=== PATIENT | male | born 1945 | race Caucasian/White ===

== ENCOUNTER 2018-07-12 13:14 | Inpatient (IN) | payer MEDICARE ==
[2018-07-12 13:41] LABS: Glucose,Whole Blood 147 mg/dL (75-99)
--- NOTE | 2018-07-12 13:53 | ED ---
General Adult HPI - General Chief complaint: Weakness Stated complaint: Poss stroke Time Seen by Provider: 07/12/18 13:28 Source: patient, family, RN notes reviewed Mode of arrival: ambulatory Limitations: no limitations - History of Present Illness Initial comments: Patient is a pleasant 73-year-old male presenting to the emergency Department with complaints of speech problems and left arm weakness. Last known well was midnight or 1 AM. Patient awoke around 10 AM this morning with symptoms. Symptoms have slightly improved since that time. Patient has paresthesias of his left hand and left wrist. Patient states it is somewhat difficult to control his left arm. Patient states he was told he sounds like he is slurring and his speech is somewhat delayed. Family is present and confirms this. Patient does have history of similar symptoms approximately one year ago associated with TIA. No leg weakness or paresthesia. - Related Data Home Medications Medication Instructions Recorded Confirmed Aspirin [[place] Aspirin EC] 81 mg PO DAILY 07/12/18 07/12/18 Atorvastatin [Lipitor] 20 mg PO DAILY 07/12/18 07/12/18 Clopidogrel [Plavix] 75 mg PO DAILY 07/12/18 07/12/18 Lisinopril [Zestril] 10 mg PO DAILY 07/12/18 07/12/18 Metoprolol Tartrate [Lopressor] 25 mg PO BID 07/12/18 07/12/18 PARoxetine [Paxil] 20 mg PO BID 07/12/18 07/12/18 Ranitidine HCl [Zantac] 150 mg PO HS 07/12/18 07/12/18 glipiZIDE [Glucotrol] 10 mg PO BID 07/12/18 07/12/18 metFORMIN HCL [Glucophage] 1,000 mg PO BID 07/12/18 07/12/18 Allergies Allergy/AdvReac Type Severity Reaction Status Date / Time No Known Allergies Allergy Verified 07/12/18 14:12 Review of Systems ROS Statement: Those systems with pertinent positive or pertinent negative responses have been documented in the HPI. ROS Other: All systems not noted in ROS Statement are negative. Constitutional: Denies: fever Eyes: Denies: eye pain ENT: Denies: ear pain Respiratory: Denies: cough Cardiovascular: Denies: chest pain Endocrine: Denies: fatigue Gastrointestinal: Denies: abdominal pain Genitourinary: Denies: dysuria Musculoskeletal: Denies: back pain Skin: Denies: rash Neurological: Reports: weakness, paresthesias. Denies: headache, confusion Past Medical History Past Medical History: Chest Pain / Angina, CVA/TIA, Diabetes Mellitus History of Any Multi-Drug Resistant Organisms: None Reported Past Surgical History: Cardiac Valve Replacement Past Psychological History: Bipolar Smoking Status: Current every day smoker Past Alcohol Use History: None Reported Past Drug Use History: None Reported General Exam Limitations: no limitations General appearance: alert, in no apparent distress Head exam: Present: atraumatic Eye exam: Present: normal appearance, PERRL ENT exam: Present: normal oropharynx Neck exam: Present: normal inspection Respiratory exam: Present: normal lung sounds bilaterally Cardiovascular Exam: Present: regular rate, normal rhythm GI/Abdominal exam: Present: soft. Absent: tenderness Extremities exam: Present: normal inspection. Absent: pedal edema, calf tenderness Neurological exam: Present: alert, CN II-XII intact (Except for left facial droop) Expanded Neurological exam: Present: protecting the airway, other (Minimal slurred speech is apparent) Patient oriented to: Present: person, place, time Cranial nerves: Facial Sensation: Normal Cerebellar function: Finger to Nose: Normal Sensory exam: Upper Extremity Light Touch: Normal, Lower Extremity Light Touch: Normal Motor strength exam: RUE: 5, LUE: 4, RLE: 5, LLE: 5 Eye Response: (4) open spontaneously Motor Response: (6) obeys commands Verbal Response: (5) oriented Psychiatric exam: Present: normal affect, normal mood Skin exam: Present: normal color Course Vital Signs 07/12/18 07/12/18 07/12/18 13:17 13:30 13:45 Temperature 97.5 F L Pulse Rate 57 L 53 L 59 L Respiratory 18 18 18 Rate Blood Pressure 160/83 100/71 100/71 O2 Sat by Pulse 98 97 96 Oximetry 07/12/18 07/12/18 14:00 14:15 Temperature Pulse Rate 54 L 56 L Respiratory 18 12 Rate Blood Pressure 100/71 124/59 O2 Sat by Pulse 96 96 Oximetry - Reevaluation(s) Reevaluation #1: 07/12/18 14:10 There is some question as onset of possibly 10 AM. Patient is now 4 hours and 10 minutes passed this questionable time. Patient does have a history of both diabetes and previous stroke and does not meet criteria for extension past 3 hours based on hospital protocol. In addition CT has just been done and would be difficult to have radiologist report done as well as TPA provided in less than 20 minutes. 07/12/18 14:14 Patient and both confirm that symptoms were present when he awoke this morning at 10:00. EKG Findings - EKG Comments: EKG Findings:: Sinus bradycardia 56. RI 146. QRS 94. QT 420. QTc 413. Normal axis. Inferior Q waves. No acute ST change. Medical Decision Making - Medical Decision Making Patient reevaluated and unchanged. Patient and family updated on results and plan. Case was discussed in detail with Dr. Gage, who will admit for hospital call. - Lab Data Result diagrams: 07/12/18 13:44 07/12/18 13:44 Lab Results 07/12/18 07/12/18 07/12/18 Range/Units 13:39 13:44 13:44 WBC 8.5 (3.8-10.6) k/uL RBC 4.58 (4.30-5.90) m/uL Hgb 13.6 (13.0-17.5) gm/dL Hct 40.5 (39.0-53.0) % MCV 88.4 (80.0-100.0) fL MCH 29.7 (25.0-35.0) pg MCHC 33.6 (31.0-37.0) g/dL RDW 14.0 (11.5-15.5) % Plt Count 230 (150-450) k/uL Neutrophils % 71 % Lymphocytes % 21 % Monocytes % 4 % Eosinophils % 3 % Basophils % 1 % Neutrophils # 6.1 (1.3-7.7) k/uL Lymphocytes # 1.8 (1.0-4.8) k/uL Monocytes # 0.3 (0-1.0) k/uL Eosinophils # 0.2 (0-0.7) k/uL Basophils # 0.1 (0-0.2) k/uL PT (9.0-12.0) sec INR (<1.2) APTT (22.0-30.0) sec Sodium (137-145) mmol/L Potassium (3.5-5.1) mmol/L Chloride (98-107) mmol/L Carbon Dioxide (22-30) mmol/L Anion Gap mmol/L BUN (9-20) mg/dL Creatinine (0.66-1.25) mg/dL Est GFR (CKD-EPI)AfAm (>60 ml/min/1.73 sqM) Est GFR (CKD-EPI)NonAf (>60 ml/min/1.73 sqM) Glucose (74-99) mg/dL POC Glucose (mg/dL) 147 H (75-99) mg/dL POC Glu Mri Manager ID Woody Mcconnell Calcium (8.4-10.2) mg/dL Total Bilirubin (0.2-1.3) mg/dL AST (17-59) U/L ALT (21-72) U/L Alkaline Phosphatase (38-126) U/L Total Creatine Kinase 42 L (55-170) U/L CK-MB (CK-2) 0.6 (0.0-2.4) ng/mL CK-MB (CK-2) Rel Index 1.4 Troponin I <0.012 (0.000-0.034) ng/mL Total Protein (6.3-8.2) g/dL Albumin (3.5-5.0) g/dL 07/12/18 07/12/18 Range/Units 13:44 13:44 WBC (3.8-10.6) k/uL RBC (4.30-5.90) m/uL Hgb (13.0-17.5) gm/dL Hct (39.0-53.0) % MCV (80.0-100.0) fL MCH (25.0-35.0) pg MCHC (31.0-37.0) g/dL RDW (11.5-15.5) % Plt Count (150-450) k/uL Neutrophils % % Lymphocytes % % Monocytes % % Eosinophils % % Basophils % % Neutrophils # (1.3-7.7) k/uL Lymphocytes # (1.0-4.8) k/uL Monocytes # (0-1.0) k/uL Eosinophils # (0-0.7) k/uL Basophils # (0-0.2) k/uL PT 10.1 (9.0-12.0) sec INR 0.9 (<1.2) APTT 23.4 (22.0-30.0) sec Sodium 139 (137-145) mmol/L Potassium 4.6 (3.5-5.1) mmol/L Chloride 110 H (98-107) mmol/L Carbon Dioxide 22 (22-30) mmol/L Anion Gap 7 mmol/L BUN 18 (9-20) mg/dL Creatinine 1.06 (0.66-1.25) mg/dL Est GFR (CKD-EPI)AfAm 82 (>60 ml/min/1.73 sqM) Est GFR (CKD-EPI)NonAf 71 (>60 ml/min/1.73 sqM) Glucose 158 H (74-99) mg/dL POC Glucose (mg/dL) (75-99) mg/dL POC Glu Mri Manager ID Calcium 9.1 (8.4-10.2) mg/dL Total Bilirubin 0.5 (0.2-1.3) mg/dL AST 14 L (17-59) U/L ALT 19 L (21-72) U/L Alkaline Phosphatase 93 (38-126) U/L Total Creatine Kinase (55-170) U/L CK-MB (CK-2) (0.0-2.4) ng/mL CK-MB (CK-2) Rel Index Troponin I (0.000-0.034) ng/mL Total Protein 6.5 (6.3-8.2) g/dL Albumin 3.7 (3.5-5.0) g/dL - Radiology Data Radiology results: report reviewed (Computed tomography scan of the brain shows probable cyst. Area of cortical hypodensity suggesting chronic encephalomalacia. Acute to subacute ischemia consider less likely. This is the right frontal lobe.) Disposition Clinical Impression: CVA (cerebral vascular accident) Disposition: ADMITTED IP TO THIS HOSP Is patient prescribed a controlled substance at d/c from ED?: No Referrals: Nonstaff,Physician [Primary Care Provider] - 1-2 days Decision Time: 14:45
[2018-07-12 14:02] LABS: Basophils # (A) 0.1 k/uL (0-0.2); Basophils % (A) 1 %; Eosinophils # (A) 0.2 k/uL (0-0.7); Eosinophils % (A) 3 %; HCT 40.5 % (39.0-53.0); HGB 13.6 gm/dL (13.0-17.5); Lymphocytes # (A) 1.8 k/uL (1.0-4.8); Lymphocytes % (A) 21 %; MCH 29.7 pg (25.0-35.0); MCHC 33.6 g/dL (31.0-37.0); MCV 88.4 fL (80.0-100.0); Mean Platelet Volume 6.8; Monocytes # (A) 0.3 k/uL (0-1.0); Monocytes % (A) 4 %; Neutrophils # (A) 6.1 k/uL (1.3-7.7); Neutrophils % (A) 71 %; Platelet Count 230 k/uL (150-450); RBC 4.58 m/uL (4.30-5.90); WBC 8.5 k/uL (3.8-10.6)
[2018-07-12 14:10] LABS: INR 0.9 (<1.2); Partial Thromboplastin Time 23.4 sec (22.0-30.0); Prothrombin Time 10.1 sec (9.0-12.0)
[2018-07-12 14:11] LABS: Albumin 3.7 g/dL (3.5-5.0); Calcium 9.1 mg/dL (8.4-10.2); Potassium 4.6 mmol/L (3.5-5.1); Total Bilirubin 0.5 mg/dL (0.2-1.3); Total Protein 6.5 g/dL (6.3-8.2)
[2018-07-12 14:20] LABS: Creatine Kinase 42 U/L (55-170)
[2018-07-12 14:33] LABS: Creatine Kinase MB 0.6 ng/mL (0.0-2.4); Troponin I <0.012 ng/mL (0.000-0.034)
--- NOTE | 2018-07-12 14:33 | CT ---
EXAMINATION TYPE: CT brain wo con DATE OF EXAM: 07/12/2018 COMPARISON: None HISTORY: 73-year-old male neurologic deficits, Left side weakness and slurred speech. TECHNIQUE: Examination was done in axial plane without intravenous contrast. Coronal and sagittal r econstructions performed. CT DLP: 1080 mGycm Automated exposure control for dose reduction was used. FINDINGS: There is no evidence of acute intracranial hemorrhage, acute ischemic changes, mass, mass-effect, or extra-axial fluid collection. There is no effacement of cerebral sulci or basal subarachnoid cister ns. There is no hydrocephalus. There is no midline shift. Martinez-white matter distinction is preserv ed. Moderate atherosclerotic calcifications within the carotid siphons. Benign basal ganglionic calcifica tions. Tiny rounded density at the foramen magnum measuring 4 mm, refer to sagittal image 26 and axia l image 27. There is no hydrocephalus. Cortical hypodensity lateral right frontal lobe that has simil ar density as compared to CSF suggesting encephalomalacia related to prior infarct, refer to axial im ages 36 through 29. Otherwise, no loss of martinez-white matter differentiation otherwise seen. Mild gene ralized supratentorial volume loss. Mastoid air cells are pneumatized. Scattered mild mucosal thickening ethmoid air cells. IMPRESSION: 1. Cortical hypodensity lateral right frontal lobe shows similar attenuation as CSF suggesting chroni c encephalomalacia relating to a prior cortical stroke. More acute to subacute ischemia here is consi dered less likely given the density. No acute intracranial abnormality seen. If concern for subtle ac [place] ischemia, follow-up MRI. 2. 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 There is no hydrocephalus. If MRI not performed now, consider six-month follow-up MRI to reassess.
--- NOTE | 2018-07-12 14:44 | P.HPIM ---
History of Present Illness 73-year-old male came to emergency department with compensative from a speech problem and left arm weakness which started today morning and he felt like his left wrist is completely asleep. Patient's speech is still abnormal but bit better. Denied any fever chills headache nausea vomiting patient Continues to smoke and is a diabetic does have high cholesterol which is under control as per the patient denied any previous history of TIA he did tell me that he had coronary artery disease as well. Distributed the CAT scan of the head which is showing possibility of chronic to subacute right frontal ischemic area. His symptomatology can be explained from these findings on the CAT scan because of which I believe patient may have an acute stroke history of CD5 findings of subacute to chronic ischemic changes on the CAT scan. I'll obtain a MRI of brain. Statin dose will be increased to 40 patient is already on Plavix and aspirin at home which will be continued. Speech therapy occupational therapy physical therapy will evaluate the patient along with neurology. The angios the head and neck was done the results is still pending. ER physician will discuss with the neurointensive rest on telemetry medicine monitor to make sure patient will not need TPA at this time. Review of Systems REVIEW OF SYSTEMS: CONSTITUTIONAL: No fever, no malaise, no fatigue. HEENT: No recent visual problems or hearing problems. Denied any sore throat. CARDIOVASCULAR: No chest pain, orthopnea, PND, no palpitations, no syncope. PULMONARY: No shortness of breath, no cough, no hemoptysis. GASTROINTESTINAL: No diarrhea, no nausea, no vomiting, no abdominal pain. NEUROLOGICAL: Patient was having mild headache HEMATOLOGICAL: Denies any bleeding or petechiae. GENITOURINARY: Denies any burning micturition, frequency, or urgency. MUSCULOSKELETAL/RHEUMATOLOGICAL: Denies any joint pain, swelling, or any muscle pain. ENDOCRINE: Denies any polyuria or polydipsia. The rest of the 14-point review of systems is negative. Past Medical History Past Medical History: Chest Pain / Angina, CVA/TIA, Diabetes Mellitus History of Any Multi-Drug Resistant Organisms: None Reported Past Surgical History: Cardiac Valve Replacement Past Psychological History: Bipolar Smoking Status: Current every day smoker Past Alcohol Use History: None Reported Past Drug Use History: None Reported Medications and Allergies Home Medications Medication Instructions Recorded Confirmed Type Aspirin [[place] Aspirin EC] 81 mg PO DAILY 07/12/18 07/12/18 History Atorvastatin [Lipitor] 20 mg PO DAILY 07/12/18 07/12/18 History Clopidogrel [Plavix] 75 mg PO DAILY 07/12/18 07/12/18 History Lisinopril [Zestril] 10 mg PO DAILY 07/12/18 07/12/18 History Metoprolol Tartrate [Lopressor] 25 mg PO BID 07/12/18 07/12/18 History PARoxetine [Paxil] 20 mg PO BID 07/12/18 07/12/18 History Ranitidine HCl [Zantac] 150 mg PO HS 07/12/18 07/12/18 History glipiZIDE [Glucotrol] 10 mg PO BID 07/12/18 07/12/18 History metFORMIN HCL [Glucophage] 1,000 mg PO BID 07/12/18 07/12/18 History Allergies Allergy/AdvReac Type Severity Reaction Status Date / Time No Known Allergies Allergy Verified 07/12/18 14:12 Physical Exam Vitals: Vital Signs Temp Pulse Resp BP Pulse Ox 07/12/18 14:15 56 L 12 124/59 96 07/12/18 14:00 54 L 18 100/71 96 07/12/18 13:45 59 L 18 100/71 96 07/12/18 13:30 53 L 18 100/71 97 07/12/18 13:17 97.5 F L 57 L 18 160/83 98 Intake and Output 07/11/18 07/12/18 07/12/18 22:59 06:59 14:59 Other: Weight 81.647 kg PHYSICAL EXAMINATION: GENERAL: The patient is alert and oriented x3, not in any acute distress. Well developed, well nourished. HEENT: Pupils are round and equally reacting to light. EOMI. No scleral icterus. No conjunctival pallor. Normocephalic, atraumatic. No pharyngeal erythema. No thyromegaly. CARDIOVASCULAR: S1 and S2 present. No murmurs, rubs, or gallops. PULMONARY: Chest is clear to auscultation, no wheezing or crackles. ABDOMEN: Soft, nontender, nondistended, normoactive bowel sounds. No palpable organomegaly. MUSCULOSKELETAL: No joint swelling or deformity. EXTREMITIES: No cyanosis, clubbing, or pedal edema. NEUROLOGICAL: She does have significant weakness in the left arm and has strength of 4+/5 by strength and 5/5 strength in the left leg. Patient does have facial droop towards the right side along with some speech abnormality SKIN: No rashes. Results CBC & Chem 7: 07/12/18 13:44 07/12/18 13:44 Labs: Abnormal Lab Results - Last 24 Hours (Table) 07/12/18 07/12/18 07/12/18 Range/Units 13:39 13:44 13:44 Chloride 110 H (98-107) mmol/L Glucose 158 H (74-99) mg/dL POC Glucose (mg/dL) 147 H (75-99) mg/dL AST 14 L (17-59) U/L ALT 19 L (21-72) U/L Total Creatine Kinase 42 L (55-170) U/L Assessment and Plan Plan: -Possible stroke involving the right frontoparietal cortex in the right middle cerebral artery territory involving the motor cortex that his Broca's area. Although patient is a right-handed male. Patient will be continued on antiplatelet therapy statin neurology consultation obtain an MRA of the pain he rates CT angios results and will make sure patient not a candidate for TPA. Counseling regarding nicotine cessation was provided occupational therapy physical therapy and speech therapy will evaluate the patient. Echocardiogram will be obtained a little will be obtained for tomorrow morning -Type 2 diabetes mellitus: Metformin will be held patient will be on sliding scale insulin along with glipizide patient will be started on diet once he passes a bedside swallow. -Hyperlipidemia -Coronary artery disease continue with beta alyson and urine antiplatelet therapy.
[2018-07-12] MEDS ORDERED: ASPIRIN 325 MG TAB PO STA (14:45)
--- NOTE | 2018-07-12 14:53 | CT ---
EXAMINATION TYPE: CT angio head neck DATE OF EXAM: 07/12/2018 COMPARISON: None HISTORY: 73-year-old male left-sided weakness and slurred speech TECHNIQUE: Contiguous axial scanning of the head and neck performed with IV Contrast, patient injecte d with 65 mL of Isovue 370. Coronal/sagittal MIP reconstructions performed. 3-D reconstructions gener ated on a dedicated independent workstation. CT DLP: 403.9 Automated exposure control for dose reduction was used. FINDINGS: Neck: Mild emphysematous change in the visualized upper lungs. Some prominent mediastinal lymph nodes, part ially visualized left paratracheal measuring up to 1.1 cm. There is very direct takeoff of the left vertebral artery directly from the aortic arch. Moderate atherosclerotic narrowing at the origin of the right vertebral artery and mild at the origin of the left vertebral artery. The right vertebral artery is dominant and both vessels are patent thr oughout the course. Mild atherosclerotic plaque at the origin of the right brachiocephalic artery. The right common carot id artery is patent. Circumferential atherosclerotic plaque in the right carotid bulb causing mild, just under 50% stenosi s. However, just above, in the proximal right ICA, there is a second irregular narrowing secondary to atherosclerotic plaque located approximately 1.5 cm above the bifurcation with a moderate, just unde r 70% stenosis. Distal cervical right ICA is tortuous. Left common carotid artery is patent. Moderate atherosclerotic change at the left bifurcation with mi ld, just under 50% narrowing of the proximal left internal carotid artery. Additional atherosclerotic calcification is present along the upper left ICA without significant narrowing. Head: Right vertebral artery is dominant. There is moderate focal narrowing at the proximal V4 segment left vertebral artery. The basilar artery is relatively small in caliber. Prominent bilateral posterior c ommunicating arteries. Moderate atherosclerotic calcification and narrowing throughout the carotid siphons without large ves saul intracranial occlusion. There is a focal severe stenosis involving the M2 segment inferior division right MCA only apparent o n the 3-D reconstructions. No aneurysmal change seen. IMPRESSION: HEAD: 1. DOMINANT RIGHT VERTEBRAL ARTERY WITH A MODERATE FOCAL NARROWING AT THE PROXIMAL V4 SEGMENT LEFT VE RTEBRAL ARTERY. THE BASILAR ARTERY IS RELATIVELY SMALL IN CALIBER. CORRELATE FOR ANY CHRONIC SYMPTOMS OF VERTEBROBASILAR INSUFFICIENCY. 2. FOCAL SEVERE STENOSIS INVOLVING THE M2 SEGMENT INFERIOR DIVISION RIGHT MCA ONLY APPARENT ON THE 3- D RECONSTRUCTIONS. 3. OTHERWISE, NO LARGE VESSEL INTRACRANIAL OCCLUSION. NECK: 1. ON THE RIGHT, THERE IS CIRCUMFERENTIAL ATHEROSCLEROTIC PLAQUE AT THE RIGHT CAROTID BULB CAUSING MN LD, JUST UNDER 50% STENOSIS. HOWEVER, JUST ABOVE, LOCATED 1.5 CM ABOVE THE BIFURCATION, THERE IS MODE RATE, JUST UNDER 70% STENOSIS IN THE PROXIMAL RIGHT ICA. 2. ON THE LEFT, THERE IS MODERATE ATHEROSCLEROTIC CHANGE CAUSING MILD, JUST UNDER 50% PROXIMAL LEFT I CA STENOSIS.
--- NOTE | 2018-07-12 15:28 | XR ---
EXAMINATION TYPE: XR chest 2V DATE OF EXAM: 07/12/2018 COMPARISON: None HISTORY: 73-year-old male confusion, altered mental status TECHNIQUE: AP and lateral views FINDINGS: Heart normal size. Aorta within normal limits. Mild interstitial prominence. Median sternotomy wires are present. No consolidation or pleural effusion. IMPRESSION: Interstitial prominence. Possible bronchitis or asthma. No focal infiltrate.
[2018-07-12] MEDS: HEPARIN SODIUM,PORCINE 5,000 UNIT/ML 1 ML VIAL SQ SCH ×2 (16:12→23:49)
--- NOTE | 2018-07-12 17:17 | P.CNNES ---
History of Present Illness Consult date: 07/12/18 History of Present Illness: The patient is a 73-year-old man who states he woke up around 10 AM and noticed his left hand was weak and numb. He also noticed some slurred speech. He states the weakness has improved slightly but he still feels slight numbness around the left wrist. His states his speech has improved some but there is still a slight slur. Patient gives a history of stroke one year ago where he when he was hospitalized at [facility] with slurred speech. The patient states he has been taking his Plavix and aspirin. His stroke risk factors includes heart disease and diabetes and smoking. Next In the emergency room the patient was found not to be a candidate for TPA. His EKG showed showed sinus bradycardia at 56. His CAT scan of the brain showed hypodensity in the right frontal lobe suggesting prior infarct. So present was a small colloid cyst. Patient had a CTA angiogram of the head and neck in the emergency room. This showed just under 50% stenosis of the right carotid bulb and a second irregular narrowing secondary to plaque approximately moderate degree just under 70% stenosis at the bifurcation. Review of Systems Constitutional: Denies chills, Denies fever Eyes: denies blurred vision, denies pain Ears, nose, mouth and throat: Denies headache, Denies sore throat Cardiovascular: Denies chest pain, Denies shortness of breath Respiratory: Denies cough Gastrointestinal: Denies abdominal pain, Denies diarrhea, Denies nausea, Denies vomiting Musculoskeletal: Denies myalgias Neurological: Denies numbness, Denies weakness Psychiatric: Denies anxiety, Denies depression Past Medical History Past Medical History: Chest Pain / Angina, CVA/TIA, Diabetes Mellitus History of Any Multi-Drug Resistant Organisms: None Reported Past Surgical History: Cardiac Valve Replacement Past Psychological History: Bipolar Smoking Status: Current every day smoker Past Alcohol Use History: None Reported Past Drug Use History: None Reported Medications and Allergies Home Medications Medication Instructions Recorded Confirmed Type Aspirin [[place] Aspirin EC] 81 mg PO DAILY 07/12/18 07/12/18 History Atorvastatin [Lipitor] 20 mg PO DAILY 07/12/18 07/12/18 History Clopidogrel [Plavix] 75 mg PO DAILY 07/12/18 07/12/18 History Lisinopril [Zestril] 10 mg PO DAILY 07/12/18 07/12/18 History Metoprolol Tartrate [Lopressor] 25 mg PO BID 07/12/18 07/12/18 History PARoxetine [Paxil] 20 mg PO BID 07/12/18 07/12/18 History Ranitidine HCl [Zantac] 150 mg PO HS 07/12/18 07/12/18 History glipiZIDE [Glucotrol] 10 mg PO BID 07/12/18 07/12/18 History metFORMIN HCL [Glucophage] 1,000 mg PO BID 07/12/18 07/12/18 History Allergies Allergy/AdvReac Type Severity Reaction Status Date / Time No Known Allergies Allergy Verified 07/12/18 14:12 Physical Examination - Vital Signs Vital Signs: Vital Signs Temp Pulse Resp BP Pulse Ox 07/12/18 16:08 50 L 18 139/81 98 07/12/18 14:15 56 L 12 124/59 96 07/12/18 14:00 54 L 18 100/71 96 07/12/18 13:45 59 L 18 100/71 96 07/12/18 13:30 53 L 18 100/71 97 07/12/18 13:17 97.5 F L 57 L 18 160/83 98 Intake and Output 07/12/18 07/12/18 07/12/18 06:59 14:59 22:59 Other: Weight 81.647 kg - Constitutional General appearance: cooperative - EENT EENT: PERRL - Respiratory Respiratory: lungs clear - Cardiovascular Cardiovascular: regular rate, normal S1, normal S2 - Integumentary Integumentary: normal - Neurologic Neurologic examination: Mental status: He was awake alert and oriented 3. He had minimal slurred speech. There was no aphasia or dysarthria. Cranial nerve examination: Cranial nerves II through XII grossly intact except for mild left facial droop Motor examination: There was a left arm drift and minimal weakness in the left hand Sensory examination: Intact Deep tendon reflexes: Intact Gait: Not tested Cranial nerve examination: PERRL, EOMI Results - Laboratory Findings CBC and BMP: 07/12/18 13:44 07/12/18 13:44 Abnormal Lab Findings: Abnormal Labs 07/12/18 07/12/18 07/12/18 13:39 13:44 13:44 Chloride 110 H Glucose 158 H POC Glucose (mg/dL) 147 H AST 14 L ALT 19 L Total Creatine Kinase 42 L Assessment and Plan (1) CVA (cerebral vascular accident) Current Visit: Yes Status: Acute SNOMED Code(s): 253563356 Plan: The patient is a 73-year-old man admitted to the hospital with left hand weakness and numbness. On neurologic examination the patient has slurred speech and left hand weakness and facial droop. The patient has likely had a right subcortical infarct. The patient is currently on Plavix and aspirin. We will consider increasing aspirin dose to 325 mg. The patient was found not to be a TPA candidate in the emergency room. Recommend further evaluation with MRI and MRA of the brain. Recommend echocardiogram and cardiology evaluation. The patient was strongly advised to stop smoking. His risk factors for stroke include, prior stroke, heart disease diabetes and smoking
[2018-07-12] MEDS: glipiZIDE 10 MG TAB PO SCH (17:20)
[2018-07-12] MEDS: INSULIN ASPART 100 UNIT/ML 1 ML 10 ML VIAL SQ SCH ×2 (17:20→21:04)
[2018-07-12 17:26] LABS: Glucose,Whole Blood 118 mg/dL (75-99)
[2018-07-12 20:32] LABS: Glucose,Whole Blood 199 mg/dL (75-99)
[2018-07-12] MEDS: PARoxetine 20 MG TAB PO SCH (21:04)
[2018-07-12] MEDS: METOPROLOL TARTRATE 25 MG TAB PO SCH (21:04)
[2018-07-12] MEDS: FAMOTIDINE 20 MG TAB PO SCH (21:04)
[2018-07-12] MEDS: SODIUM CHLORIDE 0.9% 1,000 ML IV SCH ×2 (21:12→23:51)
[2018-07-13 06:01] LABS: Glucose,Whole Blood 128 mg/dL (75-99)
[2018-07-13] MEDS: INSULIN ASPART 100 UNIT/ML 1 ML 10 ML VIAL SQ SCH ×4 (06:22→21:40)
[2018-07-13] MEDS: glipiZIDE 10 MG TAB PO SCH ×2 (07:07→17:14)
[2018-07-13 07:34] LABS: Cholesterol 143 mg/dL (<200); HDL Cholesterol 32 mg/dL (40-60); LDL Cholesterol,Calculated 83 mg/dL (0-99); Triglycerides 142 mg/dL (<150)
[2018-07-13] MEDS: PARoxetine 20 MG TAB PO SCH ×2 (09:36→21:40)
[2018-07-13] MEDS: CLOPIDOGREL 75 MG TAB PO SCH (09:36)
[2018-07-13] MEDS: ASPIRIN 325 MG TAB PO SCH (09:36)
[2018-07-13] MEDS: HEPARIN SODIUM,PORCINE 5,000 UNIT/ML 1 ML VIAL SQ SCH ×3 (09:36→23:10)
[2018-07-13] MEDS: METOPROLOL TARTRATE 25 MG TAB PO SCH (09:36)
[2018-07-13] MEDS: ATORVASTATIN 40 MG TAB PO SCH (09:36)
--- NOTE | 2018-07-13 11:04 | P.PN ---
Subjective Patient is admitted with symptoms of slurred speech and left hand and face weakness. Patient's weakness did improve a little bit compared to yesterday. Echocardiac time is still pending MRA is pending at this time neurology evaluated the patient patient is on dual antiplatelet therapy along with a statin continues to smoke smoking cessation counseling was provided. Patient had CT angios the head and neck which did show some stenosis the right middle cerebral artery territories and the there is around 70% stenosis in the right internal carotid and 50% on the left carotid. Constitutional: Denied any fatigue denied any fever. Cardio vascular: denied any chest pain, palpitations Gastrointestinal denied any nausea vomiting Pulmonary: Denied any shortness of breath cough Neurologic denied any new focal deficits All inpatient medications were reviewed and appropriate changes in these medications as dictated in the interval history and assessment and plan. Objective - Vital Signs Vital signs: Vital Signs Temp 98.2 F 07/13/18 08:00 Pulse 52 L 07/13/18 08:00 Resp 18 07/13/18 08:00 BP 127/59 07/13/18 08:00 Pulse Ox 97 07/13/18 08:00 Intake & Output 07/12/18 07/13/18 07/13/18 18:59 06:59 18:59 Intake Total 1900 240 Balance 1900 240 Weight 81.647 kg 80.3 kg Intake: Intake, IV Titration 1000 Amount Sodium Chloride 0.9% 1, 1000 000 ml @ 100 mls/hr IV . Q10H [facility] Rx#:[id number] Oral 900 240 Other: Voiding Method Toilet Toilet Toilet # Voids 2 - Exam PHYSICAL EXAMINATION: GENERAL: The patient is alert and oriented x3, not in any acute distress. Well developed, well nourished. HEENT: Pupils are round and equally reacting to light. EOMI. No scleral icterus. No conjunctival pallor. Normocephalic, atraumatic. No pharyngeal erythema. No thyromegaly. CARDIOVASCULAR: S1 and S2 present. No murmurs, rubs, or gallops. PULMONARY: Chest is clear to auscultation, no wheezing or crackles. ABDOMEN: Soft, nontender, nondistended, normoactive bowel sounds. No palpable organomegaly. MUSCULOSKELETAL: No joint swelling or deformity. EXTREMITIES: No cyanosis, clubbing, or pedal edema. NEUROLOGICAL: She does have significant weakness in the left arm and has strength of 4+/5 by strength and 5/5 strength in the left leg. Patient does have facial droop towards the right side along with some speech abnormality patient's symptoms of for speech abnormality and the left, weakness may be a little bit better SKIN: No rashes. - Labs CBC & Chem 7: 07/12/18 13:44 07/12/18 13:44 Labs: Abnormal Lab Results - Last 24 Hours (Table) 07/12/18 07/12/18 07/12/18 Range/Units 13:39 13:44 13:44 Chloride 110 H (98-107) mmol/L Glucose 158 H (74-99) mg/dL POC Glucose (mg/dL) 147 H (75-99) mg/dL AST 14 L (17-59) U/L ALT 19 L (21-72) U/L Total Creatine Kinase 42 L (55-170) U/L HDL Cholesterol (40-60) mg/dL 07/12/18 07/12/18 07/13/18 Range/Units 17:17 20:29 05:59 Chloride (98-107) mmol/L Glucose (74-99) mg/dL POC Glucose (mg/dL) 118 H 199 H 128 H (75-99) mg/dL AST (17-59) U/L ALT (21-72) U/L Total Creatine Kinase (55-170) U/L HDL Cholesterol (40-60) mg/dL 07/13/18 Range/Units 06:53 Chloride (98-107) mmol/L Glucose (74-99) mg/dL POC Glucose (mg/dL) (75-99) mg/dL AST (17-59) U/L ALT (21-72) U/L Total Creatine Kinase (55-170) U/L HDL Cholesterol 32 L (40-60) mg/dL Assessment and Plan Plan: -Possible stroke involving the right frontoparietal cortex in the right middle cerebral artery territory involving the motor cortex that his Broca's area. Although patient is a right-handed male. Patient will be continued on antiplatelet therapy statin neurology consultation obtain an MRA of the pain he rates CT angios results and will make sure patient not a candidate for TPA. Counseling regarding nicotine cessation was provided occupational therapy physical therapy and speech therapy will evaluate the patient. Echocardiogram will be obtained a little will be obtained for tomorrow morning -Type 2 diabetes mellitus: Metformin will be held patient will be on sliding scale insulin along with glipizide patient will be started on diet once he passes a bedside swallow. -Hyperlipidemia -Coronary artery disease continue with beta alyson and urine antiplatelet therapy.
[2018-07-13] MEDS: SODIUM CHLORIDE 0.9% 1,000 ML IV SCH ×2 (11:44→17:15)
[2018-07-13 12:22] LABS: Glucose,Whole Blood 129 mg/dL (75-99)
[2018-07-13 16:57] LABS: Glucose,Whole Blood 121 mg/dL (75-99)
[2018-07-13 20:56] LABS: Glucose,Whole Blood 134 mg/dL (75-99)
--- NOTE | 2018-07-13 21:28 | P.PN ---
Subjective Progress Note Date: 07/13/18 The patient is a 73-year-old man who is mated to the hospital yesterday with left arm numbness and weakness and slurred speech. Today he is feeling much better. Today his speech is more fluent. He is also gained some function in his left hand. The patient denies any new symptoms. He is awaiting MRI and MRA of the brain. The patient is currently on Plavix and aspirin therapy. Objective - Vital Signs Vital signs: Vital Signs Temp 98.1 F 07/13/18 16:00 Pulse 45 L 07/13/18 16:00 Resp 18 07/13/18 16:00 BP 126/59 07/13/18 16:00 Pulse Ox 97 07/13/18 16:00 Intake & Output 07/13/18 07/13/18 07/14/18 06:59 18:59 06:59 Intake Total 1900 960 Balance 1900 960 Weight 80.3 kg Intake: Intake, IV Titration 1000 Amount Sodium Chloride 0.9% 1, 1000 000 ml @ 100 mls/hr IV . Q10H [facility] Rx#:[id number] Oral 900 960 Other: Voiding Method Toilet Toilet # Voids 2 2 - Constitutional General appearance: Present: average body habitus - EENT ENT: Present: hearing grossly normal - Respiratory Respiratory: bilateral: CTA - Cardiovascular Rhythm: regular - Neurologic Neurologic Comment(s): Neurologic examination: Mental status: He was awake alert and oriented 3. His speech was fluent. There was no a aphasia. Next Cranial nerve examination there was very minimal left facial droop Motor examination: Minimal left hand weakness Sensory examination: Intact Gait: Not tested - Labs CBC & Chem 7: 07/12/18 13:44 07/12/18 13:44 Labs: Abnormal Lab Results - Last 24 Hours (Table) 07/13/18 07/13/18 07/13/18 Range/Units 05:59 06:53 12:16 POC Glucose (mg/dL) 128 H 129 H (75-99) mg/dL HDL Cholesterol 32 L (40-60) mg/dL 07/13/18 07/13/18 Range/Units 16:55 20:54 POC Glucose (mg/dL) 121 H 134 H (75-99) mg/dL HDL Cholesterol (40-60) mg/dL Assessment and Plan (1) CVA (cerebral vascular accident) Current Visit: Yes Status: Acute SNOMED Code(s): 647461387 Plan: The patient is a 73-year-old man admitted to the hospital with left hand weakness and numbness. The patient symptoms of weakness and slurred speech of improved today. His risk factors for stroke include, prior stroke, heart disease diabetes and smoking we await MRI and MRA of the brain. Continue Plavix and aspirin.
[2018-07-13] MEDS: FAMOTIDINE 20 MG TAB PO SCH (21:40)
[2018-07-13] MEDS: METOPROLOL TARTRATE 12.5 MG TAB PO SCH (22:47)
[2018-07-14] MEDS: SODIUM CHLORIDE 0.9% 1,000 ML IV SCH (05:00)
[2018-07-14 06:00] LABS: Glucose,Whole Blood 134 mg/dL (75-99)
[2018-07-14] MEDS: INSULIN ASPART 100 UNIT/ML 1 ML 10 ML VIAL SQ SCH ×2 (08:28→12:25)
[2018-07-14] MEDS: ASPIRIN 325 MG TAB PO SCH (08:39)
[2018-07-14] MEDS: HEPARIN SODIUM,PORCINE 5,000 UNIT/ML 1 ML VIAL SQ SCH (08:39)
[2018-07-14] MEDS: CLOPIDOGREL 75 MG TAB PO SCH (08:40)
[2018-07-14] MEDS: PARoxetine 20 MG TAB PO SCH (08:40)
[2018-07-14] MEDS: glipiZIDE 10 MG TAB PO SCH (08:40)
[2018-07-14] MEDS: METOPROLOL TARTRATE 12.5 MG TAB PO SCH (08:40)
[2018-07-14] MEDS: ATORVASTATIN 40 MG TAB PO SCH (08:40)
[2018-07-14 09:56] LABS: Hemoglobin A1C 9.1 % (4.0-6.0)
--- NOTE | 2018-07-14 10:29 | ECHOF ---
Referral Reason:Thrombus MEASUREMENTS -------- HEIGHT: 180.3 cm WEIGHT: 78.9 kg BP: IVSd: 0.9 cm (0.6 - 1.1) LVIDd: 4.3 cm (3.9 - 5.3) LVPWd: 0.9 cm (0.6 - 1.1) IVSs: 1.5 cm LVIDs: 2.5 cm LVPWs: 1.7 cm Ao Diam: 3.0 cm (2.0 - 3.7) AV Cusp: 1.4 cm (1.5 - 2.6) LA Diam: 2.6 cm (2.7 - 3.8) MV EXCURSION: 22.213 mm (> 18.000) MV EF SLOPE: 156 mm/s (70 - 150) EPSS: 0.5 cm MV E Kiko: 1.28 m/s MV DecT: 194 ms MV A Kiko: 0.60 m/s MV E/A Ratio: 2.13 RAP: 5.00 mmHg RVSP: 9.64 mmHg FINDINGS -------- Sinus rhythm. This was a technically difficult study with suboptimal views. The left ventricular size is normal. Left ventricular wall thickness is normal. Overall left vent ricular systolic function is normal with, an EF between 55 - 60 %. The right ventricle is normal in size and function. The left atrium is normal in size. The right atrium is normal in size. xx ml of Lumason was utilized for enhancement of images. The aortic valve was not well visualized. The mitral valve leaflets are mildly thickened. There is trace mitral regurgitation. No regurgitation noted The right ventricular systolic pressure, as measured by Doppler, is 9.64mmHg . Pulmonic valve appears structurally normal. The aortic root size is normal. IVC Not well visulized. The pericardium is normal. CONCLUSIONS -------- 1. Sinus rhythm. 2. This was a technically difficult study with suboptimal views. 3. The left ventricular size is normal. 4. Left ventricular wall thickness is normal. 5. Overall left ventricular systolic function is normal with, an EF between 55 - 60 %. 6. The right ventricle is normal in size and function. 7. The left atrium is normal in size. 8. The right atrium is normal in size. 9. xx ml of Lumason was utilized for enhancement of images. 10. The aortic valve was not well visualized. 11. The mitral valve leaflets are mildly thickened. 12. There is trace mitral regurgitation. 13. No regurgitation noted 14. The right ventricular systolic pressure, as measured by Doppler, is 9.64mmHg. 15. Pulmonic valve appears structurally normal. 16. The aortic root size is normal. 17. IVC Not well visulized. 18. The pericardium is normal. CAPTAIN'S ASSISTANT: Natacha Martínez RDCS
[2018-07-14 10:54] VITALS: RESP 16; TEMP 96.9
--- NOTE | 2018-07-14 11:13 | MR ---
EXAMINATION TYPE: MR angio head wo con DATE OF EXAM: 07/14/2018 COMPARISON: CT angiogram 07/12/2018 HISTORY: stroke TECHNIQUE: Time of flight images focusing on the [place] of Sin were performed without contrast. FINDINGS: Left vertebral artery is diminutive and shows poor signal at the V4 portion, possible steno sis of the right vertebral artery as noted on prior exam at the level of the distal V3, proximal V4 j unction. Anterior circulation is patent, atheromatous changes are present prior to and at the level o f the siphons bilaterally, small focal outpouching in the siphon on the left medial aspect of the int ernal carotid arteries thought to be due to atheromatous change as is a small outpouching laterally. There is no evident dissection or embolus. No evident aneurysm formation. Persistent origin of posterior cerebral artery on the right. IMPRESSION: No evident aneurysm. There are cerebral vascular atheromatous changes as described.
--- NOTE | 2018-07-14 11:20 | MR ---
EXAMINATION TYPE: MR brain wo con DATE OF EXAM: 07/14/2018 COMPARISON: CT brain from 2 days ago. HISTORY: stroke, admitted for left-sided weakness and slurred speech 2 days earlier. TECHNIQUE: Multiplanar, multisequence imaging of the brain and brainstem is performed without IV cont rast. FINDINGS: Diffusion weighted images demonstrate subcortical areas of increased signal on diffusion weighted [place] ges with diminished signal on ABC mapping involving the inferior posterior aspect right frontal lobe seen best near axial image 17 with additional smaller areas of involvement extending superiorly up st ill axial image 25, some involvement of the external capsule is noted. There is additional subcentime ter focus right parietal occipital region axial image 16 noted. No left-sided restricted diffusion is seen. There is no worrisome extra-axial fluid collection. There is ventricular and sulcal prominence consis tent with diffuse cerebral atrophy. There are few scattered small foci T2 hyperintensity throughout t he white matter. Midline structures demonstrate normal morphology. The craniocervical junction appears within normal limits. Normal vascular flow voids are present. The visualized sinuses are clear and the globes are i ntact. IMPRESSION: 1. Multifocal areas of acute infarct in the right brain most prominent involving the right frontal lo be including area suspicious under admission CT 2 days earlier. 2. There is background mild to moderate diffuse cerebral atrophy and mild chronic small vessel ischem ic change.
[2018-07-14 12:01] LABS: Glucose,Whole Blood 160 mg/dL (75-99)
[2018-07-14 12:05] VITALS: BP 156/70; PULSE 48
--- NOTE | 2018-07-14 13:08 | P.DS ---
Providers Date of admission: 07/12/18 14:31 Attending physician: Milagros Gage Consults: 07/12/18 14:34 Consult Physician Routine Consulting Provider: Moe Hoffman Consult Reason/Comments: stroke Do you want consulting provider notified?: Yes Primary care physician: Physician Nonstaff Hospital Course: Patient is admitted with symptoms of slurred speech and left hand and face weakness. Patient's weakness did improve a little bit compared to yesterday. Echocardiac time is still pending MRA is pending at this time neurology evaluated the patient patient is on dual antiplatelet therapy along with a statin continues to smoke smoking cessation counseling was provided. Patient had CT angios the head and neck which did show some stenosis the right middle cerebral artery territories and the there is around 70% stenosis in the right internal carotid and 50% on the left carotid. 07/14/2018 Patient had a brain MRI which did show multiple areas of acute infarct in the right brain prominent in the right frontal lobe which explains his symptoms. Patient weakness did improve almost close to his baseline with 5/5 strength in the left upper limb. If cleared by neurology patient will be discharged today. And is already in aspirin and Plavix will increase the dose of statin patient will was counseled again regarding importance of nicotine cessation. PHYSICAL EXAMINATION: GENERAL: The patient is alert and oriented x3, not in any acute distress. Well developed, well nourished. HEENT: Pupils are round and equally reacting to light. EOMI. No scleral icterus. No conjunctival pallor. Normocephalic, atraumatic. No pharyngeal erythema. No thyromegaly. CARDIOVASCULAR: S1 and S2 present. No murmurs, rubs, or gallops. PULMONARY: Chest is clear to auscultation, no wheezing or crackles. ABDOMEN: Soft, nontender, nondistended, normoactive bowel sounds. No palpable organomegaly. MUSCULOSKELETAL: No joint swelling or deformity. EXTREMITIES: No cyanosis, clubbing, or pedal edema. NEUROLOGICAL: Gross neurological examination did not reveal any focal deficits. SKIN: No rashes. Assessment and Plan Plan: -Possible stroke involving the right frontoparietal cortex in the right middle cerebral artery territory . Although patient is a right-handed male. Patient will be continued on antiplatelet therapy statin . Patient had an MRI and MRA MRA did show multiple areas of acute infarcts in the right frontal lobe which does explain symptoms -Type 2 diabetes mellitus: hemoglobin A1c is 9.70 appears to be noncompliant with this medications to patient blood sugars are well controlled just with the glimepiride here for -Hyperlipidemia -Coronary artery disease continue with beta alyson and urine antiplatelet therapy. Plan - Discharge Summary Discharge Rx Participant: No New Discharge Prescriptions: New Atorvastatin [Lipitor] 40 mg PO DAILY #30 tab Continue metFORMIN HCL [Glucophage] 1,000 mg PO BID glipiZIDE [Glucotrol] 10 mg PO BID Ranitidine HCl [Zantac] 150 mg PO HS PARoxetine [Paxil] 20 mg PO BID Lisinopril [Zestril] 10 mg PO DAILY Clopidogrel [Plavix] 75 mg PO DAILY Aspirin [[place] Aspirin EC] 81 mg PO DAILY Discontinued Metoprolol Tartrate [Lopressor] 25 mg PO BID Atorvastatin [Lipitor] 20 mg PO DAILY Discharge Medication List Aspirin [[place] Aspirin EC] 81 mg PO DAILY 07/12/18 [History] Clopidogrel [Plavix] 75 mg PO DAILY 07/12/18 [History] Lisinopril [Zestril] 10 mg PO DAILY 07/12/18 [History] PARoxetine [Paxil] 20 mg PO BID 07/12/18 [History] Ranitidine HCl [Zantac] 150 mg PO HS 07/12/18 [History] glipiZIDE [Glucotrol] 10 mg PO BID 07/12/18 [History] metFORMIN HCL [Glucophage] 1,000 mg PO BID 07/12/18 [History] Atorvastatin [Lipitor] 40 mg PO DAILY #30 tab 07/14/18 [Rx] Follow up Appointment(s)/Referral(s): Michaeltaff,Physician [Primary Care Provider] - 07/26/18 12:45 pm (Juan Rutledge MD [address] [place], [place] [phone] Please keep previous follow up appointment.) Liz Hoffman MD [STAFF PHYSICIAN] - 1 Week (Office will call back with follow up appointment.) Patient Instructions/Handouts: Heart Healthy Diet (DC), Ischemic Stroke (DC) Discharge Disposition: HOME SELF-CARE
== END 2018-07-14 13:38 | disposition home or self-care (01) | DRG 66 ==
LOC: EC 13:14 → 3SCARD 14:31
PROVIDERS: ADMIT Internal Medicine; ATTEND Internal Medicine
DX: I63.511 Cerebral infarction due to unspecified occlusion or stenosis of right middle cerebral artery (principal); R29.810 Facial weakness; R47.81 Slurred speech; G83.24 Monoplegia of upper limb affecting left nondominant side; R29.704 NIHSS score 4; E11.9 Type 2 diabetes mellitus without complications; E78.5 Hyperlipidemia, unspecified; F17.200 Nicotine dependence, unspecified, uncomplicated; I25.10 Atherosclerotic heart disease of native coronary artery without angina pectoris; I65.21 Occlusion and stenosis of right carotid artery; R00.1 Bradycardia, unspecified; Z95.2 Presence of prosthetic heart valve; Z79.02 Long term (current) use of antithrombotics/antiplatelets; Z79.82 Long term (current) use of aspirin; Z79.84 Long term (current) use of oral hypoglycemic drugs; Z79.899 Other long term (current) drug therapy; Z86.73 Personal history of transient ischemic attack (TIA), and cerebral infarction without residual deficits
CPT/HCPCS: 36415; 70450; 70496; 70498; 70544; 70551; 71046; 80053; 80061; 82550; 82553; 83036; 84484; 85025; 85610; 85730; 93005; 93306; 96372; 99285

== ENCOUNTER → 2019-05-16 | Outpatient (CLI) | payer MEDICARE ==
--- NOTE | 2019-05-18 09:15 | P.ARTDOP ---
Arterial Doppler LOWER EXTREMITY ARTERIAL DOPPLER: DATE OF SERVICE: 05/16/2019 Reason for study: Bilateral leg pain. Doppler waveforms: Multiphasic throughout on the left. Monophasic at right femoral and popliteal and inaudible below. Pulse volume recording: Digital waveforms near normal on the left and flat line on the right. Pressure gradients: None taken due to probable bypass graft on the left. Ankle-brachial indices: []. Toe pressures: [] on the right, [] on the left Impression: Suggests normal or near normal flow on the left. Severe right iliofemoral occlusive disease. Vascular surgical consult recommended..
== END | disposition home or self-care (01) ==
LOC: RADUSWWP 13:21
PROVIDERS: ATTEND Internal Medicine
DX: I73.9 Peripheral vascular disease, unspecified (principal); S76.312A Strain of muscle, fascia and tendon of the posterior muscle group at thigh level, left thigh, initial encounter
CPT/HCPCS: 93923

== ENCOUNTER 2019-06-14 06:09 | Emergency (ER) | payer MEDICARE ==
[2019-06-14] MEDS ORDERED: ONDANSETRON 4 MG/2 ML VIAL IVP STA (06:38)
[2019-06-14] MEDS ORDERED: MORPHINE SULFATE 4 MG/ML SYRINGE IVP STA (06:38)
--- NOTE | 2019-06-14 06:53 | ED ---
Extremity Problem HPI - General Chief complaint: Extremity Problem,Nontraumatic Stated complaint: Bilateral leg pain-diabetic Time Seen by Provider: 06/14/19 06:15 Source: patient, family, RN notes reviewed Mode of arrival: ambulatory Limitations: no limitations - History of Present Illness Initial comments: 74-year-old male presents emergency Department chief complaint of leg pain. Patient has had ongoing progressive leg pain. Patient has had a bypass on his left leg. Patient recently saw vascular surgeon at [facility] in which she had an arterial study. Patient states does not know the results of this. He states his pain does resolve if he stops walking states the pain resolves after about 10 minutes. Patient was given tramadol for his pain. Patient states he is a diabetic and has underlying neuropathy. Patient also states he is a daily smoker. Patient denies any leg swelling, discoloration. - Related Data Home Medications Medication Instructions Recorded Confirmed Aspirin [[place] Aspirin EC] 81 mg PO DAILY 07/12/18 06/14/19 Clopidogrel [Plavix] 75 mg PO DAILY 07/12/18 06/14/19 Lisinopril [Zestril] 10 mg PO DAILY 07/12/18 06/14/19 PARoxetine [Paxil] 20 mg PO BID 07/12/18 06/14/19 Ranitidine HCl [Zantac] 150 mg PO HS 07/12/18 06/14/19 metFORMIN HCL [Glucophage] 1,000 mg PO BID 07/12/18 06/14/19 Previous Rx's Medication Instructions Recorded Atorvastatin [Lipitor] 40 mg PO DAILY #30 tab 07/14/18 Allergies Allergy/AdvReac Type Severity Reaction Status Date / Time No Known Allergies Allergy Verified 06/14/19 06:22 Review of Systems ROS Statement: Those systems with pertinent positive or pertinent negative responses have been documented in the HPI. ROS Other: All systems not noted in ROS Statement are negative. Past Medical History Past Medical History: Chest Pain / Angina, CVA/TIA, Diabetes Mellitus Additional Past Medical History / Comment(s): tia 2017([place]), bipolar depression, diabetic neuropathy lt foot, osteoporosis Last Myocardial Infarction Date:: unk History of Any Multi-Drug Resistant Organisms: None Reported Past Surgical History: Cardiac Valve Replacement Additional Past Surgical History / Comment(s): quad bypass-2016, "sx lt leg- graft to retore criculation", colonoscopy/polypectomy Past Anesthesia/Blood Transfusion Reactions: No Reported Reaction Additional Past Anesthesia/Blood Transfusion Reaction / Comment(s): mild cluasterphobia (mri machines) Past Psychological History: Bipolar Smoking Status: Current every day smoker Past Alcohol Use History: None Reported Past Drug Use History: None Reported - Past Family History Mother Family Medical History: Cancer Father Family Medical History: Coronary Artery Disease (CAD), Myocardial Infarction ([place]) Additional Family Medical History / Comment(s): cabg Sister(s) Family Medical History: Coronary Artery Disease (CAD) Additional Family Medical History / Comment(s): cabg Brother(s) Family Medical History: Coronary Artery Disease (CAD) Additional Family Medical History / Comment(s): cabg General Exam Limitations: no limitations General appearance: alert, in no apparent distress Head exam: Present: atraumatic, normocephalic, normal inspection Eye exam: Present: normal appearance, PERRL, EOMI. Absent: scleral icterus, conjunctival injection, periorbital swelling Respiratory exam: Present: normal lung sounds bilaterally. Absent: respiratory distress, wheezes, rales, rhonchi, stridor Cardiovascular Exam: Present: regular rate, normal rhythm, normal heart sounds. Absent: systolic murmur, diastolic murmur, rubs, gallop, clicks Extremities exam: Present: other (Bilateral lower extremities equal color equal warmth pulse on the left this palpable, Doppler pulse was found on the right dorsal pedis and posterior tibialis faint) Neurological exam: Present: alert, oriented X3 Skin exam: Present: warm, dry, intact, normal color. Absent: rash Course Vital Signs 06/14/19 06/14/19 06:20 08:10 Temperature 97.9 F 97.6 F Pulse Rate 82 88 Respiratory 18 20 Rate Blood Pressure 154/79 181/84 O2 Sat by Pulse 97 96 Oximetry Medical Decision Making - Medical Decision Making 74-year-old male presented to for claudication type pain of his legs this has been ongoing for several weeks to months. I did review prior arterial Doppler study which shows iliofemoral stenosis in which he was supposed to follow-up with [place] surgeon and he has not. Patient does have pulses and equal color equal warmth to his lower extremities I did explain that he needs to stop smoking immediately, he needs to immediately follow up with his vascular surgeon to discuss surgery for a bypass and I did warn him of signs and symptoms of return and concern of possible complete occlusion of his right leg.I counseled the patient for smoking cessation for greater than 3 minutes - Lab Data Result diagrams: 06/14/19 07:01 06/14/19 07:01 Lab Results 06/14/19 06/14/19 06/14/19 Range/Units 07:01 07:01 07:01 WBC 7.6 (3.8-10.6) k/uL RBC 4.37 (4.30-5.90) m/uL Hgb 13.3 (13.0-17.5) gm/dL Hct 39.5 (39.0-53.0) % MCV 90.5 (80.0-100.0) fL MCH 30.4 (25.0-35.0) pg MCHC 33.6 (31.0-37.0) g/dL RDW 13.5 (11.5-15.5) % Plt Count 225 (150-450) k/uL Neutrophils % 62 % Lymphocytes % 24 % Monocytes % 5 % Eosinophils % 4 % Basophils % 3 % Neutrophils # 4.7 (1.3-7.7) k/uL Lymphocytes # 1.9 (1.0-4.8) k/uL Monocytes # 0.4 (0-1.0) k/uL Eosinophils # 0.3 (0-0.7) k/uL Basophils # 0.2 (0-0.2) k/uL PT 9.7 (9.0-12.0) sec INR 0.9 (<1.2) APTT 26.2 (22.0-30.0) sec Sodium 137 (137-145) mmol/L Potassium 4.0 (3.5-5.1) mmol/L Chloride 103 (98-107) mmol/L Carbon Dioxide 24 (22-30) mmol/L Anion Gap 10 mmol/L BUN 17 (9-20) mg/dL Creatinine 1.12 (0.66-1.25) mg/dL Est GFR (CKD-EPI)AfAm 76 (>60 ml/min/1.73 sqM) Est GFR (CKD-EPI)NonAf 66 (>60 ml/min/1.73 sqM) Glucose 135 H (74-99) mg/dL Plasma Lactic Acid Luis Miguel (0.7-2.0) mmol/L Calcium 9.5 (8.4-10.2) mg/dL 06/14/19 Range/Units 08:05 WBC (3.8-10.6) k/uL RBC (4.30-5.90) m/uL Hgb (13.0-17.5) gm/dL Hct (39.0-53.0) % MCV (80.0-100.0) fL MCH (25.0-35.0) pg MCHC (31.0-37.0) g/dL RDW (11.5-15.5) % Plt Count (150-450) k/uL Neutrophils % % Lymphocytes % % Monocytes % % Eosinophils % % Basophils % % Neutrophils # (1.3-7.7) k/uL Lymphocytes # (1.0-4.8) k/uL Monocytes # (0-1.0) k/uL Eosinophils # (0-0.7) k/uL Basophils # (0-0.2) k/uL PT (9.0-12.0) sec INR (<1.2) APTT (22.0-30.0) sec Sodium (137-145) mmol/L Potassium (3.5-5.1) mmol/L Chloride (98-107) mmol/L Carbon Dioxide (22-30) mmol/L Anion Gap mmol/L BUN (9-20) mg/dL Creatinine (0.66-1.25) mg/dL Est GFR (CKD-EPI)AfAm (>60 ml/min/1.73 sqM) Est GFR (CKD-EPI)NonAf (>60 ml/min/1.73 sqM) Glucose (74-99) mg/dL Plasma Lactic Acid Luis Miguel 1.4 (0.7-2.0) mmol/L Calcium (8.4-10.2) mg/dL Disposition Clinical Impression: Peripheral vascular disease, Arterial stenosis, Claudication of both lower extremities Disposition: HOME SELF-CARE Condition: Stable Instructions (If sedation given, give patient instructions): Peripheral Vascular Disease (ED) Additional Instructions: Please return to the Emergency Department if symptoms worsen or any other concerns. Is patient prescribed a controlled substance at d/c from ED?: No Referrals: Juan Rutledge MD [Primary Care Provider] - 1-2 days Time of Disposition: 09:31
[2019-06-14 07:19] LABS: Basophils # (A) 0.2 k/uL (0-0.2); Basophils % (A) 3 %; Eosinophils # (A) 0.3 k/uL (0-0.7); Eosinophils % (A) 4 %; HCT 39.5 % (39.0-53.0); HGB 13.3 gm/dL (13.0-17.5); Lymphocytes # (A) 1.9 k/uL (1.0-4.8); Lymphocytes % (A) 24 %; MCH 30.4 pg (25.0-35.0); MCHC 33.6 g/dL (31.0-37.0); MCV 90.5 fL (80.0-100.0); Mean Platelet Volume 6.4; Monocytes # (A) 0.4 k/uL (0-1.0); Monocytes % (A) 5 %; Neutrophils # (A) 4.7 k/uL (1.3-7.7); Neutrophils % (A) 62 %; Platelet Count 225 k/uL (150-450); RBC 4.37 m/uL (4.30-5.90); RDW 13.5 % (11.5-15.5); WBC 7.6 k/uL (3.8-10.6)
[2019-06-14 07:46] LABS: INR 0.9 (<1.2); Partial Thromboplastin Time 26.2 sec (22.0-30.0); Prothrombin Time 9.7 sec (9.0-12.0)
[2019-06-14 07:48] LABS: Calcium 9.5 mg/dL (8.4-10.2)
[2019-06-14] MEDS ORDERED: DIAZEPAM 5 MG/ML 2 ML INJ IVP STA (07:55)
[2019-06-14 08:11] VITALS: RESP 20; TEMP 97.6
[2019-06-14] MEDS ORDERED: HYDROmorphone 1 MG/ML 1 ML SYRINGE IVP STA (09:02)
[2019-06-14] MEDS ORDERED: ACET/COD 300 MG/30 MG STARTER PACK 6 TAB BTL PO STA (09:32)
[2019-06-14 09:45] VITALS: BP 153/79; PULSE 87
== END 2019-06-14 10:01 | disposition home or self-care (01) ==
LOC: EC 06:09
DX: E11.51 Type 2 diabetes mellitus with diabetic peripheral angiopathy without gangrene (principal); I77.1 Stricture of artery; I73.9 Peripheral vascular disease, unspecified; E11.40 Type 2 diabetes mellitus with diabetic neuropathy, unspecified; F31.9 Bipolar disorder, unspecified; F17.200 Nicotine dependence, unspecified, uncomplicated; Z71.6 Tobacco abuse counseling; Z79.82 Long term (current) use of aspirin; Z79.02 Long term (current) use of antithrombotics/antiplatelets; Z79.84 Long term (current) use of oral hypoglycemic drugs; Z79.899 Other long term (current) drug therapy; Z95.2 Presence of prosthetic heart valve; Z86.73 Personal history of transient ischemic attack (TIA), and cerebral infarction without residual deficits
CPT/HCPCS: 36415; 80048; 83605; 85025; 85610; 85730; 99283; 96374; 96375 ×3; J2270; J3360; J2405; J1170

== ENCOUNTER 2019-06-15 12:28 | Emergency (ER) | payer MEDICARE ==
[2019-06-15] MEDS ORDERED: HYDROmorphone 1 MG/ML 1 ML SYRINGE IVP STA (12:54)
[2019-06-15] MEDS: KETOROLAC 30 MG/ML 1 ML VIAL IVP STA ×2 (13:16→14:56)
[2019-06-15] MEDS: ONDANSETRON 4 MG/2 ML VIAL IVP STA ×2 (13:16→14:56)
[2019-06-15 13:27] LABS: Basophils # (A) 0.1 k/uL (0-0.2); Basophils % (A) 2 %; Eosinophils # (A) 0.2 k/uL (0-0.7); Eosinophils % (A) 3 %; HCT 41.7 % (39.0-53.0); HGB 13.9 gm/dL (13.0-17.5); Lymphocytes # (A) 1.4 k/uL (1.0-4.8); Lymphocytes % (A) 21 %; MCH 30.5 pg (25.0-35.0); MCHC 33.4 g/dL (31.0-37.0); MCV 91.3 fL (80.0-100.0); Mean Platelet Volume 6.3; Monocytes # (A) 0.3 k/uL (0-1.0); Monocytes % (A) 5 %; Neutrophils # (A) 4.4 k/uL (1.3-7.7); Neutrophils % (A) 69 %; Platelet Count 236 k/uL (150-450); RBC 4.56 m/uL (4.30-5.90); RDW 13.7 % (11.5-15.5); WBC 6.5 k/uL (3.8-10.6)
[2019-06-15 13:37] LABS: Calcium 9.4 mg/dL (8.4-10.2); Potassium 4.2 mmol/L (3.5-5.1)
[2019-06-15 13:49] LABS: INR 0.9 (<1.2); Partial Thromboplastin Time 25.1 sec (22.0-30.0); Prothrombin Time 9.9 sec (9.0-12.0)
--- NOTE | 2019-06-15 13:57 | ED ---
Recheck HPI - General Chief Complaint: Recheck/Abnormal Lab/Rx Stated Complaint: problem with leg Time Seen by Provider: 06/15/19 12:52 Source: patient, RN notes reviewed Mode of arrival: wheelchair Limitations: no limitations - History of Present Illness Initial Comments: 74-year-old male presents emergency from for recheck of his right leg. Patient states she seen here yesterday for peripheral vascular disease pain. Patient states that he was told that he has an occlusion of his ilial from oral region. He states he was given pain medication which greatly helped his symptoms. He did contact his primary care physician and his vascular surgeon who are out of TOWN UNTIL NEXT WEEK. PATIENT WAS CONCERNED SO HE CAME BACK TO THE EMERGENCY DEPARTMENT TO BE REEVALUATED. - Related Data Home Medications Medication Instructions Recorded Confirmed Aspirin [[place] Aspirin EC] 81 mg PO DAILY 07/12/18 06/14/19 Clopidogrel [Plavix] 75 mg PO DAILY 07/12/18 06/14/19 Lisinopril [Zestril] 10 mg PO DAILY 07/12/18 06/14/19 PARoxetine [Paxil] 20 mg PO BID 07/12/18 06/14/19 Ranitidine HCl [Zantac] 150 mg PO HS 07/12/18 06/14/19 metFORMIN HCL [Glucophage] 1,000 mg PO BID 07/12/18 06/14/19 Previous Rx's Medication Instructions Recorded Atorvastatin [Lipitor] 40 mg PO DAILY #30 tab 07/14/18 Allergies Allergy/AdvReac Type Severity Reaction Status Date / Time No Known Allergies Allergy Verified 06/14/19 06:22 Review of Systems ROS Statement: Those systems with pertinent positive or pertinent negative responses have been documented in the HPI. ROS Other: All systems not noted in ROS Statement are negative. Past Medical History Past Medical History: Chest Pain / Angina, CVA/TIA, Diabetes Mellitus Additional Past Medical History / Comment(s): tia 2017([place]), bipolar depression, diabetic neuropathy lt foot, osteoporosis Last Myocardial Infarction Date:: unk History of Any Multi-Drug Resistant Organisms: None Reported Past Surgical History: Cardiac Valve Replacement Additional Past Surgical History / Comment(s): quad bypass-2016, "sx lt leg- graft to retore criculation", colonoscopy/polypectomy Past Anesthesia/Blood Transfusion Reactions: No Reported Reaction Additional Past Anesthesia/Blood Transfusion Reaction / Comment(s): mild clu asterphobia (mri machines) Past Psychological History: Bipolar Smoking Status: Current every day smoker Past Alcohol Use History: None Reported Past Drug Use History: None Reported - Past Family History Mother Family Medical History: Cancer Father Family Medical History: Coronary Artery Disease (CAD), Myocardial Infarction ([place]) Additional Family Medical History / Comment(s): cabg Sister(s) Family Medical History: Coronary Artery Disease (CAD) Additional Family Medical History / Comment(s): cabg Brother(s) Family Medical History: Coronary Artery Disease (CAD) Additional Family Medical History / Comment(s): cabg General Exam Limitations: no limitations General appearance: alert, in no apparent distress Head exam: Present: atraumatic, normocephalic, normal inspection Neck exam: Present: normal inspection, full ROM. Absent: tenderness, meningismus, lymphadenopathy Respiratory exam: Present: normal lung sounds bilaterally. Absent: respiratory distress, wheezes, rales, rhonchi, stridor Cardiovascular Exam: Present: regular rate, normal rhythm, normal heart sounds. Absent: systolic murmur, diastolic murmur, rubs, gallop, clicks Extremities exam: Present: other (2+ pulses on the left, pulses found with Doppler, equal color equal warmth the lower extremities. Patient has full range of motion) Neurological exam: Present: alert, oriented X3 Skin exam: Present: warm, dry, intact, normal color. Absent: rash Course Vital Signs 06/15/19 06/15/19 12:46 14:51 Temperature 97.8 F Pulse Rate 92 70 Respiratory 18 16 Rate Blood Pressure 126/72 136/61 O2 Sat by Pulse 97 98 Oximetry Medical Decision Making - Medical Decision Making Patient's CT shows occlusion of iliac to femoral region though he has collateral flow any does have pulses of his lower extremity. I did explain that this is probably more chronic though he does need to follow-up with vascular he states he has a vascular surgeon who also he provided Dr. Eduardo on-call vascular surgeon. Again he has counseled in detail greater than 3 minutes to stop smoking. Patient will return for any change in symptoms. - Lab Data Result diagrams: 06/15/19 13:10 06/15/19 13:10 Lab Results 06/15/19 06/15/19 06/15/19 Range/Units 13:10 13:10 13:10 WBC 6.5 (3.8-10.6) k/uL RBC 4.56 (4.30-5.90) m/uL Hgb 13.9 (13.0-17.5) gm/dL Hct 41.7 (39.0-53.0) % MCV 91.3 (80.0-100.0) fL MCH 30.5 (25.0-35.0) pg MCHC 33.4 (31.0-37.0) g/dL RDW 13.7 (11.5-15.5) % Plt Count 236 (150-450) k/uL Neutrophils % 69 % Lymphocytes % 21 % Monocytes % 5 % Eosinophils % 3 % Basophils % 2 % Neutrophils # 4.4 (1.3-7.7) k/uL Lymphocytes # 1.4 (1.0-4.8) k/uL Monocytes # 0.3 (0-1.0) k/uL Eosinophils # 0.2 (0-0.7) k/uL Basophils # 0.1 (0-0.2) k/uL PT (9.0-12.0) sec INR (<1.2) APTT (22.0-30.0) sec Sodium 139 (137-145) mmol/L Potassium 4.2 (3.5-5.1) mmol/L Chloride 104 (98-107) mmol/L Carbon Dioxide 26 (22-30) mmol/L Anion Gap 9 mmol/L BUN 18 (9-20) mg/dL Creatinine 1.14 (0.66-1.25) mg/dL Est GFR (CKD-EPI)AfAm 74 (>60 ml/min/1.73 sqM) Est GFR (CKD-EPI)NonAf 64 (>60 ml/min/1.73 sqM) Glucose 198 H (74-99) mg/dL Plasma Lactic Acid Luis Miguel 1.2 (0.7-2.0) mmol/L Calcium 9.4 (8.4-10.2) mg/dL 06/15/19 Range/Units 13:10 WBC (3.8-10.6) k/uL RBC (4.30-5.90) m/uL Hgb (13.0-17.5) gm/dL Hct (39.0-53.0) % MCV (80.0-100.0) fL MCH (25.0-35.0) pg MCHC (31.0-37.0) g/dL RDW (11.5-15.5) % Plt Count (150-450) k/uL Neutrophils % % Lymphocytes % % Monocytes % % Eosinophils % % Basophils % % Neutrophils # (1.3-7.7) k/uL Lymphocytes # (1.0-4.8) k/uL Monocytes # (0-1.0) k/uL Eosinophils # (0-0.7) k/uL Basophils # (0-0.2) k/uL PT 9.9 (9.0-12.0) sec INR 0.9 (<1.2) APTT 25.1 (22.0-30.0) sec Sodium (137-145) mmol/L Potassium (3.5-5.1) mmol/L Chloride (98-107) mmol/L Carbon Dioxide (22-30) mmol/L Anion Gap mmol/L BUN (9-20) mg/dL Creatinine (0.66-1.25) mg/dL Est GFR (CKD-EPI)AfAm (>60 ml/min/1.73 sqM) Est GFR (CKD-EPI)NonAf (>60 ml/min/1.73 sqM) Glucose (74-99) mg/dL Plasma Lactic Acid Luis Miguel (0.7-2.0) mmol/L Calcium (8.4-10.2) mg/dL Disposition Clinical Impression: Claudication of both lower extremities, Peripheral vascular disease, Arterial occlusion Disposition: HOME SELF-CARE Condition: Stable Instructions (If sedation given, give patient instructions): Peripheral Artery Disease (ED) Additional Instructions: Please return to the Emergency Department if symptoms worsen or any other concerns. Is patient prescribed a controlled substance at d/c from ED?: No Referrals: Juan Rutledge MD [Primary Care Provider] - 1-2 days Lucille Eduardo DO [STAFF PHYSICIAN] - 1-2 days Time of Disposition: 15:32
--- NOTE | 2019-06-15 15:19 | CT ---
EXAMINATION TYPE: CT angio abd aorta w/Runoff DATE OF EXAM: 06/15/2019 2:45 PM COMPARISON: None HISTORY: Right leg pain, burning in calves, iliofemoral stenosis CT DLP: 2429.7 mGycm Automated exposure control for dose reduction was used. TECHNIQUE: Performed without and with IV Contrast, patient injected with 100 mL of Isovue 370. . FINDINGS: Limited CT sections are obtained the lung bases which appear to have some mild compressive atelectasi s within the right lung base. Lung bases are otherwise clear. CT ABDOMEN: Liver and spleen at this phase of contrast appear unremarkable. The pancreas is normal. G allbladder is unremarkable. Adrenal glands are normal. Kidneys are normal without masses cysts or hyd ronephrosis. Vascular calcification is noted within the aorta. Inferior vena cava is flattened which can be related to the patient's volume status. Loops of bowel within the abdomen and pelvis are unremarkable. The appendix is air-filled and unremar kable. CT PELVIS: Some fecal debris is at the level of the rectum. Urinary bladder is unremarkable. Prostate is slightly prominent. Some diverticular change may be within the sigmoid colon. AORTIC RUNOFF: Vascular calcification is within the aorta. Contrast extends through the aorta to the aortic bifurcation. The proximal right common iliac artery is obstructed. Internal and external iliac vessels on the righ t do not have contrast. Reconstitution from collateral flow of the right common femoral artery eviden t. The left common iliac, internal and external iliac, and common femoral arteries on the left are paten t. Profunda femoris and superficial femoral arteries are patent bilaterally. The caliber of the super ficial femoral artery on the right is smaller than on the left. 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 Superficial femoral arteries are patent to the level of the obtu rator canal. There are focal areas of stenosis of the proximal popliteal artery on the right. There may be an aneu rysm of the left popliteal artery without contrast measuring up to 1.2 cm. Additional 1.4 cm aneurysm of the left popliteal artery may be present. Contrast passes from the superficial femoral arteries t o the trifurcation vessel region on the left. Trifurcation vessels are identified. The anterior tibial arteries are patent proximally but appear to terminate within the upper calf region. There appears to be collateral vessels from the peroneal art chandler. Peroneal artery on the right appears to be patent to the level of the ankle. The peroneal artery on the left appears patent to the level of the ankle. Posterior tibial arteries are poorly visualize d beyond the proximal portion. There may be reconstitution of the anterior tibial artery below the le dacia of the ankle on the right. IMPRESSION: OBSTRUCTION OF THE RIGHT COMMON ILIAC ARTERY WITH OUT CONTRAST EXTENDING TO THE RIGHT COMMON FEMORAL ARTERY. THE RIGHT COMMON FEMORAL ARTERY IS RECONSTITUTED FROM COLLATERAL FLOW. 2. FOCAL STENOSIS WITHIN THE RIGHT POPLITEAL ARTERY. 3. SUSPECTED ANEURYSMS WITHIN THE PATENT POPLITEAL ARTERY ON THE LEFT. 4. POOR VISUALIZATION OF THE TRIFURCATION VESSELS BEYOND THE PROXIMAL CALF REGION. PERONEAL ARTERIES APPEAR TO REACH THE LEVEL OF THE ANKLES BILATERALLY
[2019-06-15 15:48] VITALS: BP 149/99; PULSE 73; RESP 20; TEMP 97.7
== END 2019-06-15 15:47 | disposition home or self-care (01) ==
LOC: EC 12:28
DX: I73.9 Peripheral vascular disease, unspecified (principal); I77.1 Stricture of artery; M81.0 Age-related osteoporosis without current pathological fracture; I25.2 Old myocardial infarction; E11.40 Type 2 diabetes mellitus with diabetic neuropathy, unspecified; F31.9 Bipolar disorder, unspecified; F17.200 Nicotine dependence, unspecified, uncomplicated; Z71.6 Tobacco abuse counseling; Z79.84 Long term (current) use of oral hypoglycemic drugs; Z79.02 Long term (current) use of antithrombotics/antiplatelets; Z79.82 Long term (current) use of aspirin; Z86.73 Personal history of transient ischemic attack (TIA), and cerebral infarction without residual deficits; Z79.899 Other long term (current) drug therapy; Z95.4 Presence of other heart-valve replacement
CPT/HCPCS: 36415; 80048; 83605; 85025; 85610; 85730; 75635; 99284; 96374; 96375 ×2; J2405; J1885; J1170; Q9967

== ENCOUNTER → 2019-07-05 | Outpatient (CLI) | payer MEDICARE ==
[2019-07-05 11:43] LABS: Basophils # (A) 0.1 k/uL (0-0.2); Basophils % (A) 1 %; Eosinophils # (A) 0.2 k/uL (0-0.7); Eosinophils % (A) 2 %; HCT 43.5 % (39.0-53.0); HGB 14.5 gm/dL (13.0-17.5); Lymphocytes # (A) 1.9 k/uL (1.0-4.8); Lymphocytes % (A) 22 %; MCHC 33.3 g/dL (31.0-37.0); MCV 92.9 fL (80.0-100.0); Mean Platelet Volume 7.1; Monocytes # (A) 0.3 k/uL (0-1.0); Monocytes % (A) 4 %; Neutrophils # (A) 6.1 k/uL (1.3-7.7); Neutrophils % (A) 70 %; Platelet Count 249 k/uL (150-450); RBC 4.69 m/uL (4.30-5.90); RDW 13.9 % (11.5-15.5); WBC 8.7 k/uL (3.8-10.6)
[2019-07-05 12:03] LABS: Potassium 4.5 mmol/L (3.5-5.1)
== END | disposition home or self-care (01) ==
LOC: LABPAT 10:32
PROVIDERS: ATTEND Surgery
DX: Z01.812 Encounter for preprocedural laboratory examination (principal); I74.5 Embolism and thrombosis of iliac artery
CPT/HCPCS: 36415; 80051; 82565; 84520; 85025

== ENCOUNTER 2019-07-06 15:55 | Inpatient (IN) | payer MEDICARE ==
[2019-07-05 11:25] VITALS: BMI 22.4
[2019-07-07] MEDS ORDERED: SODIUM CHLORIDE 0.9% 1,000 ML in EMPTY BAG 1 BAG IV ONE (07:34)
[2019-07-07] MEDS ORDERED: ALPRAZolam 0.25 MG TAB PO PRN (07:34)
[2019-07-07] MEDS ORDERED: ASPIRIN 325 MG TAB PO STA (07:34)
[2019-07-07 09:59] LABS: Glucose,Whole Blood 129 mg/dL (75-99)
[2019-07-07] MEDS ORDERED: SODIUM CHLORIDE 0.9% 1,000 ML IV ONE (10:19)
[2019-07-07] MEDS ORDERED: MIDAZOLAM 2 MG/2 ML VIAL IV ONE (10:50)
[2019-07-07] MEDS: fentaNYL (PF) 50 MCG/ML 2 ML AMP IV ONE ×2 (10:51→11:21)
[2019-07-07] MEDS ORDERED: LIDOCAINE 1% INJ 10MG/ML (20 ML MDV) SQ ONE (10:52)
[2019-07-07] MEDS: HEPARIN SODIUM 1,000 UN/ML (10ML VL) IV ONE ×2 (11:28→12:11)
[2019-07-07] MEDS ORDERED: ALTEPLASE 2 MG VIAL (CATHFLO) IV STA (12:32)
[2019-07-07] MEDS ORDERED: fentaNYL (PF) 50 MCG/ML 2 ML AMP IV ONE (12:41)
[2019-07-07] MEDS ORDERED: HEPARIN SOD,PORK IN 0.45% NACL 25,000 UNIT in 0.45% NACL 1 250ML.BAG IV ONE (13:09)
[2019-07-07] MEDS: SODIUM CHLORIDE 0.9% 100 ML with ALTEPLASE 10 MG IA ONE ×4 (13:09→23:11)
[2019-07-07] MEDS ORDERED: HYDROmorphone 1 MG/ML 1 ML SYRINGE IVP ONE (13:10)
[2019-07-07] MEDS ORDERED: IOPAMIDOL-250 100ML BTL IV ONE ×2 (13:12)
--- NOTE | 2019-07-07 13:44 | IR ---
Fluoroscopy HISTORY: Pain in right leg 49.8 minutes fluoroscopy time supplied to the referring clinician. 239 intraoperative C-arm images d ocument the procedure. See dictated report from vascular surgery.
[2019-07-07] MEDS ORDERED: MORPHINE SULFATE 2 MG/ML SYRINGE IVP PRN (13:56)
[2019-07-07] MEDS ORDERED: MORPHINE SULFATE 4 MG/ML SYRINGE IVP PRN (13:56)
--- NOTE | 2019-07-07 14:18 | P.OP ---
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 ultrasound-guided left common femoral artery access 2. left iliofemoral angiogram 3. Ultrasound guided left brachial artery access 4. placement of catheter in the aorta, Aortogram 5. Selective right lower extremity angiogram, second-order 6. initiation of TPA thrombolysis 7. 125 minutes moderate conscious sedation with fentanyl and Versed Surgeon: Lucille Eduardo D.O. Anesthesia: Conscious sedation with Versed and fentanyl, local EBL: [10 mL] IV fluids: [see records] Urine output: [not measured] Drains: [none] Complications: [none immediately apparent] Condition: [stable to ICU] Operative indication and findings: [the patient is a 74-year-old male who recently and abruptly had new onset of right lower extremity neuropathy and pain approximately 1 month ago. He presented to the ER at that time and on CT scan was found to have an occluded right common iliac artery with reconstitution of hisdistal external iliac artery. He was ultimately seen in my office and after reviewing imaging and his clinical picture was decided this was somewhat more acute therefore he was scheduled for a procedure today with an aortogram as well as likely thrombolysis. the plan on follow-up would be to place a stent over the area of the ulcerative aorta as well as his iliac areas Risks and benefits of going forward with this plan were discussed the patient and his . They seemingly understand and are willing to proceed. the aorta was nonuniform with areas of ulceration and thrombus. There was abrupt occlusion of the right iliac artery shortly after takeoff. Distal reconstitution at the external iliac artery was visualized after significant timeframe. The left common iliac artery is patent without evidence of disease. The left internal iliac artery is diminutive with high-grade stenosis at its takeoff. The left external iliac artery is patent without evidence of si gnificant disease. The right superficial femoral artery is patent without evidence of significant disease at the proximal portion. ] Procedure in detail: [the patient was taken to the special suite and placed in supine position. The bilateral groins are prepped and draped in usual sterile fashion. A preprocedure timeout was performed, all parties are in agreement. The patient was initiated on moderate conscious sedation as above. The left common femoral artery was identified. The skin overlying was anesthetized with 1% lidocaine plain. A micropuncture needle was utilized and the artery was accessed. Seldinger technique was used and a 6-[place]izen [place] sheath was placed. a iliofemoral angiogram was performed with visualization of the occluded segment.Utilizing catheters and wires multiple attempts were madeTo cross the right iliac lesion yet were unsuccessful. At that point the left arm was prepped and draped in sterile fashion. A ultrasound was utilized and a micropuncture needle to access the brachial artery. Seldinger technique was performed and a 5-[place]izen [place] sheath was placed an aortogram was performed and the findings as above. Multiple catheters and wires were used to attempt crossing the iliac lesion finally utilizing a glide advantage wire and a quick cross, the lesion was crossed. Positioning in the intraluminal femoral artery was confirmed with an angiogram. At that point the glide advantage wire was left in place, the sheath was exchanged for a 5-Citizen [place] long. A 20 cm infusion catheter was placed found be assessed artery final position. The inner corewire was placedwithout issue. the sheaths at both sites were sutured in place with 2-0 silk. Dressings were placed at all sites. The TPA infusion catheter was initiated. The patient was sent to ICU in stable condition having tolerated the procedure well. We'll plan for rechecked tomorrow with hospital stent placement]
[2019-07-07] MEDS ORDERED: SODIUM CHLORIDE 0.9% 1,000 ML IV SCH ×2 (14:30)
[2019-07-07] MEDS: HEPARIN SOD,PORK IN 0.45% NACL 25,000 UNIT in 0.45% NACL 1 250ML.BAG IV SCH (15:40)
[2019-07-07 15:54] LABS: Basophils # (A) 0.1 k/uL (0-0.2); Basophils % (A) 1 %; Eosinophils # (A) 0.2 k/uL (0-0.7); Eosinophils % (A) 3 %; HCT 39.7 % (39.0-53.0); HGB 12.8 gm/dL (13.0-17.5); Lymphocytes % (A) 30 %; MCH 30.2 pg (25.0-35.0); MCHC 32.3 g/dL (31.0-37.0); MCV 93.3 fL (80.0-100.0); Mean Platelet Volume 6.9; Monocytes # (A) 0.3 k/uL (0-1.0); Monocytes % (A) 4 %; Neutrophils # (A) 3.9 k/uL (1.3-7.7); Neutrophils % (A) 61 %; Platelet Count 160 k/uL (150-450); RBC 4.26 m/uL (4.30-5.90); RDW 13.9 % (11.5-15.5); WBC 6.5 k/uL (3.8-10.6)
[2019-07-07 16:05] LABS: African American GFR (CKD) >90 (>60 ml/min/1.73 sqM); Blood Urea Nitrogen 16 mg/dL (9-20); Non-African American GFR(CKD) 83 (>60 ml/min/1.73 sqM)
[2019-07-07 16:43] LABS: INR 0.9 (<1.2); Partial Thromboplastin Time 30.3 sec (22.0-30.0); Prothrombin Time 10.2 sec (9.0-12.0)
[2019-07-07 17:10] LABS: Glucose,Whole Blood 87 mg/dL (75-99)
[2019-07-07] MEDS ORDERED: NALOXONE 0.4 MG/ML 1 ML VIAL IV PRN (17:30)
--- NOTE | 2019-07-07 18:21 | P.CONS ---
History of Present Illness - Reason for Consult Consult date: 07/07/19 diabetic management Requesting physician: Lucille Eduardo - Chief Complaint right leg claudication - History of Present Illness patient is a 74-year-old male past medical history of diabetes mellitus type 2, cerebrovascular accident, coronary artery disease status post 4 vessel bypass in 2010, COPD, and osteoporosis who presented for elective aortogram with treatment secondary to claudication. Patient seen and examined at bedside. He reports that he has been having significant claudication both at rest and worse with ambulation for the last several weeks. He presented to the ER several times and ultimately followed up with Dr. Eduardo. He denies any recent cough, cold, fever, flu, nausea, or vomiting. He reports that he takes to fpc at night and metformin twice daily. He states his blood sugars have been in the 80s to 90s at home and that he has been successfully using a low carb diet and losing weight. He recently moved to the floor here on area and plans on following up with Dr. Zafar but has not yet established a PCP. Review of Systems Pertinent positives and negatives as discussed in HPI, a complete review of systems was performed and all other systems are negative. Past Medical History Past Medical History: Coronary Artery Disease (CAD), Chest Pain / Angina, COPD, CVA/TIA, Diabetes Mellitus, Hearing Disorder / Deafness, Myocardial Infarction ([place]), Syncope, Vascular Disorder Additional Past Medical History / Comment(s): CVA x2, last 2018, recovered. Diabetic neuropathy feet, osteoporosis. Blockage in Rt leg. States out of most of Rx for past month, due to income/costs. Last Myocardial Infarction Date:: 2006 History of Any Multi-Drug Resistant Organisms: None Reported Past Surgical History: Coronary Bypass/CABG, Heart Catheterization With Stent Additional Past Surgical History / Comment(s): Quad bypass-2010, "sx lt leg- graft to retore criculation", colonoscopy/polypectomy Past Anesthesia/Blood Transfusion Reactions: No Reported Reaction Additional Past Anesthesia/Blood Transfusion Reaction / Comm: mild claustrophobia (mri machines) Date of Last Stent Placement:: unknown Past Psychological History: Bipolar Smoking Status: Current every day smoker Past Alcohol Use History: None Reported Additional Past Alcohol Use History / Comment(s): started smoking at age 14, smokes 1 ppd Past Drug Use History: None Reported - Past Family History Mother Family Medical History: Cancer Father Family Medical History: Coronary Artery Disease (CAD), Myocardial Infarction ([place]) Additional Family Medical History / Comment(s): cabg Sister(s) Family Medical History: Coronary Artery Disease (CAD) Additional Family Medical History / Comment(s): cabg Brother(s) Family Medical History: Coronary Artery Disease (CAD) Additional Family Medical History / Comment(s): cabg Medications and Allergies Home Medications Medication Instructions Recorded Confirmed Type Aspirin [[place] Aspirin EC] 81 mg PO DAILY 07/12/18 07/07/19 History Clopidogrel [Plavix] 75 mg PO DAILY 07/12/18 07/07/19 History Lisinopril [Zestril] 10 mg PO DAILY 07/12/18 07/07/19 History PARoxetine [Paxil] 20 mg PO BID 07/12/18 07/07/19 History Ranitidine HCl [Zantac] 150 mg PO HS 07/12/18 07/07/19 History metFORMIN HCL [Glucophage] 1,000 mg PO BID 07/12/18 07/07/19 History Atorvastatin [Lipitor] 40 mg PO DAILY #30 tab 07/14/18 07/07/19 Rx Allergies Allergy/AdvReac Type Severity Reaction Status Date / Time No Known Allergies Allergy Verified 07/07/19 09:57 Physical Exam Osteopathic Statement: *. No significant issues noted on an osteopathic structural exam other than those noted in the History and Physical/Consult. Vitals: Vital Signs Temp Pulse Pulse Pulse Resp BP BP 07/07/19 17:00 59 L 14 145/66 07/07/19 16:30 60 12 146/69 07/07/19 16:00 97.6 F 49 L 65 14 144/68 07/07/19 15:30 53 L 12 146/75 07/07/19 15:10 57 L 13 146/75 07/07/19 15:00 52 L 10 L 151/63 07/07/19 14:50 61 10 L 07/07/19 14:35 65 16 158/72 07/07/19 13:52 12 07/07/19 09:59 97.6 F 63 16 193/81 BP Pulse Ox 07/07/19 17:00 96 07/07/19 16:30 94 L 07/07/19 16:00 97 07/07/19 15:30 97 07/07/19 15:10 96 07/07/19 15:00 96 07/07/19 14:50 07/07/19 14:35 07/07/19 13:52 146/75 07/07/19 09:59 168/77 96 Intake and Output 07/07/19 07/07/19 07/07/19 06:59 14:59 22:59 Intake Total 277 225 Output Total 400 575 Balance -123 -350 Intake: IV 277 225 Sodium Chloride 0.9% 1, 75 225 000 ml @ 75 mls/hr IV . [id number] [facility] Rx#: [id number] Output: Urine 400 575 Other: Voiding Method Urinal Weight 72.5 kg General: non toxic, no distress, appears younger than stated age, normal weight Derm: no unusual rashes/lesions no unusual ecchymoses, warm, dry Head: atraumatic, normocephalic, symmetric Eyes: EOMI, no lid lag, anicteric sclera, pupils equal round reactive to light ENT: Nose and ears atraumatic, no thrush, no pharyngeal erythema Neck: No thyromegaly, no cervical lymphadenopathy, trachea midline, supple Mouth: no lip lesion, mucus membranes moist Cardiovascular: S1S2 reg, no murmur, absent posterior tibial pulse bilateral, no edema, capillary refill less than 2 seconds Lungs: CTA bilateral, no rhonchi, no rales , no accessory muscle use Abdominal: soft, nontender to palpation, no guarding, no appreciable organomegaly, normal bowel sounds Ext: no gross muscle atrophy, muscle strength 5 out of 5 in right upper extremity extremities grossly, no contractures, Neuro: CN II-XI grossly intact, light touch intact all 4 extremities, finger to nose within normal limits, Psych: Alert, oriented, appropriate affect Results CBC & Chem 7: 07/07/19 15:39 07/07/19 15:39 Labs: Abnormal Lab Results - Last 24 Hours (Table) 07/07/19 07/07/19 07/07/19 Range/Units 09:54 15:39 15:39 RBC 4.26 L (4.30-5.90) m/uL Hgb 12.8 L (13.0-17.5) gm/dL APTT 30.3 H (22.0-30.0) sec POC Glucose (mg/dL) 129 H (75-99) mg/dL Assessment and Plan Assessment: Patient is a 74 yo CM s/p TPA thrombolysis to right common iliac artery. Management per vascular surgery. DM 2 - hold metformin - substitue toujeo with levemir - SSI - Follow BS - Check A1C HTN -lisinopril HLD - statin CAD - hold plavix and ASA while getting TPA, statin Thank you for allowing us to participate in the care of this pleasant patient. Do not hesitate to contact us with questions. Someone can be reached from the [facility] hospitalist group all hours of the day at [phone] or via [email or web address].
--- NOTE | 2019-07-07 18:55 | P.CNPUL ---
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 He presented emergency department and a CAT scan showed an occluded right common iliac artery with reconstruction of his distal external iliac artery. He was seen in the office and the patient was scheduled for this procedure stay. 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 He was brought into the intensive care unit for further monitoring. Known to have coronary artery disease and is undergone previous bypass surgery in 2010. He is known to have COPD diabetes mellitus and previous history of CVA along with peripheral vascular disease. He is doing well. He has no pulses in the right lower extremity but he has good collaterals and the e xtremities warm. Review of Systems Constitutional: Denies chills, Denies fever Eyes: denies as per HPI, denies blurred vision, denies bulging eye, denies decreased vision, denies diplopia, denies discharge, denies dry eye, denies irr itation, denies itching, denies pain, denies photophobia, denies loss of peripheral vision, denies loss of vision, denies tunnel vision/blind spots Ears: deny: decreased hearing, ear discharge, earache, tinnitus Ears, nose, mouth and throat: Reports as per HPI Breasts: absent: as per HPI, gynecomastia Cardiovascular: Reports claudication, Reports decreased exercise tolerance Respiratory: Reports as per HPI Gastrointestinal: Reports as per HPI Genitourinary: Reports as per HPI Musculoskeletal: Reports as per HPI Musculoskeletal: absent: ankle pain, ankle stiffness, ankle swelling Integumentary: Reports as per HPI Neurological: Reports as per HPI Psychiatric: Reports as per HPI Endocrine: Reports as per HPI Hematologic/Lymphatic: Reports as per HPI Allergic/Immunologic: Reports as per HPI Past Medical History Past Medical History: Coronary Artery Disease (CAD), Chest Pain / Angina, COPD, CVA/TIA, Diabetes Mellitus, Hearing Disorder / Deafness, Myocardial Infarction ([place]), Syncope, Vascular Disorder Additional Past Medical History / Comment(s): CVA x2, last 2018, recovered. Diabetic neuropathy feet, osteoporosis. Blockage in Rt leg. States out of most of Rx for past month, due to income/costs. Last Myocardial Infarction Date:: 2006 History of Any Multi-Drug Resistant Organisms: None Reported Past Surgical History: Coronary Bypass/CABG, Heart Catheterization With Stent Additional Past Surgical History / Comment(s): Quad bypass-2010, "sx lt leg- graft to retore criculation", colonoscopy/polypectomy Past Anesthesia/Blood Transfusion Reactions: No Reported Reaction Additional Past Anesthesia/Blood Transfusion Reaction / Comment(s): mild claustrophobia (mri machines) Date of Last Stent Placement:: unknown Past Psychological History: Bipolar Smoking Status: Current every day smoker Past Alcohol Use History: None Reported Additional Past Alcohol Use History / Comment(s): started smoking at age 14, smokes 1 ppd Past Drug Use History: None Reported - Past Family History Mother Family Medical History: Cancer Father Family Medical History: Coronary Artery Disease (CAD), Myocardial Infarction ([place]) Additional Family Medical History / Comment(s): cabg Sister(s) Family Medical History: Coronary Artery Disease (CAD) Additional Family Medical History / Comment(s): cabg Brother(s) Family Medical History: Coronary Artery Disease (CAD) Additional Family Medical History / Comment(s): cabg Medications and Allergies Home Medications Medication Instructions Recorded Confirmed Type Aspirin [[place] Aspirin EC] 81 mg PO DAILY 07/12/18 07/07/19 History Clopidogrel [Plavix] 75 mg PO DAILY 07/12/18 07/07/19 History Lisinopril [Zestril] 10 mg PO DAILY 07/12/18 07/07/19 History PARoxetine [Paxil] 20 mg PO BID 07/12/18 07/07/19 History Ranitidine HCl [Zantac] 150 mg PO HS 07/12/18 07/07/19 History metFORMIN HCL [Glucophage] 1,000 mg PO BID 07/12/18 07/07/19 History Atorvastatin [Lipitor] 40 mg PO DAILY #30 tab 07/14/18 07/07/19 Rx Allergies Allergy/AdvReac Type Severity Reaction Status Date / Time No Known Allergies Allergy Verified 07/07/19 09:57 Physical Exam Vitals: Vital Signs Temp Pulse Pulse Pulse Resp BP BP 07/07/19 17:00 59 L 14 145/66 12/19/19 16:30 60 12 146/69 07/07/19 16:00 97.6 F 49 L 65 14 144/68 07/07/19 15:30 53 L 12 146/75 07/07/19 15:10 57 L 13 146/75 07/07/19 15:00 52 L 10 L 151/63 07/07/19 14:50 61 10 L 07/07/19 14:35 65 16 158/72 07/07/19 13:52 12 07/07/19 09:59 97.6 F 63 16 193/81 BP Pulse Ox 07/07/19 17:00 96 07/07/19 16:30 94 L 07/07/19 16:00 97 07/07/19 15:30 97 07/07/19 15:10 96 07/07/19 15:00 96 07/07/19 14:50 07/07/19 14:35 07/07/19 13:52 146/75 07/07/19 09:59 168/77 96 Intake and Output 07/07/19 07/07/19 07/07/19 06:59 14:59 22:59 Intake Total 277 225 Output Total 400 575 Balance -123 -350 Intake: IV 277 225 Sodium Chloride 0.9% 1, 75 225 000 ml @ 75 mls/hr IV . [id number] [facility] Rx#: [id number] Output: Urine 400 575 Other: Voiding Method Urinal Weight 72.5 kg General: non toxic, no distress, appears younger than stated age, normal weight Derm: no unusual rashes/lesions no unusual ecchymoses, warm, dry Head:Head exam was generally normal. There was no scleral icterus or corneal arcus. Mucous membranes were moist. Eyes: EOMI, no lid lag, anicteric sclera, pupils equal round reactive to light ENT: Nose and ears atraumatic, no thrush, no pharyngeal erythema Neck: Neck was supple and without jugular venous distension, thyromegaly, or carotid bruits. Carotids were easily palpable bilaterally. There was no adenopathy. Mouth: no lip lesion, mucus membranes moist Cardiovascular: S1S2 reg, no murmur, absent posterior tibial pulse bilateral, no edema, capillary refill less than 2 seconds Lungs: CTA bilateral, no rhonchi, no rales , no accessory muscle use Abdominal: soft, nontender to palpation, no guarding, no appreciable organomegaly, normal bowel sounds Ext: no gross muscle atrophy, muscle strength 5 out of 5 in right upper extremity extremities grossly, no contractures, there are absent pulses in the right lower extremity. Extremities of his 1. 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 Monitor hemoglobin. Watch for any signs of bleeding or hematoma formation. The patient is on alteplase infusion for rate of 10 mL an hour. IV heparin.. Morphine for pain control. Levemir insulin for blood sugar control. Sliding scale insulin coverage. Continue Lipitor. Resume Paxil. Keep the Plavix on hold for now. We'll continue to follow.
[2019-07-07] MEDS: LACTATED RINGERS 1,000 ML IV SCH (19:00)
[2019-07-07] MEDS: HYDROmorphone 1 MG/ML 1 ML SYRINGE IVP PRN (20:02)
[2019-07-07] MEDS: PARoxetine 20 MG TAB PO SCH (20:06)
[2019-07-07] MEDS: FAMOTIDINE 20 MG TAB PO SCH (20:06)
[2019-07-07 20:15] LABS: Basophils % (A) 1 %; Eosinophils # (A) 0.2 k/uL (0-0.7); Eosinophils % (A) 2 %; HCT 41.3 % (39.0-53.0); HGB 13.6 gm/dL (13.0-17.5); Lymphocytes # (A) 1.9 k/uL (1.0-4.8); Lymphocytes % (A) 25 %; MCH 30.7 pg (25.0-35.0); MCHC 32.9 g/dL (31.0-37.0); MCV 93.4 fL (80.0-100.0); Mean Platelet Volume 7.1; Monocytes # (A) 0.3 k/uL (0-1.0); Monocytes % (A) 4 %; Neutrophils % (A) 67 %; Platelet Count 170 k/uL (150-450); RBC 4.42 m/uL (4.30-5.90); RDW 13.8 % (11.5-15.5); WBC 7.5 k/uL (3.8-10.6)
[2019-07-07] MEDS: INSULIN ASPART (NovoLOG) 100 UNIT/ML VIAL SQ SCH (20:27)
[2019-07-07 20:37] LABS: Glucose,Whole Blood 112 mg/dL (75-99)
[2019-07-07] MEDS ORDERED: INSULIN DETEMIR (LEVEMIR) 100 UNIT/ML SYR SQ SCH (21:00)
[2019-07-07 23:23] LABS: Basophils % (A) 0 %; Eosinophils # (A) 0.2 k/uL (0-0.7); Eosinophils % (A) 2 %; HCT 39.4 % (39.0-53.0); HGB 12.8 gm/dL (13.0-17.5); Lymphocytes # (A) 1.9 k/uL (1.0-4.8); Lymphocytes % (A) 22 %; MCH 30.5 pg (25.0-35.0); MCHC 32.5 g/dL (31.0-37.0); MCV 93.8 fL (80.0-100.0); Mean Platelet Volume 7.1; Monocytes # (A) 0.4 k/uL (0-1.0); Monocytes % (A) 4 %; Neutrophils # (A) 6.1 k/uL (1.3-7.7); Neutrophils % (A) 70 %; Platelet Count 168 k/uL (150-450); RDW 13.8 % (11.5-15.5); WBC 8.6 k/uL (3.8-10.6)
[2019-07-08] MEDS: HYDROmorphone 1 MG/ML 1 ML SYRINGE IVP PRN ×3 (01:21→09:09)
[2019-07-08 01:54] LABS: Basophils % (A) 1 %; Eosinophils # (A) 0.2 k/uL (0-0.7); Eosinophils % (A) 2 %; HCT 38.8 % (39.0-53.0); HGB 12.9 gm/dL (13.0-17.5); Lymphocytes # (A) 1.7 k/uL (1.0-4.8); Lymphocytes % (A) 20 %; MCH 30.8 pg (25.0-35.0); MCHC 33.2 g/dL (31.0-37.0); MCV 92.8 fL (80.0-100.0); Mean Platelet Volume 7.3; Monocytes # (A) 0.3 k/uL (0-1.0); Monocytes % (A) 4 %; Neutrophils # (A) 6.1 k/uL (1.3-7.7); Neutrophils % (A) 73 %; Platelet Count 172 k/uL (150-450); RBC 4.19 m/uL (4.30-5.90); RDW 13.8 % (11.5-15.5); WBC 8.4 k/uL (3.8-10.6)
[2019-07-08 05:18] LABS: Partial Thromboplastin Time 28.4 sec (22.0-30.0); Prothrombin Time 10.4 sec (9.0-12.0)
[2019-07-08 05:21] LABS: Basophils % (A) 0 %; Eosinophils # (A) 0.2 k/uL (0-0.7); Eosinophils % (A) 2 %; HCT 38.5 % (39.0-53.0); HGB 12.9 gm/dL (13.0-17.5); Lymphocytes # (A) 1.4 k/uL (1.0-4.8); Lymphocytes % (A) 18 %; MCH 30.7 pg (25.0-35.0); MCHC 33.5 g/dL (31.0-37.0); MCV 91.8 fL (80.0-100.0); Mean Platelet Volume 7.4; Monocytes # (A) 0.3 k/uL (0-1.0); Monocytes % (A) 4 %; Neutrophils % (A) 75 %; Platelet Count 167 k/uL (150-450); RDW 13.7 % (11.5-15.5); WBC 7.9 k/uL (3.8-10.6)
[2019-07-08 05:24] LABS: African American GFR (CKD) >90 (>60 ml/min/1.73 sqM); Anion Gap 5 mmol/L; Blood Urea Nitrogen 13 mg/dL (9-20); Calcium 8.8 mg/dL (8.4-10.2); Carbon Dioxide 25 mmol/L (22-30); Chloride 106 mmol/L (98-107); Glucose 101 mg/dL (74-99); Magnesium 1.5 mg/dL (1.6-2.3); Non-African American GFR(CKD) 87 (>60 ml/min/1.73 sqM); Potassium 4.1 mmol/L (3.5-5.1); Sodium 136 mmol/L (137-145)
[2019-07-08] MEDS ORDERED: Magnesium Replacement Protocol 1 EACH MISC MISCELLANE PRN (05:35)
[2019-07-08] MEDS: MAGNESIUM SULFATE-D5W PMX 1 GM in DEXTROSE/WATER 1 100ML.BAG IVPB SCH ×2 (05:52→06:57)
[2019-07-08] MEDS: INSULIN ASPART (NovoLOG) 100 UNIT/ML VIAL SQ SCH ×3 (06:55→19:48)
[2019-07-08 07:03] LABS: Glucose,Whole Blood 122 mg/dL (75-99)
[2019-07-08] MEDS: PARoxetine 20 MG TAB PO SCH (09:08)
[2019-07-08] MEDS: ATORVASTATIN 40 MG TAB PO SCH (09:08)
[2019-07-08] MEDS: LISINOPRIL 10 MG TAB PO SCH (09:08)
[2019-07-08] MEDS: LACTATED RINGERS 1,000 ML IV SCH (09:21)
[2019-07-08] MEDS ORDERED: SODIUM CHLORIDE 0.9% 100 ML with ALTEPLASE 10 MG IA ONE ×2 (09:45)
--- NOTE | 2019-07-08 09:52 | P.PN ---
Subjective Progress Note Date: 07/08/19 Patient seen and examined. Some complaint of back pain from laying flat all night, no issues otherwise. Occasional pains in his feet. Through the night and the nurses were able to now obtain pedal signals. No issues with laboratories. Hemoglobin is stable. 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 Uncertain if the ulcerative aorta was the initial issue a few weeks back with a more acute on chronic occlusion. We will treat as though it was the cause. Objective - Vital Signs Vital signs: Vital Signs Temp 97.8 F 07/08/19 08:00 Pulse 70 07/08/19 09:00 Resp 17 07/08/19 09:00 BP 128/63 07/08/19 09:00 Pulse Ox 97 07/08/19 09:00 Intake & Output 07/07/19 07/08/19 07/08/19 18:59 06:59 18:59 Intake Total 789 1515 500 Output Total 975 900 200 Balance -186 615 300 Weight 72.5 kg 75.8 kg Intake: IV 789 1275 400 Lactated Ringers 1,000 ml 1100 300 @ 100 mls/hr IV .Q10H [facility] Rx#:[id number] Magnesium Sulfate-D5w Pmx 100 100 1 gm In Dextrose/Water 1 100ml.bag @ 100 mls/hr IVPB Q1H [facility] Rx#: [id number] Sodium Chloride 0.9% 1, 375 75 000 ml @ 75 mls/hr IV . [id number] [facility] Rx#: [id number] Oral 240 100 Output: Urine 975 900 200 Other: Voiding Method Urinal Urinal Urinal # Voids 1 - Labs CBC & Chem 7: 07/08/19 04:47 07/08/19 04:47 Labs: Abnormal Lab Results - Last 24 Hours (Table) 07/07/19 07/07/19 07/07/19 Range/Units 09:54 15:39 15:39 RBC 4.26 L (4.30-5.90) m/uL Hgb 12.8 L (13.0-17.5) gm/dL Hct (39.0-53.0) % APTT 30.3 H (22.0-30.0) sec Sodium (137-145) mmol/L Glucose (74-99) mg/dL POC Glucose (mg/dL) 129 H (75-99) mg/dL Magnesium (1.6-2.3) mg/dL 07/07/19 07/07/19 07/08/19 Range/Units 20:26 22:51 01:42 RBC 4.20 L 4.19 L (4.30-5.90) m/uL Hgb 12.8 L 12.9 L (13.0-17.5) gm/dL Hct 38.8 L (39.0-53.0) % APTT (22.0-30.0) sec Sodium (137-145) mmol/L Glucose (74-99) mg/dL POC Glucose (mg/dL) 112 H (75-99) mg/dL Magnesium (1.6-2.3) mg/dL 07/08/19 07/08/19 07/08/19 Range/Units 04:47 04:47 06:51 RBC 4.20 L (4.30-5.90) m/uL Hgb 12.9 L (13.0-17.5) gm/dL Hct 38.5 L (39.0-53.0) % APTT (22.0-30.0) sec Sodium 136 L (137-145) mmol/L Glucose 101 H (74-99) mg/dL POC Glucose (mg/dL) 122 H (75-99) mg/dL Magnesium 1.5 L (1.6-2.3) mg/dL
--- NOTE | 2019-07-08 11:18 | P.PN ---
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 He presented emergency department and a CAT scan showed an occluded right common iliac artery with reconstruction of his distal external iliac artery. He was seen in the office and the patient was scheduled for this procedure stay. 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 He was brought into the intensive care unit for further monitoring. Known to have coronary artery disease and is undergone previous bypass surgery in 2010. He is known to have COPD diabetes mellitus and previous history of CVA along with peripheral vascular disease. He is doing well. He has no pulses in the right lower extremity but he has good collaterals and the extremities warm. On 07/08/2019 patient seen in follow-up in the intensive care unit, he is resting comfortably in bed, in reverse Trendelenburg position, TPA and heparin are still infusing. Doppler pulse in the right pedal pulse, palpable pulse in the left foot, his pain is relatively well controlled, vital signs are stable, denies any specific complaints, no shortness of breath or chest pain, he is on 2 L of oxygen with a pulse ox of 97%, no acute issues overnight. Labs have been reviewed, and all relatively unremarkable, hemoglobin is stable. Patient is scheduled for repeat imaging and possible stent graft placement over distal aorta and occluded iliac segments. Objective - Vital Signs Vital signs: Vital Signs Temp 97.8 F 07/08/19 08:00 Pulse 64 07/08/19 11:00 Resp 12 07/08/19 11:00 BP 125/60 07/08/19 11:00 Pulse Ox 95 07/08/19 11:00 Intake & Output 07/07/19 07/08/19 07/08/19 18:59 06:59 18:59 Intake Total 789 1515 600 Output Total 975 900 200 Balance -186 615 400 Weight 72.5 kg 75.8 kg Intake: IV 789 1275 500 Lactated Ringers 1,000 ml 1100 400 @ 100 mls/hr IV .Q10H [facility] Rx#:[id number] Magnesium Sulfate-D5w Pmx 100 100 1 gm In Dextrose/Water 1 100ml.bag @ 100 mls/hr IVPB Q1H [facility] Rx#: [id number] Sodium Chloride 0.9% 1, 375 75 000 ml @ 75 mls/hr IV . [id number] [facility] Rx#: [id number] Oral 240 100 Output: Urine 975 900 200 Other: Voiding Method Urinal Urinal Urinal # Voids 1 - Exam GENERAL EXAM: Alert, very pleasant, 74-year-old white male, on 2 L of oxygen with pulse ox 97% comfortable in no apparent distress. HEAD: Normocephalic/atraumatic. EYES: Normal reaction of pupils, equal size. Conjunctiva pink, sclera white. NOSE: Clear with pink turbinates. THROAT: No erythema or exudates. NECK: No masses, no JVD, no thyroid enlargement, no adenopathy. CHEST: No chest wall deformity. Symmetrical expansion. LUNGS: Equal air entry with no crackles, wheeze, rhonchi or dullness. CVS: Regular rate and rhythm, normal S1 and S2, no gallops, no murmurs, no rubs ABDOMEN: Soft, nontender. No hepatosplenomegaly, normal bowel sounds, no guarding or rigidity. EXTREMITIES: No clubbing, mild right foot edema, no cyanosis, Doppler pulse in the right pedal and right posterior tibial area, palpable +1+ in the left pedal area MUSCULOSKELETAL: Muscle strength and tone normal. Left brachial area catheter with TPA infusion, left femoral sheath. SPINE: No scoliosis or deformity SKIN: No rashes CENTRAL NERVOUS SYSTEM: Alert and oriented -3. No focal deficits, tone is n ormal in all 4 extremities. PSYCHIATRIC: Alert and oriented -3. Appropriate affect. Intact judgment and insight. - Labs CBC & Chem 7: 07/08/19 04:47 07/08/19 04:47 Labs: Abnormal Lab Results - Last 24 Hours (Table) 07/07/19 07/07/19 07/07/19 Range/Units 15:39 15:39 20:26 RBC 4.26 L (4.30-5.90) m/uL Hgb 12.8 L (13.0-17.5) gm/dL Hct (39.0-53.0) % APTT 30.3 H (22.0-30.0) sec Sodium (137-145) mmol/L Glucose (74-99) mg/dL POC Glucose (mg/dL) 112 H (75-99) mg/dL Magnesium (1.6-2.3) mg/dL 07/07/19 07/08/19 07/08/19 Range/Units 22:51 01:42 04:47 RBC 4.20 L 4.19 L 4.20 L (4.30-5.90) m/uL Hgb 12.8 L 12.9 L 12.9 L (13.0-17.5) gm/dL Hct 38.8 L 38.5 L (39.0-53.0) % APTT (22.0-30.0) sec Sodium (137-145) mmol/L Glucose (74-99) mg/dL POC Glucose (mg/dL) (75-99) mg/dL Magnesium (1.6-2.3) mg/dL 07/08/19 07/08/19 Range/Units 04:47 06:51 RBC (4.30-5.90) m/uL Hgb (13.0-17.5) gm/dL Hct (39.0-53.0) % APTT (22.0-30.0) sec Sodium 136 L (137-145) mmol/L Glucose 101 H (74-99) mg/dL POC Glucose (mg/dL) 122 H (75-99) mg/dL Magnesium 1.5 L (1.6-2.3) mg/dL Assessment and Plan Plan: Assessment: 1 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 No acute issues overnight, Doppler pulse in the right pedal area, hemodynamically stable, hemoglobin is stable. Patient is scheduled for repeat imaging today and possibility of stent grafting placement in the distal aorta and iliac segments. We'll continue to closely follow in the postoperative period. Maintain pain control, incentive spirometry. We'll follow I performed a history & physical examination of the patient and discussed their management with my nurse practitioner, Marilu Casiano. I reviewed the nurse practitioner's note and agree with the documented findings and plan of care. Lung sounds are positive for clear breath sounds. The findings and the impression was discussed with the patient. I attest to the documentation by the nurse practitioner. Time with Patient: Less than 30
[2019-07-08 11:42] LABS: Basophils % (A) 0 %; Eosinophils # (A) 0.1 k/uL (0-0.7); Eosinophils % (A) 1 %; HCT 40.1 % (39.0-53.0); HGB 13.5 gm/dL (13.0-17.5); Lymphocytes # (A) 1.1 k/uL (1.0-4.8); Lymphocytes % (A) 13 %; MCH 30.9 pg (25.0-35.0); MCHC 33.6 g/dL (31.0-37.0); Mean Platelet Volume 7.3; Monocytes # (A) 0.4 k/uL (0-1.0); Monocytes % (A) 4 %; Neutrophils # (A) 6.6 k/uL (1.3-7.7); Neutrophils % (A) 80 %; Platelet Count 161 k/uL (150-450); RBC 4.36 m/uL (4.30-5.90); RDW 13.7 % (11.5-15.5); WBC 8.3 k/uL (3.8-10.6)
[2019-07-08 11:49] LABS: Glucose,Whole Blood 128 mg/dL (75-99)
[2019-07-08] MEDS ORDERED: LABETALOL 5 MG/ML VIAL MDV ONE (12:40)
[2019-07-08] MEDS ORDERED: MIDAZOLAM 2 MG/2 ML VIAL ONE ×2 (12:40→19:05)
[2019-07-08] MEDS ORDERED: HEPARIN SODIUM,PORCINE 5,000 UNIT/ML 1 ML VIAL ONE (12:40)
[2019-07-08] MEDS ORDERED: PROPOFOL 10 MG/ML 20 ML VIAL IV ONE ×2 (12:40→19:05)
[2019-07-08] MEDS ORDERED: fentaNYL (PF) 50 MCG/ML 2 ML AMP ONE ×2 (12:40→19:05)
[2019-07-08] MEDS ORDERED: PHENYLEPHRINE-0.9% NACL SYG 1 MG/10 ML SYRINGE ONE ×2 (12:40→19:05)
[2019-07-08] MEDS ORDERED: IV FLUID CONTINUATION 1,000 ML IV ONE (12:50)
[2019-07-08] MEDS ORDERED: ceFAZolin 1,000 MG VIAL IV ONE (12:50)
[2019-07-08] MEDS ORDERED: LIDOCAINE 1% INJ 10MG/ML (20 ML MDV) SQ ONE (13:16)
[2019-07-08 14:57] LABS: Hemoglobin A1C 7.3 % (4.0-6.0)
--- NOTE | 2019-07-08 15:49 | P.PN ---
Subjective Progress Note Date: 07/08/19 Principal diagnosis: PVD Patient was complaining from back pain from laying flat all night, no issues otherwise. No cp or sob. Objective - Vital Signs Vital signs: Vital Signs Temp 97.7 F 07/08/19 12:00 Pulse 68 07/08/19 12:00 Resp 12 07/08/19 12:00 BP 132/67 07/08/19 12:00 Pulse Ox 96 07/08/19 12:00 Intake & Output 07/07/19 07/08/19 07/08/19 18:59 06:59 18:59 Intake Total 789 1515 800 Output Total 975 900 200 Balance -186 615 600 Weight 72.5 kg 75.8 kg Intake: IV 789 1275 700 Lactated Ringers 1,000 ml 1100 600 @ 100 mls/hr IV .Q10H [facility] Rx#:[id number] Magnesium Sulfate-D5w Pmx 100 100 1 gm In Dextrose/Water 1 100ml.bag @ 100 mls/hr IVPB Q1H [facility] Rx#: [id number] Sodium Chloride 0.9% 1, 375 75 000 ml @ 75 mls/hr IV . [id number] [facility] Rx#: [id number] Oral 240 100 Output: Urine 975 900 200 Other: Voiding Method Urinal Urinal Urinal # Voids 1 - Exam GENERAL EXAM: Alert, very pleasant, 74-year-old white male, on 2 L of oxygen with pulse ox 97% comfortable in no apparent distress. HEAD: Normocephalic/atraumatic. EYES: Normal reaction of pupils, equal size. Conjunctiva pink, sclera white. NOSE: Clear with pink turbinates. THROAT: No erythema or exudates. NECK: No masses, no JVD, no thyroid enlargement, no adenopathy. CHEST: No chest wall deformity. Symmetrical expansion. LUNGS: Equal air entry with no crackles, wheeze, rhonchi or dullness. CVS: Regular rate and rhythm, normal S1 and S2, no gallops, no murmurs, no rubs ABDOMEN: Soft, nontender. No hepatosplenomegaly, normal bowel sounds, no g uarding or rigidity. EXTREMITIES: No clubbing, mild right foot edema, no cyanosis, Doppler pulse in the right pedal and right posterior tibial area, palpable +1+ in the left pedal area MUSCULOSKELETAL: Muscle strength and tone normal. Left brachial area catheter with TPA infusion, left femoral sheath. SPINE: No scoliosis or deformity SKIN: No rashes CENTRAL NERVOUS SYSTEM: Alert and oriented -3. No focal deficits, tone is normal in all 4 extremities. PSYCHIATRIC: Alert and oriented -3. Appropriate affect. Intact judgment and insight. - Labs CBC & Chem 7: 07/08/19 11:07 07/08/19 04:47 Labs: Abnormal Lab Results - Last 24 Hours (Table) 07/07/19 07/07/19 07/07/19 Range/Units 15:39 15:39 20:26 RBC 4.26 L (4.30-5.90) m/uL Hgb 12.8 L (13.0-17.5) gm/dL Hct (39.0-53.0) % APTT 30.3 H (22.0-30.0) sec Sodium (137-145) mmol/L Glucose (74-99) mg/dL POC Glucose (mg/dL) 112 H (75-99) mg/dL Hemoglobin A1c (4.0-6.0) % Magnesium (1.6-2.3) mg/dL 07/07/19 07/08/19 07/08/19 Range/Units 22:51 01:42 04:47 RBC 4.20 L 4.19 L 4.20 L (4.30-5.90) m/uL Hgb 12.8 L 12.9 L 12.9 L (13.0-17.5) gm/dL Hct 38.8 L 38.5 L (39.0-53.0) % APTT (22.0-30.0) sec Sodium (137-145) mmol/L Glucose (74-99) mg/dL POC Glucose (mg/dL) (75-99) mg/dL Hemoglobin A1c (4.0-6.0) % Magnesium (1.6-2.3) mg/dL 07/08/19 07/08/19 07/08/19 Range/Units 04:47 04:47 06:51 RBC (4.30-5.90) m/uL Hgb (13.0-17.5) gm/dL Hct (39.0-53.0) % APTT (22.0-30.0) sec Sodium 136 L (137-145) mmol/L Glucose 101 H (74-99) mg/dL POC Glucose (mg/dL) 122 H (75-99) mg/dL Hemoglobin A1c 7.3 H (4.0-6.0) % Magnesium 1.5 L (1.6-2.3) mg/dL 07/08/19 Range/Units 11:38 RBC (4.30-5.90) m/uL Hgb (13.0-17.5) gm/dL Hct (39.0-53.0) % APTT (22.0-30.0) sec Sodium (137-145) mmol/L Glucose (74-99) mg/dL POC Glucose (mg/dL) 128 H (75-99) mg/dL Hemoglobin A1c (4.0-6.0) % Magnesium (1.6-2.3) mg/dL Assessment and Plan Plan: 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 Pain control per surgery. DM 2 - hold metformin - substitue toujeo with levemir - SSI - Follow BS - A1C 7.3 HTN -lisinopril HLD - statin CAD s/p CABG - hold plavix and ASA while getting TPA, statin Diabetic peripheral neuropathy COPD Stable
[2019-07-08] MEDS ORDERED: ALTEPLASE 2 MG VIAL (CATHFLO) IV STA (16:06)
[2019-07-08] MEDS ORDERED: IOPAMIDOL-250 100ML BTL INTRAARTER ONE (16:43)
[2019-07-08] MEDS: HEPARIN SOD,PORK IN 0.45% NACL 25,000 UNIT in 0.45% NACL 1 250ML.BAG IV SCH (16:57)
[2019-07-08] MEDS ORDERED: NITROGLYCERIN 1000MCG/10ML SYRINGE INTRAARTER ONE (17:00)
[2019-07-08] MEDS ORDERED: IOPAMIDOL-370 100ML BTL INJ ONE ×2 (17:42)
[2019-07-08 18:53] LABS: Basophils % (A) 0 %; Eosinophils # (A) 0.1 k/uL (0-0.7); Eosinophils % (A) 1 %; HCT 36.1 % (39.0-53.0); HGB 12.2 gm/dL (13.0-17.5); Lymphocytes # (A) 0.9 k/uL (1.0-4.8); Lymphocytes % (A) 9 %; MCH 31.1 pg (25.0-35.0); MCHC 33.7 g/dL (31.0-37.0); MCV 92.4 fL (80.0-100.0); Mean Platelet Volume 7.6; Monocytes # (A) 0.4 k/uL (0-1.0); Monocytes % (A) 4 %; Neutrophils % (A) 86 %; Platelet Count 155 k/uL (150-450); RBC 3.91 m/uL (4.30-5.90); RDW 13.7 % (11.5-15.5); WBC 10.5 k/uL (3.8-10.6)
[2019-07-08] MEDS ORDERED: SUCCINYLCHOLINE CHLORIDE VIAL 200 MG/10 ML VIAL IV ONE (19:05)
[2019-07-08] MEDS ORDERED: ROCURONIUM BROMIDE 10 MG/ML 10 ML VIAL IV ONE (19:05)
[2019-07-08] MEDS ORDERED: .MORPHINE SULFATE (INJ) 10 MG/ML SYRINGE ONE (19:05)
[2019-07-08] MEDS ORDERED: ePHEDrine SULFATE/0.9% NACL/PF 50 MG/5 ML SYRINGE IV ONE (19:05)
[2019-07-08] MEDS ORDERED: NEOSTIGMINE 1 MG/ML 10 ML VIAL ONE (19:05)
[2019-07-08] MEDS ORDERED: GLYCOPYRROLATE 0.2 MG/ML 2 ML VIAL ONE (19:05)
[2019-07-08] MEDS ORDERED: ceFAZolin 1,000 MG VIAL ONE (19:05)
[2019-07-08] MEDS ORDERED: LIDOCAINE 1% INJ 10MG/ML (20 ML MDV) ONE (19:05)
[2019-07-08] MEDS ORDERED: LACTATED RINGERS 1,000 ML IV ONE ×3 (19:13→21:37)
[2019-07-08] MEDS ORDERED: SODIUM CHLORIDE 0.9% 50 ML with ceFAZolin 2,000 MG IV ONE ×2 (19:27)
[2019-07-08] MEDS ORDERED: SODIUM CHLORIDE 0.9% 500 ML 500 ML with HEPARIN SODIUM,PORCINE 5,000 UNIT IV ONE ×4 (19:40→21:38)
[2019-07-08 21:29] LABS: Glucose,Whole Blood 185 mg/dL (75-99)
[2019-07-08] MEDS ORDERED: IOPAMIDOL-370 50ML BTL MISCELLANE ONE ×2 (23:08)
[2019-07-09] MEDS ORDERED: LACTATED RINGERS 1,000 ML IV ONE (00:05)
[2019-07-09] MEDS ORDERED: GELATIN SPONGE,ABSORB (SMALL) 1 EACH SPONGE TOPICAL ONE (00:24)
[2019-07-09] MEDS ORDERED: THROMBIN (BOVINE) 5,000 UNIT VIAL TOPICAL ONE (00:26)
[2019-07-09 00:39] LABS: Basophils % (A) 0 %; Eosinophils # (A) 0.2 k/uL (0-0.7); Eosinophils % (A) 1 %; HCT 31.1 % (39.0-53.0); HGB 10.2 gm/dL (13.0-17.5); Lymphocytes # (A) 1.2 k/uL (1.0-4.8); Lymphocytes % (A) 9 %; MCH 30.1 pg (25.0-35.0); MCHC 32.8 g/dL (31.0-37.0); MCV 91.6 fL (80.0-100.0); Mean Platelet Volume 7.3; Monocytes # (A) 0.7 k/uL (0-1.0); Monocytes % (A) 5 %; Neutrophils # (A) 11.4 k/uL (1.3-7.7); Neutrophils % (A) 84 %; Platelet Count 181 k/uL (150-450); RBC 3.39 m/uL (4.30-5.90); RDW 13.8 % (11.5-15.5); WBC 13.6 k/uL (3.8-10.6)
[2019-07-09 00:42] LABS: African American GFR (CKD) >90 (>60 ml/min/1.73 sqM); Anion Gap 4 mmol/L; Blood Urea Nitrogen 11 mg/dL (9-20); Carbon Dioxide 24 mmol/L (22-30); Chloride 104 mmol/L (98-107); Glucose 190 mg/dL (74-99); INR 1.1 (<1.2); Non-African American GFR(CKD) 87 (>60 ml/min/1.73 sqM); Potassium 4.2 mmol/L (3.5-5.1); Prothrombin Time 11.9 sec (9.0-12.0); Sodium 132 mmol/L (137-145)
[2019-07-09 01:28] LABS: Glucose,Whole Blood 177 mg/dL (75-99)
--- NOTE | 2019-07-09 01:29 | XR ---
EXAMINATION TYPE: XR chest 1V portable DATE OF EXAM: 07/09/2019 COMPARISON: 07/12/2018 HISTORY: Weakness TECHNIQUE: Single view FINDINGS: There is right jugular catheter with tip in the right atrium. There are sternal wires. Ther e are chest leads. Lungs are clear of consolidation. There is no heart failure. Heart size is normal. Thoracic aorta is atheromatous. IMPRESSION: No active cardiopulmonary disease. No change.
[2019-07-09] MEDS: LACTATED RINGERS 1,000 ML IV SCH ×4 (01:33→23:50)
[2019-07-09] MEDS: FAMOTIDINE 20 MG TAB PO SCH ×2 (01:34→21:07)
[2019-07-09] MEDS: INSULIN ASPART (NovoLOG) 100 UNIT/ML VIAL SQ SCH ×5 (01:34→21:46)
[2019-07-09] MEDS: PARoxetine 20 MG TAB PO SCH ×3 (01:35→21:07)
[2019-07-09] MEDS: HEPARIN SOD,PORK IN 0.45% NACL 25,000 UNIT in 0.45% NACL 1 250ML.BAG IV SCH ×2 (03:05→09:42)
[2019-07-09 04:48] LABS: Basophils % (A) 0 %; Eosinophils % (A) 0 %; HGB 9.9 gm/dL (13.0-17.5); Lymphocytes # (A) 0.8 k/uL (1.0-4.8); Lymphocytes % (A) 9 %; MCHC 34.2 g/dL (31.0-37.0); MCV 90.6 fL (80.0-100.0); Mean Platelet Volume 7.9; Monocytes # (A) 0.3 k/uL (0-1.0); Monocytes % (A) 4 %; Neutrophils # (A) 7.4 k/uL (1.3-7.7); Neutrophils % (A) 87 %; Platelet Count 139 k/uL (150-450); RDW 13.7 % (11.5-15.5); WBC 8.5 k/uL (3.8-10.6)
[2019-07-09 05:19] LABS: Partial Thromboplastin Time 34.9 sec (22.0-30.0); Prothrombin Time 10.8 sec (9.0-12.0)
[2019-07-09 05:26] LABS: African American GFR (CKD) >90 (>60 ml/min/1.73 sqM); Anion Gap 4 mmol/L; Blood Urea Nitrogen 12 mg/dL (9-20); Calcium 7.9 mg/dL (8.4-10.2); Carbon Dioxide 25 mmol/L (22-30); Chloride 104 mmol/L (98-107); Glucose 170 mg/dL (74-99); Magnesium 1.6 mg/dL (1.6-2.3); Non-African American GFR(CKD) >90 (>60 ml/min/1.73 sqM); Potassium 4.1 mmol/L (3.5-5.1); Sodium 133 mmol/L (137-145)
[2019-07-09] MEDS: MAGNESIUM SULFATE-D5W PMX 1 GM in DEXTROSE/WATER 1 100ML.BAG IVPB SCH ×2 (05:53→06:53)
[2019-07-09 07:08] LABS: Glucose,Whole Blood 180 mg/dL (75-99)
[2019-07-09] MEDS: LISINOPRIL 10 MG TAB PO SCH (08:40)
[2019-07-09] MEDS: ATORVASTATIN 40 MG TAB PO SCH (08:40)
[2019-07-09] MEDS ORDERED: HEPARIN SODIUM,PORCINE 5,000 UNIT/ML 1 ML VIAL IV ONE (08:57)
[2019-07-09] MEDS: ACETAMINOPHEN TAB 325 MG TAB PO PRN ×2 (09:06→14:41)
[2019-07-09] MEDS: KETOROLAC 30 MG/ML 1 ML VIAL IVP PRN ×2 (09:06→21:07)
[2019-07-09 09:25] LABS: Basophils % (A) 0 %; Eosinophils # (A) 0.1 k/uL (0-0.7); Eosinophils % (A) 1 %; HCT 26.7 % (39.0-53.0); HGB 9.3 gm/dL (13.0-17.5); Lymphocytes % (A) 12 %; MCH 31.5 pg (25.0-35.0); MCHC 34.7 g/dL (31.0-37.0); MCV 90.7 fL (80.0-100.0); Mean Platelet Volume 7.8; Monocytes # (A) 0.3 k/uL (0-1.0); Monocytes % (A) 4 %; Neutrophils # (A) 6.7 k/uL (1.3-7.7); Neutrophils % (A) 82 %; Platelet Count 140 k/uL (150-450); RBC 2.95 m/uL (4.30-5.90); RDW 13.8 % (11.5-15.5); WBC 8.2 k/uL (3.8-10.6)
[2019-07-09 09:37] LABS: Partial Thromboplastin Time 29.2 sec (22.0-30.0); Prothrombin Time 10.7 sec (9.0-12.0)
--- NOTE | 2019-07-09 09:37 | FL ---
EXAMINATION TYPE: FL fluoroscopy <1hr DATE OF EXAM: 07/09/2019 COMPARISON: NONE HISTORY: Peripheral vascular occlusive disease Fluoroscopy support supplied to the referring clinician. See dictated report from vascular surgery, 1 minute 19 seconds fluoroscopy time, 2 intraoperative images document the procedure
--- NOTE | 2019-07-09 10:07 | P.PN ---
Subjective Progress Note Date: 07/09/19 Principal diagnosis: PVD Patient is having a lot of back pain still. No shortness of breath, no chest pain, no fevers or chills. Objective - Vital Signs Vital signs: Vital Signs Temp 97.9 F 07/09/19 08:00 Pulse 73 07/09/19 09:00 Resp 20 07/09/19 09:00 BP 91/42 07/09/19 09:00 Pulse Ox 95 07/09/19 09:00 Intake & Output 07/08/19 07/09/19 07/09/19 18:59 06:59 18:59 Intake Total 800 3346.083 409 Output Total 200 465 445 Balance 600 2881.083 -36 Weight 74.6 kg Intake: IV 700 3169 409 Lactated Ringers 1,000 ml 600 600 300 @ 100 mls/hr IV .Q10H [facility] Rx#:[id number] Magnesium Sulfate-D5w Pmx 100 100 100 1 gm In Dextrose/Water 1 100ml.bag @ 100 mls/hr IVPB Q1H [facility] Rx#: [id number] Pressure bag 18 9 Intake, IV Titration 177.083 Amount Heparin Sod,Pork in 0.45% 177.083 NaCl 25,000 unit In 0.45 % NaCl 1 250ml.bag @ 5 mls/hr IV .Q24H [facility] Rx#: [id number] Oral 100 Output: Drainage 40 45 Left Calf 25 Left Upper Arm 40 20 Urine 200 425 400 Other: Voiding Method Urinal Indwelling Catheter Indwelling Catheter ABP, PAP, CO, CI - Last Documented Arterial Blood Pressure 114/44 - Exam GENERAL EXAM: Alert, very pleasant, 74-year-old white male, on 2 L of oxygen with pulse ox 97% comfortable in no apparent distress. HEAD: Normocephalic/atraumatic. EYES: Normal reaction of pupils, equal size. Conjunctiva pink, sclera white. NOSE: Clear with pink turbinates. THROAT: No erythema or exudates. NECK: No masses, no JVD, no thyroid enlargement, no adenopathy. CHEST: No chest wall deformity. Symmetrical expansion. LUNGS: Equal air entry with no crackles, wheeze, rhonchi or dullness. CVS: Regular rate and rhythm, normal S1 and S2, no gallops, no murmurs, no rubs ABDOMEN: Soft, nontender. No hepatosplenomegaly, normal bowel sounds, no guarding or rigidity. EXTREMITIES: No clubbing, mild right foot edema, no cyanosis, Doppler pulse in the right pedal and right posterior tibial area, palpable +1+ in the left pedal area MUSCULOSKELETAL: Muscle strength and tone normal. Left brachial area catheter with TPA infusion, left femoral sheath. SPINE: No scoliosis or deformity SKIN: No rashes CENTRAL NERVOUS SYSTEM: Alert and oriented -3. No focal deficits, tone is normal in all 4 extremities. PSYCHIATRIC: Alert and oriented -3. Appropriate affect. Intact judgment and insight. - Labs CBC & Chem 7: 07/09/19 09:20 07/09/19 04:40 Labs: Abnormal Lab Results - Last 24 Hours (Table) 07/08/19 07/08/19 07/08/19 Range/Units 04:47 11:38 18:30 WBC (3.8-10.6) k/uL RBC 3.91 L (4.30-5.90) m/uL Hgb 12.2 L (13.0-17.5) gm/dL Hct 36.1 L (39.0-53.0) % Plt Count (150-450) k/uL Neutrophils # 9.0 H (1.3-7.7) k/uL Lymphocytes # 0.9 L (1.0-4.8) k/uL APTT (22.0-30.0) sec Sodium (137-145) mmol/L Glucose (74-99) mg/dL POC Glucose (mg/dL) 128 H (75-99) mg/dL Hemoglobin A1c 7.3 H (4.0-6.0) % Calcium (8.4-10.2) mg/dL 07/08/19 07/09/19 07/09/19 Range/Units 21:27 00:18 00:18 WBC 13.6 H (3.8-10.6) k/uL RBC 3.39 L (4.30-5.90) m/uL Hgb 10.2 L (13.0-17.5) gm/dL Hct 31.1 L (39.0-53.0) % Plt Count (150-450) k/uL Neutrophils # 11.4 H (1.3-7.7) k/uL Lymphocytes # (1.0-4.8) k/uL APTT (22.0-30.0) sec Sodium 132 L (137-145) mmol/L Glucose 190 H (74-99) mg/dL POC Glucose (mg/dL) 185 H (75-99) mg/dL Hemoglobin A1c (4.0-6.0) % Calcium 8.0 L (8.4-10.2) mg/dL 07/09/19 07/09/19 07/09/19 Range/Units 01:17 04:40 04:40 WBC (3.8-10.6) k/uL RBC (4.30-5.90) m/uL Hgb (13.0-17.5) gm/dL Hct (39.0-53.0) % Plt Count (150-450) k/uL Neutrophils # (1.3-7.7) k/uL Lymphocytes # (1.0-4.8) k/uL APTT 34.9 H (22.0-30.0) sec Sodium 133 L (137-145) mmol/L Glucose 170 H (74-99) mg/dL POC Glucose (mg/dL) 177 H (75-99) mg/dL Hemoglobin A1c (4.0-6.0) % Calcium 7.9 L (8.4-10.2) mg/dL 07/09/19 07/09/19 07/09/19 Range/Units 04:40 06:56 09:20 WBC (3.8-10.6) k/uL RBC 3.20 L 2.95 L (4.30-5.90) m/uL Hgb 9.9 L 9.3 L (13.0-17.5) gm/dL Hct 29.0 L 26.7 L (39.0-53.0) % Plt Count 139 L 140 L (150-450) k/uL Neutrophils # (1.3-7.7) k/uL Lymphocytes # 0.8 L (1.0-4.8) k/uL APTT (22.0-30.0) sec Sodium (137-145) mmol/L Glucose (74-99) mg/dL POC Glucose (mg/dL) 180 H (75-99) mg/dL Hemoglobin A1c (4.0-6.0) % Calcium (8.4-10.2) mg/dL Assessment and Plan Plan: 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 Pain control per surgery. Back pain Add Toradol and Tylenol Continue morphine when necessary Acute on chronic anemia Continue to monitor hemoglobin DM 2 - hold metformin - substitue toujeo with levemir - SSI - Follow BS - A1C 7.3 HTN -lisinopril HLD - statin CAD s/p CABG - hold plavix and ASA while getting TPA, statin Diabetic peripheral neuropathy COPD Stable
--- NOTE | 2019-07-09 10:08 | P.PN ---
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 He presented emergency department and a CAT scan showed an occluded right common iliac artery with reconstruction of his distal external iliac artery. He was seen in the office and the patient was scheduled for this procedure stay. The patient underwent an aortogram and he was found to have subacute on chronic right iliac artery occlusion and he had a placement of a catheter and he was started on th rombolytic therapy. He was brought into the intensive care unit for further monitoring. Known to have coronary artery disease and is undergone previous bypass surgery in 2010. He is known to have COPD diabetes mellitus and previous history of CVA along with peripheral vascular disease. He is doing well. He has no pulses in the right lower extremity but he has good collaterals and the extremities warm. On 07/08/2019 patient seen in follow-up in the intensive care unit, he is resting comfortably in bed, in reverse Trendelenburg position, TPA and heparin are still infusing. Doppler pulse in the right pedal pulse, palpable pulse in the left foot, his pain is relatively well controlled, vital signs are stable, denies any specific complaints, no shortness of breath or chest pain, he is on 2 L of oxygen with a pulse ox of 97%, no acute issues overnight. Labs have been reviewed, and all relatively unremarkable, hemoglobin is stable. Patient is scheduled for repeat imaging and possible stent graft placement over distal aorta and occluded iliac segments. The patient is seen today 07/09/2019 in follow-up in the intensive care unit. he is currently awake and alert in no acute distress. He had subsequently undergonevascular evaluation in the cardiovascular lab yesterday. They disc overed that a thrombus from the right leg had traveled to the left leg and he was going for a thrombectomy and patch angioplastythis was through a left brachial site which started hemorrhaging and then he had undergone an exploratory control of hemorrhage of the left brachial artery.there is a ZOEY dr doan in place.there is also a ZOEY drain in place in the left calf area. Currently he has left radial pulses present and palpable. Bilateral popliteal, posttibial and pedal pulses are strong with Doppler. he is currently having some pain of revascularization. Some ingrowing and numbness of the lower extremities. Feeling warm and cold at times. No shortness of breath, cough or congestion. On room air. No chest pain or palpitations. He remains nothing by mouth at this point. Tolerating ice chips and medications. He remains on a heparin drip. TPA had been discontinued. No groin catheters remain in place. Objective - Vital Signs Vital signs: Vital Signs Temp 97.9 F 07/09/19 08:00 Pulse 73 07/09/19 09:00 Resp 20 07/09/19 09:00 BP 91/42 07/09/19 09:00 Pulse Ox 95 07/09/19 09:00 Intake & Output 07/08/19 07/09/19 07/09/19 18:59 06:59 18:59 Intake Total 800 3346.083 409 Output Total 200 465 445 Balance 600 2881.083 -36 Weight 74.6 kg Intake: IV 700 3169 409 Lactated Ringers 1,000 ml 600 600 300 @ 100 mls/hr IV .Q10H [facility] Rx#:[id number] Magnesium Sulfate-D5w Pmx 100 100 100 1 gm In Dextrose/Water 1 100ml.bag @ 100 mls/hr IVPB Q1H [facility] Rx#: [id number] Pressure bag 18 9 Intake, IV Titration 177.083 Amount Heparin Sod,Pork in 0.45% 177.083 NaCl 25,000 unit In 0.45 % NaCl 1 250ml.bag @ 5 mls/hr IV .Q24H [facility] Rx#: [id number] Oral 100 Output: Drainage 40 45 Left Calf 25 Left Upper Arm 40 20 Urine 200 425 400 Other: Voiding Method Urinal Indwelling Catheter Indwelling Catheter ABP, PAP, CO, CI - Last Documented Arterial Blood Pressure 114/44 - Exam GENERAL EXAM: Alert, pleasant 74-year-old gentleman on room air, active, comfortable in no apparent distress. HEAD: Normocephalic. EYES: Normal reaction of pupils, equal size. NOSE: Clear with pink turbinates. THROAT: No erythema or exudates. NECK: No masses, no JVD. CHEST: No chest wall deformity. LUNGS: Equal air entry with no crackles, wheeze, rhonchi or dullness. CVS: S1 and S2 normal with no audible murmur, regular rhythm. ABDOMEN: No hepatosplenomegaly, normal bowel sounds, no guarding or rigidity. SPINE: No scoliosis or deformity SKIN: Ecchymosis and edema of the left upper extremity. ZOEY drain in place. CENTRAL NERVOUS SYSTEM: No focal deficits, tone is normal in all 4 extremities. EXTREMITIES: Ecchymosis and edema of the left upper extremity. ZOEY drain in place. Bilateral groin catheters removed. Doppler pulses bilaterally to the lower extremities. - Labs CBC & Chem 7: 07/09/19 09:20 07/09/19 04:40 Labs: Abnormal Lab Results - Last 24 Hours (Table) 07/08/19 07/08/19 07/08/19 Range/Units 04:47 11:38 18:30 WBC (3.8-10.6) k/uL RBC 3.91 L (4.30-5.90) m/uL Hgb 12.2 L (13.0-17.5) gm/dL Hct 36.1 L (39.0-53.0) % Plt Count (150-450) k/uL Neutrophils # 9.0 H (1.3-7.7) k/uL Lymphocytes # 0.9 L (1.0-4.8) k/uL APTT (22.0-30.0) sec Sodium (137-145) mmol/L Glucose (74-99) mg/dL POC Glucose (mg/dL) 128 H (75-99) mg/dL Hemoglobin A1c 7.3 H (4.0-6.0) % Calcium (8.4-10.2) mg/dL 07/08/19 07/09/19 07/09/19 Range/Units 21:27 00:18 00:18 WBC 13.6 H (3.8-10.6) k/uL RBC 3.39 L (4.30-5.90) m/uL Hgb 10.2 L (13.0-17.5) gm/dL Hct 31.1 L (39.0-53.0) % Plt Count (150-450) k/uL Neutrophils # 11.4 H (1.3-7.7) k/uL Lymphocytes # (1.0-4.8) k/uL APTT (22.0-30.0) sec Sodium 132 L (137-145) mmol/L Glucose 190 H (74-99) mg/dL POC Glucose (mg/dL) 185 H (75-99) mg/dL Hemoglobin A1c (4.0-6.0) % Calcium 8.0 L (8.4-10.2) mg/dL 07/09/19 07/09/19 07/09/19 Range/Units 01:17 04:40 04:40 WBC (3.8-10.6) k/uL RBC (4.30-5.90) m/uL Hgb (13.0-17.5) gm/dL Hct (39.0-53.0) % Plt Count (150-450) k/uL Neutrophils # (1.3-7.7) k/uL Lymphocytes # (1.0-4.8) k/uL APTT 34.9 H (22.0-30.0) sec Sodium 133 L (137-145) mmol/L Glucose 170 H (74-99) mg/dL POC Glucose (mg/dL) 177 H (75-99) mg/dL Hemoglobin A1c (4.0-6.0) % Calcium 7.9 L (8.4-10.2) mg/dL 07/09/19 07/09/19 07/09/19 Range/Units 04:40 06:56 09:20 WBC (3.8-10.6) k/uL RBC 3.20 L 2.95 L (4.30-5.90) m/uL Hgb 9.9 L 9.3 L (13.0-17.5) gm/dL Hct 29.0 L 26.7 L (39.0-53.0) % Plt Count 139 L 140 L (150-450) k/uL Neutrophils # (1.3-7.7) k/uL Lymphocytes # 0.8 L (1.0-4.8) k/uL APTT (22.0-30.0) sec Sodium (137-145) mmol/L Glucose (74-99) mg/dL POC Glucose (mg/dL) 180 H (75-99) mg/dL Hemoglobin A1c (4.0-6.0) % Calcium (8.4-10.2) mg/dL Assessment and Plan Assessment: 1 subacute on chronic closure of the right iliac artery, post angiogram, post intra-arterial thrombotic therapy. Yesterday the patient had been taken back to the [facility] and was found to have thrombus in the left lower extremity as well. Left brachial artery was utilized and developed hemorrhage. TPA was discontinued. He did not require any packed red blood cells. Received 3 L of fluid resuscitation. Currently hemodynamically stable. Doppler pulses at the bilateral lower extremities intact. Left radial and brachial pulses palpable. ZOEY drain in place to the left brachial and left calf. 2 claudication/right lower extremity pain secondary to severe peripheral vascular disease 3 coronary artery disease with previous bypass surgery 4 diabetes mellitus 5 CVA 2 6 diabetic peripheral neuropathy 7 COPD plan Plan: The patient was seen and evaluated by Dr. Santillan. He remains on a heparin drip for now. Awaiting further evaluation by vascular surgery today. We'll continue to monitor him here in the intensive care unit. I, the cosigning physician, performed a history & physical examination of the patient. Lungs sounds are clear. Maintaining good O2 saturations in the 90s on room air. I discussed the assessment and plan of care with my nurse practitioner, Adriana Alegre. I attest to the above note as dictated by her.
[2019-07-09 12:04] LABS: Glucose,Whole Blood 167 mg/dL (75-99)
--- NOTE | 2019-07-09 12:06 | P.PN ---
Subjective Progress Note Date: 07/09/19 Patient seen and examined. No acute issues overnight. Tolerating a heparin drip. With some back pain otherwise okay. Objective - Vital Signs Vital signs: Vital Signs Temp 97.9 F 07/09/19 08:00 Pulse 82 07/09/19 11:00 Resp 12 07/09/19 11:00 BP 95/50 07/09/19 11:00 Pulse Ox 92 L 07/09/19 11:00 Intake & Output 07/08/19 07/09/19 07/09/19 18:59 06:59 18:59 Intake Total 800 3346.083 615 Output Total 200 465 580 Balance 600 2881.083 35 Weight 74.6 kg Intake: IV 700 3169 615 Lactated Ringers 1,000 ml 600 600 500 @ 100 mls/hr IV .Q10H [facility] Rx#:[id number] Magnesium Sulfate-D5w Pmx 100 100 100 1 gm In Dextrose/Water 1 100ml.bag @ 100 mls/hr IVPB Q1H [facility] Rx#: [id number] Pressure bag 18 15 Intake, IV Titration 177.083 Amount Heparin Sod,Pork in 0.45% 177.083 NaCl 25,000 unit In 0.45 % NaCl 1 250ml.bag @ 5 mls/hr IV .Q24H [facility] Rx#: [id number] Oral 100 Output: Drainage 40 45 Left Calf 25 Left Upper Arm 40 20 Urine 200 425 535 Other: Voiding Method Urinal Indwelling Catheter Indwelling Catheter ABP, PAP, CO, CI - Last Documented Arterial Blood Pressure 93/41 - Exam Sleepy, no acute distress. Normocephalic, atraumatic. Extremities warm and dry. Palpable radial pulses bilaterally. Left arm incision with some oozing at the dressing. ZOEY in place with serosanguineous drainage. Abdomen soft, nontender nondistended. Palpable femoral pulses bilaterally. On the right he has biphasic DP signal, adequate capillary refill. On the left he has palpable dorsalis pedis, multiphasic posterior tibial. Incision is clean and dry. ZOEY in place of serosanguineous drainage. Motor sensory intact - Labs CBC & Chem 7: 07/09/19 09:20 07/09/19 04:40 Labs: Abnormal Lab Results - Last 24 Hours (Table) 07/08/19 07/08/1919 Range/Units 04:47 18:30 21:27 WBC (3.8-10.6) k/uL RBC 3.91 L (4.30-5.90) m/uL Hgb 12.2 L (13.0-17.5) gm/dL Hct 36.1 L (39.0-53.0) % Plt Count (150-450) k/uL Neutrophils # 9.0 H (1.3-7.7) k/uL Lymphocytes # 0.9 L (1.0-4.8) k/uL APTT (22.0-30.0) sec Sodium (137-145) mmol/L Glucose (74-99) mg/dL POC Glucose (mg/dL) 185 H (75-99) mg/dL Hemoglobin A1c 7.3 H (4.0-6.0) % Calcium (8.4-10.2) mg/dL 07/09/19 07/09/19 07/09/19 Range/Units 00:18 00:18 01:17 WBC 13.6 H (3.8-10.6) k/uL RBC 3.39 L (4.30-5.90) m/uL Hgb 10.2 L (13.0-17.5) gm/dL Hct 31.1 L (39.0-53.0) % Plt Count (150-450) k/uL Neutrophils # 11.4 H (1.3-7.7) k/uL Lymphocytes # (1.0-4.8) k/uL APTT (22.0-30.0) sec Sodium 132 L (137-145) mmol/L Glucose 190 H (74-99) mg/dL POC Glucose (mg/dL) 177 H (75-99) mg/dL Hemoglobin A1c (4.0-6.0) % Calcium 8.0 L (8.4-10.2) mg/dL 07/09/19 07/09/19 07/09/19 Range/Units 04:40 04:40 04:40 WBC (3.8-10.6) k/uL RBC 3.20 L (4.30-5.90) m/uL Hgb 9.9 L (13.0-17.5) gm/dL Hct 29.0 L (39.0-53.0) % Plt Count 139 L (150-450) k/uL Neutrophils # (1.3-7.7) k/uL Lymphocytes # 0.8 L (1.0-4.8) k/uL APTT 34.9 H (22.0-30.0) sec Sodium 133 L (137-145) mmol/L Glucose 170 H (74-99) mg/dL POC Glucose (mg/dL) (75-99) mg/dL Hemoglobin A1c (4.0-6.0) % Calcium 7.9 L (8.4-10.2) mg/dL 07/09/19 07/09/19 Range/Units 06:56 09:20 WBC (3.8-10.6) k/uL RBC 2.95 L (4.30-5.90) m/uL Hgb 9.3 L (13.0-17.5) gm/dL Hct 26.7 L (39.0-53.0) % Plt Count 140 L (150-450) k/uL Neutrophils # (1.3-7.7) k/uL Lymphocytes # (1.0-4.8) k/uL APTT (22.0-30.0) sec Sodium (137-145) mmol/L Glucose (74-99) mg/dL POC Glucose (mg/dL) 180 H (75-99) mg/dL Hemoglobin A1c (4.0-6.0) % Calcium (8.4-10.2) mg/dL Assessment and Plan Assessment: #1 right iliac occlusive disease #2 type 2 diabetes #3 hypertension #4 hyperlipidemia #5 tobacco abuse #6 COPD #7 left femoral-popliteal bypass occlusion, status post open thrombectomy and patch angioplasty #8 left brachial artery bleed status post exploration and control of hemorrhage Plan: At this time the patient appears to be doing well. Would continue to monitor him in the ICU. Continue heparin drip. He is to increase his activity as he tolerates. He may have a regular diet. We'll maintain ZOEY drains at this time.
[2019-07-09 15:30] LABS: HCT 25.5 % (39.0-53.0); HGB 8.8 gm/dL (13.0-17.5); MCH 31.3 pg (25.0-35.0); MCHC 34.5 g/dL (31.0-37.0); MCV 90.9 fL (80.0-100.0); Mean Platelet Volume 7.8; Platelet Count 122 k/uL (150-450); RBC 2.81 m/uL (4.30-5.90); RDW 13.9 % (11.5-15.5); WBC 8.5 k/uL (3.8-10.6)
--- NOTE | 2019-07-09 15:48 | P.OP ---
Date of Procedure: 07/08/19 Description of Procedure: Preoperative diagnosis: [right iliac occlusive disease] Postoperative diagnosis: Same, acute left lower extremity thromboembolism, bleeding left brachial access site Procedure: [1. Ultrasound-guided right common femoral artery access #2 placement of Perclose pre-closure device #3 aortogram #4 placement of aortoiliac stent graft, AFX2 #5 selective left lower extremity angiogram, third order #6pharmacal mechanical thromboembolectomy withpenumbra CAT 6 #7 percutaneous transluminal balloon angioplasty of tibial peroneal trunk] Surgeon: Lucille Eduardo D.O. EBL: [50 mL] IV fluids: [C operative note] Urine output: [see records] Drains: [none] Complications: [acute left lower extremity thrombo-embolism, bleeding left brachial access site] Condition: [stable but critical, transferred to OR for operative intervention] Operative indication and findings: [the patient is a 74-year-old male who previously presented with right iliac artery occlusion, a subacute on chronic issuewithout any evidence of a femoral pulse or any pulses through his leg on the right. He was initially brought to the special suite and initiation of thrombolytics was performed today he came back for a repeat intervention and evaluation with aortoiliac stent graft. At the conclusion of the procedure,he had palpable femoral pulses bilaterally. He had improved flow to his right foot, but his previously palpable left dorsalispedis pulse was absent. A left lower extremity angiogram revealed thrombus proximally and distally in his femoral popliteal bypass graft. There was reconstitution of his below-knee vessels but again clinically did not have a palpable pulse as he had previously. After interventions were performed this was unable to be obtained. At that point she some wires were removed and when pressure was held on the brachial site there was hematoma formation. After inability to improve the hematoma, along with this new embolic issue of his left leg, he was taken to the operative suite. ] Procedure in detail: [the patient was taken to the special suite and placed in supine position. The bilateral groins and left upper extremity and previously placed catheters were prepped and draped in usual sterile fashion. A preprocedure timeout was performed, all parties are in agreement. initially the left common femoral artery sheath was aspirin flushed a angiogram was performed revealing patent channel of flow through the right iliac artery. That point an ultrasound was utilized and the right common femoral artery was accessed with standard technique. Perclose pre-closure devices were placed. Catheters and wires were utilized to ensure luminal access into the aorta. That point a stiff wire was placed. the patient was heparinized and ACT is were followedA 17- Macedonian sheath was inserted to the right femoral artery annie 7-Macedonian sheath was placed into the contralateral side on the left. He catheter from the brachial site was replaced with a wire and left in place across the right common iliac artery. An angiogram was performed to measure links and caregivers anatomy was topography the ipsilateral common iliac was predilated using a 6 x 100 balloon. Over the Lunderquist wire a 20-80 AFX2 bifurcated device was advanced. A contralateral wire snared and pulled out the contralateral side. The device was transferred into the introducer sheath and advanced under fluoroscopic guidance until the distal limbs were above the aortic bifurcation releasing the limbs of the graft. The graft was then pulled down into place at the aortic bifurcation. Deployment of the main body was performed by pulling up on the control handle. The contralateral limb was then deployed. The pigtail catheter was advanced over A Wire and the Wire Lock Was Released. The Inflow Limb Was Deployed by Pinning the Inner Corner Tracking the Introducer Sheath. A 10 x 1 20 Iliac Extension Was Placed on the Right Side. The Extension Delivery Device Was Removed from the Introducer Sheath. A Cute 50 Balloon Was Used To the Proximal End of the Endograft Main Body a 9 x 4 Balloon Was Used To Angioplasty the Contralateral Iliac Limb of the Bifurcated Device. A Final Angiogram Was Performed Revealing Good Flow through the Graft Itself and into the Femoral Vessels. At That Point Pulses Were Checked Distally and There Was No Left Pedal Pulse As There Had Been Previously. 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 An Up & Over Wire Was Placed by a 6-Macedonian Sheath. Attempts Were Made to Pass an 8-Macedonian Sheath Which Were Unsuccessful. Using a Guidewire and Trailblazer Catheter the Bypass Was Accessed Initially the Proximal Area of Thrombus Was Suction Thrombectomy Excessively. Distally at the Bypass Anastomosis There Was Complete Occlusion with Reconstitution of the Below-Knee Vessels at the Level of the Anastomosis of the Bypass. Multiple Attempts Were Made to Attempt Suction Thrombectomy As Well As Transluminal Balloon Angioplasty to Open the Channel This Was All Unsuccessful. At That Point Catheters and Wires Were All Removed. The Right Femoral Sheath Was Removed and the Perclose Sutures Were Tightened down and Hemostasis Was Adequate. The Femoral Sheath on the Right and the Brachial Sheath Were Removed and Manual Pressure Was Held. On the Left Femoral Site There Was No Evidence of Hematoma or Bleeding. On the Right As the Patient Was Waking up There Was Significant Appearance of Increasing Hematoma without Any Active Bleeding through the Site. Pressure Was Attempted to Be Held for Longer but It Did Appear That the Hematoma Was Expanding. The Patient Maintained a Palpable Radial Pulse throughout This.given his change in distal vascular exam as well as the bleeding arm it was decided the patient needed to go to the operating room for further intervention.
--- NOTE | 2019-07-09 16:01 | P.OP ---
Date of Procedure: 07/08/19 Description of Procedure: Preoperative diagnosis: [right iliac artery occlusion, status post thrombolysis, left brachial artery active bleeding, left lower extremity acute ischemia] Postoperative diagnosis: Same Procedure: [#1 open expiration of the left brachial artery with control of hemorrhage #2 open thrombectomy of the left popliteal artery #3 endarterectomy of left tibial peroneal trunk with patch angioplasty #4 left lower extremity angiogram] Surgeon: Lucille Eduardo D.O. EBL: [100 mL] IV fluids: [see records] Urine output: [see records] Drains: [10-Romanian left brachial ZOEY, 15-Frenchleft popliteal ZOEY] Complications: [none immediately apparent] Condition: [extubated in the OR and transferred to ICU] Operative indication and findings: [at the time of the operative procedure the left brachial artery was still bleeding and hemostasis was controlled with a 6-0 Prolene. The hematoma was evacuated. At the portion of the left lower extremity exploration, there was dense fibrous tissue from previous incision and from previous bypass. There was an area of stenosis and atherosclerotic dise ase at the level of the anastomosis as well as new annie chronic appearing thrombus. At the resolution of the procedure the patient had adequate flow through his bypass graft with multiphasic signals distally] Procedure in detail: [the patient was taken to the operative suite after previous endovascular interventions as dictated elsewhere. He was intubated. A preprocedure timeout was performed, all parties are in agreement. Left upper extremity was prepped and draped in usual sterile fashion. The area of the previous puncture site was opened longitudinally and carried down to the level of the brachial artery there was significant hematoma formation and intramuscular edema. The brachial artery was identified and encircled proximally. The level of the puncture site was identified at this point there was minimal oozing yet still active bleeding from the brachial artery. 6-0 Prolene sutures were placed and hemostasis was achieved. The area was then irrigated with hydrogen peroxide as well as antibiotic saline solution. Hemostasis was adequate. The 10-Romanian ZOEY was placed. The brachial sheath was reapproximated with 2-0 Vicryl. The deep dermal tissues were reapproximated wit h 3-0 Vicryl and the skin was reprepped with running 4-0 Monocryl. Dressing was placed. The patient a palpable radial pulse with multiphasic radial, ulnar and palmar arch signals. At that point attention was turned to the leg it was prepped and draped in usual sterile fashion. At the previous level of the popliteal incision, repeat incision was made and carried down through the significant scar tissue down to the level of the popliteal artery. The popliteal vein was encountered first followed by the graft which was behind the popliteal vein and the graft was a PTFE graft that had previously been placed at outside hospital there was still a pulse in this graft was retrograde filling the distal popliteal artery. Anastomosis was just proximal to the take of the anterior tibial and down into the TP trunk. All 3 vessels were dissected circumferentially and a vessel loop was placed. The patient was heparinized and ACT is were followed. After appropriate anticoagulation flow was occluded through the graft and distal vessels. 8 graftotomy was performed at the fu in a longitudinal fashion and carried down distally through the anastomosis and onto the TP trunk. There was significant thrombus that was flushed out proximally, this was new. There was also significant old appearing thrombus which was firm with a wider From the area of the anastomosis. That point a 3 and a 2 Roland catheter was attempted to pass down both the anterior tibial and the tibial peroneal trunk. This did not seem to track very far. Dilators were placed and there was return of blood flow from both vessels. Multiple attempts were made to obtain an angiogram all of which were unsuccessful at feeling any visualized distal arteries. Again there was adequate appearing backbleeding from both of these sites at that point a patch angioplasty was performed and sutured in place with 7-0 Prolene. Prior to completion of the anastomosis the vessels were backbled and the graft was bled forward to flush. A Doppler was used and there is multiphasic signal distal to the patch angioplasty as well as at the level of the ankle. The areas and copiously irrigated with antibiotic solution. Hemostasis was achieved with thrombin and Gelfoam as well as interrupted sutures of 7-0 Prolene. Once hemostasis was adequate attention was turned towards closure. A 15-Romanian ZOEY drain was placed. The fascia was rreapproximated with 2-0 Vicryl in interrupted fashion. The deep dermal tissues were reapproximated with interrupted 3-0 Vicryl and the skin was reprepped and with 4-0 Monocryl. Steri-Strips were placed. A dressing was placed. Patient was allowed awaken from anesthesia and extubated. He is transferred ICU in stable but critical condition.
[2019-07-09 18:45] LABS: Glucose,Whole Blood 142 mg/dL (75-99)
[2019-07-09 20:51] LABS: Glucose,Whole Blood 121 mg/dL (75-99)
[2019-07-09] MEDS: HYDROmorphone 1 MG/ML 1 ML SYRINGE IVP PRN (22:34)
[2019-07-10] MEDS: HYDROmorphone 1 MG/ML 1 ML SYRINGE IVP PRN (05:22)
[2019-07-10 06:18] LABS: Basophils % (A) 0 %; Eosinophils # (A) 0.2 k/uL (0-0.7); Eosinophils % (A) 3 %; HCT 23.4 % (39.0-53.0); HGB 8.1 gm/dL (13.0-17.5); Lymphocytes # (A) 1.2 k/uL (1.0-4.8); Lymphocytes % (A) 20 %; MCH 31.5 pg (25.0-35.0); MCHC 34.7 g/dL (31.0-37.0); Mean Platelet Volume 8.3; Monocytes # (A) 0.3 k/uL (0-1.0); Monocytes % (A) 5 %; Neutrophils # (A) 4.4 k/uL (1.3-7.7); Neutrophils % (A) 71 %; Platelet Count 120 k/uL (150-450); RBC 2.57 m/uL (4.30-5.90); RDW 13.9 % (11.5-15.5); WBC 6.2 k/uL (3.8-10.6)
[2019-07-10 06:26] LABS: Prothrombin Time 10.5 sec (9.0-12.0)
[2019-07-10] MEDS: INSULIN ASPART (NovoLOG) 100 UNIT/ML VIAL SQ SCH ×4 (07:02→21:08)
[2019-07-10 07:09] LABS: Glucose,Whole Blood 121 mg/dL (75-99)
[2019-07-10 07:22] LABS: African American GFR (CKD) >90 (>60 ml/min/1.73 sqM); Anion Gap 3 mmol/L; Blood Urea Nitrogen 13 mg/dL (9-20); Calcium 7.8 mg/dL (8.4-10.2); Carbon Dioxide 27 mmol/L (22-30); Chloride 108 mmol/L (98-107); Glucose 116 mg/dL (74-99); Magnesium 1.9 mg/dL (1.6-2.3); Non-African American GFR(CKD) 85 (>60 ml/min/1.73 sqM); Phosphorus 2.5 mg/dL (2.5-4.5); Potassium 3.5 mmol/L (3.5-5.1); Sodium 138 mmol/L (137-145)
--- NOTE | 2019-07-10 09:45 | P.PN ---
Subjective Progress Note Date: 07/10/19 74-year-old male patient with known history of peripheral vascular disease who underwent recent abrupt a new onset right lower extremity pain. He presented emergency department and a CAT scan showed an occluded right common iliac artery with reconstruction of his distal external iliac artery. He was seen in the office and the patient was scheduled for this procedure stay. 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 He was brought into the intensive care unit for further monitoring. Known to have coronary artery disease and is undergone previous byp ass surgery in 2010. He is known to have COPD diabetes mellitus and previous history of CVA along with peripheral vascular disease. He is doing well. He has no pulses in the right lower extremity but he has good collaterals and the extremities warm. On 07/08/2019 patient seen in follow-up in the intensive care unit, he is resting comfortably in bed, in reverse Trendelenburg position, TPA and heparin are still infusing. Doppler pulse in the right pedal pulse, palpable pulse in the left foot, his pain is relatively well controlled, vital signs are stable, denies any specific complaints, no shortness of breath or chest pain, he is on 2 L of oxygen with a pulse ox of 97%, no acute issues overnight. Labs have been reviewed, and all relatively unremarkable, hemoglobin is stable. Patient is scheduled for repeat imaging and possible stent graft placement over distal aorta and occluded iliac segments. The patient is seen today 07/09/2019 in follow-up in the intensive care unit. he is currently awake and alert in no acute distress. He had subsequently undergonevascular evaluation in the cardiovascular lab yesterday. They discovered that a thrombus from the right leg had traveled to the left leg and he was going for a thrombectomy and patch angioplastythis was through a left brachial site which started hemorrhaging and then he had undergone an exploratory control of hemorrhage of the left brachial artery.there is a ZOEY drain in place.there is also a ZOEY drain in place in the left calf area. Currently he has left radial pulses present and palpable. Bilateral popliteal, posttibial and pedal pulses are strong with Doppler. he is currently having some pain of revascularization. Some ingrowing and numbness of the lower extremities. Feeling warm and cold at times. No shortness of breath, cough or congestion. On room air. No chest pain or palpitations. He remains nothing by mouth at this point. Tolerating ice chips and medications. He remains on a heparin drip. TPA had been discontinued. No groin catheters remain in place. On 07/10/2019 I'm seeing the patient for a follow-up. The patient is post left fem-pop bypass occlusion status post open thrombectomy and patch angioplasty and the patient also required a left brachial artery exploration and control of hem orrhage. This morning he is doing well. His hemoglobin is stable. He has palpable pulses in lower extremities bilaterally which are also warm. He is a bit lethargic this morning. He is arousable and follows commands and answering questions appropriately. His hemoglobin is stable and 8.1 and slightly lower compared to yesterday. Otherwise no other significant events overnight. Her IV fluids at 100 mL an hour. He is also on IV heparin drip. Objective - Vital Signs Vital signs: Vital Signs Temp 99.1 F 07/10/19 04:00 Pulse 87 07/10/19 07:00 Resp 9 L 07/10/19 07:00 BP 79/43 07/09/19 20:00 Pulse Ox 92 L 07/10/19 07:00 Intake & Output 07/09/19 07/10/19 07/10/19 18:59 06:59 18:59 Intake Total 1636 1476 103 Output Total 1320 1225 30 Balance 316 251 73 Weight 78.1 kg Intake: IV 1636 1236 103 Lactated Ringers 1,000 ml 1500 1200 100 @ 100 mls/hr IV .Q10H EVELIO Rx#:[id number] Magnesium Sulfate-D5w Pmx 100 1 gm In Dextrose/Water 1 100ml.bag @ 100 mls/hr IVPB Q1H EVELIO Rx#: [id number] Pressure bag 36 36 3 Oral 240 Output: Drainage 105 Left Calf 55 Left Upper Arm 50 Urine 1215 1225 30 Other: Voiding Method Indwelling Catheter Indwelling Catheter ABP, PAP, CO, CI - Last Documented Arterial Blood Pressure 130/49 - Exam GENERAL EXAM: Alert, pleasant 74-year-old gentleman on room air, active, comfortable in no apparent distress. HEAD: Normocephalic. EYES: Normal reaction of pupils, equal size. NOSE: Clear with pink turbinates. THROAT: No erythema or exudates. NECK: No masses, no JVD. CHEST: No chest wall deformity. LUNGS: Equal air entry with no crackles, wheeze, rhonchi or dullness. CVS: S1 and S2 normal with no audible murmur, regular rhythm. ABDOMEN: No hepatosplenomegaly, normal bowel sounds, no guarding or rigidity. SPINE: No scoliosis or deformity SKIN: Ecchymosis and edema of the left upper extremity. ZOEY drain in place. CENTRAL NERVOUS SYSTEM: No focal deficits, tone is normal in all 4 extremities. EXTREMITIES: Ecchymosis and edema of the left upper extremity. ZOEY drain in place. Bilateral groin catheters removed. Doppler pulses bilaterally to the lower extremities. - Labs CBC & Chem 7: 07/10/19 06:05 07/10/19 06:05 Labs: Abnormal Lab Results - Last 24 Hours (Table) 07/09/19 07/09/19 07/09/19 Range/Units 11:53 15:06 15:06 RBC 2.81 L (4.30-5.90) m/uL Hgb 8.8 L (13.0-17.5) gm/dL Hct 25.5 L (39.0-53.0) % Plt Count 122 L (150-450) k/uL APTT 71.8 H (22.0-30.0) sec Chloride (98-107) mmol/L Glucose (74-99) mg/dL POC Glucose (mg/dL) 167 H (75-99) mg/dL Calcium (8.4-10.2) mg/dL 07/09/19 07/09/19 07/10/19 Range/Units 18:33 20:40 06:05 RBC (4.30-5.90) m/uL Hgb (13.0-17.5) gm/dL Hct (39.0-53.0) % Plt Count (150-450) k/uL APTT 45.0 H (22.0-30.0) sec Chloride (98-107) mmol/L Glucose (74-99) mg/dL POC Glucose (mg/dL) 142 H 121 H (75-99) mg/dL Calcium (8.4-10.2) mg/dL 07/10/19 07/10/19 07/10/19 Range/Units 06:05 06:05 06:58 RBC 2.57 L (4.30-5.90) m/uL Hgb 8.1 L (13.0-17.5) gm/dL Hct 23.4 L (39.0-53.0) % Plt Count 120 L (150-450) k/uL APTT (22.0-30.0) sec Chloride 108 H (98-107) mmol/L Glucose 116 H (74-99) mg/dL POC Glucose (mg/dL) 121 H (75-99) mg/dL Calcium 7.8 L (8.4-10.2) mg/dL Assessment and Plan Plan: 1 subacute on chronic closure of the right iliac artery, post angiogram, post intra-arterial thrombotic therapy. subsequently, the patient had been taken back to the [facility] and was found to have thrombus in the left lower extremity as well. The patient is post left fe moral-popliteal bypass occlusion and post open thrombectomy and patch angioplasty and the patient underwent a left brachial artery bleeding control with an open approach. ZOEY drain is in place. Pulses in lower extremities are palpable on today's evaluation. He is hemodynamically stable. 2 claudication/right lower extremity pain secondary to severe peripheral vascular disease 3 coronary artery disease with previous bypass surgery 4 diabetes mellitus 5 CVA 2 6 diabetic peripheral neuropathy 7 COPD plan 8 blood loss anemia hemoglobin is at 8.1 Plan Continue IV fluids. Continue IV heparin. Monitor pulses. Monitor hemoglobin. May transfer to a medical floor once cleared by vascular surgery.
[2019-07-10] MEDS: LISINOPRIL 10 MG TAB PO SCH (10:01)
[2019-07-10] MEDS: ATORVASTATIN 40 MG TAB PO SCH (10:01)
[2019-07-10] MEDS: ACETAMINOPHEN TAB 325 MG TAB PO PRN (10:01)
[2019-07-10] MEDS: PARoxetine 20 MG TAB PO SCH ×2 (10:02→21:09)
--- NOTE | 2019-07-10 11:30 | P.PN ---
Subjective Progress Note Date: 07/10/19 Patient seen and examined. No acute issues overnight. nursing reports patient pulled out central venous catheter last night. Arterial line not functioning well. Patient without any complaints specifically. Objective - Vital Signs Vital signs: Vital Signs Temp 98.0 F 07/10/19 08:00 Pulse 111 H 07/10/19 08:00 Resp 14 07/10/19 08:00 BP 192/71 07/10/19 08:00 Pulse Ox 95 07/10/19 08:00 Intake & Output 07/09/19 07/10/19 07/10/19 18:59 06:59 18:59 Intake Total 1636 1476 515 Output Total 1320 1225 180 Balance 316 251 335 Weight 78.1 kg Intake: IV 1636 1236 515 Lactated Ringers 1,000 ml 1500 1200 500 @ 100 mls/hr IV .Q10H EVELIO Rx#:[id number] Magnesium Sulfate-D5w Pmx 100 1 gm In Dextrose/Water 1 100ml.bag @ 100 mls/hr IVPB Q1H EVELIO Rx#: [id number] Pressure bag 36 36 15 Oral 240 Output: Drainage 105 Left Calf 55 Left Upper Arm 50 Urine 1215 1225 180 Other: Voiding Method Indwelling Catheter Indwelling Catheter Indwelling Catheter ABP, PAP, CO, CI - Last Documented Arterial Blood Pressure 130/49 - Exam Sleepy, no acute distress.appearing better than yesterday Normocephalic, atraumatic. heart is regular. No respiratory distress. Extremities warm and dry. Palpable radial pulses bilaterally. Left arm incision with some oozing at the dressing. ZOEY in place with serosanguineous drainage.there is moderate amount of ecchymosis, all is soft. Abdomen soft, nontender nondistended. Palpable femoral pulses bilaterally. On the right he has biphasic DP signal,, monophasic PT signal adequate capillary refill. On the left he has palpable dorsalis pedis, multiphasic posterior tibial. Incision is clean and dry.he has some ecchymosis at the left groin. ZOEY in placeat the left popliteal site with serosanguineous drainage. Motor sensory intact - Labs CBC & Chem 7: 07/10/19 06:05 07/10/19 06:05 Labs: Abnormal Lab Results - Last 24 Hours (Table) 07/09/19 07/09/19 07/09/19 Range/Units 11:53 15:06 15:06 RBC 2.81 L (4.30-5.90) m/uL Hgb 8.8 L (13.0-17.5) gm/dL Hct 25.5 L (39.0-53.0) % Plt Count 122 L (150-450) k/uL APTT 71.8 H (22.0-30.0) sec Chloride (98-107) mmol/L Glucose (74-99) mg/dL POC Glucose (mg/dL) 167 H (75-99) mg/dL Calcium (8.4-10.2) mg/dL 07/09/19 07/09/19 07/10/19 Range/Units 18:33 20:40 06:05 RBC (4.30-5.90) m/uL Hgb (13.0-17.5) gm/dL Hct (39.0-53.0) % Plt Count (150-450) k/uL APTT 45.0 H (22.0-30.0) sec Chloride (98-107) mmol/L Glucose (74-99) mg/dL POC Glucose (mg/dL) 142 H 121 H (75-99) mg/dL Calcium (8.4-10.2) mg/dL 07/10/19 07/10/19 07/10/19 Range/Units 06:05 06:05 06:58 RBC 2.57 L (4.30-5.90) m/uL Hgb 8.1 L (13.0-17.5) gm/dL Hct 23.4 L (39.0-53.0) % Plt Count 120 L (150-450) k/uL APTT (22.0-30.0) sec Chloride 108 H (98-107) mmol/L Glucose 116 H (74-99) mg/dL POC Glucose (mg/dL) 121 H (75-99) mg/dL Calcium 7.8 L (8.4-10.2) mg/dL Assessment and Plan Assessment: #1 right iliac occlusive disease #2 type 2 diabetes #3 hypertension #4 hyperlipidemia #5 tobacco abuse #6 COPD #7 left femoral-popliteal bypass occlusion, status post open thrombectomy and patch angioplasty #8 left brachial artery bleed status post exploration and control of hemorrhage #9 acute on chronic blood loss anemia, no current evidence of active bleeding. Plan: At this time the patient appears to be doing well. regular diet, activity as tolerated, up to chair today. Continue heparin drip at this time. He may become stepdown/selective. Maintain JPs at this time. If he starts to show more issues with hypotension versus decreasing labs would recommend transfusion of PRBC. Again no evidence of active bleeding at this time, likely all from surgical intervention time as well as dilutional.
[2019-07-10] MEDS: HEPARIN SOD,PORK IN 0.45% NACL 25,000 UNIT in 0.45% NACL 1 250ML.BAG IV SCH (11:35)
[2019-07-10] MEDS: HEPARIN SODIUM,PORCINE 5,000 UNIT/ML 1 ML VIAL IV PRN ×2 (11:55→19:38)
[2019-07-10] MEDS: KETOROLAC 30 MG/ML 1 ML VIAL IVP PRN ×2 (11:56→22:04)
[2019-07-10] MEDS: LACTATED RINGERS 1,000 ML IV SCH ×2 (12:00→18:49)
[2019-07-10 12:11] LABS: Glucose,Whole Blood 146 mg/dL (75-99)
--- NOTE | 2019-07-10 12:51 | P.PN ---
Subjective Progress Note Date: 07/10/19 Principal diagnosis: PVD Patient has no complaints currently. No back pain. No shortness of breath, no chest pain, no fevers or chills. Patient had an episode of violent confusion this morning, he ripped off his IV, Eduardo catheter and ZOEY drain. Objective - Vital Signs Vital signs: Vital Signs Temp 98.0 F 07/10/19 08:00 Pulse 111 H 07/10/19 08:00 Resp 14 07/10/19 08:00 BP 192/71 07/10/19 08:00 Pulse Ox 95 07/10/19 08:00 Intake & Output 07/09/19 07/10/19 07/10/19 18:59 06:59 18:59 Intake Total 1636 1476 746.708 Output Total 1320 1225 180 Balance 316 251 566.708 Weight 78.1 kg Intake: IV 1636 1236 515 Lactated Ringers 1,000 ml 1500 1200 500 @ 100 mls/hr IV .Q10H [facility] Rx#:[id number] Magnesium Sulfate-D5w Pmx 100 1 gm In Dextrose/Water 1 100ml.bag @ 100 mls/hr IVPB Q1H [facility] Rx#: [id number] Pressure bag 36 36 15 Intake, IV Titration 231.708 Amount Heparin Sod,Pork in 0.45% 231.708 NaCl 25,000 unit In 0.45 % NaCl 1 250ml.bag @ 12 UNITS/KG/HR 8.952 mls/hr IV .Q24H [facility] Rx#: [id number] Oral 240 Output: Drainage 105 Left Calf 55 Left Upper Arm 50 Urine 1215 1225 180 Other: Voiding Method Indwelling Catheter Indwelling Catheter Indwelling Catheter ABP, PAP, CO, CI - Last Documented Arterial Blood Pressure 130/49 - Exam GENERAL EXAM: Alert, very pleasant, 74-year-old white male, on 2 L of oxygen with pulse ox 97% comfortable in no apparent distress. HEAD: Normocephalic/atraumatic. EYES: Normal reaction of pupils, equal size. Conjunctiva pink, sclera white. NOSE: Clear with pink turbinates. THROAT: No erythema or exudates. NECK: No masses, no JVD, no thyroid enlargement, no adenopathy. CHEST: No chest wall deformity. Symmetrical expansion. LUNGS: Equal air entry with no crackles, wheeze, rhonchi or dullness. CVS: Regular rate and rhythm, normal S1 and S2, no gallops, no murmurs, no rubs ABDOMEN: Soft, nontender. No hepatosplenomegaly, normal bowel sounds, no guarding or rigidity. EXTREMITIES: No clubbing, mild right foot edema, no cyanosis, Doppler pulse in the right pedal and right posterior tibial area, palpable +1+ in the left pedal area MUSCULOSKELETAL: Muscle strength and tone normal. Left brachial area catheter with TPA infusion, left femoral sheath. SPINE: No scoliosis or deformity SKIN: No rashes CENTRAL NERVOUS SYSTEM: Alert and oriented -3. No focal deficits, tone is normal in all 4 extremities. PSYCHIATRIC: Alert and oriented -3. Appropriate affect. Intact judgment and insight. - Labs CBC & Chem 7: 07/10/19 06:05 07/10/19 06:05 Labs: Abnormal Lab Results - Last 24 Hours (Table) 07/09/19 07/09/19 07/09/19 Range/Units 15:06 15:06 18:33 RBC 2.81 L (4.30-5.90) m/uL Hgb 8.8 L (13.0-17.5) gm/dL Hct 25.5 L (39.0-53.0) % Plt Count 122 L (150-450) k/uL APTT 71.8 H (22.0-30.0) sec Chloride (98-107) mmol/L Glucose (74-99) mg/dL POC Glucose (mg/dL) 142 H (75-99) mg/dL Calcium (8.4-10.2) mg/dL 07/09/19 07/10/19 07/10/19 Range/Units 20:40 06:05 06:05 RBC (4.30-5.90) m/uL Hgb (13.0-17.5) gm/dL Hct (39.0-53.0) % Plt Count (150-450) k/uL APTT 45.0 H (22.0-30.0) sec Chloride 108 H (98-107) mmol/L Glucose 116 H (74-99) mg/dL POC Glucose (mg/dL) 121 H (75-99) mg/dL Calcium 7.8 L (8.4-10.2) mg/dL 07/10/19 07/10/19 07/10/19 Range/Units 06:05 06:58 11:59 RBC 2.57 L (4.30-5.90) m/uL Hgb 8.1 L (13.0-17.5) gm/dL Hct 23.4 L (39.0-53.0) % Plt Count 120 L (150-450) k/uL APTT (22.0-30.0) sec Chloride (98-107) mmol/L Glucose (74-99) mg/dL POC Glucose (mg/dL) 121 H 146 H (75-99) mg/dL Calcium (8.4-10.2) mg/dL Assessment and Plan Plan: 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 Pain control was started on Tylenol, discontinue opiates as patient had an episode of violent confusion this morning Back pain Continue Toradol and Tylenol No opiates as he became confused Acute on chronic blood loss anemia Continue to monitor hemoglobin Will transfuse if hypotension or further dropping in hemoglobin DM 2 - hold metformin - substitue toujeo with levemir - SSI - Follow BS - A1C 7.3 HTN -lisinopril HLD - statin CAD s/p CABG - Continue plavix and ASA if ok with vascular, statin Diabetic peripheral neuropathy COPD Stable
[2019-07-10 18:15] LABS: Glucose,Whole Blood 145 mg/dL (75-99)
[2019-07-10] MEDS: FAMOTIDINE 20 MG TAB PO SCH (21:09)
[2019-07-10 21:15] LABS: Glucose,Whole Blood 143 mg/dL (75-99)
[2019-07-11 04:25] LABS: Basophils % (A) 1 %; Eosinophils # (A) 0.2 k/uL (0-0.7); Eosinophils % (A) 4 %; HCT 25.2 % (39.0-53.0); HGB 8.7 gm/dL (13.0-17.5); Lymphocytes # (A) 1.8 k/uL (1.0-4.8); Lymphocytes % (A) 28 %; MCH 31.9 pg (25.0-35.0); MCHC 34.5 g/dL (31.0-37.0); MCV 92.5 fL (80.0-100.0); Mean Platelet Volume 7.4; Monocytes # (A) 0.3 k/uL (0-1.0); Monocytes % (A) 5 %; Neutrophils # (A) 3.8 k/uL (1.3-7.7); Neutrophils % (A) 61 %; Platelet Count 152 k/uL (150-450); RBC 2.72 m/uL (4.30-5.90); RDW 13.9 % (11.5-15.5); WBC 6.2 k/uL (3.8-10.6)
[2019-07-11 04:58] LABS: African American GFR (CKD) >90 (>60 ml/min/1.73 sqM); Blood Urea Nitrogen 13 mg/dL (9-20); Calcium 8.3 mg/dL (8.4-10.2); Carbon Dioxide 25 mmol/L (22-30); Glucose 112 mg/dL (74-99); Non-African American GFR(CKD) 86 (>60 ml/min/1.73 sqM)
[2019-07-11 05:19] LABS: Anion Gap 3 mmol/L; Chloride 110 mmol/L (98-107); Potassium 3.8 mmol/L (3.5-5.1); Sodium 138 mmol/L (137-145)
[2019-07-11] MEDS: LACTATED RINGERS 1,000 ML IV SCH ×2 (05:22→17:56)
[2019-07-11] MEDS: INSULIN ASPART (NovoLOG) 100 UNIT/ML VIAL SQ SCH ×4 (06:32→22:05)
[2019-07-11 06:41] LABS: Glucose,Whole Blood 123 mg/dL (75-99)
[2019-07-11] MEDS: PARoxetine 20 MG TAB PO SCH ×2 (08:58→22:05)
[2019-07-11] MEDS: LISINOPRIL 10 MG TAB PO SCH (08:58)
[2019-07-11] MEDS: HEPARIN SOD,PORK IN 0.45% NACL 25,000 UNIT in 0.45% NACL 1 250ML.BAG IV SCH (08:58)
[2019-07-11] MEDS: ATORVASTATIN 40 MG TAB PO SCH (08:58)
[2019-07-11] MEDS ORDERED: LISINOPRIL 10 MG TAB PO STA (11:08)
[2019-07-11 12:22] LABS: Glucose,Whole Blood 122 mg/dL (75-99)
--- NOTE | 2019-07-11 12:42 | P.PN ---
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 He presented emergency department and a CAT scan showed an occluded right common iliac artery with reconstruction of his distal external iliac artery. He was seen in the office and the patient was scheduled for this procedure stay. 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 He was brought into the intensive care unit for further monitoring. Known to have coronary artery disease and is undergone previous bypass surgery in 2010. He is known to have COPD diabetes mellitus and previous history of CVA along with peripheral vascular disease. He is doing well. He has no pulses in the right lower extremity but he has good collaterals and the extremities warm. On 07/08/2019 patient seen in follow-up in the intensive care unit, he is resting comfortably in bed, in reverse Trendelenburg position, TPA and heparin are still infusing. Doppler pulse in the right pedal pulse, palpable pulse in the left foot, his pain is relatively well controlled, vital signs are stable, denies any specific complaints, no shortness of breath or chest pain, he is on 2 L of oxygen with a pulse ox of 97%, no acute issues overnight. Labs have been reviewed, and all relatively unremarkable, hemoglobin is stable. Patient is scheduled for repeat imaging and possible stent graft placement over distal aorta and occluded iliac segments. On 07/11/2019 patient seen in follow-up on selective care unit. patient was transferred out of the intensive care unit last night, no acute issues overnight, signs are stable, patient is status post left fem-pop bypass and status post open thrombectomy and patch angioplasty. his postoperative day 2. No acute issues overnight, patient has palpable right pedal pulse, and a strong left pedal pulse. Left leg ZOEY drain is in place, with scant amount of serosanguineous output, left brachial ZOEY drain is in place with scant amount of serosanguineous output, today's labs have been reviewed hemoglobin is 8.7, hemodynamically patient remains stable, no significant complaints overnight. Objective - Vital Signs Vital signs: Vital Signs Temp 97.0 F L 07/11/19 08:00 Pulse 88 07/11/19 08:00 Resp 18 07/11/19 06:27 BP 108/55 07/11/19 08:00 Pulse Ox 95 07/11/19 08:00 Intake & Output 07/10/19 07/11/19 07/11/19 18:59 06:59 18:59 Intake Total 1367.708 384.422 148.827 Output Total 1780 1170 50 Balance -412.292 -785.578 98.827 Weight 74.3 kg Intake: IV 1136 300 Lactated Ringers 1,000 ml 1100 300 @ 100 mls/hr IV .Q10H [facility] Rx#:[id number] Pressure bag 36 Intake, IV Titration 231.708 84.422 148.827 Amount Heparin Sod,Pork in 0.45% 231.708 84.422 148.827 NaCl 25,000 unit In 0.45 % NaCl 1 250ml.bag @ 12 UNITS/KG/HR 8.952 mls/hr IV .Q24H [facility] Rx#: [id number] Output: Drainage 70 Left Calf 40 Left Upper Arm 30 Urine 1780 1100 50 Other: Voiding Method Indwelling Catheter Indwelling Catheter # Voids 1 ABP, PAP, CO, CI - Last Documented Arterial Blood Pressure 130/49 - Exam GENERAL EXAM: Alert, very pleasant, 74-year-old white male, on room air, with a pulse ox of 95% comfortable in no apparent distress. HEAD: Normocephalic/atraumatic. EYES: Normal reaction of pupils, equal size. Conjunctiva pink, sclera white. NOSE: Clear with pink turbinates. THROAT: No erythema or exudates. NECK: No masses, no JVD, no thyroid enlargement, no adenopathy. CHEST: No chest wall deformity. Symmetrical expansion. LUNGS: Equal air entry with no crackles, wheeze, rhonchi or dullness. CVS: Regular rate and rhythm, normal S1 and S2, no gallops, no murmurs, no rubs ABDOMEN: Soft, nontender. No hepatosplenomegaly, normal bowel sounds, no guarding or rigidity. EXTREMITIES: No clubbing, mild right foot edema, no cyanosis, palpable 1+ pulse in the right pedal and 2+ left pedal pulse area MUSCULOSKELETAL: Muscle strength and tone normal. Left brachial area catheter with TPA infusion, left femoral sheath. SPINE: No scoliosis or deformity SKIN: No rashes. CENTRAL NERVOUS SYSTEM: Alert and oriented -3. No focal deficits, tone is normal in all 4 extremities. PSYCHIATRIC: Alert and oriented -3. Appropriate affect. Intact judgment and insight. - Labs CBC & Chem 7: 07/11/19 04:12 07/11/19 04:12 Labs: Abnormal Lab Results - Last 24 Hours (Table) 07/10/19 07/10/19 07/10/19 Range/Units 18:01 18:04 21:03 RBC (4.30-5.90) m/uL Hgb (13.0-17.5) gm/dL Hct (39.0-53.0) % APTT 39.0 H (22.0-30.0) sec Chloride (98-107) mmol/L Glucose (74-99) mg/dL POC Glucose (mg/dL) 145 H 143 H (75-99) mg/dL Calcium (8.4-10.2) mg/dL 07/11/19 07/11/19 07/11/19 Range/Units 04:12 04:12 04:12 RBC 2.72 L (4.30-5.90) m/uL Hgb 8.7 L (13.0-17.5) gm/dL Hct 25.2 L (39.0-53.0) % APTT 56.0 H (22.0-30.0) sec Chloride 110 H (98-107) mmol/L Glucose 112 H (74-99) mg/dL POC Glucose (mg/dL) (75-99) mg/dL Calcium 8.3 L (8.4-10.2) mg/dL 07/11/19 07/11/19 Range/Units 06:30 12:21 RBC (4.30-5.90) m/uL Hgb (13.0-17.5) gm/dL Hct (39.0-53.0) % APTT (22.0-30.0) sec Chloride (98-107) mmol/L Glucose (74-99) mg/dL POC Glucose (mg/dL) 123 H 122 H (75-99) mg/dL Calcium (8.4-10.2) mg/dL Assessment and Plan Plan: Assessment: 1 subacute on chronic closure of the right iliac artery, post angiogram, post intra-arterial thrombotic therapy, and status post left femoral/popliteal bypass occlusion and post open thrombectomy and patch angioplasty, postop day 2 Left brachial artery bleeding, status post exploration and control of hemorrhage, postop day 2 2 claudication/right lower extremity pain secondary to severe peripheral vascular disease 3 coronary artery disease with previous bypass surgery 4 diabetes mellitus 5 CVA 2 6 diabetic peripheral neuropathy 7 COPD plan 8 tobacco abuse Plan: no acute issues overnight, no specific complaints, no difficulty breathing, vital signs are stable, hemoglobin is stable. Encourage deep breathing and coughing, palpable right pedal pulse, no significant drainage out of the ZOEY drains. From pulmonary/critical care perspective patient is stable, we will sign off and follow on as-needed basis. I performed a history & physical examination of the patient and discussed their management with my nurse practitioner, Marilu Casiano. I reviewed the nurse practitioner's note and agree with the documented findings and plan of care. Lung sounds are positive for clear breath sounds. The findings and the impres rina was discussed with the patient. I attest to the documentation by the nurse practitioner. Time with Patient: Less than 30
[2019-07-11] MEDS: APIXABAN 5 MG TAB PO SCH ×2 (13:09→22:05)
[2019-07-11] MEDS: METOPROLOL TARTRATE 12.5 MG TAB PO SCH ×2 (13:09→22:05)
[2019-07-11] MEDS: ASPIRIN 81 MG PO SCH (13:09)
--- NOTE | 2019-07-11 14:01 | P.PN ---
Subjective Progress Note Date: 07/11/19 patient seen and examined at bedside sitting up, reports that he has not been up and ambulatory, no significant complaints reports his pain is well-controlled. POD #2 status post left fem-pop bypass and status post open thrombectomy and patch angioplasty. hemoglobin 8.7. Blood pressure systolically 144-164. no acute events overnight Objective - Vital Signs Vital signs: Vital Signs Temp 97.0 F L 07/11/19 08:00 Pulse 88 07/11/19 08:00 Resp 18 07/11/19 06:27 BP 108/55 07/11/19 08:00 Pulse Ox 95 07/11/19 08:00 Intake & Output 07/10/19 07/11/19 07/11/19 18:59 06:59 18:59 Intake Total 1367.708 384.422 148.827 Output Total 1780 1170 50 Balance -412.292 -785.578 98.827 Weight 74.3 kg Intake: IV 1136 300 Lactated Ringers 1,000 ml 1100 300 @ 100 mls/hr IV .Q10H [facility] Rx#:[id number] Pressure bag 36 Intake, IV Titration 231.708 84.422 148.827 Amount Heparin Sod,Pork in 0.45% 231.708 84.422 148.827 NaCl 25,000 unit In 0.45 % NaCl 1 250ml.bag @ 12 UNITS/KG/HR 8.952 mls/hr IV .Q24H [facility] Rx#: [id number] Output: Drainage 70 Left Calf 40 Left Upper Arm 30 Urine 1780 1100 50 Other: Voiding Method Indwelling Catheter Indwelling Catheter # Voids 1 ABP, PAP, CO, CI - Last Documented Arterial Blood Pressure 130/49 - Exam Constitutional: No acute distress, conversant, pleasant Eyes: Anicteric sclerae, moist conjunctiva, no lid-lag, PERRLA ENMT: NC/AT,Oropharynx clear, no erythema, exudates Neck:Supple, FROM, no masses, or JVD, No carotid bruits; No thyromegaly Lungs: Clear to auscultation, Clear to percussion, Normal respiratory effort, no accessory muscle use Cardiovascular: Heart regular in rate and rhythm, No murmurs, gallops, or rubs no peripheral edema Abdominal: Soft Nontender, nom distended, no guarding, no rebound or rigidity, Normoactive bowel sounds No hepatomegaly, No splenomegaly, No palpable mass No abdominal wall hernia noted Skin: Normal temperature, tone, texture, turgor, No induration No subcutaneous nodules, No rash, lesions, No ulcers Extremities:No digital cyanosis No clubbing, 2+ right pedal pulses 1+ right pedal pulse, left ZOEY drain with scant serosanguineous drainage Psychiatric: Alert and oriented to person, place and time, Appropriate affect Intact judgement Neuro: Muscles Strength 5/5 in all 4 extremities, Sensation to light touch grossly present throughout, Cranial nerves II-XII grossly intact. No focal sensory deficits - Labs CBC & Chem 7: 07/11/19 04:12 07/11/19 04:12 Labs: Abnormal Lab Results - Last 24 Hours (Table) 07/10/19 07/10/19 07/10/19 Range/Units 18:01 18:04 21:03 RBC (4.30-5.90) m/uL Hgb (13.0-17.5) gm/dL Hct (39.0-53.0) % APTT 39.0 H (22.0-30.0) sec Chloride (98-107) mmol/L Glucose (74-99) mg/dL POC Glucose (mg/dL) 145 H 143 H (75-99) mg/dL Calcium (8.4-10.2) mg/dL 07/11/19 07/11/19 07/11/19 Range/Units 04:12 04:12 04:12 RBC 2.72 L (4.30-5.90) m/uL Hgb 8.7 L (13.0-17.5) gm/dL Hct 25.2 L (39.0-53.0) % APTT 56.0 H (22.0-30.0) sec Chloride 110 H (98-107) mmol/L Glucose 112 H (74-99) mg/dL POC Glucose (mg/dL) (75-99) mg/dL Calcium 8.3 L (8.4-10.2) mg/dL 07/11/19 07/11/19 Range/Units 06:30 12:21 RBC (4.30-5.90) m/uL Hgb (13.0-17.5) gm/dL Hct (39.0-53.0) % APTT (22.0-30.0) sec Chloride (98-107) mmol/L Glucose (74-99) mg/dL POC Glucose (mg/dL) 123 H 122 H (75-99) mg/dL Calcium (8.4-10.2) mg/dL Assessment and Plan Assessment: Uncontrolled hypertension * blood pressure not at goal we'll increase lisinopril to 20 mg and start Lopressor 12.5 mg PO BID * Continue to monitor Type 2 diabetes with peripheral neuropathy * blood sugars stable continue correctional scale insulin coverage * We'll resume metformin on discharge * A1c 7.3 Hyperlipidemia * continue statin therapy acute blood loss anemia * secondary to left brachial artery bleed post-exploration * hemoglobin stable todayAt 8.7 coronary artery disease status post CABG * Resume Plavix and aspirin if okay with vascular team COPD * Stable without any acute exacerbation Right iliac occlusive disease POD #2 s/p left femoral-popliteal bypass occlusion, status post open thrombectomy and patch angioplasty
--- NOTE | 2019-07-11 15:38 | P.PN ---
Subjective Progress Note Date: 07/11/19 Patient seen and evaluated lying in bed. Patient is in no acute distress, and denies any changes through the night. Objective - Vital Signs Vital signs: Vital Signs Temp 98.0 F 07/11/19 06:27 Pulse 79 07/11/19 06:27 Resp 18 07/11/19 06:27 BP 168/72 07/11/19 06:27 Pulse Ox 98 07/11/19 06:27 Intake & Output 07/10/19 07/11/19 07/11/19 18:59 06:59 18:59 Intake Total 1367.708 384.422 148.827 Output Total 1780 1170 50 Balance -412.292 -785.578 98.827 Weight 74.3 kg Intake: IV 1136 300 Lactated Ringers 1,000 ml 1100 300 @ 100 mls/hr IV .Q10H [facility] Rx#:[id number] Pressure bag 36 Intake, IV Titration 231.708 84.422 148.827 Amount Heparin Sod,Pork in 0.45% 231.708 84.422 148.827 NaCl 25,000 unit In 0.45 % NaCl 1 250ml.bag @ 12 UNITS/KG/HR 8.952 mls/hr IV .Q24H [facility] Rx#: [id number] Output: Drainage 70 Left Calf 40 Left Upper Arm 30 Urine 1780 1100 50 Other: Voiding Method Indwelling Catheter Indwelling Catheter # Voids 1 ABP, PAP, CO, CI - Last Documented Arterial Blood Pressure 130/49 - Exam General appearance: The patient is alert, oriented, in no acute distress. HET: Head is normocephalic and atraumatic. Heart: S1 S2. Regular rate and rhythm. Lungs: No crackles or wheezes are heard. Abdomen: Soft, nontender, nondistended with bowel sounds. Extremities: Palpable bilateral radial pulses. Left upper extremity with dressing, ecchymosis, no evidence of hematoma. Left upper extremity ZOEY drain with minimal serosanguinous drainage. Bilateral groins with clean dry and intact dressing. Small amount of ecchymosis at left groin, no palpable hematoma bilaterally. Biphasic Doppler signal right dorsalis pedis, palpable left d orsalis pedis. ZOEY drain with serosanguineous drainage in place at the left popliteal site, dressing intact. Motor sensory intact bilaterally. Neurological: No focal deficits. Strength and sensation are grossly intact. - Labs CBC & Chem 7: 07/11/19 04:12 07/11/19 04:12 Labs: Abnormal Lab Results - Last 24 Hours (Table) 07/10/19 07/10/19 07/10/19 Range/Units 11:59 18:01 18:04 RBC (4.30-5.90) m/uL Hgb (13.0-17.5) gm/dL Hct (39.0-53.0) % APTT 39.0 H (22.0-30.0) sec Chloride (98-107) mmol/L Glucose (74-99) mg/dL POC Glucose (mg/dL) 146 H 145 H (75-99) mg/dL Calcium (8.4-10.2) mg/dL 07/10/19 07/11/19 07/11/19 Range/Units 21:03 04:12 04:12 RBC 2.72 L (4.30-5.90) m/uL Hgb 8.7 L (13.0-17.5) gm/dL Hct 25.2 L (39.0-53.0) % APTT 56.0 H (22.0-30.0) sec Chloride (98-107) mmol/L Glucose (74-99) mg/dL POC Glucose (mg/dL) 143 H (75-99) mg/dL Calcium (8.4-10.2) mg/dL 07/11/19 07/11/19 Range/Units 04:12 06:30 RBC (4.30-5.90) m/uL Hgb (13.0-17.5) gm/dL Hct (39.0-53.0) % APTT (22.0-30.0) sec Chloride 110 H (98-107) mmol/L Glucose 112 H (74-99) mg/dL POC Glucose (mg/dL) 123 H (75-99) mg/dL Calcium 8.3 L (8.4-10.2) mg/dL Assessment and Plan Assessment: Right iliac occlusive disease Type 2 diabetes Hypertension Hyperlipidemia Tobacco abuse COPD Left femoral-popliteal bypass occlusion, status post open thrombectomy and patch angioplasty Left brachial artery bleed status post exploration and control of hemorrhage acute on chronic blood loss anemia, no current evidence of active bleeding Plan: At this time we will discontinue the heparin drip and start the patient on Eliquis 5mg BID, 1 hour after heparin drip has been discontinued and low dose aspirin. Maintain ZOEY drains. There is no evidence of active bleeding continue to monitor labs. The above dictated assessment and findings were discussed with Dr. Eduardo. The impression and plan of care have been directed as dictated.
[2019-07-11 17:18] LABS: Glucose,Whole Blood 187 mg/dL (75-99)
[2019-07-11 21:05] LABS: Glucose,Whole Blood 171 mg/dL (75-99)
[2019-07-11] MEDS: FAMOTIDINE 20 MG TAB PO SCH (22:05)
[2019-07-12 06:06] LABS: Glucose,Whole Blood 157 mg/dL (75-99)
[2019-07-12] MEDS: INSULIN ASPART (NovoLOG) 100 UNIT/ML VIAL SQ SCH ×2 (06:12→11:50)
[2019-07-12 07:27] LABS: Basophils % (A) 0 %; Eosinophils # (A) 0.3 k/uL (0-0.7); Eosinophils % (A) 4 %; HCT 25.4 % (39.0-53.0); HGB 8.5 gm/dL (13.0-17.5); Lymphocytes # (A) 1.6 k/uL (1.0-4.8); Lymphocytes % (A) 21 %; MCH 30.2 pg (25.0-35.0); MCHC 33.6 g/dL (31.0-37.0); MCV 89.8 fL (80.0-100.0); Mean Platelet Volume 8.6; Monocytes # (A) 0.4 k/uL (0-1.0); Monocytes % (A) 5 %; Neutrophils # (A) 5.1 k/uL (1.3-7.7); Neutrophils % (A) 69 %; Platelet Count 174 k/uL (150-450); RBC 2.83 m/uL (4.30-5.90); RDW 13.9 % (11.5-15.5); WBC 7.4 k/uL (3.8-10.6)
--- NOTE | 2019-07-12 07:33 | IR ---
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 See dictated report from vascular surgery, 40.5 minutes fluoroscopy time, 1535 intraoperative images document the procedure
[2019-07-12 08:32] VITALS: RESP 18
[2019-07-12] MEDS: PARoxetine 20 MG TAB PO SCH (08:32)
[2019-07-12] MEDS: ASPIRIN 81 MG PO SCH (08:32)
[2019-07-12] MEDS: APIXABAN 5 MG TAB PO SCH (08:32)
[2019-07-12] MEDS: METOPROLOL TARTRATE 12.5 MG TAB PO SCH (08:32)
[2019-07-12] MEDS: ATORVASTATIN 40 MG TAB PO SCH (08:32)
--- NOTE | 2019-07-12 08:38 | P.PN ---
Subjective Progress Note Date: 07/12/19 Patient seen and evaluated lying in bed. Patient is in no acute distress, and denies any changes through the night. Pt has been up out of bed into chair. Objective - Vital Signs Vital signs: Vital Signs Temp 97.9 F 07/12/19 08:00 Pulse 70 07/12/19 08:00 Resp 18 07/12/19 08:00 BP 141/60 07/12/19 08:00 Pulse Ox 98 07/12/19 08:00 Intake & Output 07/11/19 07/12/19 07/12/19 18:59 06:59 18:59 Intake Total 388.827 480 Output Total 550 1255 Balance -161.173 -775 Weight 76 kg Intake: Intake, IV Titration 148.827 Amount Heparin Sod,Pork in 0.45% 148.827 NaCl 25,000 unit In 0.45 % NaCl 1 250ml.bag @ 12 UNITS/KG/HR 8.952 mls/hr IV .Q24H [facility] Rx#: [id number] Oral 240 480 Output: Drainage 30 Left Calf 20 Left Upper Arm 10 Urine 550 1225 Other: # Voids 2 1 ABP, PAP, CO, CI - Last Documented Arterial Blood Pressure 130/49 - Exam General appearance: The patient is alert, oriented, in no acute distress. HET: Head is normocephalic and atraumatic. Heart: S1 S2. Regular rate and rhythm. Lungs: No crackles or wheezes are heard. Abdomen: Soft, nontender, nondistended with bowel sounds. Extremities: Palpable bilateral radial pulses. Left upper extremity with rocky ssing, ecchymosis, no evidence of hematoma. Left upper extremity ZOEY drain with minimal serosanguinous drainage. Bilateral groins with clean dry and intact dressing. Small amount of ecchymosis at left groin, no palpable hematoma bilaterally. Palpable bilateral femoral, popliteal, and DP pulses. ZOEY drain with serosanguineous drainage in place at the left popliteal site, dressing intact. Motor sensory intact bilaterally. Neurological: No focal deficits. Strength and sensation are grossly intact. - Labs CBC & Chem 7: 07/12/19 06:37 07/11/19 04:12 Labs: Abnormal Lab Results - Last 24 Hours (Table) 12/23/19 12/23/19 12/23/19 Range/Units 12:21 17:16 21:02 RBC (4.30-5.90) m/uL Hgb (13.0-17.5) gm/dL Hct (39.0-53.0) % POC Glucose (mg/dL) 122 H 187 H 171 H (75-99) mg/dL 07/12/19 07/12/19 Range/Units 06:04 06:37 RBC 2.83 L (4.30-5.90) m/uL Hgb 8.5 L (13.0-17.5) gm/dL Hct 25.4 L (39.0-53.0) % POC Glucose (mg/dL) 157 H (75-99) mg/dL Assessment and Plan Assessment: Right iliac occlusive disease Type 2 diabetes Hypertension Hyperlipidemia Tobacco abuse COPD Left femoral-popliteal bypass occlusion, status post open thrombectomy and patch angioplasty Left brachial artery bleed status post exploration and control of hemorrhage acute on chronic blood loss anemia, no current evidence of active bleeding Plan: Patient's heparin discontinued yesterday, tolerating eliquis. Maintain ZOEY drains until further evaluation from Dr. Eduardo. There is no evidence of active bleeding continue to monitor labs. The above dictated assessment and findings were discussed with Dr. Eduardo. The impression and plan of care have been directed as dictated.
[2019-07-12] MEDS ORDERED: LISINOPRIL 20 MG TAB PO SCH (09:00)
[2019-07-12 11:51] LABS: Glucose,Whole Blood 129 mg/dL (75-99)
[2019-07-12 11:54] VITALS: BP 160/70; PULSE 65; TEMP 97.5
--- NOTE | 2019-07-12 12:28 | CDI ---
Documentation Clarification Form Date: 07/12/2019 11:11:56 AM From: Jennifer Parks RN, CCDS Admit Date: 07/07/2019 09:36:00 AM Patient Name: Ricky Louis Visit Number: [id number] Discharge Date: ATTENTION: The Clinical Documentation Specialists (CDI) and [facility] Coding Staff appreciate your assistance in clarifying documentation. Please respond to the clarification below the line at the bottom and electronically sign. The CDI & [facility] Coding staff will review the response and follow-up if needed. Please note: Queries are made part of the Legal Health Record. If you have any questions, please contact the author of this message via ITS. Dr. Lucille Eduardo Acute blood loss anemia secondary to left brachial artery bleed post- exploration is documented in the progress note and further clarification is needed. Patients Admitting Diagnosis: Right iliac artery occlusion, Post-Operative Diagnosis: Same Procedure performed: Open expiration of the left brachial artery with control of hemorrhage. Open thrombetomy of the left popliteal artery. Endartectomy of left tibial peroneal truck with patch angioplasty, left lower extremity angiogram History/Risk Factors: Right iliac artery occlusion, TPA infusion Clinical Indicators: 74-year-old male present related to right lower extremity neuropathy and pain found an occluded right common iliac artery. ON 07/07/19 he had an ultrasound-guided left common femoral artery access, left iliofemoral angiogram, Ultrasound guided left brachial artery access placement of catheter in the aorta. Initiation of TPA thrombolysis. 07/07/19 HGB 12.8, HCT 29.7 09/09/11 03:59 HGB 10.2, HCT 31.1, (07:59) HGB 9.9, HCT 29.0 (12:00) 8.8, 25.5 Treatment: placement of Perclose pre-closure device , aortogram, placement of aortoliac stent graft, AFX2, selective left lower extremity angiogram, third order, pharmacal mechanical thromboembolectomy Thrombolytic Therapy and heparin infusion (TPA dc) Monitor CBC 3/L IV fluids resuscitation Monitor pulses bilateral lower extremities, left radial and brachial pulses Consults: 07/11/19 Dr. Vasquez: Acute blood loss anemia secondary to left brachial artery bleed post-exploration. Hemoglobin stable today at 8.7. In order to accurately reflect this patients severity of illness, please clarify if the post-operative diagnosis acute blood loss anemia is: An expected post-procedural or post-surgical condition due to (please specify) -expected procedural blood loss from suction thrombectomy for embolism and left lower extremity An unexpected post-procedural or post-surgical condition, related to the patients underlying medical comorbidities (specify) -Significant peripheral arterial disease, left upper extremity hematoma Other, please specify Unable to determine (Last Revision: October 2018) MTDD
--- NOTE | 2019-07-12 13:21 | CDI ---
Documentation Clarification Form Date: 07/12/2019 12:32:13 PM From: Jennifer Parks RN, CCDS Admit Date: 07/07/2019 09:36:00 AM Patient Name: Ricky Louis Visit Number: [id number] Discharge Date: ATTENTION: The Clinical Documentation Specialists (CDI) and [facility] Coding Staff appreciate your assistance in clarifying documentation. Please respond to the clarification below the line at the bottom and electronically sign. The CDI & [facility] Coding staff will review the response and follow-up if needed. Please note: Queries are made part of the Legal Health Record. If you have any questions, please contact the author of this message via ITS. Dr. Lucille Eduardo Hemorrhage is documented in the progress note on 07/08/19 and subsequent documentation and further clarification is needed. 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 He was initially brought in for initiation of throbolytics and came back for a repeat intervention and evaluation with aortioliac stent graft. At the conclusion of the procedure, he had palpable femoral pulses bilaterally, but the left dorsalis pedis pulse was abscent. 07/08/19 OR procedure note: the left brachial artery was still bleeding and hemostasis was controlled with a 6-0 prolene. The hematoma was evacuated. Treatment: TPA, per orders (DC) Heparin IV protocol Monitor CBC, Monitor for sign/symptoms bleeding per protocol Neurovascular checks to upper and lower extremities bilateral In order to accurately reflect this patients severity of illness, please clarify if the post-operative diagnosis of hemorrhage in a patient on TPA throbolysis is; An expected post-procedural or post-surgical condition, specify An unexpected post-procedural or post-surgical condition related to surgical care (a complication of care) An unexpected post-procedural or post-surgical condition, related to the patients underlying medical comorbidities Other, please specify Unable to determine -Not inherent, but not unexpected, known risk of bleeding from sheath site with tpa thrombolysis, (Last Revision: October 2018) MTDD
--- NOTE | 2019-07-12 13:43 | P.PN ---
Subjective Progress Note Date: 07/12/19 patient examined at bedside doing well present, not having any significant bleeding from his ZOEY drains. Blood pressure appears to be much better controlled today. Otherwise no acute events overnight Objective - Vital Signs Vital signs: Vital Signs Temp 97.5 F L 07/12/19 11:52 Pulse 65 07/12/19 11:52 Resp 18 07/12/19 11:52 BP 160/70 07/12/19 11:52 Pulse Ox 98 07/12/19 11:52 Intake & Output 07/11/19 07/12/19 07/12/19 18:59 06:59 18:59 Intake Total 388.827 480 Output Total 550 1255 100 Balance -161.173 -775 -100 Weight 76 kg Intake: Intake, IV Titration 148.827 Amount Heparin Sod,Pork in 0.45% 148.827 NaCl 25,000 unit In 0.45 % NaCl 1 250ml.bag @ 12 UNITS/KG/HR 8.952 mls/hr IV .Q24H [facility] Rx#: [id number] Oral 240 480 Output: Drainage 30 Left Calf 20 Left Upper Arm 10 Urine 550 1225 100 Other: # Voids 2 1 ABP, PAP, CO, CI - Last Documented Arterial Blood Pressure 130/49 - Exam Constitutional: No acute distress, conversant, pleasant Eyes: Anicteric sclerae, moist conjunctiva, no lid-lag, PERRLA ENMT: NC/AT,Oropharynx clear, no erythema, exudates Neck:Supple, FROM, no masses, or JVD, No carotid bruits; No thyromegaly Lungs: Clear to auscultation, Clear to percussion, Normal respiratory effort, no accessory muscle use Cardiovascular: Heart regular in rate and rhythm, No murmurs, gallops, or rubs no peripheral edema Abdominal: Soft Nontender, nom distended, no guarding, no rebound or rigidity, Normoactive bowel sounds No hepatomegaly, No splenomegaly, No palpable mass No abdominal wall hernia noted Skin: Normal temperature, tone, texture, turgor, No induration No subcutaneous nodules, No rash, lesions, No ulcers Extremities:No digital cyanosis No clubbing, 2+ right pedal pulses 1+ right pedal pulse, left ZOEY drain with scant serosanguineous drainage Psychiatric: Alert and oriented to person, place and time, Appropriate affect Intact judgement Neuro: Muscles Strength 5/5 in all 4 extremities, Sensation to light touch karen ssly present throughout, Cranial nerves II-XII grossly intact. No focal sensory deficits - Labs CBC & Chem 7: 07/12/19 06:37 07/11/19 04:12 Labs: Abnormal Lab Results - Last 24 Hours (Table) 07/11/19 07/11/19 07/12/19 Range/Units 17:16 21:02 06:04 RBC (4.30-5.90) m/uL Hgb (13.0-17.5) gm/dL Hct (39.0-53.0) % POC Glucose (mg/dL) 187 H 171 H 157 H (75-99) mg/dL 07/12/19 07/12/19 Range/Units 06:37 11:50 RBC 2.83 L (4.30-5.90) m/uL Hgb 8.5 L (13.0-17.5) gm/dL Hct 25.4 L (39.0-53.0) % POC Glucose (mg/dL) 129 H (75-99) mg/dL Assessment and Plan Assessment: Uncontrolled hypertension * continue lisinopril to 20 mg and start Lopressor 12.5 mg PO BID * Continue to monitor Type 2 diabetes with peripheral neuropathy * blood sugars stable continue correctional scale insulin coverage * We'll resume metformin on discharge * A1c 7.3 Hyperlipidemia * continue statin therapy acute blood loss anemia * secondary to left brachial artery bleed post-exploration * hemoglobin stable todayAt 8.5 coronary artery disease status post CABG * Resume Plavix and aspirin if okay with vascular team COPD * Stable without any acute exacerbation Right iliac occlusive disease POD #3 s/p left femoral-popliteal bypass occlusion, status post open thrombectomy and patch angioplasty disposition * Patient medically stable at this time will plan to sign off
== END 2019-07-12 16:58 | DRG 269 ==
LOC: 2ORMAIN 07-07 09:36 → 2SICU 07-07 13:43 → 3SCARD 07-11 06:10
PROVIDERS: ADMIT Surgery; ATTEND Surgery
PROC: B41D1ZZ Fluoroscopy of Aorta and Bilateral Lower Extremity Arteries using Low Osmolar Contrast (ICD-10-PCS; 2019-07-07 10:30)
PROC: 3E05317 Introduction of Other Thrombolytic into Peripheral Artery, Percutaneous Approach (ICD-10-PCS; 2019-07-07 10:30)
PROC: 04HL33Z Insertion of Infusion Device into Left Femoral Artery, Percutaneous Approach (ICD-10-PCS; 2019-07-07 10:30)
PROC: 03Q80ZZ Repair Left Brachial Artery, Open Approach (ICD-10-PCS; principal; 2019-07-08 12:40)
PROC: 04CU0ZZ Extirpation of Matter from Left Peroneal Artery, Open Approach (ICD-10-PCS; principal; 2019-07-08 12:40)
PROC: 04CN0ZZ Extirpation of Matter from Left Popliteal Artery, Open Approach (ICD-10-PCS; principal; 2019-07-08 12:40)
PROC: 04U Lower Arteries, Supplement (ICD-10-PCS; principal; 2019-07-08 12:40)
PROC: 3E05317 Introduction of Other Thrombolytic into Peripheral Artery, Percutaneous Approach (ICD-10-PCS; principal; 2019-07-08 12:40)
PROC: 04V03DZ Restriction of Abdominal Aorta with Intraluminal Device, Percutaneous Approach (ICD-10-PCS; principal; 2019-07-08 12:40)
PROC: 04CQ0ZZ Extirpation of Matter from Left Anterior Tibial Artery, Open Approach (ICD-10-PCS; principal; 2019-07-08 12:40)
PROC: 047Q3ZZ Dilation of Left Anterior Tibial Artery, Percutaneous Approach (ICD-10-PCS; principal; 2019-07-08 12:40)
DX: E11.51 Type 2 diabetes mellitus with diabetic peripheral angiopathy without gangrene (principal); D62 Acute posthemorrhagic anemia; T82.898A Other specified complication of vascular prosthetic devices, implants and grafts, initial encounter; I70.211 Atherosclerosis of native arteries of extremities with intermittent claudication, right leg; E11.42 Type 2 diabetes mellitus with diabetic polyneuropathy; E78.5 Hyperlipidemia, unspecified; F17.200 Nicotine dependence, unspecified, uncomplicated; F40.240 Claustrophobia; H91.90 Unspecified hearing loss, unspecified ear; I10 Essential (primary) hypertension; I25.10 Atherosclerotic heart disease of native coronary artery without angina pectoris; I25.2 Old myocardial infarction; I74.5 Embolism and thrombosis of iliac artery; J44.9 Chronic obstructive pulmonary disease, unspecified; M81.0 Age-related osteoporosis without current pathological fracture; Z79.02 Long term (current) use of antithrombotics/antiplatelets; Z79.82 Long term (current) use of aspirin; Z79.84 Long term (current) use of oral hypoglycemic drugs; Z79.899 Other long term (current) drug therapy; Z82.49 Family history of ischemic heart disease and other diseases of the circulatory system; Z86.73 Personal history of transient ischemic attack (TIA), and cerebral infarction without residual deficits; Z95.1 Presence of aortocoronary bypass graft; Y83.2 Surgical operation with anastomosis, bypass or graft as the cause of abnormal reaction of the patient, or of later complication, without mention of misadventure at the time of the procedure
CPT/HCPCS: 34705; 36200; 37184; 37211; 37214; 37228; 71045; 75625; 76000; 76937; 80048; 82565; 83036; 83735; 84100; 84520; 85025; 85027; 85347; 85384; 85610; 85730; 86850; 86900; 86901

== ENCOUNTER 2019-07-26 17:40 | Emergency (ER) | payer MEDICARE ==
[2019-07-26 18:23] VITALS: BP 100/62; PULSE 95; RESP 18; TEMP 98.6
[2019-07-26] MEDS ORDERED: HYDROcodone/APAP 5-325MG 1 EACH TAB PO STA ×2 (19:18→19:49)
[2019-07-26] MEDS ORDERED: KETOROLAC 60 MG/2 ML VIAL IM STA (19:18)
--- NOTE | 2019-07-26 19:18 | ED ---
Back Pain HPI - General Chief Complaint: Back Pain/Injury Stated Complaint: hip pain Time Seen by Provider: 07/26/19 19:02 Source: patient, RN notes reviewed, old records reviewed Limitations: no limitations - History of Present Illness Initial Comments: This is a 74-year-old male here for evaluation patient with evaluation regarding pain and buttocks pain. Mostly muscle strain. Sitting up and appropriately having hip pain. No acute disease. Patient is a postop patient. No trauma noted. Patient stated been sleeping on his side left hip same at the turning secondary to recent surgery. Otherwise no complaints of chest pain or shortness of breath MD Complaint: back pain, other (Tox pain) -: days(s) Similar Symptoms Previously: No Place: home Radiation: none Severity: mild Quality: aching Consistency: constant Improves With: none Worsens With: movement Associated Symptoms: denies other symptoms - Related Data Home Medications Medication Instructions Recorded Confirmed Aspirin [[place] Aspirin EC] 81 mg PO DAILY 07/12/18 07/07/19 Clopidogrel [Plavix] 75 mg PO DAILY 07/12/18 07/07/19 PARoxetine [Paxil] 20 mg PO BID 07/12/18 07/07/19 Ranitidine HCl [Zantac] 150 mg PO HS 07/12/18 07/07/19 metFORMIN HCL [Glucophage] 1,000 mg PO BID 07/12/18 07/07/19 Linagliptin [Tradjenta] 20 mg PO HS 07/07/19 07/07/19 Previous Rx's Medication Instructions Recorded Atorvastatin [Lipitor] 40 mg PO DAILY #30 tab 07/14/18 Apixaban [Eliquis] 5 mg PO BID 30 Days #60 tab 07/11/19 Lisinopril [Zestril] 20 mg PO DAILY #30 tab 07/12/19 Metoprolol Tartrate [Lopressor] 12.5 mg PO BID #60 tab 07/12/19 Allergies Allergy/AdvReac Type Severity Reaction Status Date / Time No Known Allergies Allergy Verified 07/26/19 18:23 Review of Systems ROS Statement: Those systems with pertinent positive or pertinent negative responses have been documented in the HPI. ROS Other: All systems not noted in ROS Statement are negative. Past Medical History Past Medical History: Coronary Artery Disease (CAD), Chest Pain / Angina, COPD, CVA/TIA, Diabetes Mellitus, Deep Vein Thrombosis (DVT), Hearing Disorder / Deafness, Myocardial Infarction ([place]), Syncope, Vascular Disorder Additional Past Medical History / Comment(s): CVA x2, last 2018, recovered. Diabetic neuropathy feet, osteoporosis. Blockage in Rt leg. States out of most of Rx for past month, due to income/costs. Last Myocardial Infarction Date:: 2006 History of Any Multi-Drug Resistant Organisms: None Reported Past Surgical History: Coronary Bypass/CABG, Heart Catheterization With Stent Additional Past Surgical History / Comment(s): Quad bypass-2010, "sx lt leg- graft to retore criculation", colonoscopy/polypectomy Past Anesthesia/Blood Transfusion Reactions: No Reported Reaction Additional Past Anesthesia/Blood Transfusion Reaction / Comment(s): mild claustrophobia (mri machines) Date of Last Stent Placement:: unknown Past Psychological History: Bipolar Smoking Status: Current every day smoker Past Alcohol Use History: None Reported Past Drug Use History: None Reported - Past Family History Mother Family Medical History: Cancer Father Family Medical History: Coronary Artery Disease (CAD), Myocardial Infarction ([place]) Additional Family Medical History / Comment(s): cabg Sister(s) Family Medical History: Coronary Artery Disease (CAD) Additional Family Medical History / Comment(s): cabg Brother(s) Family Medical History: Coronary Artery Disease (CAD) Additional Family Medical History / Comment(s): cabg General Exam Limitations: no limitations General appearance: alert, in no apparent distress Head exam: Present: atraumatic, normocephalic, normal inspection Eye exam: Present: normal appearance, PERRL, EOMI. Absent: scleral icterus, conjunctival injection, periorbital swelling ENT exam: Present: normal exam, mucous membranes moist Neck exam: Present: normal inspection. Absent: tenderness, meningismus, lymphadenopathy Respiratory exam: Present: normal lung sounds bilaterally. Absent: respiratory distress, wheezes, rales, rhonchi, stridor Cardiovascular Exam: Present: regular rate, normal rhythm, normal heart sounds. Absent: systolic murmur, diastolic murmur, rubs, gallop, clicks GI/Abdominal exam: Present: soft, normal bowel sounds. Absent: distended, tenderness, guarding, rebound, rigid Extremities exam: Present: normal inspection, full ROM, normal capillary refill. Absent: tenderness, pedal edema, joint swelling, calf tenderness Back exam: Present: normal inspection Neurological exam: Present: alert, oriented X3, CN II-XII intact Psychiatric exam: Present: normal affect, normal mood Skin exam: Present: warm, dry, intact, normal color. Absent: rash Course Vital Signs 07/26/19 18:20 Temperature 98.6 F Pulse Rate 95 Respiratory 18 Rate Blood Pressure 100/62 O2 Sat by Pulse 98 Oximetry Medical Decision Making - Medical Decision Making 74 male with Bartok's tenderness. No imaging needed,did speak with the patient's vascular surgeon will follow-up patient the office Disposition Clinical Impression: Muscle strain, Right buttock pain Disposition: HOME SELF-CARE Condition: Good Instructions (If sedation given, give patient instructions): Acute Low Back Pain (ED) Is patient prescribed a controlled substance at d/c from ED?: No Referrals: Kane Pryor DO [Primary Care Provider] - 1-2 days
[2019-07-26] MEDS ORDERED: ACET/COD 300 MG/30 MG STARTER PACK 6 TAB BTL PO STA (21:05)
== END 2019-07-26 21:09 | disposition home or self-care (01) ==
LOC: EC 17:40
DX: S39.012A Strain of muscle, fascia and tendon of lower back, initial encounter (principal); S76.011A Strain of muscle, fascia and tendon of right hip, initial encounter; I25.119 Atherosclerotic heart disease of native coronary artery with unspecified angina pectoris; E11.42 Type 2 diabetes mellitus with diabetic polyneuropathy; H91.90 Unspecified hearing loss, unspecified ear; I25.2 Old myocardial infarction; F31.9 Bipolar disorder, unspecified; F17.200 Nicotine dependence, unspecified, uncomplicated; Z79.02 Long term (current) use of antithrombotics/antiplatelets; Z79.82 Long term (current) use of aspirin; Z79.84 Long term (current) use of oral hypoglycemic drugs; Z79.899 Other long term (current) drug therapy; Z86.73 Personal history of transient ischemic attack (TIA), and cerebral infarction without residual deficits; Z86.718 Personal history of other venous thrombosis and embolism; Z95.1 Presence of aortocoronary bypass graft; Z95.5 Presence of coronary angioplasty implant and graft; X50.9XXA Other and unspecified overexertion or strenuous movements or postures, initial encounter; Y93.89 Activity, other specified; Y92.009 Unspecified place in unspecified non-institutional (private) residence as the place of occurrence of the external cause
CPT/HCPCS: 99284; 96372; J1885

== ENCOUNTER 2019-08-20 18:07 | Emergency (ER) | payer MEDICARE ==
--- NOTE | 2019-08-20 18:18 | ED ---
Weakness HPI - General Stated complaint: Confusion Time Seen by Provider: 08/20/19 18:10 Source: RN notes reviewed, old records reviewed Limitations: no limitations - History of Present Illness Initial comments: This is a 9-year-old male here for evaluation patient is today for evaluation regarding weakness and feeling well dizziness. Patient is currently medical history with both underlying heart diseaseas well as his prior history of DVTs etc. Patient states he woke up feeling fine this morning was little dizzy will getting dinner tonight and has episode that he doesn't quite remember whether he fell he did not pass out or related pestos unsure on EMS arrival patient had low oxygen and was very weak very pale and breathing pretty hard. Patient states his dizziness is improved with oxygen here in the ER denying any complaints of pain no headache chest pain shortness breath or abdominal pain currently he does have a prior History of syncope unsure of cause MD Complaint: generalized weakness, lack of energy -: minutes(s) Location: generalized Severity: mild Severity scale (1-10): 3 Quality: numbness Consistency: constant Improves with: none Worsens with: none Context: recent illness, history of similar (Prior history of syncope) Associated Symptoms: confusion, loss of appetite, shortness of breath (Per EMS patient oxygen the 70s), syncope - Related Data Home Medications Medication Instructions Recorded Confirmed Aspirin [[place] Aspirin EC] 81 mg PO DAILY 07/12/18 07/07/19 Clopidogrel [Plavix] 75 mg PO DAILY 07/12/18 07/07/19 PARoxetine [Paxil] 20 mg PO BID 07/12/18 07/07/19 Ranitidine HCl [Zantac] 150 mg PO HS 07/12/18 07/07/19 metFORMIN HCL [Glucophage] 1,000 mg PO BID 07/12/18 07/07/19 Linagliptin [Tradjenta] 20 mg PO HS 07/07/19 07/07/19 Previous Rx's Medication Instructions Recorded Atorvastatin [Lipitor] 40 mg PO DAILY #30 tab 07/14/18 Apixaban [Eliquis] 5 mg PO BID 30 Days #60 tab 07/11/19 Lisinopril [Zestril] 20 mg PO DAILY #30 tab 07/12/19 Metoprolol Tartrate [Lopressor] 12.5 mg PO BID #60 tab 07/12/19 Allergies Allergy/AdvReac Type Severity Reaction Status Date / Time No Known Allergies Allergy Verified 07/26/19 18:23 Review of Systems ROS Statement: Those systems with pertinent positive or pertinent negative responses have been documented in the HPI. ROS Other: All systems not noted in ROS Statement are negative. Past Medical History Past Medical History: Coronary Artery Disease (CAD), Chest Pain / Angina, COPD, CVA/TIA, Diabetes Mellitus, Deep Vein Thrombosis (DVT), Hearing Disorder / Deafness, Myocardial Infarction ([place]), Syncope, Vascular Disorder Additional Past Medical History / Comment(s): CVA x2, last 2018, recovered. Diabetic neuropathy feet, osteoporosis. Blockage in Rt leg. States out of most of Rx for past month, due to income/costs. Last Myocardial Infarction Date:: 2006 History of Any Multi-Drug Resistant Organisms: None Reported Past Surgical History: Coronary Bypass/CABG, Heart Catheterization With Stent Additional Past Surgical History / Comment(s): Quad bypass-2010, "sx lt leg-cy t to retore criculation", colonoscopy/polypectomy Past Anesthesia/Blood Transfusion Reactions: No Reported Reaction Additional Past Anesthesia/Blood Transfusion Reaction / Comment(s): mild claustrophobia (mri machines) Date of Last Stent Placement:: unknown Past Psychological History: Bipolar Smoking Status: Current every day smoker Past Alcohol Use History: None Reported Past Drug Use History: None Reported - Past Family History Mother Family Medical History: Cancer Father Family Medical History: Coronary Artery Disease (CAD), Myocardial Infarction ([place]) Additional Family Medical History / Comment(s): cabg Sister(s) Family Medical History: Coronary Artery Disease (CAD) Additional Family Medical History / Comment(s): cabg Brother(s) Family Medical History: Coronary Artery Disease (CAD) Additional Family Medical History / Comment(s): cabg General Exam General appearance: alert, anxious, lethargic, cachectic Head exam: Present: atraumatic, normocephalic, normal inspection Eye exam: Present: normal appearance, PERRL, EOMI. Absent: scleral icterus, conjunctival injection, periorbital swelling ENT exam: Present: normal exam, mucous membranes dry Neck exam: Present: normal inspection. Absent: tenderness, meningismus, lymphadenopathy Respiratory exam: Present: normal lung sounds bilaterally. Absent: respiratory distress, wheezes, rales, rhonchi, stridor Cardiovascular Exam: Present: regular rate, normal rhythm, normal heart sounds. Absent: systolic murmur, diastolic murmur, rubs, gallop, clicks GI/Abdominal exam: Present: soft, normal bowel sounds. Absent: distended, tenderness, guarding, rebound, rigid Extremities exam: Present: normal inspection, full ROM, normal capillary refill. Absent: tenderness, pedal edema, joint swelling, calf tenderness Back exam: Present: normal inspection Neurological exam: Present: alert, oriented X3, CN II-XII intact Psychiatric exam: Present: normal affect, normal mood Skin exam: Present: warm, dry, intact, normal color. Absent: rash Course Vital Signs 08/20/19 08/20/19 08/20/19 18:07 19:15 19:26 Temperature 97.7 F Pulse Rate 71 73 77 Respiratory 18 Rate Blood Pressure 148/58 O2 Sat by Pulse 100 Oximetry 08/20/19 20:37 Temperature Pulse Rate 81 Respiratory 18 Rate Blood Pressure 112/74 O2 Sat by Pulse 97 Oximetry - Reevaluation(s) Reevaluation #1: 08/20/19 21:43 Medical records reviewed Reevaluation #2: 08/20/19 21:43 Patient is significantly improved especially with IV hydration Reevaluation #3: 08/20/19 21:43 Patient questions answered patient's able to ambulate without difficulty EKG Findings - EKG Comments: EKG Findings:: EKG shows sinus rhythm rate of 60, DE 144, QRS 94, QTC 425 Medical Decision Making - Medical Decision Making 74 male to the ER for evaluation, unsure cause a patient's lightheadedness and dizziness we'll patient feels well throughout ER stay labwork is normal. She feels normal currently denying any complaints continues to deny complaints no headache chest pain shortness of breath or abdominal pain and patient can be discharged home - Lab Data Result diagrams: 08/20/19 18:26 08/20/19 18:26 Lab Results 08/20/19 08/20/19 08/20/19 Range/Units 18:26 18:26 18:26 WBC 9.4 (3.8-10.6) k/uL RBC 3.90 L (4.30-5.90) m/uL Hgb 11.1 L (13.0-17.5) gm/dL Hct 35.9 L (39.0-53.0) % MCV 92.0 (80.0-100.0) fL MCH 28.3 (25.0-35.0) pg MCHC 30.8 L (31.0-37.0) g/dL RDW 14.2 (11.5-15.5) % Plt Count 293 (150-450) k/uL Neutrophils % 77 % Lymphocytes % 17 % Monocytes % 3 % Eosinophils % 2 % Basophils % 1 % Neutrophils # 7.3 (1.3-7.7) k/uL Lymphocytes # 1.6 (1.0-4.8) k/uL Monocytes # 0.3 (0-1.0) k/uL Eosinophils # 0.1 (0-0.7) k/uL Basophils # 0.1 (0-0.2) k/uL Hypochromasia Moderate Poikilocytosis Slight PT (9.0-12.0) sec INR (<1.2) APTT (22.0-30.0) sec Sodium 138 (137-145) mmol/L Potassium 4.4 (3.5-5.1) mmol/L Chloride 105 (98-107) mmol/L Carbon Dioxide 25 (22-30) mmol/L Anion Gap 8 mmol/L BUN 14 (9-20) mg/dL Creatinine 1.03 (0.66-1.25) mg/dL Est GFR (CKD-EPI)AfAm 84 (>60 ml/min/1.73 sqM) Est GFR (CKD-EPI)NonAf 73 (>60 ml/min/1.73 sqM) Glucose 209 H (74-99) mg/dL Plasma Lactic Acid Luis Miguel 2.9 H* (0.7-2.0) mmol/L Calcium 9.1 (8.4-10.2) mg/dL Phosphorus 3.5 (2.5-4.5) mg/dL Magnesium 1.6 (1.6-2.3) mg/dL Total Bilirubin 0.5 (0.2-1.3) mg/dL AST 18 (17-59) U/L ALT 11 (4-49) U/L Alkaline Phosphatase 115 (38-126) U/L Troponin I (0.000-0.034) ng/mL NT-Pro-B Natriuret Pep pg/mL Total Protein 6.7 (6.3-8.2) g/dL Albumin 3.9 (3.5-5.0) g/dL 08/20/19 08/20/19 08/20/19 Range/Units 18:26 18:26 18:26 WBC (3.8-10.6) k/uL RBC (4.30-5.90) m/uL Hgb (13.0-17.5) gm/dL Hct (39.0-53.0) % MCV (80.0-100.0) fL MCH (25.0-35.0) pg MCHC (31.0-37.0) g/dL RDW (11.5-15.5) % Plt Count (150-450) k/uL Neutrophils % % Lymphocytes % % Monocytes % % Eosinophils % % Basophils % % Neutrophils # (1.3-7.7) k/uL Lymphocytes # (1.0-4.8) k/uL Monocytes # (0-1.0) k/uL Eosinophils # (0-0.7) k/uL Basophils # (0-0.2) k/uL Hypochromasia Poikilocytosis PT 10.3 (9.0-12.0) sec INR 1.0 (<1.2) APTT 20.1 L (22.0-30.0) sec Sodium (137-145) mmol/L Potassium (3.5-5.1) mmol/L Chloride (98-107) mmol/L Carbon Dioxide (22-30) mmol/L Anion Gap mmol/L BUN (9-20) mg/dL Creatinine (0.66-1.25) mg/dL Est GFR (CKD-EPI)AfAm (>60 ml/min/1.73 sqM) Est GFR (CKD-EPI)NonAf (>60 ml/min/1.73 sqM) Glucose (74-99) mg/dL Plasma Lactic Acid Luis Miguel (0.7-2.0) mmol/L Calcium (8.4-10.2) mg/dL Phosphorus (2.5-4.5) mg/dL Magnesium (1.6-2.3) mg/dL Total Bilirubin (0.2-1.3) mg/dL AST (17-59) U/L ALT (4-49) U/L Alkaline Phosphatase (38-126) U/L Troponin I <0.012 (0.000-0.034) ng/mL NT-Pro-B Natriuret Pep 261 pg/mL Total Protein (6.3-8.2) g/dL Albumin (3.5-5.0) g/dL - Radiology Data Radiology results: report reviewed (Chest x-rays negative for acute disease), image reviewed Disposition Clinical Impression: Dehydration, Dizziness Disposition: HOME SELF-CARE Condition: Good Instructions (If sedation given, give patient instructions): Dizziness (ED) Is patient prescribed a controlled substance at d/c from ED?: No Referrals: Kane Pryor DO [Primary Care Provider] - 1-2 days
[2019-08-20] MEDS ORDERED: IPRATROPIUM-ALBUTEROL 3 ML NEB INHALATION STA (18:54)
[2019-08-20 19:14] LABS: Basophils # (A) 0.1 k/uL (0-0.2); Basophils % (A) 1 %; Eosinophils # (A) 0.1 k/uL (0-0.7); Eosinophils % (A) 2 %; HCT 35.9 % (39.0-53.0); HGB 11.1 gm/dL (13.0-17.5); Hypochromasia Moderate; Lymphocytes # (A) 1.6 k/uL (1.0-4.8); Lymphocytes % (A) 17 %; MCH 28.3 pg (25.0-35.0); MCHC 30.8 g/dL (31.0-37.0); Mean Platelet Volume 7.2; Monocytes # (A) 0.3 k/uL (0-1.0); Monocytes % (A) 3 %; Neutrophils # (A) 7.3 k/uL (1.3-7.7); Neutrophils % (A) 77 %; Platelet Count 293 k/uL (150-450); Poikilocytosis Slight; RDW 14.2 % (11.5-15.5); WBC 9.4 k/uL (3.8-10.6)
[2019-08-20 19:19] LABS: Albumin 3.9 g/dL (3.5-5.0); Calcium 9.1 mg/dL (8.4-10.2); Magnesium 1.6 mg/dL (1.6-2.3); Phosphorus 3.5 mg/dL (2.5-4.5); Potassium 4.4 mmol/L (3.5-5.1); Total Bilirubin 0.5 mg/dL (0.2-1.3); Total Protein 6.7 g/dL (6.3-8.2)
[2019-08-20 19:30] LABS: Prothrombin Time 10.3 sec (9.0-12.0)
--- NOTE | 2019-08-20 19:30 | XR ---
EXAMINATION TYPE: XR chest 2V DATE OF EXAM: 08/20/2019 COMPARISON: 07/09/2019 HISTORY: 74-year-old male with weakness and confusion TECHNIQUE: AP and lateral views FINDINGS: Heart normal size. Median sternotomy wires post-CABG clips in the mediastinum. Aorta and pulmonary va sculature within normal limits. No consolidation or pleural effusion. Anterior endplate spondylosis m idthoracic spine. IMPRESSION: Chronic changes without acute cardiopulmonary process.
[2019-08-20 20:03] LABS: Partial Thromboplastin Time 20.1 sec (22.0-30.0)
[2019-08-20 20:39] VITALS: PULSE 81
[2019-08-20] MEDS ORDERED: SODIUM CHLORIDE 0.9% 2,000 ML IV STA (20:49)
[2019-08-20] MEDS ORDERED: SODIUM CHLORIDE 0.9% 2,000 ML IV ONE (21:07)
[2019-08-20 22:31] VITALS: BP 111/60; RESP 19
[2019-08-20 22:34] VITALS: TEMP 98.7
[2019-08-20 22:45] LABS: Appearance,Urine Clear (Clear); Bilirubin,Urine Negative (Negative); Blood,Urine Negative (Negative); Color,Urine Yellow; Glucose,Urine (UA) 3+ (Negative); Ketones,Urine Negative (Negative); Leukocyte Esterase,Urine Small (Negative); Mucus,Urine Rare /hpf; Nitrite,Urine Negative (Negative); PH, Urine 5.5 (5.0-8.0); Protein,Urine Trace (Negative); RBC,Urine 1 /hpf (0-5); Specific Gravity,Urine 1.016 (1.001-1.035); Squamous Epithelial Cell,Urine 1 /hpf (0-4); Urobilinogen,Urine <2.0 mg/dL (<2.0); WBC,Urine 5 /hpf (0-5)
== END 2019-08-20 22:39 | disposition home or self-care (01) ==
LOC: EC 18:07
DX: E86.0 Dehydration (principal); R64 Cachexia; R63.0 Anorexia; R06.02 Shortness of breath; R55 Syncope and collapse; R20.0 Anesthesia of skin; I25.119 Atherosclerotic heart disease of native coronary artery with unspecified angina pectoris; E11.42 Type 2 diabetes mellitus with diabetic polyneuropathy; I25.2 Old myocardial infarction; F31.9 Bipolar disorder, unspecified; F17.200 Nicotine dependence, unspecified, uncomplicated; Z79.02 Long term (current) use of antithrombotics/antiplatelets; Z79.82 Long term (current) use of aspirin; Z79.84 Long term (current) use of oral hypoglycemic drugs; Z79.899 Other long term (current) drug therapy; Z86.73 Personal history of transient ischemic attack (TIA), and cerebral infarction without residual deficits; Z86.718 Personal history of other venous thrombosis and embolism; Z95.1 Presence of aortocoronary bypass graft; Z68.20 Body mass index [BMI] 20.0-20.9, adult; Z53.8 Procedure and treatment not carried out for other reasons
CPT/HCPCS: 36415; 71046; 80053; 81001; 83605; 83735; 83880; 84100; 84484; 85025; 85610; 85730; 93005; 94640; 96360; 99285

== ENCOUNTER 2020-03-21 15:18 | Inpatient (IN) | payer MEDICARE ==
[2020-03-21] MEDS ORDERED: SODIUM CHLORIDE 0.9% 1,000 ML IV STA (15:38)
[2020-03-21 15:49] LABS: Basophils # (A) 0.1 k/uL (0-0.2); Basophils % (A) 1 %; Eosinophils # (A) 0.2 k/uL (0-0.7); Eosinophils % (A) 2 %; HCT 42.6 % (39.0-53.0); HGB 13.8 gm/dL (13.0-17.5); Lymphocytes # (A) 1.6 k/uL (1.0-4.8); Lymphocytes % (A) 18 %; MCH 29.9 pg (25.0-35.0); MCHC 32.4 g/dL (31.0-37.0); Monocytes # (A) 0.3 k/uL (0-1.0); Monocytes % (A) 4 %; Neutrophils # (A) 6.6 k/uL (1.3-7.7); Neutrophils % (A) 74 %; Platelet Count 206 k/uL (150-450); RBC 4.63 m/uL (4.30-5.90); RDW 14.5 % (11.5-15.5); WBC 8.9 k/uL (3.8-10.6)
[2020-03-21 15:57] LABS: INR 0.9 (<1.2); Prothrombin Time 9.7 sec (9.0-12.0)
[2020-03-21 15:59] LABS: ALT 9 U/L (4-49); AST 17 U/L (17-59); African American GFR (CKD) >90 (>60 ml/min/1.73 sqM); Albumin 3.9 g/dL (3.5-5.0); Alkaline Phosphatase 84 U/L (38-126); Anion Gap 7 mmol/L; Blood Urea Nitrogen 20 mg/dL (9-20); Calcium 9.1 mg/dL (8.4-10.2); Carbon Dioxide 24 mmol/L (22-30); Chloride 105 mmol/L (98-107); Creatine Kinase 49 U/L (55-170); Glucose 254 mg/dL (74-99); Magnesium 1.8 mg/dL (1.6-2.3); Non-African American GFR(CKD) 80 (>60 ml/min/1.73 sqM); Phosphorus 3.5 mg/dL (2.5-4.5); Potassium 4.4 mmol/L (3.5-5.1); Sodium 136 mmol/L (137-145); Total Bilirubin 0.5 mg/dL (0.2-1.3); Total Protein 6.5 g/dL (6.3-8.2)
--- NOTE | 2020-03-21 16:05 | ED ---
Neuro HPI - General Chief Complaint: Neuro Symptoms/Deficit Stated Complaint: trouble speaking Time Seen by Provider: 03/21/20 15:25 Source: patient, family, RN notes reviewed, old records reviewed Mode of arrival: wheelchair Limitations: no limitations - History of Present Illness Is the patient presenting with stroke symptoms?: Yes -: hour(s) Initial Comments: This is a 74-year-old male DF for evaluation history of heart disease history of CVA no permanent deficits coming in with stroke changes earlier in the day, confusion and slurred speech although symptoms are now resolved denies chest pain or headaches no travel sick contacts patient does take a daily aspirin. No recent fevers cough congestion nausea vomiting diarrhea no HAs Location: speech History of same: Yes Place: home Severity: mild Improves With: time Worsens With: none On Anticoagulants: No Context: sudden onset Associated Symptoms: denies other symptoms Treatments Prior to Arrival: none - Related Data Home Medications: Home Medications Medication Instructions Recorded Confirmed Aspirin [Bell Aspirin EC] 81 mg PO DAILY 07/12/18 07/07/19 Clopidogrel [Plavix] 75 mg PO DAILY 07/12/18 07/07/19 PARoxetine [Paxil] 20 mg PO BID 07/12/18 07/07/19 Ranitidine HCl [Zantac] 150 mg PO HS 07/12/18 07/07/19 metFORMIN HCL [Glucophage] 1,000 mg PO BID 07/12/18 07/07/19 Linagliptin [Tradjenta] 20 mg PO HS 07/07/19 07/07/19 Previous Rx's Medication Instructions Recorded Atorvastatin [Lipitor] 40 mg PO DAILY #30 tab 07/14/18 Apixaban [Eliquis] 5 mg PO BID 30 Days #60 tab 07/11/19 Metoprolol Tartrate [Lopressor] 12.5 mg PO BID #60 tab 07/12/19 lisinopriL [Zestril] 20 mg PO DAILY #30 tab 07/12/19 Allergies/Adverse Reactions: Allergies Allergy/AdvReac Type Severity Reaction Status Date / Time No Known Allergies Allergy Verified 03/21/20 17:01 Review of Systems ROS Statement: Those systems with pertinent positive or pertinent negative responses have been documented in the HPI. ROS Other: All systems not noted in ROS Statement are negative. General Exam - General Exam Comments Initial Comments: NIH of 0, all neurological symptoms have resolved Limitations: no limitations General appearance: alert, in no apparent distress Head exam: Present: atraumatic, normocephalic, normal inspection Eye exam: Present: normal appearance, PERRL, EOMI. Absent: scleral icterus, conjunctival injection, periorbital swelling ENT exam: Present: normal exam, mucous membranes moist Neck exam: Present: normal inspection. Absent: tenderness, meningismus, lympha denopathy Respiratory exam: Present: normal lung sounds bilaterally. Absent: respiratory distress, wheezes, rales, rhonchi, stridor Cardiovascular Exam: Present: regular rate, normal rhythm, normal heart sounds. Absent: systolic murmur, diastolic murmur, rubs, gallop, clicks GI/Abdominal exam: Present: soft, normal bowel sounds. Absent: distended, tenderness, guarding, rebound, rigid Extremities exam: Present: normal inspection, full ROM, normal capillary refill. Absent: tenderness, pedal edema, joint swelling, calf tenderness Back exam: Present: normal inspection Neurological exam: Present: alert, oriented X3, CN II-XII intact Psychiatric exam: Present: normal affect, normal mood Skin exam: Present: warm, dry, intact, normal color. Absent: rash Stroke MDM - Lab Data Result diagrams: 03/21/20 15:41 03/21/20 15:45 Lab Results 03/21/20 03/21/20 03/21/20 Range/Units 15:41 15:41 15:41 WBC 8.9 (3.8-10.6) k/uL RBC 4.63 (4.30-5.90) m/uL Hgb 13.8 (13.0-17.5) gm/dL Hct 42.6 (39.0-53.0) % MCV 92.0 (80.0-100.0) fL MCH 29.9 (25.0-35.0) pg MCHC 32.4 (31.0-37.0) g/dL RDW 14.5 (11.5-15.5) % Plt Count 206 (150-450) k/uL Neutrophils % 74 % Lymphocytes % 18 % Monocytes % 4 % Eosinophils % 2 % Basophils % 1 % Neutrophils # 6.6 (1.3-7.7) k/uL Lymphocytes # 1.6 (1.0-4.8) k/uL Monocytes # 0.3 (0-1.0) k/uL Eosinophils # 0.2 (0-0.7) k/uL Basophils # 0.1 (0-0.2) k/uL PT 9.7 (9.0-12.0) sec INR 0.9 (<1.2) APTT 23.0 (22.0-30.0) sec Sodium (137-145) mmol/L Potassium (3.5-5.1) mmol/L Chloride (98-107) mmol/L Carbon Dioxide (22-30) mmol/L Anion Gap mmol/L BUN (9-20) mg/dL Creatinine (0.66-1.25) mg/dL Est GFR (CKD-EPI)AfAm (>60 ml/min/1.73 sqM) Est GFR (CKD-EPI)NonAf (>60 ml/min/1.73 sqM) Glucose (74-99) mg/dL Calcium (8.4-10.2) mg/dL Phosphorus (2.5-4.5) mg/dL Magnesium (1.6-2.3) mg/dL Total Bilirubin (0.2-1.3) mg/dL AST (17-59) U/L ALT (4-49) U/L Alkaline Phosphatase (38-126) U/L Creatine Kinase (55-170) U/L Troponin I <0.012 (0.000-0.034) ng/mL Total Protein (6.3-8.2) g/dL Albumin (3.5-5.0) g/dL Urine Color Urine Appearance (Clear) Urine pH (5.0-8.0) Ur Specific [place] (1.001-1.035) Urine Protein (Negative) Urine Glucose (UA) (Negative) Urine Ketones (Negative) Urine Blood (Negative) Urine Nitrite (Negative) Urine Bilirubin (Negative) Urine Urobilinogen (<2.0) mg/dL Ur Leukocyte Esterase (Negative) Urine RBC (0-5) /hpf Urine WBC (0-5) /hpf Ur Squamous Epith Cells (0-4) /hpf Urine Mucus (None) /hpf 03/21/20 03/21/20 Range/Units 15:45 16:41 WBC (3.8-10.6) k/uL RBC (4.30-5.90) m/uL Hgb (13.0-17.5) gm/dL Hct (39.0-53.0) % MCV (80.0-100.0) fL MCH (25.0-35.0) pg MCHC (31.0-37.0) g/dL RDW (11.5-15.5) % Plt Count (150-450) k/uL Neutrophils % % Lymphocytes % % Monocytes % % Eosinophils % % Basophils % % Neutrophils # (1.3-7.7) k/uL Lymphocytes # (1.0-4.8) k/uL Monocytes # (0-1.0) k/uL Eosinophils # (0-0.7) k/uL Basophils # (0-0.2) k/uL PT (9.0-12.0) sec INR (<1.2) APTT (22.0-30.0) sec Sodium 136 L (137-145) mmol/L Potassium 4.4 (3.5-5.1) mmol/L Chloride 105 (98-107) mmol/L Carbon Dioxide 24 (22-30) mmol/L Anion Gap 7 mmol/L BUN 20 (9-20) mg/dL Creatinine 0.95 (0.66-1.25) mg/dL Est GFR (CKD-EPI)AfAm >90 (>60 ml/min/1.73 sqM) Est GFR (CKD-EPI)NonAf 80 (>60 ml/min/1.73 sqM) Glucose 254 H (74-99) mg/dL Calcium 9.1 (8.4-10.2) mg/dL Phosphorus 3.5 (2.5-4.5) mg/dL Magnesium 1.8 (1.6-2.3) mg/dL Total Bilirubin 0.5 (0.2-1.3) mg/dL AST 17 (17-59) U/L ALT 9 (4-49) U/L Alkaline Phosphatase 84 (38-126) U/L Creatine Kinase 49 L (55-170) U/L Troponin I (0.000-0.034) ng/mL Total Protein 6.5 (6.3-8.2) g/dL Albumin 3.9 (3.5-5.0) g/dL Urine Color Yellow Urine Appearance Clear (Clear) Urine pH 5.5 (5.0-8.0) Ur Specific [place] 1.016 (1.001-1.035) Urine Protein Trace H (Negative) Urine Glucose (UA) 4+ H (Negative) Urine Ketones Negative (Negative) Urine Blood Negative (Negative) Urine Nitrite Positive (Negative) Urine Bilirubin Negative (Negative) Urine Urobilinogen <2.0 (<2.0) mg/dL Ur Leukocyte Esterase Negative (Negative) Urine RBC <1 (0-5) /hpf Urine WBC <1 (0-5) /hpf Ur Squamous Epith Cells <1 (0-4) /hpf Urine Mucus Rare H (None) /hpf - NIH Stroke Scale 1a. Level of Consciousness: (0) alert 1b. LOC Questions: (0) answers correctly 1c. LOC Commands: (0) performs tasks correctly 2. Best Gaze: (0) normal 3. Visual: (0) no visual loss 4. Facial Palsy: (0) normal symmetrical movement 5a. Motor Arm Left: (0) no drift 5b. Motor Arm Right: (0) no drift 6a. Motor Leg Left: (0) no drift 6b. Motor Leg Right: (0) no drift 7. Limb Ataxia: (0) absent 8. Sensory: (0) normal 9. Best Language: (0) no aphasia 10. Dysarthria: (0) normal 11. Extinction/Inattention: (0) no abnormality - Thrombolytic Inclusion/Exclusion Thrombolytic Exclusion Criteria: Onset of Symptoms Unknown - Radiology Data Radiology results: report reviewed (CT brain does show possible new stroke damage), image reviewed - EKG Data -: EKG Interpreted by Me (EKG sinus rhythm rate of 64 MI 148 QRS 96 QTc 433) Past Medical History Past Medical History: Coronary Artery Disease (CAD), Chest Pain / Angina, COPD, CVA/TIA, Diabetes Mellitus, Deep Vein Thrombosis (DVT), Hearing Disorder / Deafness, Myocardial Infarction ([place]), Syncope, Vascular Disorder Additional Past Medical History / Comment(s): CVA x2, last 2018, recovered. Diabetic neuropathy feet, osteoporosis. Blockage in Rt leg. States out of most of Rx for past month, due to income/costs. Last Myocardial Infarction Date:: 2006 History of Any Multi-Drug Resistant Organisms: None Reported Past Surgical History: Coronary Bypass/CABG, Heart Catheterization With Stent Additional Past Surgical History / Comment(s): Quad bypass-2010, "sx lt leg- graft to retore criculation", colonoscopy/polypectomy Past Anesthesia/Blood Transfusion Reactions: No Reported Reaction Additional Past Anesthesia/Blood Transfusion Reaction / Comment(s): mild claustrophobia (mri machines) Date of Last Stent Placement:: unknown Past Psychological History: Bipolar Past Alcohol Use History: None Reported Past Drug Use History: None Reported - Past Family History Mother Family Medical History: Cancer Father Family Medical History: Coronary Artery Disease (CAD), Myocardial Infarction ([place]) Additional Family Medical History / Comment(s): cabg Sister(s) Family Medical History: Coronary Artery Disease (CAD) Additional Family Medical History / Comment(s): cabg Brother(s) Family Medical History: Coronary Artery Disease (CAD) Additional Family Medical History / Comment(s): cabg Course Vital Signs 03/21/20 03/21/20 03/21/20 15:18 15:30 16:57 Temperature 98.0 F Pulse Rate 63 64 57 L Respiratory 18 16 16 Rate Blood Pressure 148/68 141/68 138/64 O2 Sat by Pulse 97 97 98 Oximetry - Reevaluation(s) Reevaluation #1: 03/21/20 17:03 Medical record is reviewed Reevaluation #2: 03/21/20 17:04 No recurrent symptoms here in the ER Reevaluation #3: 03/21/20 17:04 Patient and given results, discussed, questions answered - Consultations Consultation #1: Dr. Cisneros this patient for conscious spoke w Dr Gwyn amaro for admission Disposition Clinical Impression: CVA (cerebral vascular accident), Transient cerebral ischemia Disposition: ADMITTED IP TO THIS HOSP Condition: Fair Is patient prescribed a controlled substance at d/c from ED?: No Referrals: Kane Pryor DO [Primary Care Provider] - 1-2 days
--- NOTE | 2020-03-21 16:17 | XR ---
EXAMINATION TYPE: XR chest 2V DATE OF EXAM: 03/21/2020 CLINICAL HISTORY: Weakness TECHNIQUE: Frontal and lateral views of the chest are obtained. COMPARISON: 08/20/2019 chest radiograph FINDINGS: Sternotomy wires. The cardiomediastinal silhouette is within normal limits for size. Pulmo nary vasculature is normal. There is no focal air space opacity, pleural effusion, or pneumothorax se en. The osseous structures are intact. IMPRESSION: No acute cardiopulmonary process.
--- NOTE | 2020-03-21 16:37 | CT ---
EXAMINATION TYPE: CT brain wo con DATE OF EXAM: 03/21/2020 COMPARISON: Prior CT brain 07/12/2018 and MR brain 07/14/2018 HISTORY: Slurred speech and weakness. CT DLP: 1173.4 mGycm Automated exposure control for dose reduction was used. Helical acquisition obtained through the brai n FINDINGS: There is been interval development of low-attenuation along the posterior parietal lobe on the right, right frontal lobe which is increased in size as compared to prior exam, there is loss of lopez-white differentiation at these levels, encephalomalacia is present consistent with sequela of prior infarc t, there is associated ex vacuo phenomenon of the right lateral ventricle likely due to volume loss. No definite acute hemorrhage. Cerebral vascular calcifications are present. Calvarium is intact. Para nasal sinuses and mastoid air cells are within normal limits. IMPRESSION: PATIENT WITH KNOWN PREVIOUS CEREBROVASCULAR ACCIDENT, FINDINGS MAY REPRESENT SEQUELA OF PRIOR INFARCT S, MRI MAY BE OF BENEFIT TO ASSESS FOR SUBACUTE INFARCT INDICATED.
[2020-03-21 16:58] LABS: Appearance,Urine Clear (Clear); Bilirubin,Urine Negative (Negative); Blood,Urine Negative (Negative); Color,Urine Yellow; Glucose,Urine (UA) 4+ (Negative); Ketones,Urine Negative (Negative); Leukocyte Esterase,Urine Negative (Negative); Mucus,Urine Rare /hpf; Nitrite,Urine Positive (Negative); PH, Urine 5.5 (5.0-8.0); Protein,Urine Trace (Negative); RBC,Urine <1 /hpf (0-5); Specific Gravity,Urine 1.016 (1.001-1.035); Squamous Epithelial Cell,Urine <1 /hpf (0-4); Urobilinogen,Urine <2.0 mg/dL (<2.0); WBC,Urine <1 /hpf (0-5)
[2020-03-21] MEDS ORDERED: ASPIRIN 325 MG TAB PO STA (16:59)
[2020-03-21] MEDS: SODIUM CHLORIDE 0.9% 1,000 ML IV SCH ×2 (17:43→20:00)
[2020-03-21 18:43] LABS: Glucose,Whole Blood 122 mg/dL (75-99)
--- NOTE | 2020-03-21 18:47 | ED ---
Medical Decision Making - Medical Decision Making 74 male to the ER for evaluation currently aphasic with us today for aphasia code stroke paged just prior to patient being admitted for upstairs evaluation. Patient was being evaluated prior to upstairs admission for TIA and began to have significant expressive aphasia and altered mental status, NIH of 2 - Lab Data Result diagrams: 03/21/20 15:41 03/21/20 15:45 Lab Results 03/21/20 03/21/20 03/21/20 Range/Units 15:41 15:41 15:41 WBC 8.9 (3.8-10.6) k/uL RBC 4.63 (4.30-5.90) m/uL Hgb 13.8 (13.0-17.5) gm/dL Hct 42.6 (39.0-53.0) % MCV 92.0 (80.0-100.0) fL MCH 29.9 (25.0-35.0) pg MCHC 32.4 (31.0-37.0) g/dL RDW 14.5 (11.5-15.5) % Plt Count 206 (150-450) k/uL Neutrophils % 74 % Lymphocytes % 18 % Monocytes % 4 % Eosinophils % 2 % Basophils % 1 % Neutrophils # 6.6 (1.3-7.7) k/uL Lymphocytes # 1.6 (1.0-4.8) k/uL Monocytes # 0.3 (0-1.0) k/uL Eosinophils # 0.2 (0-0.7) k/uL Basophils # 0.1 (0-0.2) k/uL PT 9.7 (9.0-12.0) sec INR 0.9 (<1.2) APTT 23.0 (22.0-30.0) sec Sodium (137-145) mmol/L Potassium (3.5-5.1) mmol/L Chloride (98-107) mmol/L Carbon Dioxide (22-30) mmol/L Anion Gap mmol/L BUN (9-20) mg/dL Creatinine (0.66-1.25) mg/dL Est GFR (CKD-EPI)AfAm (>60 ml/min/1.73 sqM) Est GFR (CKD-EPI)NonAf (>60 ml/min/1.73 sqM) Glucose (74-99) mg/dL Calcium (8.4-10.2) mg/dL Phosphorus (2.5-4.5) mg/dL Magnesium (1.6-2.3) mg/dL Total Bilirubin (0.2-1.3) mg/dL AST (17-59) U/L ALT (4-49) U/L Alkaline Phosphatase (38-126) U/L Creatine Kinase (55-170) U/L Troponin I <0.012 (0.000-0.034) ng/mL Total Protein (6.3-8.2) g/dL Albumin (3.5-5.0) g/dL Urine Color Urine Appearance (Clear) Urine pH (5.0-8.0) Ur Specific [place] (1.001-1.035) Urine Protein (Negative) Urine Glucose (UA) (Negative) Urine Ketones (Negative) Urine Blood (Negative) Urine Nitrite (Negative) Urine Bilirubin (Negative) Urine Urobilinogen (<2.0) mg/dL Ur Leukocyte Esterase (Negative) Urine RBC (0-5) /hpf Urine WBC (0-5) /hpf Ur Squamous Epith Cells (0-4) /hpf Urine Mucus (None) /hpf 03/21/20 03/21/20 Range/Units 15:45 16:41 WBC (3.8-10.6) k/uL RBC (4.30-5.90) m/uL Hgb (13.0-17.5) gm/dL Hct (39.0-53.0) % MCV (80.0-100.0) fL MCH (25.0-35.0) pg MCHC (31.0-37.0) g/dL RDW (11.5-15.5) % Plt Count (150-450) k/uL Neutrophils % % Lymphocytes % % Monocytes % % Eosinophils % % Basophils % % Neutrophils # (1.3-7.7) k/uL Lymphocytes # (1.0-4.8) k/uL Monocytes # (0-1.0) k/uL Eosinophils # (0-0.7) k/uL Basophils # (0-0.2) k/uL PT (9.0-12.0) sec INR (<1.2) APTT (22.0-30.0) sec Sodium 136 L (137-145) mmol/L Potassium 4.4 (3.5-5.1) mmol/L Chloride 105 (98-107) mmol/L Carbon Dioxide 24 (22-30) mmol/L Anion Gap 7 mmol/L BUN 20 (9-20) mg/dL Creatinine 0.95 (0.66-1.25) mg/dL Est GFR (CKD-EPI)AfAm >90 (>60 ml/min/1.73 sqM) Est GFR (CKD-EPI)NonAf 80 (>60 ml/min/1.73 sqM) Glucose 254 H (74-99) mg/dL Calcium 9.1 (8.4-10.2) mg/dL Phosphorus 3.5 (2.5-4.5) mg/dL Magnesium 1.8 (1.6-2.3) mg/dL Total Bilirubin 0.5 (0.2-1.3) mg/dL AST 17 (17-59) U/L ALT 9 (4-49) U/L Alkaline Phosphatase 84 (38-126) U/L Creatine Kinase 49 L (55-170) U/L Troponin I (0.000-0.034) ng/mL Total Protein 6.5 (6.3-8.2) g/dL Albumin 3.9 (3.5-5.0) g/dL Urine Color Yellow Urine Appearance Clear (Clear) Urine pH 5.5 (5.0-8.0) Ur Specific [place] 1.016 (1.001-1.035) Urine Protein Trace H (Negative) Urine Glucose (UA) 4+ H (Negative) Urine Ketones Negative (Negative) Urine Blood Negative (Negative) Urine Nitrite Positive (Negative) Urine Bilirubin Negative (Negative) Urine Urobilinogen <2.0 (<2.0) mg/dL Ur Leukocyte Esterase Negative (Negative) Urine RBC <1 (0-5) /hpf Urine WBC <1 (0-5) /hpf Ur Squamous Epith Cells <1 (0-4) /hpf Urine Mucus Rare H (None) /hpf - Radiology Data Radiology results: report reviewed (CT brain repeat and CT had neck does show significant carotid artery disease), image reviewed Critical Care Time Critical Care Time: Yes Total Critical Care Time: 31 Disposition Clinical Impression: CVA (cerebral vascular accident), Transient cerebral ischemia Disposition: ADMITTED IP TO THIS [facility] Condition: Stable
[2020-03-21] MEDS ORDERED: SODIUM CHLORIDE 0.9% 1,000 ML IV ONE (18:59)
[2020-03-21] MEDS ORDERED: TICAGRELOR 90 MG TAB PO STA (19:03)
--- NOTE | 2020-03-21 19:05 | CT ---
EXAMINATION TYPE: CT brain wo con DATE OF EXAM: 03/21/2020 COMPARISON: Today HISTORY: cva CT DLP: 1127.6 mGycm Automated exposure control for dose reduction was used. There is cerebral cortical atrophy. There is no mass effect nor midline shift. There is no sign of in tracranial hemorrhage. There is a large patchy area of hypodensity involving the right posterior fron radha lobe consistent with an old infarct. There is also hypodensity in the right medial parietal lobe consistent with old infarct. There is some enlargement of the right lateral ventricle. The calvarium is intact. IMPRESSION: Old right parietal and right frontal cortical infarcts. No acute intracranial abnormality. No change compared to exam earlier today.
--- NOTE | 2020-03-21 19:28 | CT ---
EXAMINATION TYPE: CT angio head neck DATE OF EXAM: 03/21/2020 COMPARISON: 07/12/2018 HISTORY: cva CT DLP: 421.1 mGycm Automated exposure control for dose reduction was used. CONTRAST: Performed with IV Contrast, patient injected with 65cc mL of Isovue 370. There are 3-D post processed images. FINDINGS: There is normal branching pattern of the great vessels on the aortic arch. Left vertebral artery has origin on the aortic arch. There is arterial flow in both subclavian arteries. There is arterial flow in the common internal and external carotid arteries bilaterally. There is significant plaque format ion and approximate 85% stenosis of the proximal left internal carotid artery. There is plaque format ion and approximate 50% stenosis proximal right internal carotid artery. There is arterial flow in felix th vertebral arteries. There is normal opacification of the vertebrobasilar artery system. There is normal contrast opacification of the venous sinuses. There is arterial flow in the anterior middle and posterior cerebral arteries. There is no mass effec t. I see no evidence of intracranial arterial stenosis. There is no sign of intracranial aneurysm or neovascularity. IMPRESSION: There is approximate 85% stenosis at the origin left internal carotid artery and 50% stenosis origin right internal carotid artery. No significant intracranial angiographic abnormality. There is progres rina of stenosis in the left internal carotid artery compared to old exam.
[2020-03-21] MEDS ORDERED: MAGNESIUM HYDROXIDE 2,400 MG/10 ML CUP PO PRN (21:03)
[2020-03-21] MEDS ORDERED: NALOXONE 0.4 MG/ML 1 ML VIAL IV PRN (21:03)
[2020-03-21] MEDS ORDERED: MELATONIN 3 MG TABLET PO PRN (21:03)
[2020-03-21] MEDS ORDERED: ONDANSETRON 4 MG/2 ML VIAL IVP PRN (21:03)
[2020-03-21] MEDS ORDERED: CALCIUM CARBONATE 500 MG CHEWABLE PO PRN (21:03)
[2020-03-21] MEDS ORDERED: MAG HYDROX/AL HYDROX/SIMETH 30 ML CUP PO PRN (21:03)
[2020-03-21] MEDS ORDERED: NA PHOS,M-B/NA PHOS,DI-BA 133 ML ENEMA RECTAL PRN (21:03)
[2020-03-21] MEDS ORDERED: ALPRAZolam 0.25 MG TAB PO PRN (21:03)
[2020-03-21] MEDS ORDERED: ACETAMINOPHEN TAB 325 MG TAB PO PRN (21:03)
[2020-03-21] MEDS ORDERED: LACTULOSE 20 GM/30 ML CUP PO PRN (21:03)
--- NOTE | 2020-03-21 21:07 | P.HPIM ---
History of Present Illness H&P Date: 03/21/20 Chief Complaint: Difficulty speaking History of presenting complaint: This is a pleasant 74-year-old patient of Dr. Pryor. Chronic stable medical conditions include diabetes, coronary artery disease with bypass, COPD, peripheral artery disease, hard of hearing, diabetic peripheral neuropathy and bipolar disorder. On 1:00 today patient noticed that he having trouble spe aking. Decided to come to the ER. Patient's symptoms resolved. Denied any change in vision headache or focal weakness. No change in swallowing. Subsequently again patient had a change in his speech and a code stroke was called. Repeat computed tomography scan of the brain again was negative. Patient's speech is systems significantly improved. But not back to baseline. Review of systems: GEN.: None EYES: None HEENT: None NECK: None RESPIRATORY: None CARDIOVASCULAR: None GASTROINTESTINAL: None GENITOURINARY: None MUSCULOSKELETAL: None LYMPHATICS: None HEMATOLOGICAL: None PSYCHIATRY: None NEUROLOGICAL: As above Past medical history to include: Coronary artery disease with bypass and stent the former being in 2010, COPD, IVs, DVT, hard of hearing, 2 strokes in 2018 recovered, diabetic peripheral neuropathy, blockage in the right leg in 2017, bipolar disorder Social history: Smoking a pack a day for close to 60 years. . 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 Physical examination: VITAL SIGNS: 98, 64, 16, 140/68, 97% room air GENERAL: [BMI 21.5, sitting up in the bed awake. EYES: Pupils equal. Conjunctiva normal. HEENT: External appearance of nose and ears normal, oral cavity grossly normal. NECK: JVD not raised; masses not palpable. HEART: First and second heart sounds are normal; no edema. LUNGS:[ Respiratory rate normal; slightly decreased breath sounds. ABDOMEN: Soft, nontender, liver spleen not palpable, no masses palpable. PSYCH: Alert and oriented x3; mood and affect normal. NEUROLOGICAL: Cranial nerves grossly intact; no facial asymmetry, power and sensation grossly intact, speech is a slightly slurred. LYMPHATICS: No lymph nodes palpable in the axilla and neck INVESTIGATIONS, reviewed in the clinical context: White count 8.9 hemoglobin 13.8 platelets 206 potassium 4.4 creatinine 0.95 Troponin I 2 negative EKG tracing personally reviewed by me-no sinus rhythm, Q waves in inferior leads Chest x-ray film personally reviewed by me-lung chavarria clear Computed tomography scan of the [id number]-[id number]-sbphcinoi up and of low attenuation along the posterior parietal lobe on the right, right frontal lobe which is increased in size compared to the prior exam loss of lopez white differentiation. Some encephalomalacia initial computed tomography scan. Repeat computed tomography scan of the brain-unchanged CT angiogram head and neck-85% stenosis origin of the left internal carotid artery and 50% stenosis origin right internal carotid artery. Assessment: -This is a patient's had 2 episodes of speech getting affected, with near resolution of the same though not back to the baseline. Patient will have a MRI.-Significant right internal carotid stenosis 85% which will need intervention. -Coronary artery Jose history is stent and bypass -COPD in a current smoker -Diabetes mellitus type 2 -Peripheral arterial disease with prior intervention of the right leg -Diabetic peripheral neuropathy Plan: Neuro checks and place. Patient is on aspirin per Elizabeth. Lipitor. Home medications resumed. Neurology consulted. Consult vascular surgery. Lovenox for DVT prophylaxis. Care was discussed with the patient, questions answered. MRIs being ordered Past Medical History Past Medical History: Coronary Artery Disease (CAD), Chest Pain / Angina, COPD, CVA/TIA, Diabetes Mellitus, Deep Vein Thrombosis (DVT), Hearing Disorder / Deafness, Myocardial Infarction ([place]), Syncope, Vascular Disorder Additional Past Medical History / Comment(s): CVA x2, last 2018, recovered. Diabetic neuropathy feet, osteoporosis. Blockage in Rt leg. Last Myocardial Infarction Date:: 2006 History of Any Multi-Drug Resistant Organisms: None Reported Past Surgical History: Coronary Bypass/CABG, Heart Catheterization With Stent Additional Past Surgical History / Comment(s): Quad bypass-2010, "sx lt leg- graft to retore criculation", colonoscopy/polypectomy Past Anesthesia/Blood Transfusion Reactions: No Reported Reaction Additional Past Anesthesia/Blood Transfusion Reaction / Comment(s): mild claustrophobia (mri machines) Date of Last Stent Placement:: unknown Past Psychological History: Bipolar Smoking Status: Current every day smoker Past Alcohol Use History: None Reported Additional Past Alcohol Use History / Comment(s): started smoking at age 14, smokes 1 ppd Past Drug Use History: None Reported - Past Family History Mother Family Medical History: Cancer Father Family Medical History: Coronary Artery Disease (CAD), Myocardial Infarction ([place]) Additional Family Medical History / Comment(s): cabg Sister(s) Family Medical History: Coronary Artery Disease (CAD) Additional Family Medical History / Comment(s): cabg Brother(s) Family Medical History: Coronary Artery Disease (CAD) Additional Family Medical History / Comment(s): cabg Medications and Allergies Home Medications Medication Instructions Recorded Confirmed Type Clopidogrel [Plavix] 75 mg PO DAILY 07/12/18 03/21/20 History PARoxetine [Paxil] 20 mg PO BID 07/12/18 03/21/20 History metFORMIN HCL [Glucophage] 1,000 mg PO AC-BID 07/12/18 03/21/20 History Aspirin EC [Ecotrin] 325 mg PO DAILY 03/21/20 03/21/20 History Allergies Allergy/AdvReac Type Severity Reaction Status Date / Time No Known Allergies Allergy Verified 03/21/20 17:01 Physical Exam Vitals: Vital Signs Temp Pulse Resp BP Pulse Ox 03/21/20 19:52 98.1 F 63 18 129/57 96 03/21/20 18:46 56 L 16 137/61 03/21/20 18:40 64 16 140/69 99 03/21/20 17:45 53 L 16 137/86 99 03/21/20 16:57 57 L 16 138/64 98 03/21/20 15:30 98.0 F 64 16 141/68 97 03/21/20 15:18 63 18 148/68 97 Intake and Output 03/21/20 03/21/20 03/21/20 06:59 14:59 22:59 Other: Weight 69.853 kg Results CBC & Chem 7: 03/21/20 15:41 03/21/20 15:45 Labs: Abnormal Lab Results - Last 24 Hours (Table) 03/21/20 03/21/20 03/21/20 Range/Units 15:45 16:41 18:42 Sodium 136 L (137-145) mmol/L Glucose 254 H (74-99) mg/dL POC Glucose (mg/dL) 122 H (75-99) mg/dL Creatine Kinase 49 L (55-170) U/L Urine Protein Trace H (Negative) Urine Glucose (UA) 4+ H (Negative) Urine Mucus Rare H (None) /hpf
[2020-03-21] MEDS: NICOTINE 21MG/24HR PATCH TRANSDERM SCH (22:47)
[2020-03-21] MEDS: PARoxetine 20 MG TAB PO SCH (22:48)
[2020-03-21] MEDS: ATORVASTATIN 80 MG TAB PO SCH (22:48)
[2020-03-22 05:23] LABS: Cholesterol 195 mg/dL (<200); HDL Cholesterol 45 mg/dL (40-60); LDL Cholesterol,Calculated 121 mg/dL (0-99); Triglycerides 144 mg/dL (<150)
[2020-03-22] MEDS: INSULIN ASPART (NovoLOG) 100 UNIT/ML VIAL SQ SCH ×4 (05:58→20:11)
[2020-03-22] MEDS: metFORMIN 500 MG TAB PO SCH ×2 (06:03→17:57)
[2020-03-22] MEDS: TICAGRELOR 90 MG TAB PO SCH ×2 (08:24→20:05)
[2020-03-22] MEDS: NICOTINE 21MG/24HR PATCH TRANSDERM SCH (08:24)
[2020-03-22] MEDS: PARoxetine 20 MG TAB PO SCH ×2 (08:24→20:05)
[2020-03-22] MEDS: ASPIRIN 81 MG PO SCH (08:24)
[2020-03-22] MEDS ORDERED: ASPIRIN 325 MG TAB PO SCH (09:00)
--- NOTE | 2020-03-22 09:33 | ECHOF ---
Referral Reason:Thrombus MEASUREMENTS -------- HEIGHT: 180.3 cm WEIGHT: 73.0 kg BP: 140/67 IVSd: 1.1 cm (0.6 - 1.1) LVIDd: 3.1 cm (3.9 - 5.3) LVPWd: 1.1 cm (0.6 - 1.1) IVSs: 1.5 cm LVIDs: 1.5 cm LVPWs: 1.6 cm LAESV Index (A-L): 14.46 ml/m MV EXCURSION: 11.453 mm (> 18.000) MV EF SLOPE: 53 mm/s (70 - 150) EPSS: 1.8 cm MV E Kiko: 1.06 m/s MV DecT: 209 ms MV A Kiko: 0.68 m/s MV E/A Ratio: 1.58 RAP: 5.00 mmHg RVSP: 6.85 mmHg FINDINGS -------- This was a technically adequate study. The left ventricular size is normal. Left ventricular wall thickness is normal. Overall left vent ricular systolic function is normal with, an EF between 55 - 60 %. The diastolic filling pattern is normal for the age of the patient 13.14. The right ventricle is normal in size. The left atrial size is normal. Normal LA size by volume 22+/-6 ml/m2. The right atrial size is normal. Interatrial and interventricular septum intact. The aortic valve was not well visualized. The mitral valve is normal. There is trace mitral regurgitation. Trace tricuspid regurgitation present. Right ventricular systolic pressure is normal at < 35 mmHg. The pulmonic valve was not well visualized. The aortic root size is normal. Normal inferior vena cava with normal inspiratory collapse consistent with estimated right atrial pre ssure of 5 mmHg. There is no pericardial effusion. CONCLUSIONS -------- 1. The left ventricular size is normal. 2. Left ventricular wall thickness is normal. 3. Overall left ventricular systolic function is normal with, an EF between 55 - 60 %. 4. The diastolic filling pattern is normal for the age of the patient 13.14 5. There is trace mitral regurgitation. 6. Trace tricuspid regurgitation present. 7. There is no pericardial effusion. NETWORK DIAGNOSTIC SUPPORT SPECIALIST: Natacha Martínez RDCS
--- NOTE | 2020-03-22 10:17 | P.CNNES ---
History of Present Illness Consult date: 03/22/20 Requesting physician: Gerardo King Reason for Consult: aphasia and slurring speech History of Present Illness: This is a 74-year-old right-handed gentleman with medical history of history of Stroke/TIA (about 10 years ago for slurring speech), diabetes (for 25-30 years), coronary artery disease status post bypass, peripheral artery disease of right lower extremity, hard of hearing, diabetic peripheral neuropathy, tobacco use that presented to the emergency department on 03/21/2020 for trouble speaking and slurred speech that he noticed at 1:00 PM in the afternoon. His symptoms resolved upon arriving to the hospital. The patient was about to be admitted for TIA. Then later in the ED the patient had the expressive aphasia and NIH 2. According to patient he didn't have any weakness any visual disturbance any numbness associate with this. No difficulty swallowing. Denies any fever and nausea vomiting chills. The patient's home medication is aspirin 325 daily Plavix 75 daily but is not on the Lipitor. He does smoke tobacco 1 pack a day for the last 50 years. Currently the patient states that his symptoms has resolved. She hasn't had any further episodes a of slurring his speech or diff iculty getting his words out. On presentation the patient's initial vitals: blood pressure of 148/68, heart rate of 63, rest. 18, temperature of 98.0 Fahrenheit, and oxygen saturation was 97 at room air. Patient had the an initial CT of the head which was reported as interval development of low attenuation along the posterior parietal lobe over the right, right frontal lobe which is increased in size compared to prior exam, there is loss of lopez-white differentiation at the level, encephalomalacia is present consistent with sequela of prior infarct, there is an associated ex-vacuo phenomenon over the right lateral ventricle likely due to volume loss. And a repeat CT of the head was done and it showed the old right parietal as well as frontal cortical infarct. And no acute intracranial hemorrhage or ischemia was noted. Personally reviewed that too CT of the head and I personally felt like that these were old and do not acute. CTA of the head and neck was done and the was revealed that the patient had 85 stenosis at the origin of the left internal carotid artery and 50% stenosis over the right internal carotid artery. No significant intercranial and angiographic abnormality. There is a progression of stenosis in the left internal carotid artery compared to the old exam (07/12/2018). As documented above the eye patient had NIH of a 2. And the patient did not get TPA but no documentation but I assume its that because of low NIH. EKG was performed and it was reported as normal sinus rhythm, ventricle rate of 64. Patient was given a Berlant 180 mg stat in the ED then was started on a Berlant 90 mg twice a day. Currently the patient is also is on aspirin 81 as well as hi gh dose Lipitor 80 mg. Of note the patient stated that about 10 years ago he had 2 episodes of slurring his speech as well as facial twisting in his own words the episode lasted 1-2 hours and he was told that he had a stroke at that time. Patient denies illicit drug use or all call use. Review of Systems Review of system: The 12 point system was reviewed and apparent positive and negative per HPI. Past Medical History Past Medical History: Coronary Artery Disease (CAD), Chest Pain / Angina, COPD, CVA/TIA, Diabetes Mellitus, Deep Vein Thrombosis (DVT), Hearing Disorder / Deafness, Myocardial Infarction ([place]), Syncope, Vascular Disorder Additional Past Medical History / Comment(s): CVA x2, last 2018, recovered. Diabetic neuropathy feet, osteoporosis. Blockage in Rt leg. Last Myocardial Infarction Date:: 2006 History of Any Multi-Drug Resistant Organisms: None Reported Past Surgical History: Coronary Bypass/CABG, Heart Catheterization With Stent Additional Past Surgical History / Comment(s): Quad bypass-2010, "sx lt leg- graft to retore criculation", colonoscopy/polypectomy Past Anesthesia/Blood Transfusion Reactions: No Reported Reaction Additional Past Anesthesia/Blood Transfusion Reaction / Comment(s): mild claust rophobia (mri machines) Date of Last Stent Placement:: unknown Past Psychological History: Bipolar Smoking Status: Current every day smoker Past Alcohol Use History: None Reported Additional Past Alcohol Use History / Comment(s): started smoking at age 14, smokes 1 ppd Past Drug Use History: None Reported - Past Family History Mother Family Medical History: Cancer Father Family Medical History: Coronary Artery Disease (CAD), Myocardial Infarction ([place]) Additional Family Medical History / Comment(s): cabg Sister(s) Family Medical History: Coronary Artery Disease (CAD) Additional Family Medical History / Comment(s): cabg Brother(s) Family Medical History: Coronary Artery Disease (CAD) Additional Family Medical History / Comment(s): cabg Medications and Allergies Home Medications Medication Instructions Recorded Confirmed Type Clopidogrel [Plavix] 75 mg PO DAILY 07/12/18 03/21/20 History PARoxetine [Paxil] 20 mg PO BID 07/12/18 03/21/20 History metFORMIN HCL [Glucophage] 1,000 mg PO AC-BID 07/12/18 03/21/20 History Aspirin EC [Ecotrin] 325 mg PO DAILY 03/21/20 03/21/20 History Allergies Allergy/AdvReac Type Severity Reaction Status Date / Time No Known Allergies Allergy Verified 03/21/20 17:01 Physical Examination - Vital Signs Vital Signs: Vital Signs Temp Pulse Pulse Resp BP BP Pulse Ox 03/22/20 03:00 98.6 F 58 L 18 140/67 96 03/21/20 21:00 64 18 03/21/20 19:52 98.1 F 63 18 129/57 96 03/21/20 18:46 56 L 16 137/61 03/21/20 18:40 64 16 140/69 99 03/21/20 17:48 98.7 F 64 18 127/70 96 03/21/20 17:45 53 L 16 137/86 99 03/21/20 16:57 57 L 16 138/64 98 03/21/20 15:30 98.0 F 64 16 141/68 97 03/21/20 15:18 63 18 148/68 97 Intake and Output 03/21/20 03/22/20 03/22/20 22:59 06:59 14:59 Intake Total 120 400 600 Balance 120 400 600 Intake: Intake, IV Titration 400 Amount Sodium Chloride 0.9% 1, 400 000 ml @ 100 mls/hr IV . Q10H [facility] Rx#:[id number] Oral 120 600 Other: # Voids 2 Weight 73.4 kg GENERAL: The patient is lying in bed and is not in acute distress. CHEST: The heart rate is regular rate rhythm. No murmurs to auscultation. No carotid bruit bilaterally. LUNG: Clear to auscultation bilaterally no wheezing noted throughout. Not labored breathing. ABDOMEN/GI: Bowel sounds present in all 4 quadrants. No tenderness to palpation throughout. NEUROLOGICAL: Higher mental function: The patient is awake, alert, oriented to self, place and time. Patient is following commands. No aphasia and no neglect. Cranial nerves: The pupils are round, equal and reactive to light and accommodation. Visual chavarria are full to confrontation throughout. Extraocular movement is intact no nystagmus is noted. Facial sensation is normal to touch throughout. The facial strength is normal throughout. Hearing is normal bi laterally to hand rub. Tongue is midline and moved [id number] without any difficulty. No dysarthria is noted. Shoulder shrug is normal bilaterally. Motor: The strength is 5 over 5 throughout. Normal tone and bulk. Cerebellum: Normal finger to nose heel to chin bilaterally. Sensation: Sensation is normal to touch throughout. Sensation was more sensative to touch on bilateral feet, from ankles down to tips of toes (chronic). Reflexes (right/left): 2+ throughout except at ankles 1+ bilaterally. Plantars are mute bilaterally. Currently NIH Stroke Scale: 0 Results Coagulation study: PT of 9.7, INR 0.9, PTT of 23.0. AST of 17, ALTs of 9. - Laboratory Findings CBC and BMP: 03/21/20 15:41 03/21/20 15:45 Abnormal Lab Findings: Abnormal Labs 03/21/20 03/21/20 03/21/20 15:45 15:45 16:41 Sodium 136 L Glucose 254 H POC Glucose (mg/dL) Creatine Kinase 49 L LDL Cholesterol, Calc 121 H Urine Protein Trace H Urine Glucose (UA) 4+ H Urine Mucus Rare H 03/21/20 18:42 Sodium Glucose POC Glucose (mg/dL) 122 H Creatine Kinase LDL Cholesterol, Calc Urine Protein Urine Glucose (UA) Urine Mucus Assessment and Plan Assessment: This is a 74-year-old gentleman with medical history of history of TIA/Stroke (10 years ago for slurring speech), diabetes, coronary artery disease status post bypass, peripheral artery disease of right lower extremity, diabetic per ipheral neuropathy, tobacco use that presented to the emergency department on 03/21/2020 for trouble speaking that the patient noticed at 1:00 PM in the afternoon. His symptoms has resolved upon arriving to the hospital and was about to be admitted to TIA. Then had another episode of slurring speech and unable to get his words out. His NIH 2. CT head showed old right parietal and frontal stroke. He was not on Statin at home. Currently his NIH is 0. 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 Brown Hernadez (vascular) was consulted for the symptomatic left ICA stenosis. CT of the head shows old right frontal as well as parietal ischemia. MR the brain is ordered by the primary team is pending Continue Birlinta 90 mg twice a day as well as the aspirin 81 mg and the high as dose intensity Lipitor 80 mg daily. Lipid panel: Triglyceride of 144, cholesterol 195, LDL 121 and HDL 45. Goal of LDL is less than 70 for stroke. Hemoglobin A1c and TSH: pending Pending 2Dechocardiogram Cardiac monitoring PT OT is on board. The patient was counseled on tobacco cessation. Regarding the management of urinary tract infection will defer the management to the primary team. Thank you for the consult. Jose Durán M.D. Neuro-hospitalist Time with Patient: Greater than 30
[2020-03-22 11:56] LABS: Glucose,Whole Blood 133 mg/dL (75-99)
[2020-03-22] MEDS: SODIUM CHLORIDE 0.9% 1,000 ML IV SCH (11:58)
--- NOTE | 2020-03-22 16:33 | P.PN ---
Progress Note - Text Progress Note Date: 03/22/20 Chief Complaint: Difficulty speaking History of presenting complaint: This is a pleasant 74-year-old patient of Dr. Pryor. Chronic stable medical conditions include diabetes, coronary artery disease with bypass, COPD, peripheral artery disease, hard of hearing, diabetic peripheral neuropathy and bipolar disorder. On 1:00 today patient noticed that he having trouble speaking. Decided to come to the ER. Patient's symptoms resolved. Denied any change in vision headache or focal weakness. No change in swallowing. Subsequently again patient had a change in his speech and a code stroke was called. Repeat computed tomography scan of the brain again was negative. Patient's speech is systems significantly improved. But not back to baseline. today-patient speech is back to normal. Patient's at the bedside. No further episodes. No new focal weakness. Pending MRI this afternoon. Seen by neurology. Review of systems: Was done for constitutional, cardiovascular, GI, pulmonary, neurology. relevant finding as above Active Medications Acetaminophen (Tylenol Tab) 650 mg PO Q6HR PRN PRN Reason: Mild Pain or Fever > 100.5 Al Hydroxide/Mg Hydroxide (Maalox) 15 ml PO Q6HR PRN PRN Reason: Indigestion Alprazolam (Xanax) 0.25 mg PO Q6HR PRN PRN Reason: Anxiety Aspirin (Aspirin) 81 mg PO DAILY [facility] Last Admin: 03/22/20 08:24 Dose: 81 mg Documented by: Atorvastatin Calcium (Lipitor) 80 mg PO HS [facility] Last Admin: 03/21/20 22:48 Dose: 80 mg Documented by: Calcium Carbonate/Glycine (Tums) 1,000 mg PO Q4HR PRN PRN Reason: Dyspepsia Sodium Chloride (Saline 0.9%) 1,000 mls @ 100 mls/hr IV .Q10H [facility] Last Admin: 03/22/20 11:58 Dose: 100 mls/hr Documented by: Insulin Aspart (Novolog) [address] [facility]; Protocol Last Admin: 03/22/20 11:58 Dose: Not Given Documented by: Lactulose (Cephulac) 20 gm PO DAILY PRN PRN Reason: Constipation Magnesium Hydroxide (Milk Of Magnesia) 2,400 mg PO DAILY PRN PRN Reason: Constipation Melatonin (Melatonin) 3 mg PO HS PRN PRN Reason: Insomnia Metformin HCl (Glucophage) 1,000 mg PO AC-BID [facility] Last Admin: 03/22/20 06:03 Dose: Not Given Documented by: Naloxone HCl (Narcan) 0.2 mg IV Q2M PRN PRN Reason: Opioid Reversal Nicotine (Habitrol 21mg/24hr Patch) 1 patch TRANSDERM DAILY [facility] Last Admin: 03/22/20 08:24 Dose: Not Given Documented by: Ondansetron HCl (Zofran) 4 mg IVP Q8HR PRN PRN Reason: Nausea And Vomiting Paroxetine HCl (Paxil) 20 mg PO BID [facility] Last Admin: 03/22/20 08:24 Dose: 20 mg Documented by: Sodium Biphosphate/Sodium Phosphate (Fleet Adult) 133 ml RECTAL ONCE PRN PRN Reason: Constipation Ticagrelor (Brilinta) 90 mg PO BID [facility] Last Admin: 03/22/20 08:24 Dose: 90 mg Documented by: Physical examination: VITAL SIGNS: 97.8, 58, 18, 118/57, 96% room air GENERAL: laying in bed, comfortable EYES: Pupils equal. Conjunctiva normal. HEENT: External appearance of nose and ears normal, oral cavity grossly normal. NECK: JVD not raised; masses not palpable. HEART: First and second heart sounds are normal; no edema. LUNGS:[ Respiratory rate normal; slightly decreased breath sounds. ABDOMEN: Soft, nontender, liver spleen not palpable, no masses palpable. PSYCH: Alert and oriented x3; mood and affect normal. NEUROLOGICAL: Cranial nerves grossly intact; no facial asymmetry, power and sensation grossly intact, speech -back to normal INVESTIGATIONS, reviewed in the clinical context: 2-D echocardiogram-EF 55-60%. No thrombus reported. Admission testing White count 8.9 hemoglobin 13.8 platelets 206 potassium 4.4 creatinine 0.95 Troponin I 2 negative EKG tracing personally reviewed by me-no sinus rhythm, Q waves in inferior leads Chest x-ray film personally reviewed by me-lung chavarria clear Computed tomography scan of the vgmki-rpjvb-kxwqaefwn up and of low attenuation along the posterior parietal lobe on the right, right frontal lobe which is increased in size compared to the prior exam loss of lopez white differentiation. Some encephalomalacia initial computed tomography scan. Repeat computed tomography scan of the brain-unchanged CT angiogram head and neck-85% stenosis origin of the left internal carotid artery and 50% stenosis origin right internal carotid artery. Assessment: -2 episodes of TIA affecting the speech now completely resolved. Pending MRI. -Coronary artery Jose history is stent and bypass -COPD in a current smoker -Diabetes mellitus type 2 -Peripheral arterial disease with prior intervention of the right leg -Diabetic peripheral neuropathy -85% stenosis of left internal Rody artery Plan: care was discussed with the patient and and Dr. Durán from neurology. Pending MRI this afternoon. Medications. Plan to continue.
--- NOTE | 2020-03-22 16:52 | MR ---
EXAMINATION TYPE: MR brain wo/w con DATE OF EXAM: 03/22/2020 COMPARISON: CT brain 2019 HISTORY: Recurrent Loss of speech, TIA CONTRAST: Performed utilizing 7 mL intravenous Gadavist gadolinium contrast. TECHNIQUE: Multiplanar, multiecho imaging on a 3.0 Jane magnet is performed through the brain. Stud y is performed within 24 hours of arrival to the hospital. The craniovertebral junction is normal. The pituitary is normal. Diffusion-weighted imaging is performed. Small amount of hyperintensity may be along the medial righ t parietal lobe above the lateral ventricle. Small amount cortical ischemia considered. Series 305 im age 176. There is mild increased signal within the brainstem which may be compatible some ischemic change. Per iventricular white matter hyperintensity is present compatible with microvascular ischemic change. Th ere is some increased signal along the cortex of the medial right parietal lobe with deep white matte r increased signal adjacent as well as deep white matter change in the right frontal parietal region. Findings are suspicious for ischemic change. Additional punctate deep white matter changes are in staton bcortical white matter and centrum semiovale on the left. No suspicious enhancement is evident. Ventricles and sulci are prominent for the patient age. Right lateral ventricle is more prominent lik luma related to ex vacuo effect from prior ischemic changes discussed above. IMPRESSIONS: 1. Hyperintensity on diffusion-weighted imaging within the cortex of the medial right parietal lobe s uspicious for acute ischemic change. 2. Prior infarcts in the right frontal parietal region as well as in the right occipital region and r ight medial parietal centrum semiovale. 3. Additional scattered punctate hyperintensities and periventricular white matter, compatible with c hronic white matter ischemic changes.
[2020-03-22 17:28] LABS: Glucose,Whole Blood 127 mg/dL (75-99)
[2020-03-22 18:48] LABS: Hemoglobin A1C 7.5 % (4.0-6.0)
[2020-03-22] MEDS: ATORVASTATIN 80 MG TAB PO SCH (20:05)
[2020-03-22 20:10] LABS: Glucose,Whole Blood 157 mg/dL (75-99)
[2020-03-23] MEDS: SODIUM CHLORIDE 0.9% 1,000 ML IV SCH ×2 (03:36→12:04)
[2020-03-23 06:29] LABS: Glucose,Whole Blood 157 mg/dL (75-99)
[2020-03-23] MEDS: INSULIN ASPART (NovoLOG) 100 UNIT/ML VIAL SQ SCH ×2 (06:35→12:04)
[2020-03-23] MEDS: metFORMIN 500 MG TAB PO SCH (06:37)
[2020-03-23 07:43] VITALS: BP 139/66; RESP 16; TEMP 98.1
[2020-03-23] MEDS: TICAGRELOR 90 MG TAB PO SCH (09:32)
[2020-03-23] MEDS: PARoxetine 20 MG TAB PO SCH (09:32)
[2020-03-23] MEDS: ASPIRIN 81 MG PO SCH (09:32)
[2020-03-23] MEDS: NICOTINE 21MG/24HR PATCH TRANSDERM SCH (09:32)
[2020-03-23 10:07] VITALS: PULSE 55
--- NOTE | 2020-03-23 10:13 | P.GSCN ---
History of Present Illness Consult date: 03/23/20 Reason for Consult: Symptomatic carotid stenosis (left). History of present illness: Patient is a 74-year-old male well-known to the vascular service with a long history of both the carotid and peripheral vascular disease. He presented with neurological deficit socially with a left internal carotid artery stenosis. He did undergo CT angiogram demonstrating approximate 75% left ICA stenosis. These films have been reviewed and the patient appears to be a good candidate for TCAR candidate. Currently the patient both on aspirin and statin therapy. My evaluation revealed no residual neurologic deficit. I discussed with the patient follow-up. He is asked follow-up with Dr. Eduardo on March 28 for tentative scheduling of carotid intervention. Patient voices complete understanding and indicates she will call the office for an appo intment. Past Medical History Past Medical History: Coronary Artery Disease (CAD), Chest Pain / Angina, COPD, CVA/TIA, Diabetes Mellitus, Deep Vein Thrombosis (DVT), Hearing Disorder / Deafness, Myocardial Infarction (RI), Syncope, Vascular Disorder Additional Past Medical History / Comment(s): CVA x2, last 2018, recovered. Diabetic neuropathy feet, osteoporosis. Blockage in Rt leg. Last Myocardial Infarction Date:: 2006 History of Any Multi-Drug Resistant Organisms: None Reported Past Surgical History: Coronary Bypass/CABG, Heart Catheterization With Stent Additional Past Surgical History / Comment(s): Quad bypass-2010, "sx lt leg- graft to retore criculation", colonoscopy/polypectomy Past Anesthesia/Blood Transfusion Reactions: No Reported Reaction Additional Past Anesthesia/Blood Transfusion Reaction / Comm: mild claustrophobia (mri machines) Date of Last Stent Placement:: unknown Past Psychological History: Bipolar Smoking Status: Current every day smoker Past Alcohol Use History: None Reported Additional Past Alcohol Use History / Comment(s): started smoking at age 14, smokes 1 ppd Past Drug Use History: None Reported - Past Family History Mother Family Medical History: Cancer Father Family Medical History: Coronary Artery Disease (CAD), Myocardial Infarction (RI) Additional Family Medical History / Comment(s): cabg Sister(s) Family Medical History: Coronary Artery Disease (CAD) Additional Family Medical History / Comment(s): cabg Brother(s) Family Medical History: Coronary Artery Disease (CAD) Additional Family Medical History / Comment(s): cabg Medications and Allergies Home Medications Medication Instructions Recorded Confirmed Type Clopidogrel [Plavix] 75 mg PO DAILY 07/12/18 03/21/20 History PARoxetine [Paxil] 20 mg PO BID 07/12/18 03/21/20 History metFORMIN HCL [Glucophage] 1,000 mg PO AC-BID 07/12/18 03/21/20 History Aspirin EC [Ecotrin] 325 mg PO DAILY 03/21/20 03/21/20 History Allergies Allergy/AdvReac Type Severity Reaction Status Date / Time No Known Allergies Allergy Verified 03/21/20 17:01 Surgical - Exam Osteopathic Statement: *. No significant issues noted on an osteopathic structural exam other than those noted in the History and Physical/Consult. Vital Signs Pulse Resp BP Pulse Ox 63 18 148/68 97 03/21/20 15:18 03/21/20 15:18 03/21/20 15:18 03/21/20 15:18 Results - Labs 03/21/20 15:41 03/21/20 15:45 Abnormal Lab Results - Last 24 Hours (Table) 03/21/20 03/22/20 03/22/20 Range/Units 15:45 11:54 17:16 POC Glucose (mg/dL) 133 H 127 H (75-99) mg/dL Hemoglobin A1c 7.5 H (4.0-6.0) % 03/22/20 03/23/20 Range/Units 20:09 06:27 POC Glucose (mg/dL) 157 H 157 H (75-99) mg/dL Hemoglobin A1c (4.0-6.0) % Microbiology - Last 24 Hours (Table) 03/21/20 19:38 Blood Culture - Preliminary Blood No Growth after 24 hours Diabetes panel 03/21/20 Range/Units 15:45 Hemoglobin A1c 7.5 H (4.0-6.0) % Thyroid panel 03/21/20 Range/Units 15:45 TSH 0.967 (0.465-4.680) mIU/L Pituitary panel 03/21/20 Range/Units 15:45 TSH 0.967 (0.465-4.680) mIU/L
[2020-03-23 11:38] LABS: Glucose,Whole Blood 118 mg/dL (75-99)
--- NOTE | 2020-03-23 22:49 | P.DS ---
Providers Date of admission: 03/21/20 19:18 Expected date of discharge: 03/23/20 Attending physician: Doc Pascal Consults: 03/21/20 17:02 Consult Physician Routine Consulting Provider: Jose Durán Consult Reason/Comments: tia Do you want consulting provider notified?: Yes 03/21/20 19:03 Consult Physician Routine Consulting Provider: Brown Byrd Consult Reason/Comments: carotid Do you want consulting provider notified?: Yes Primary care physician: [facility] Course: Chief Complaint: Difficulty speaking History of presenting complaint: This is a pleasant 74-year-old patient of Dr. Pryor. Chronic stable medical conditions include diabetes, coronary artery disease with bypass, COPD, peripheral artery disease, hard of hearing, diabetic peripheral neuropathy and bipolar disorder. On 1:00 today patient noticed that he having trouble speaking. Decided to come to the ER. Patient's symptoms resolved. Denied any change in vision headache or focal weakness. No change in swallowing. Subsequently again patient had a change in his speech and a code stroke was called. Repeat computed tomography scan of the brain again was negative. Patient's speech is systems significantly improved. But not back to baseline. today-speech has returned to baseline. MRI did show a stroke in the right parietal zone. Care was discussed with the patient. Discussed about less carotid surgery. Risk factor modification discussed. Discussed with Dr. Eduardo from vascular. She will schedule surgery. Discussed with Dr. Durán from neurology patient to go home on aspirin and Plavix. Medicines added for blood pressure. Discussion and discharge planning more than 35 minutes Consultation: Dr. Durán from neurology Dr. Eduardo from vascular Physical examination: VITAL SIGNS: 98.1, 52, 16, 139/66, 95% room air GENERAL: laying in bed, comfortable EYES: Pupils equal. Conjunctiva normal. HEENT: External appearance of nose and ears normal, oral cavity grossly normal. NECK: JVD not raised; masses not palpable. HEART: First and second heart sounds are normal; no edema. LUNGS:[ Respiratory rate normal; slightly decreased breath sounds. ABDOMEN: Soft, nontender, liver spleen not palpable, no masses palpable. PSYCH: Alert and oriented x3; mood and affect normal. NEUROLOGICAL: Cranial nerves grossly intact; no facial asymmetry, power and sensation grossly intact, speech -back to normal INVESTIGATIONS, reviewed in the clinical context: 2-D echocardiogram-EF 55-60%. No thrombus reported. Admission testing White count 8.9 hemoglobin 13.8 platelets 206 potassium 4.4 creatinine 0.95 Troponin I 2 negative EKG tracing personally reviewed by me-no sinus rhythm, Q waves in inferior leads Chest x-ray film personally reviewed by me-lung chavarria clear Computed tomography scan of the [id number] up and of low attenuation along the posterior parietal lobe on the right, right frontal lobe which is inc reased in size compared to the prior exam loss of lopez white differentiation. Some encephalomalacia initial computed tomography scan. Repeat computed tomography scan of the brain-unchanged CT angiogram head and neck-85% stenosis origin of the left internal carotid artery and 50% stenosis origin right internal carotid artery. MRI brain-80 of ischemia in the right parietal Assessment: - acute stroke in the right parietal area, ischemic affecting speech now completely resolved -Coronary artery Jose history is stent and bypass -Essential hypertension -COPD in a current smoker -Diabetes mellitus type 2 -Peripheral arterial disease with prior intervention of the right leg -Diabetic peripheral neuropathy -85% stenosis of left internal Rody artery -Chronic nicotine dependence patient cigarette smoker Disposition: Home Patient Condition at Discharge: Stable Plan - Discharge Summary Discharge Rx Participant: No New Discharge Prescriptions: New Aspirin 81 mg PO DAILY chew Nicotine 21Mg/24Hr Patch [Habitrol] 1 patch TRANSDERM DAILY #14 patch Atorvastatin [Lipitor] 80 mg PO HS #30 tab Continue metFORMIN HCL [Glucophage] 1,000 mg PO AC-BID PARoxetine [Paxil] 20 mg PO BID Clopidogrel [Plavix] 75 mg PO DAILY Discontinued Aspirin EC [Ecotrin] 325 mg PO DAILY Discharge Medication List Clopidogrel [Plavix] 75 mg PO DAILY 07/12/18 [History] PARoxetine [Paxil] 20 mg PO BID 07/12/18 [History] metFORMIN HCL [Glucophage] 1,000 mg PO AC-BID 07/12/18 [History] Aspirin 81 mg PO DAILY chew 03/23/20 [Rx] Atorvastatin [Lipitor] 80 mg PO HS #30 tab 03/23/20 [Rx] Nicotine 21Mg/24Hr Patch [Habitrol] 1 patch TRANSDERM DAILY #14 patch 03/23/20 [Rx] Follow up Appointment(s)/Referral(s): Kane Pryor DO [Primary Care Provider] - 03/27/20 1:40 pm Lucille Eduardo DO [STAFF PHYSICIAN] - 3 Days (please call office when open to make follow up appointment. phone #[phone], please make office aware physician wanted you seen on March 28. address [address] [place] [address].) Jose Crowe MD [STAFF PHYSICIAN] - 1 Week Patient Instructions/Handouts: Transient Ischemic Attack (DC) Discharge Disposition: HOME SELF-CARE
--- NOTE | 2020-03-27 01:33 | CDI ---
Documentation Clarification Form Date: 03/27/2020 From: Stephen Zamora Phone: If you have a question about this query, please contact Johanne Nolasco, Packing Room Inspector at [phone] between 8am and 5pm. Admit Date: 03/21/2020 Discharge Date: 03/23/2020 Patient Name: Ricky Louis Visit Number: [id number] ATTENTION: The Clinical Documentation Specialists (CDI) and [facility] Coding Staff appreciate your assistance in clarifying documentation. Please respond to the clarification below the line at the bottom and electronically sign. The CDI & [facility] Coding staff will review the response and follow-up if needed. Please note: Queries are made part of the Legal Health Record. If you have any questions, please contact the author of this message via ITS. Dear Doc Inman MD., Regarding the management of urinary tract infection will defer the management to the primary team. History/Risk Factors: CVA, CABG, PTCA Vital Signs: Temperature 98.0 F Pulse Rate 63 64 57 L Respiratory 18 16 16 Rate Blood Pressure 148/68 141/68 138/64 O2 Sat by Pulse 97 97 98 Oximetry WBC: 8.9 Treatment:Antibiotics Antibiotics: Rocephin, 03/22 Dr. Jose Durán Consult note mentioned as "Regarding the management of urinary tract infection will defer the management to the primary team". Given IV ceftriaxone(Rocephin) Per medications. Please document the condition that these clinical indicators signify, UTI Other, please specify Unable to determine NO UTI MTDD
== END 2020-03-23 12:21 | disposition home or self-care (01) | DRG 66 ==
LOC: EC 15:18 → 3NCARDOBS 17:00 → 3SCARD 18:45 → OBSVTOIN 19:18 → 3SCARD 19:38
PROVIDERS: ADMIT Hospitalist; ATTEND Hospitalist
DX: I63.9 Cerebral infarction, unspecified (principal); R29.700 NIHSS score 0; E11.51 Type 2 diabetes mellitus with diabetic peripheral angiopathy without gangrene; E11.42 Type 2 diabetes mellitus with diabetic polyneuropathy; I25.10 Atherosclerotic heart disease of native coronary artery without angina pectoris; I65.23 Occlusion and stenosis of bilateral carotid arteries; R47.01 Aphasia; R40.2363 Coma scale, best motor response, obeys commands, at hospital admission; R40.2143 Coma scale, eyes open, spontaneous, at hospital admission; R40.2253 Coma scale, best verbal response, oriented, at hospital admission; I11.9 Hypertensive heart disease without heart failure; F31.9 Bipolar disorder, unspecified; H91.90 Unspecified hearing loss, unspecified ear; J44.9 Chronic obstructive pulmonary disease, unspecified; F17.210 Nicotine dependence, cigarettes, uncomplicated; M81.0 Age-related osteoporosis without current pathological fracture; Z86.73 Personal history of transient ischemic attack (TIA), and cerebral infarction without residual deficits; Z79.84 Long term (current) use of oral hypoglycemic drugs; Z79.82 Long term (current) use of aspirin; Z79.02 Long term (current) use of antithrombotics/antiplatelets; Z79.01 Long term (current) use of anticoagulants; Z79.899 Other long term (current) drug therapy; I25.2 Old myocardial infarction; Z82.49 Family history of ischemic heart disease and other diseases of the circulatory system; Z80.9 Family history of malignant neoplasm, unspecified; Z95.1 Presence of aortocoronary bypass graft; Z98.890 Other specified postprocedural states; Z86.718 Personal history of other venous thrombosis and embolism
CPT/HCPCS: 36415; 70450; 70496; 70498; 70553; 71046; 80053; 80061; 81001; 82550; 83036; 83735; 84100; 84443; 84484; 85025; 85610; 85730; 87040; 93005; 93306; 96360; 99285

== ENCOUNTER 2020-03-26 19:27 | Inpatient (IN) | payer MEDICARE ==
[2020-03-26] MEDS ORDERED: Alteplase PER PHARMACY Stroke 1 EACH MISC MISCELLANE PRN (19:33)
[2020-03-26] MEDS ORDERED: ALTEPLASE BOLUS 7 MG in EMPTY SYRINGE 1 SYR IV STA (19:41)
[2020-03-26] MEDS ORDERED: ALTEPLASE 60 MG in EMPTY BAG 1 BAG IV STA (19:41)
--- NOTE | 2020-03-26 19:53 | CT ---
EXAMINATION TYPE: CT brain wo con DATE OF EXAM: 03/26/2020 COMPARISON: 03/21/2020 HISTORY: 74-year-old male acute neurologic deficit, stroke suspected, CVA. TECHNIQUE: Examination was done in axial plane without intravenous contrast. Coronal and sagittal r econstructions performed. CT DLP: 1174.6 mGycm Automated exposure control for dose reduction was used. FINDINGS: Redemonstrated lateral right frontal lobe encephalomalacia. Similar extension anterior right frontal cortex. Redemonstrated chronic encephalomalacia posterior right occipital parietal junction, superiorly. Cortical and subcortical hypodensity right paramedian frontoparietal junction seems to have progresse d some from 2019, axial image 47. Unchanged asymmetric dilatation of the right lateral ventricle secondary to volume loss in the right cerebral hemisphere. Benign basal ganglionic calcifications. No evidence for acute intracranial hemorrhage, mass, mass effect, midline shift, or extra-axial fluid collection. Mild mucosal thickening right ethmoid air cells. Mastoid air cells are pneumatized. IMPRESSION: 1. Redemonstrated areas of chronic encephalomalacia in the right cerebral hemisphere. 2. An area of cortical and subcortical hypodensity right paramedian frontoparietal junction shows candace e progressive decreasing density as compared to 03/21/2020 compatible with evolving infarct. 3. No acute intracranial abnormality seen.
[2020-03-26 19:59] LABS: Basophils # (A) 0.1 k/uL (0-0.2); Basophils % (A) 1 %; Eosinophils # (A) 0.2 k/uL (0-0.7); Eosinophils % (A) 2 %; HCT 40.2 % (39.0-53.0); HGB 13.2 gm/dL (13.0-17.5); Lymphocytes # (A) 2.5 k/uL (1.0-4.8); Lymphocytes % (A) 27 %; MCH 30.4 pg (25.0-35.0); MCHC 32.9 g/dL (31.0-37.0); MCV 92.5 fL (80.0-100.0); Mean Platelet Volume 6.9; Monocytes # (A) 0.4 k/uL (0-1.0); Monocytes % (A) 4 %; Neutrophils % (A) 65 %; Platelet Count 216 k/uL (150-450); RBC 4.34 m/uL (4.30-5.90); RDW 14.2 % (11.5-15.5); WBC 9.2 k/uL (3.8-10.6)
[2020-03-26 20:08] LABS: Albumin 3.5 g/dL (3.5-5.0); Calcium 8.7 mg/dL (8.4-10.2); Potassium 4.5 mmol/L (3.5-5.1); Total Bilirubin 0.6 mg/dL (0.2-1.3); Total Protein 5.8 g/dL (6.3-8.2)
--- NOTE | 2020-03-26 20:25 | CT ---
EXAMINATION TYPE: CT angio head neck DATE OF EXAM: 03/26/2020 COMPARISON: 03/21/2020 HISTORY: 74-year-old male acute neurologic deficit, stroke suspected, CVA TECHNIQUE: Contiguous axial scanning of the head and neck performed with IV Contrast, patient injecte d with 65cc mL of Isovue 370. Coronal/sagittal MIP reconstructions performed. 3-D reconstructions gen erated on a dedicated independent workstation. CT DLP: 374.5 mGycm Automated exposure control for dose reduction was used. FINDINGS: NECK: Variant direct takeoff of the left vertebral artery directly from the aortic arch. At least mild atherosclerotic narrowing at the origin of the right vertebral artery. Dominant right v ertebral artery. Vertebral arteries are otherwise patent throughout their course. Right common carotid artery is patent. Moderate atherosclerotic change at the right carotid bulb with severe, approximately 75% focal slitlike narrowing at the proximal right ICA, refer to axial image 4 1. The upper right ICA is tortuous but patent. The left common carotid arteries patent. Prominent prostatic change of the left carotid bulb with 85% focal stenosis. Additional mild atherosclerotic narrowing of the mid left ICA. These findings are relatively unchanged from 03/21/2020. HEAD: Hypoplastic V4 segment left vertebral artery. Otherwise, the vertebral and basilar arteries are paten t. Persistent origin right posterior cerebral artery with a hypoplastic P1 segment. Mild atherosclerotic narrowing throughout the cavernous and clinoid segments of the internal carotid arteries on both sides and more moderate focal stenoses of the supraglenoid segments. Remainder of the anterior circulation is patent. No aneurysmal change is seen. IMPRESSION: NECK: 1. SEVERE, 85% PROXIMAL LEFT ICA STENOSIS. 2. SEVERE, 75% FOCAL SLITLIKE STENOSIS PROXIMAL RIGHT ICA. 3. BOTH OF THESE ARE UNCHANGED FROM 03/21/2020. 4. DIRECT TAKEOFF OF THE LEFT VERTEBRAL ARTERY. DOMINANT RIGHT VERTEBRAL ARTERY WITH AT LEAST MILD AT HEROSCLEROTIC NARROWING AT ITS ORIGIN. HEAD: 5. No large vessel intracranial arterial occlusion. However, there are moderate atherosclerotic steno ses along the bilateral supraclinoid internal carotid arteries. Mild atherosclerotic narrowing throug hout the remainder of the carotid siphons. 6. 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
[2020-03-26 20:27] LABS: Prothrombin Time 10.3 sec (9.0-12.0)
[2020-03-26 20:30] LABS: Partial Thromboplastin Time 21.5 sec (22.0-30.0)
[2020-03-26] MEDS ORDERED: SODIUM CHLORIDE 0.9% 50 ML MINI-BAG IV ONE (20:33)
--- NOTE | 2020-03-26 20:42 | ED ---
Neuro HPI - General Chief Complaint: Neuro Symptoms/Deficit Stated Complaint: Neuro Deficits Time Seen by Provider: 03/26/20 19:27 Source: EMS Mode of arrival: EMS - History of Present Illness Is the patient presenting with stroke symptoms?: Yes Initial Comments: Patient is a 74-year-old male past medical history of COPD, CVA, diabetes presents emergency Department with acute strokelike symptoms. History is provided by the patient's and by EMS. He was recently hospitalized in the past week and was found to have an acute stroke with significant carotid disease. He was told to follow up with vascular surgery for possible intervention. The patient's return to his normal baseline during his hospitalization with no lasting deficits and was discharged home. Today he was driving with his when he said he didn't feel well. Patient then had complete expressive aphasia and drooping to the right side of his face. Symptom onset was at 5. He is taking aspirin and Plavix however is on no further blood thinners. Patient does not have any weakness in his upper or lower extremities. No recent blunt head trauma. Remainder of the HPI is limited as the patient is nonverbal - Related Data Home Medications: Home Medications Medication Instructions Recorded Confirmed Clopidogrel [Plavix] 75 mg PO DAILY 07/12/18 03/26/20 PARoxetine [Paxil] 20 mg PO BID 07/12/18 03/26/20 metFORMIN HCL [Glucophage] 1,000 mg PO AC-BID 07/12/18 03/26/20 Previous Rx's Medication Instructions Recorded Aspirin 81 mg PO DAILY chew 03/23/20 Atorvastatin [Lipitor] 80 mg PO HS #30 tab 03/23/20 Nicotine 21Mg/24Hr Patch [Habitrol] 1 patch TRANSDERM DAILY #14 patch 03/23/20 Allergies/Adverse Reactions: Allergies Allergy/AdvReac Type Severity Reaction Status Date / Time No Known Allergies Allergy Verified 03/26/20 21:59 Review of Systems ROS Statement: Those systems with pertinent positive or pertinent negative responses have been documented in the HPI. ROS Other: All systems not noted in ROS Statement are negative. General Exam Limitations: language barrier, physical limitation General appearance: alert, in no apparent distress Head exam: Present: atraumatic, normocephalic, other (right sided complete facial droop) Eye exam: Present: normal appearance, PERRL, EOMI. Absent: scleral icterus, conjunctival injection, periorbital swelling ENT exam: Present: mucous membranes moist, other (tongue deviation to the right) Neck exam: Present: normal inspection. Absent: tenderness, meningismus, lymphadenopathy Respiratory exam: Present: normal lung sounds bilaterally. Absent: respiratory distress, wheezes, rales, rhonchi, stridor Cardiovascular Exam: Present: regular rate, normal rhythm, normal heart sounds. Absent: systolic murmur, diastolic murmur, rubs, gallop, clicks GI/Abdominal exam: Present: soft, normal bowel sounds. Absent: distended, tenderness, guarding, rebound, rigid Extremities exam: Present: normal inspection, full ROM, normal capillary refill, other (5/5 muscle strength all 4 extremities). Absent: tenderness, pedal edema, joint swelling, calf tenderness Neurological exam: Present: alert, other (non-verbal) Psychiatric exam: Present: normal affect, normal mood Skin exam: Present: warm, dry, intact, normal color. Absent: rash Stroke MDM - Lab Data Result diagrams: 03/31/20 04:05 03/31/20 04:05 Lab Results 03/26/20 03/26/20 03/26/20 Range/Units 19:52 19:52 19:52 WBC 9.2 (3.8-10.6) k/uL RBC 4.34 (4.30-5.90) m/uL Hgb 13.2 (13.0-17.5) gm/dL Hct 40.2 (39.0-53.0) % MCV 92.5 (80.0-100.0) fL MCH 30.4 (25.0-35.0) pg MCHC 32.9 (31.0-37.0) g/dL RDW 14.2 (11.5-15.5) % Plt Count 216 (150-450) k/uL Neutrophils % 65 % Lymphocytes % 27 % Monocytes % 4 % Eosinophils % 2 % Basophils % 1 % Neutrophils # 6.0 (1.3-7.7) k/uL Lymphocytes # 2.5 (1.0-4.8) k/uL Monocytes # 0.4 (0-1.0) k/uL Eosinophils # 0.2 (0-0.7) k/uL Basophils # 0.1 (0-0.2) k/uL PT 10.3 (9.0-12.0) sec INR 1.0 (<1.2) APTT 21.5 L (22.0-30.0) sec Sodium 136 L (137-145) mmol/L Potassium 4.5 (3.5-5.1) mmol/L Chloride 102 (98-107) mmol/L Carbon Dioxide 22 (22-30) mmol/L Anion Gap 12 mmol/L BUN 25 H (9-20) mg/dL Creatinine 1.18 (0.66-1.25) mg/dL Est GFR (CKD-EPI)AfAm 71 (>60 ml/min/1.73 sqM) Est GFR (CKD-EPI)NonAf 61 (>60 ml/min/1.73 sqM) Glucose 190 H (74-99) mg/dL Calcium 8.7 (8.4-10.2) mg/dL Total Bilirubin 0.6 (0.2-1.3) mg/dL AST 19 (17-59) U/L ALT 11 (4-49) U/L Alkaline Phosphatase 72 (38-126) U/L Troponin I (0.000-0.034) ng/mL Total Protein 5.8 L (6.3-8.2) g/dL Albumin 3.5 (3.5-5.0) g/dL 03/26/20 Range/Units 19:52 WBC (3.8-10.6) k/uL RBC (4.30-5.90) m/uL Hgb (13.0-17.5) gm/dL Hct (39.0-53.0) % MCV (80.0-100.0) fL MCH (25.0-35.0) pg MCHC (31.0-37.0) g/dL RDW (11.5-15.5) % Plt Count (150-450) k/uL Neutrophils % % Lymphocytes % % Monocytes % % Eosinophils % % Basophils % % Neutrophils # (1.3-7.7) k/uL Lymphocytes # (1.0-4.8) k/uL Monocytes # (0-1.0) k/uL Eosinophils # (0-0.7) k/uL Basophils # (0-0.2) k/uL PT (9.0-12.0) sec INR (<1.2) APTT (22.0-30.0) sec Sodium (137-145) mmol/L Potassium (3.5-5.1) mmol/L Chloride (98-107) mmol/L Carbon Dioxide (22-30) mmol/L Anion Gap mmol/L BUN (9-20) mg/dL Creatinine (0.66-1.25) mg/dL Est GFR (CKD-EPI)AfAm (>60 ml/min/1.73 sqM) Est GFR (CKD-EPI)NonAf (>60 ml/min/1.73 sqM) Glucose (74-99) mg/dL Calcium (8.4-10.2) mg/dL Total Bilirubin (0.2-1.3) mg/dL AST (17-59) U/L ALT (4-49) U/L Alkaline Phosphatase (38-126) U/L Troponin I <0.012 (0.000-0.034) ng/mL Total Protein (6.3-8.2) g/dL Albumin (3.5-5.0) g/dL - Medical Decision Making Upon arrival the patient is promptly evaluated. NIH is 10. He is sent over immediately for a CT of his head as well as CT angiography of his head and neck. I discussed the case with Dr. hudson on multiple occasions. Dr. Hudson does evaluate the patient using the stroke robot. He is recommending tPA for which the patient does consent to knowing the side effects of bleeding and possible . TPA boluses given. I did discuss the case with marilia Benavidez from [facility], Dr. Durán from neurology. Patient will be sent to the ICU. He did have some improvement in his speech and facial droop. Patient was then transported to floor in stable condition 03/26/20 20:41 EKG demonstrates a normal sinus rhythm with a ventricular rate of 65. AL interval 162. QRS 98. QTC of 447. Q waves in leads 3 [address]VF with some ST depression in the inferior leads. Past Medical History Past Medical History: Coronary Artery Disease (CAD), Chest Pain / Angina, COPD, CVA/TIA, Diabetes Mellitus, Deep Vein Thrombosis (DVT), Hearing Disorder / Deafness, Myocardial Infarction ([place]), Syncope, Vascular Disorder Additional Past Medical History / Comment(s): CVA x2, last 2018, recovered. Diabetic neuropathy feet, osteoporosis. Blockage in Rt leg. Last Myocardial Infarction Date:: 2006 History of Any Multi-Drug Resistant Organisms: None Reported Past Surgical History: Coronary Bypass/CABG, Heart Catheterization With Stent Additional Past Surgical History / Comment(s): Quad bypass-2010, "sx lt leg- graft to retore criculation", colonoscopy/polypectomy Past Anesthesia/Blood Transfusion Reactions: No Reported Reaction Additional Past Anesthesia/Blood Transfusion Reaction / Comment(s): mild claustrophobia (mri machines) Date of Last Stent Placement:: unknown Past Psychological History: Bipolar Smoking Status: Current every day smoker Past Alcohol Use History: None Reported Past Drug Use History: None Reported - Past Family History Mother Family Medical History: Cancer Father Family Medical History: Coronary Artery Disease (CAD), Myocardial Infarction ([place]) Additional Family Medical History / Comment(s): cabg Sister(s) Family Medical History: Coronary Artery Disease (CAD) Additional Family Medical History / Comment(s): cabg Brother(s) Family Medical History: Coronary Artery Disease (CAD) Additional Family Medical History / Comment(s): cabg Course Vital Signs 03/26/20 03/26/20 03/26/20 19:27 19:28 19:43 Temperature 98 F 98 F Pulse Rate 69 69 66 Respiratory 18 18 18 Rate Blood Pressure 130/66 130/66 124/53 O2 Sat by Pulse 98 98 99 Oximetry 03/26/20 03/26/20 03/26/20 19:58 20:13 20:28 Temperature 98 F Pulse Rate 73 70 66 Respiratory 18 18 18 Rate Blood Pressure 143/45 125/81 125/81 O2 Sat by Pulse 99 99 98 Oximetry 03/26/20 03/26/20 03/26/20 20:43 20:58 21:13 Temperature Pulse Rate 66 64 67 Respiratory 18 18 18 Rate Blood Pressure 114/51 117/63 117/53 O2 Sat by Pulse 99 98 99 Oximetry 03/26/20 03/26/20 03/26/20 21:28 21:43 21:58 Temperature Pulse Rate 72 63 72 Respiratory 18 18 18 Rate Blood Pressure 109/66 128/62 116/60 O2 Sat by Pulse 99 98 98 Oximetry 03/26/20 03/26/20 22:13 22:15 Temperature 97.5 F L Pulse Rate 68 65 Respiratory 18 16 Rate Blood Pressure 119/46 119/46 O2 Sat by Pulse 98 98 Oximetry - Reevaluation(s) Reevaluation #1: Spoke with Dr. Hudson in regards to the patient's symptoms and the suspicion that the patient is a TPA candidate 03/26/20 19:41 Reevaluation #2: Spoke with Dr. Ramsey once again in regards to the patient's images. Would like to look at his recent MRI 03/26/202003 Reevaluation #3: I spoke with Dr. Ramsey who agrees that TPA should be given. He does, menstrual provide at this time to evaluate the patient 03/26/20 20:10 Reevaluation #4: Spoke with Dr. Birch who accepted the patient into the ICU 03/26/20 20:30 Reevaluation #5: 03/26/20 20:46 Dr. Durán has been paged Critical Care Time Critical Care Time: Yes Critical Care Time: 45 minutes due to multiple consultations with neurointensivist, administration of TPA, and further discussion of patients treatment with the admitting doctor, Dr. Durán from neurology and Dr. Pal from critical care. Disposition Clinical Impression: CVA (cerebral vascular accident) Disposition: ADMITTED IP TO THIS [facility] Condition: Serious Is patient prescribed a controlled substance at d/c from ED?: No Decision to Admit Reason: Admit from EC Decision Date: 03/26/20 Decision Time: 20:44
[2020-03-26] MEDS ORDERED: ATORVASTATIN 80 MG TAB PO STA (20:54)
--- NOTE | 2020-03-26 21:08 | XR ---
EXAMINATION TYPE: XR chest 1V portable DATE OF EXAM: 03/26/2020 Comparison: 03/21/2020 Clinical History: 74-year-old male confusion, altered mental status Findings: Median sternotomy wires are present. Heart normal size. Aorta and pulmonary vasculature within normal limits. Mild interstitial prominence as a chronic appearance. No consolidation or pleural effusion. Impression: Chronic changes without acute cardiopulmonary process.
[2020-03-26 22:25] LABS: Glucose,Whole Blood 231 mg/dL (75-99)
[2020-03-27 05:13] LABS: Basophils # (A) 0.1 k/uL (0-0.2); Basophils % (A) 1 %; Eosinophils # (A) 0.2 k/uL (0-0.7); Eosinophils % (A) 2 %; HCT 39.3 % (39.0-53.0); HGB 12.7 gm/dL (13.0-17.5); Lymphocytes # (A) 2.3 k/uL (1.0-4.8); Lymphocytes % (A) 23 %; MCH 29.8 pg (25.0-35.0); MCHC 32.2 g/dL (31.0-37.0); MCV 92.4 fL (80.0-100.0); Mean Platelet Volume 7.2; Monocytes # (A) 0.5 k/uL (0-1.0); Monocytes % (A) 5 %; Neutrophils # (A) 6.7 k/uL (1.3-7.7); Neutrophils % (A) 68 %; Platelet Count 200 k/uL (150-450); RBC 4.25 m/uL (4.30-5.90); RDW 14.2 % (11.5-15.5); WBC 9.9 k/uL (3.8-10.6)
[2020-03-27 05:30] LABS: Calcium 8.9 mg/dL (8.4-10.2); Potassium 4.2 mmol/L (3.5-5.1)
[2020-03-27 06:46] LABS: Glucose,Whole Blood 193 mg/dL (75-99)
[2020-03-27] MEDS: INSULIN ASPART (NovoLOG) 100 UNIT/ML VIAL SQ SCH ×4 (06:54→20:58)
--- NOTE | 2020-03-27 09:25 | P.CNNES ---
History of Present Illness Consult date: 03/27/20 Reason for Consult: stroke right facial droop, aphasia s/p tpa History of Present Illness: This is a 74-year-old right-handed gentleman with medical history of recent TIA (aphaisa and slurring his speech) on 03/21/20, as well as recent subacute right parietal ischemia, sympotomatic left ICA, strokes/TIA about 10 years ago for slurring the speech, diabetes (25-30 years), coronary artery disease status post CABG, peripheral artery disease of the right lower extremity, hard of hearing, diabetic peripheral neuropathy and tobacco use that presented to the emergency department on 03/26/2020 (19:27) for complete expressive aphasia, drooping of the right face. The onset of symptoms was at around 7:05pm on 03/26/2020. Patient stated that he was driving accompanied with his while in the car. Then he said that he was feeling kind of dizzy and then he noticed that that his speech was slurred, he was having a difficult time with the getting his words out. So he pulled over and felt like He was having generalized weakness. EMS was called and the patient was brought to the hospital. Patient denied of any visual disturbance, any diplopia. Denied any focal weakness. Any numbness tingling. Patient stated that he was compliant taking the aspirin as well as Plavix as well as Lipitor milligram. But he was continued to smoke 1 pack a day even after discharge from the previous hospital visit. Upon Presentation to hospital initial vitals were blood pressure of 130/66 with a heart rate of 69, respiratory of 18, temperature of 98.7 Fahrenheit oral, pulse ox of 98 at room air. Workup in the ED consisted of CT of the head: Which was reported as redemonstrated area of chronic encephalomalacia in the right cerebral hemisphere. An area of cortical and subcortical hypodensity in the right paramedian frontalparietal junction shows some progressive decreasing ad density as compared to 03/21/2020 compatible with evolving infarct. There is no acute intracranial abnormality. I personally did review the CT of the head and I did appreciate to encephalomalacia over the the right hemisphere mostly in the right frontal parietal area. I did appreciate the subacute stroke that was present on the MRI over the right parietal region. Otherwise the patient did not have any acute ischemia or hemorrhage that's noticeable on the CT of the head. CTA of the neck was reported as severe as 85 proximal left ICA stenosis. Severe 75% focal still like stenosis of proximal right ICA. Both of these are unchanged from 03/21/2020. Direct takeoff of the left vertebral artery. Dominant right vertebral artery with at least mild atherosclerotic narrowing at its origin. CTA of the head was reported as no large vessel intracranial arterial occlusion. However there are moderate atherosclerotic stenosis along the bilateral supraclinoid internal carotid arteries. Mild office carotid narrowing throughout the remainder of the carotid siphons. Hypoplastic V4 segment left vertebral artery and the persistent origin of right SENIOR STOCK PLAN ADMINISTRATOR a congenital variation. Patient had NIH was a 10. The stroke team was consulted and Dr. Hudson recommen ded to proceed with IV tpa. Then patient was was admitted to ICU. Upon seeing the patient today he feels like he is doing better compared to yesterday. He felt that his speech wasn't back to normal earlier in the morning but has been drastically improving. He feels it is back to normal currently. Of note I personally saw the patient on 03/22/2020 for her his presentation to the hospital on 03/21/2020 for having difficulty with speaking as well as slurred speech. Upon arrival to the hospital his presentation resolved. Then later in the ED the patient had expressive aphasia NIH of 2. Then again it resolved. The patient didn't have any weakness any visual disturbance any numbness any difficulty swallowing associated with this. So since the patient's episode resolved no TPA was given. A CTA was done at that time and it was reported as 85 stenosis over the left ICA and 50% over the right ICA. MRI of the brain was done on 03/22/2020 and was reported as hyperintensity on diffusion-weighted image within the cortex of the medial right parietal lobe suspicious for acute ischemia. As well as prior infarct in the right frontal parietal region as well as a right occipital region and and right median parietal centrum semiovale old valve. And additional scattered punctate hyperintensity M and periventricular white matter compatible with chronic white at ischemic changes. I personally reviewed the MRI of the brain and I did not feel like this was an acute over the right parietal, since I felt was seen on DWI ADC which was a shine-thru as well as seen on FLAIR. This was at least at subacute. I personally thought the patient's aphasia was a TIA and it was due to the symptomatic left ICA. He did have subacute new right parietal area that was not seen on prior images. Vascular team was involved (Dr. Hernadez) and its documented there for him to follow up with Dr. Eduardo on March 28 for tentative scheduling of carotid intervention. Lipid panel: Triglycerides 144, cholesterol 195, LDL 121 and HDL 45. 2-D echo was done and it was reported as left ventricle wall thickness is normal. Ejection fraction of 55-60%. TSH is 0.967 on last visit. Hemoglobin A1c is 7.5. Patient was discharged on aspirin 81, Plavix 75 and Lipitor 80mg. Review of Systems Review of system: The 12 point system was reviewed and apparent positive and negative per HPI. Past Medical History Past Medical History: Coronary Artery Disease (CAD), Chest Pain / Angina, COPD, CVA/TIA, Diabetes Mellitus, Deep Vein Thrombosis (DVT), Hearing Disorder / Deafness, Myocardial Infarction (MT), Syncope, Vascular Disorder Additional Past Medical History / Comment(s): CVA x2, last 2018, recovered. Diabetic neuropathy feet, osteoporosis. Blockage in Rt leg. Last Myocardial Infarction Date:: 2006 History of Any Multi-Drug Resistant Organisms: None Reported Past Surgical History: Coronary Bypass/CABG, Heart Catheterization With Stent Additional Past Surgical History / Comment(s): Quad bypass-2010, "sx lt leg- graft to retore criculation", colonoscopy/polypectomy Past Anesthesia/Blood Transfusion Reactions: No Reported Reaction Additional Past Anesthesia/Blood Transfusion Reaction / Comment(s): mild claustrophobia (mri machines) Date of Last Stent Placement:: unknown Past Psychological History: Bipolar Smoking Status: Current every day smoker Past Alcohol Use History: None Reported Past Drug Use History: None Reported - Past Family History Mother Family Medical History: Cancer Father Family Medical History: Coronary Artery Disease (CAD), Myocardial Infarction (MT) Additional Family Medical History / Comment(s): cabg Sister(s) Family Medical History: Coronary Artery Disease (CAD) Additional Family Medical History / Comment(s): cabg Brother(s) Family Medical History: Coronary Artery Disease (CAD) Additional Family Medical History / Comment(s): cabg Medications and Allergies Home Medications Medication Instructions Recorded Confirmed Type Clopidogrel [Plavix] 75 mg PO DAILY 07/12/18 03/26/20 History PARoxetine [Paxil] 20 mg PO BID 07/12/18 03/26/20 History metFORMIN HCL [Glucophage] 1,000 mg PO AC-BID 07/12/18 03/26/20 History Aspirin 81 mg PO DAILY chew 03/23/20 03/26/20 Rx Atorvastatin [Lipitor] 80 mg PO HS #30 tab 03/23/20 03/26/20 Rx Nicotine 21Mg/24Hr Patch [Habitrol] 1 patch TRANSDERM DAILY #14 patch 03/23/20 03/26/20 Rx Allergies Allergy/AdvReac Type Severity Reaction Status Date / Time No Known Allergies Allergy Verified 03/26/20 21:59 Physical Examination - Vital Signs Vital Signs: Vital Signs Temp Pulse Resp BP Pulse Ox 03/27/20 07:00 54 L 10 L 139/59 95 03/27/20 06:30 61 13 127/60 95 03/27/20 06:00 58 L 11 L 125/56 94 L 03/27/20 05:30 58 L 14 126/54 94 L 03/27/20 05:00 61 18 117/72 95 03/27/20 04:30 87 17 117/51 97 03/27/20 04:00 97.9 F 66 16 117/53 95 03/27/20 03:30 71 17 121/57 95 03/27/20 03:00 67 17 111/54 94 L 03/27/20 02:30 70 14 114/49 94 L 03/27/20 02:00 73 13 110/46 94 L 03/27/20 01:30 69 16 147/67 95 03/27/20 01:00 67 15 135/61 95 03/27/20 00:30 65 14 106/49 94 L 03/27/20 00:19 63 15 106/49 94 L 03/27/20 00:00 97.9 F 71 20 126/55 94 L 03/26/20 23:30 84 21 127/58 95 03/26/20 23:00 97.8 F 68 22 123/61 96 03/26/20 22:30 66 18 129/64 98 03/26/20 22:15 97.5 F L 65 16 119/46 98 03/26/20 22:13 68 18 119/46 98 03/26/20 21:58 72 18 116/60 98 03/26/20 21:43 63 18 128/62 98 03/26/20 21:28 72 18 109/66 99 03/26/20 21:13 67 18 117/53 99 03/26/20 20:58 64 18 117/63 98 03/26/20 20:43 66 18 114/51 99 03/26/20 20:28 66 18 125/81 98 03/26/20 20:13 70 18 125/81 99 03/26/20 19:58 98 F 73 18 143/45 99 03/26/20 19:43 66 18 124/53 99 03/26/20 19:28 98 F 69 18 130/66 98 03/26/20 19:27 98 F 69 18 130/66 98 Intake and Output 03/26/20 03/27/20 03/27/20 22:59 06:59 14:59 Intake Total 240 Output Total 750 0 Balance -510 0 Intake: Oral 240 Output: Urine 750 0 Other: Voiding Method Urinal Weight 73.936 kg 73 kg GENERAL: The patient is lying in bed and is not in acute distress. CHEST: The heart rate is regular rate rhythm. No murmurs to auscultation. No carotid bruit bilaterally. LUNG: Clear to auscultation bilaterally no wheezing noted throughout. Not labored breathing. ABDOMEN/GI: Bowel sounds present in all 4 quadrants. No tenderness to palpation throughout. NEUROLOGICAL: Higher mental function: The patient is awake, alert, oriented to self, place and time. Patient is following commands. Comprehension is intact, had a hard time repeating phrases completely initially on first two tries but third and fourth try without difficulity. No paraphrasic errors. No neglect. Cranial nerves: The pupils are round, equal and reactive to light and accommodation. Visual chavarria are full to confrontation throughout. Extraocular movement is intact no nystagmus is noted. Facial sensation is normal to touch throughout. The facial strength is normal throughout. Hearing is normal bilaterally to hand rub. Tongue is midline and moved [id number] without any difficulty. No dysarthria is noted. Shoulder shrug is normal bilaterally. Motor: The strength is 5 over 5 throughout. Normal tone and bulk. Cerebellum: Normal finger to nose heel to chin bilaterally. Sensation: Sensation is normal to touch throughout. Reflexes (right/left): 2+ throughout except ankles1+. Plantars are downgoing bilaterally. Current NIH Stroke Scale: 1 (aphasia). Results - Laboratory Findings CBC and BMP: 03/27/20 04:12 03/27/20 04:12 Abnormal Lab Findings: Abnormal Labs 03/26/20 03/26/20 03/26/20 19:52 19:52 22:22 RBC Hgb APTT 21.5 L Sodium 136 L BUN 25 H Glucose 190 H POC Glucose (mg/dL) 231 H Total Protein 5.8 L HDL Cholesterol 03/27/20 03/27/20 03/27/20 04:12 04:12 06:45 RBC 4.25 L Hgb 12.7 L APTT Sodium BUN 29 H Glucose 215 H POC Glucose (mg/dL) 193 H Total Protein HDL Cholesterol 36 L Assessment and Plan Assessment: Acute stroke status post TPA (expressive aphasia, right facial droop). Likely artery to artery emboli Symptomatic left ICA (85% stenosis) Symptomatic right ICA (75% stenosis) History of previous strokes involving mostly the right hemisphere frontal parietal as well as occipital Diabetic peripheral neuropathy Type 2 diabetes Hx of Coronary artery disease status post bypass Peripheral artery disease Tobacco use Plan: We'll get a repeat CT of the head later today (19:00) and if the patient does not have any bleed then start the patient on Berlant 90 mg 1 tablet twice a day, aspirin 81 mg and continue Lipitor 80 mg daily. The patient has failed aspirin and Plavix therefore the patient needs to be on Berlant and aspirin instead of aspirin and Plavix if there is no bleeding seen. We'll get a repeat MRI of the brain tomorrow. Dr. Eduardo from vascular team is consulted. I highly recommend the patient gets intervention for bilateral carotids as an inpatient. Cardiology is consulted. Recommend a transesophageal echocardiogram to make sure that there is a no emboli from cardiac origin. Recommend a Holter monitor or a loop recorder to make sure the patient doesn't have any A. fib. PT OT and DRINK WAITER are consulted Recent Lipid panel: Triglycerides 144, cholesterol 195, LDL 121 and HDL 45. 2-D echo was done and it was reported as left ventricle wall thickness is normal. Ejection fraction of 55-60%. TSH is 0.967 on last visit. Hemoglobin A1c is 7.5. Lipid profile, TSH or HbA1c does not need to be repeated. If the CT of the head that does not show any bleeding recommend starting him on subcutaneous heparin for DVT prophylaxis. Patient was counseled on tobacco use. The plan was discussed with the patient. That you for the consult. Jose Durán M.D. Neuro-hospitalist Time with Patient: Greater than 30
--- NOTE | 2020-03-27 12:12 | P.CNPUL ---
History of Present Illness Consult date: 03/27/20 Reason for consult: other Chief complaint: Right facial droop, aphasia History of present illness: 74-year-old white male patient with past medical history of COPD, diabetes mellitus, coronary artery disease status post bypass grafting, carotid artery stenosis, previous history of CVA, who was seen at the hospital in the past week for symptoms of aphasia and altered mental status, and a brain CT showed no acute intracranial abnormality, and showed old right parietal and right frontal cortical infarcts. Patient was diagnosed with TIA as his symptoms resolved prior to being admitted for evaluation. MRI of the brain did show a stroke in the right parietal zone. Echocardiogram showed EF of 55-60% and no thrombus reported. Patient was seen by vascular surgery during his hospitalization or 75% left ICA stenosis patient was found to be a good candidate for TCAR. Patient was supposed to follow-up with Dr. Eduardo on March 28 for tentative scheduling of carotid intervention. On 03/26/2020 patient came into the emergency department with acute right-sided facial droop and aphasia, this was witnessed by his when he was driving and 19 did not feel well. Patient did not have any weakness in his upper or lower extremities. He was on a combination of Plavix, aspirin, and Lipitor. Patient is an active smoker. Brain CT showed no evidence for acute intracranial hemorrhage, it did show an area of cortical and subcortical hypodensity in the right paramedian frontoparietal junction which shows some progressive decreasing density as compared to previous computed tomography scan on 03/21/2020 compatible with evolving infarct. Angiography CT of the brain showed 85% severe proximal left ICA stenosis, severe 75% focal slitlike stenosis in the proximal right ICA, no large vessel intracranial arterial occlusion, however there were moderate atherosclerotic stenosis along the bilateral supraclinoid internal carotid arteries. Patient received TPA per Dr. Ramsey, neuro lawn care technician. He was admitted to the intensive care unit following TPA infusion. Today he seen in the intensive care unit, right facial droop has resolved, patient is able to speak, although he feels that his speech was not back to normal earlier in the morning but has drastically improved. Patient is alert and oriented 3, he denies any difficulty breathing, he is on room air. Chest x-ray showed chronic changes without acute cardiopulmonary process. No IV fluids. He is in sinus mechanism with a rate of 59 BPM. Neurology is following. Review of Systems All systems: negative Constitutional: Denies chills, Denies fever Eyes: denies blurred vision, denies pain Ears, nose, mouth and throat: Denies headache, Denies sore throat Cardiovascular: Denies chest pain, Denies shortness of breath Respiratory: Denies cough Gastrointestinal: Denies abdominal pain, Denies diarrhea, Denies nausea, Denies vomiting Musculoskeletal: Denies myalgias Integumentary: Denies pruritus, Denies rash Neurological: Reports aphasia, Reports paralysis, Denies numbness, Denies weakness Psychiatric: Denies anxiety, Denies depression Endocrine: Denies fatigue, Denies weight change Past Medical History Past Medical History: Coronary Artery Disease (CAD), Chest Pain / Angina, COPD, CVA/TIA, Diabetes Mellitus, Deep Vein Thrombosis (DVT), Hearing Disorder / Deafness, Myocardial Infarction ([place]), Syncope, Vascular Disorder Additional Past Medical History / Comment(s): CVA x2, last 2018, recovered. Diabetic neuropathy feet, osteoporosis. Blockage in Rt leg. Last Myocardial Infarction Date:: 2006 History of Any Multi-Drug Resistant Organisms: None Reported Past Surgical History: Coronary Bypass/CABG, Heart Catheterization With Stent Additional Past Surgical History / Comment(s): Quad bypass-2010, "sx lt leg- graft to retore criculation", colonoscopy/polypectomy Past Anesthesia/Blood Transfusion Reactions: No Reported Reaction Additional Past Anesthesia/Blood Transfusion Reaction / Comment(s): mild c laustrophobia (mri machines) Date of Last Stent Placement:: unknown Past Psychological History: Bipolar Smoking Status: Current every day smoker Past Alcohol Use History: None Reported Past Drug Use History: None Reported - Past Family History Mother Family Medical History: Cancer Father Family Medical History: Coronary Artery Disease (CAD), Myocardial Infarction (PA) Additional Family Medical History / Comment(s): cabg Sister(s) Family Medical History: Coronary Artery Disease (CAD) Additional Family Medical History / Comment(s): cabg Brother(s) Family Medical History: Coronary Artery Disease (CAD) Additional Family Medical History / Comment(s): cabg Medications and Allergies Home Medications Medication Instructions Recorded Confirmed Type Clopidogrel [Plavix] 75 mg PO DAILY 07/12/18 03/26/20 History PARoxetine [Paxil] 20 mg PO BID 07/12/18 03/26/20 History metFORMIN HCL [Glucophage] 1,000 mg PO AC-BID 07/12/18 03/26/20 History Aspirin 81 mg PO DAILY chew 03/23/20 03/26/20 Rx Atorvastatin [Lipitor] 80 mg PO HS #30 tab 03/23/20 03/26/20 Rx Nicotine 21Mg/24Hr Patch [Habitrol] 1 patch TRANSDERM DAILY #14 patch 03/23/20 03/26/20 Rx Allergies Allergy/AdvReac Type Severity Reaction Status Date / Time No Known Allergies Allergy Verified 03/26/20 21:59 Physical Exam Vitals: Vital Signs Temp Pulse Resp BP Pulse Ox 03/27/20 10:00 65 15 114/50 95 03/27/20 09:00 59 L 12 108/51 95 03/27/20 08:14 97.6 F 03/27/20 08:00 97.6 F 57 L 15 121/62 95 03/27/20 07:00 54 L 10 L 139/59 95 03/27/20 06:30 61 13 127/60 95 03/27/20 06:00 58 L 11 L 125/56 94 L 03/27/20 05:30 58 L 14 126/54 94 L 03/27/20 05:00 61 18 117/72 95 03/27/20 04:30 87 17 117/51 97 03/27/20 04:00 97.9 F 66 16 117/53 95 03/27/20 03:30 71 17 121/57 95 03/27/20 03:00 67 17 111/54 94 L 03/27/20 02:30 70 14 114/49 94 L 03/27/20 02:00 73 13 110/46 94 L 03/27/20 01:30 69 16 147/67 95 03/27/20 01:00 67 15 135/61 95 03/27/20 00:30 65 14 106/49 94 L 03/27/20 00:19 63 15 106/49 94 L 03/27/20 00:00 97.9 F 71 20 126/55 94 L 03/26/20 23:30 84 21 127/58 95 03/26/20 23:00 97.8 F 68 22 123/61 96 03/26/20 22:30 66 18 129/64 98 03/26/20 22:15 97.5 F L 65 16 119/46 98 03/26/20 22:13 68 18 119/46 98 03/26/20 21:58 72 18 116/60 98 03/26/20 21:43 63 18 128/62 98 03/26/20 21:28 72 18 109/66 99 03/26/20 21:13 67 18 117/53 99 03/26/20 20:58 64 18 117/63 98 03/26/20 20:43 66 18 114/51 99 03/26/20 20:28 66 18 125/81 98 03/26/20 20:13 70 18 125/81 99 03/26/20 19:58 98 F 73 18 143/45 99 03/26/20 19:43 66 18 124/53 99 03/26/20 19:28 98 F 69 18 130/66 98 03/26/20 19:27 98 F 69 18 130/66 98 Intake and Output 03/26/20 03/27/20 03/27/20 22:59 06:59 14:59 Intake Total 240 400 Output Total 750 225 Balance -510 175 Intake: Oral 240 400 Output: Urine 750 225 Other: Voiding Method Urinal Urinal # Voids 0 Weight 73.936 kg 73 kg GENERAL EXAM: Alert, very pleasant, 74-year-old white male, on room air, with a pulse ox of 95% comfortable in no apparent distress. HEAD: Normocephalic/atraumatic. EYES: Normal reaction of pupils, equal size. Conjunctiva pink, sclera white. NOSE: Clear with pink turbinates. THROAT: No erythema or exudates. NECK: No masses, no JVD, no thyroid enlargement, no adenopathy. CHEST: No chest wall deformity. Symmetrical expansion. LUNGS: Equal air entry with no crackles, wheeze, rhonchi or dullness. CVS: Regular rate and rhythm, normal S1 and S2, no gallops, no murmurs, no rubs ABDOMEN: Soft, nontender. No hepatosplenomegaly, normal bowel sounds, no guarding or rigidity. EXTREMITIES: No clubbing, no edema, no cyanosis, 2+ pulses and upper and lower extremities. MUSCULOSKELETAL: Muscle strength and tone normal. SPINE: No scoliosis or deformity SKIN: No rashes CENTRAL NERVOUS SYSTEM: Alert and oriented -3. No focal deficits, tone is normal in all 4 extremities. PSYCHIATRIC: Alert and oriented -3. Appropriate affect. Intact judgment and insight. Results - Laboratory Findings CBC and BMP: 03/27/20 04:12 03/27/20 04:12 PT/INR, D-dimer PT 10.3 sec (9.0-12.0) 03/26/20 19:52 INR 1.0 (<1.2) 03/26/20 19:52 Abnormal lab findings: Abnormal Labs 03/26/20 03/26/20 03/26/20 19:52 19:52 22:22 RBC Hgb APTT 21.5 L Sodium 136 L BUN 25 H Glucose 190 H POC Glucose (mg/dL) 231 H Total Protein 5.8 L HDL Cholesterol 03/27/20 03/27/20 03/27/20 04:12 04:12 06:45 RBC 4.25 L Hgb 12.7 L APTT Sodium BUN 29 H Glucose 215 H POC Glucose (mg/dL) 193 H Total Protein HDL Cholesterol 36 L - Diagnostic Findings Chest x-ray: report reviewed, image reviewed Additional studies: CT of the brain, angiography CT of the brain, EKG Assessment and Plan Plan: Assessment: #1. Acute CVA, status post TPA administration for symptoms of expressive aphasia, and right facial droop, with acute onset #2. Carotid artery stenosis, with 85% stenosis of the left ICA, and 75% stenosis of the right ICA, was awaiting TCAR #3. Recent history of right parietal CVA on 03/21/2020 for which the patient was hospitalized and discharged home on 03/23/2020 #4. Diabetes mellitus type 2 with diabetic peripheral neuropathy #5. Coronary artery disease with previous history of bypass graft #6. Previous history of CVA #7. History of peripheral artery disease #8. Chronic and ongoing history of smoking Plan: Patient has been stable overnight, his symptoms of aphasia and right-sided facial droop have significantly improved, we'll continue to closely monitor the patient in the intensive care unit and will continue with advanced neuro assessment per protocol. We'll defer to neurology to restart his aspirin and Plavix and Lipitor. Recent echocardiogram and CT brain reviewed. Vascular consultation has been ordered and is pending at this time for possibility of carotid artery surgical intervention. Echocardiogram is pending, CAROLINE is pending. We'll continue to closely follow with neurology and the case. I performed a history & physical examination of the patient and discussed their management with my nurse practitioner, Marilu Casiano. I reviewed the nurse practitioner's note and agree with the documented findings and plan of care. Lung sounds are positive for clear breath sounds. The findings and the impression was discussed with the patient. I attest to the documentation by the nurse practitioner. Time with Patient: Greater than 30
[2020-03-27 12:24] LABS: Glucose,Whole Blood 181 mg/dL (75-99)
--- NOTE | 2020-03-27 13:57 | P.GSCN ---
History of Present Illness Consult date: 03/27/20 History of present illness: The patient is a 74-year-old male with diabetes, hypertension, coronary artery disease, peripheral arterial disease, diabetic peripheral neuropathy and continued tobacco abuse as well as a recent TIA and aphasia with slurring of speech last week who subsequently re-presented for similar findings, expressive aphasia and drooping of his right face. He began by feeling dizzy and generalized weakness. He was brought to the hospital. He denied any focal weakness or visual disturbances at that point. He states he has been taking his aspirin and Plavix and Lipitor as previously prescribed last admission. Initially from last admission the plan was to schedule surgical intervention in close follow-up. Evaluation of his CT angiogram was performed and he is a candidate for trans-carotid artery revascularization (TCAR). He has been on aspirin and Plavix up until yesterday when he was switched from Plavix to Brilenta. We will plan to accomplish this this admission Past Medical History Past Medical History: Coronary Artery Disease (CAD), Chest Pain / Angina, COPD, CVA/TIA, Diabetes Mellitus, Deep Vein Thrombosis (DVT), Hearing Disorder / Deafness, Myocardial Infarction ([place]), Syncope, Vascular Disorder Additional Past Medical History / Comment(s): CVA x2, last 2018, recovered. Diabetic neuropathy feet, osteoporosis. Blockage in Rt leg. Last Myocardial Infarction Date:: 2006 History of Any Multi-Drug Resistant Organisms: None Reported Past Surgical History: Coronary Bypass/CABG, Heart Catheterization With Stent Additional Past Surgical History / Comment(s): Quad bypass-2010, "sx lt leg- graft to retore criculation", colonoscopy/polypectomy Past Anesthesia/Blood Transfusion Reactions: No Reported Reaction Additional Past Anesthesia/Blood Transfusion Reaction / Comm: mild claustrophobia (mri machines) Date of Last Stent Placement:: unknown Past Psychological History: Bipolar Smoking Status: Current every day smoker Past Alcohol Use History: None Reported Past Drug Use History: None Reported - Past Family History Mother Family Medical History: Cancer Father Family Medical History: Coronary Artery Disease (CAD), Myocardial Infarction ([place]) Additional Family Medical History / Comment(s): cabg Sister(s) Family Medical History: Coronary Artery Disease (CAD) Additional Family Medical History / Comment(s): cabg Brother(s) Family Medical History: Coronary Artery Disease (CAD) Additional Family Medical History / Comment(s): cabg Medications and Allergies Home Medications Medication Instructions Recorded Confirmed Type Clopidogrel [Plavix] 75 mg PO DAILY 07/12/18 03/26/20 History PARoxetine [Paxil] 20 mg PO BID 07/12/18 03/26/20 History metFORMIN HCL [Glucophage] 1,000 mg PO AC-BID 07/12/18 03/26/20 History Aspirin 81 mg PO DAILY chew 03/23/20 03/26/20 Rx Atorvastatin [Lipitor] 80 mg PO HS #30 tab 03/23/20 03/26/20 Rx Nicotine 21Mg/24Hr Patch [Habitrol] 1 patch TRANSDERM DAILY #14 patch 03/23/20 03/26/20 Rx Allergies Allergy/AdvReac Type Severity Reaction Status Date / Time No Known Allergies Allergy Verified 03/26/20 21:59 Surgical - Exam Vital Signs Temp Pulse Resp BP Pulse Ox 98 F 69 18 130/66 98 03/26/20 19:27 03/26/20 19:27 03/26/20 19:27 03/26/20 19:27 03/26/20 19:27 Patient is a pleasant cooperative male in no acute distress. HEENT is normocephalic, atraumatic, extraocular motion intact. Bilateral significant carotid bruits Heart is regular in rate and rhythm at this time. Lungs are clear bilaterally. Abdomen is soft. Extremity show no clubbing, cyanosis or edema. He has palpable radial pulses bilaterally. He has palpable femoral pulses bilaterally. On the left he has a palpable dorsalis pedis pulse. On the right he has strong monophasic to biphasic DP and PT flow. Normal mood and affect. Cranial nerves II through XII grossly intact Results CT imaging is reviewed - Labs 03/27/20 04:12 03/27/20 04:12 Abnormal Lab Results - Last 24 Hours (Table) 03/26/20 03/26/20 03/26/20 Range/Units 19:52 19:52 22:22 RBC (4.30-5.90) m/uL Hgb (13.0-17.5) gm/dL APTT 21.5 L (22.0-30.0) sec Sodium 136 L (137-145) mmol/L BUN 25 H (9-20) mg/dL Glucose 190 H (74-99) mg/dL POC Glucose (mg/dL) 231 H (75-99) mg/dL Total Protein 5.8 L (6.3-8.2) g/dL HDL Cholesterol (40-60) mg/dL 03/27/20 03/27/20 03/27/20 Range/Units 04:12 04:12 06:45 RBC 4.25 L (4.30-5.90) m/uL Hgb 12.7 L (13.0-17.5) gm/dL APTT (22.0-30.0) sec Sodium (137-145) mmol/L BUN 29 H (9-20) mg/dL Glucose 215 H (74-99) mg/dL POC Glucose (mg/dL) 193 H (75-99) mg/dL Total Protein (6.3-8.2) g/dL HDL Cholesterol 36 L (40-60) mg/dL 03/27/20 Range/Units 12:22 RBC (4.30-5.90) m/uL Hgb (13.0-17.5) gm/dL APTT (22.0-30.0) sec Sodium (137-145) mmol/L BUN (9-20) mg/dL Glucose (74-99) mg/dL POC Glucose (mg/dL) 181 H (75-99) mg/dL Total Protein (6.3-8.2) g/dL HDL Cholesterol (40-60) mg/dL Diabetes panel 03/26/20 03/27/20 Range/Units 19:52 04:12 Sodium 136 L 138 (137-145) mmol/L Potassium 4.5 4.2 (3.5-5.1) mmol/L Chloride 102 105 (98-107) mmol/L Carbon Dioxide 22 26 (22-30) mmol/L BUN 25 H 29 H (9-20) mg/dL Creatinine 1.18 1.11 (0.66-1.25) mg/dL Glucose 190 H 215 H (74-99) mg/dL Calcium 8.7 8.9 (8.4-10.2) mg/dL AST 19 (17-59) U/L ALT 11 (4-49) U/L Alkaline Phosphatase 72 (38-126) U/L Total Protein 5.8 L (6.3-8.2) g/dL Albumin 3.5 (3.5-5.0) g/dL Triglycerides 115 (<150) mg/dL HDL Cholesterol 36 L (40-60) mg/dL Calcium panel 03/26/20 03/27/20 Range/Units 19:52 04:12 Calcium 8.7 8.9 (8.4-10.2) mg/dL Albumin 3.5 (3.5-5.0) g/dL Pituitary panel 03/26/20 03/27/20 Range/Units 19:52 04:12 Sodium 136 L 138 (137-145) mmol/L Potassium 4.5 4.2 (3.5-5.1) mmol/L Chloride 102 105 (98-107) mmol/L Carbon Dioxide 22 26 (22-30) mmol/L BUN 25 H 29 H (9-20) mg/dL Creatinine 1.18 1.11 (0.66-1.25) mg/dL Glucose 190 H 215 H (74-99) mg/dL Calcium 8.7 8.9 (8.4-10.2) mg/dL Adrenal panel 03/26/20 03/27/20 Range/Units 19:52 04:12 Sodium 136 L 138 (137-145) mmol/L Potassium 4.5 4.2 (3.5-5.1) mmol/L Chloride 102 105 (98-107) mmol/L Carbon Dioxide 22 26 (22-30) mmol/L BUN 25 H 29 H (9-20) mg/dL Creatinine 1.18 1.11 (0.66-1.25) mg/dL Glucose 190 H 215 H (74-99) mg/dL Calcium 8.7 8.9 (8.4-10.2) mg/dL Total Bilirubin 0.6 (0.2-1.3) mg/dL AST 19 (17-59) U/L ALT 11 (4-49) U/L Alkaline Phosphatase 72 (38-126) U/L Total Protein 5.8 L (6.3-8.2) g/dL Albumin 3.5 (3.5-5.0) g/dL Assessment and Plan Assessment: #1 symptomatic high-grade left internal carotid artery stenosis #2#2 high-grade right ICA stenosis #3 history of previous stroke #4 diabetic peripheral neuropathy #5 peripheral arterial disease #6 Tobacco abuse Plan: At this point I do agree with neurology that we should attempt revascularization while patient is in hospital. He has maintained his dual antiplatelet therapy for at least 5 days. We will start with repair of the left internal carotid artery given its higher grade stenosis and current symptomatology. We will decide on timing for revascularization of the right internal carotid artery. We will plan to do this Thursday. Continue aspiri, brilenta as well as Lipitor
--- NOTE | 2020-03-27 15:50 | P.CRDCN ---
History of Present Illness History of present illness: This is Delfina Rosenthal PA-C dictating a consult on this patient The patient was interviewed and examined by me as well as by Dr. Amador Case discussed with Dr. Amador and he agrees with the plan of care HPI Patient is a 74-year-old male with a history of CAD status post CABG, TIA, diabetes, peripheral artery disease status post stenting, current smoker who presented with strokelike symptoms. He follows with Dr. Jett and recently moved from [place]. About a week ago he had a CVA and was found to have significant bilateral carotid artery stenosis. He was discharged home on aspirin, Plavix and Lipitor 80 mg daily and was to follow-up with vascular surgery outpatient for management of his carotid artery stenosis. He states he was compliant on his medications. Yesterday he was driving when he again experienced the same symptoms of his recent CVA. He states he wasn't able to talk and was slurring his words. He experienced right-sided facial droop. He denied any focal weakness. No dizziness or syncope. No palpitations, shortness of breath or chest pain. He was brought into the emergency department for evaluation. CT of his head showed an area of cortical and subcortical hypodensity in the right paramedian frontal parietal junction compatible with evolving infarct. CT angiogram showed severe 85% proximal left ICA stenosis and severe 75% focal stenosis of the proximal right ICA. He was given IV TPA and admitted to the ICU. Patient seen and examined resting in bed. He states his speech has improved. His states it is back to his baseline. He denies any weakness. No dizziness or syncope. No chest pain or shortness of breath. No palpitations. ROS: No fevers, chills or rigors, no cough, phlegm or expectoration, no nausea, vomiting or diarrhea, no hematuria, dysuria, no musculoskeletal complaints, Positive for strokes no skin lesions. EXAMINATION: Patient is afebrile, pulse in the 60s, respirations 15, blood pressure 114/50, oxygen saturation 95% on room air Patient seen and examined in the ICU, in no acute distress Heart is regular, no audible murmurs Lungs are clear to auscultation bilaterally Bilateral carotid bruits noted No elevated JVD No lower extremity edema REVIEW OF LABS, ECG & MEDICAL DATA WBC 9.9, hemoglobin 12.7, platelets 200, potassium 4.2, BUN 29, creatinine 1.11 LDL 68 EKG shows sinus mechanism with inferior Q waves, nonspecific ST-T segment abnormalities inferiorly and anteriorly Recent echocardiogram shows EF 55-60% IMPRESSION / ASSESSMENT: #1 CVA status post TPA, symptoms resolved #2 severe symptomatic bilateral carotid artery atherosclerosis, 85% proximal left ICA stenosis and 75% proximal right RCA stenosis, vascular surgery planning for intervention this week #3 previous strokes #4 history of CAD status post CABG #5 peripheral artery disease status post stenting #6 diabetes #7 current smoker PLAN: Resume atorvastatin 80 mg daily Agree with dual antiplatelet therapy Hold off on CAROLINE at this point, would recommend echocardiogram with bubble studies Awaiting MRI results Discussed the importance of smoking cessation Obtain a copy of the most recent stress test for cardiac clearance for surgery Past Medical History Past Medical History: Coronary Artery Disease (CAD), Chest Pain / Angina, COPD, CVA/TIA, Diabetes Mellitus, Deep Vein Thrombosis (DVT), Hearing Disorder / Deafness, Myocardial Infarction ([place]), Syncope, Vascular Disorder Additional Past Medical History / Comment(s): CVA x2, last 2018, recovered. Diabetic neuropathy feet, osteoporosis. Blockage in Rt leg. Last Myocardial Infarction Date:: 2006 History of Any Multi-Drug Resistant Organisms: None Reported Past Surgical History: Coronary Bypass/CABG, Heart Catheterization With Stent Additional Past Surgical History / Comment(s): Quad bypass-2010, "sx lt leg- graft to retore criculation", colonoscopy/polypectomy Past Anesthesia/Blood Transfusion Reactions: No Reported Reaction Additional Past Anesthesia/Blood Transfusion Reaction / Comment(s): mild claustrophobia (mri machines) Date of Last Stent Placement:: unknown Past Psychological History: Bipolar Smoking Status: Current every day smoker Past Alcohol Use History: None Reported Past Drug Use History: None Reported - Past Family History Mother Family Medical History: Cancer Father Family Medical History: Coronary Artery Disease (CAD), Myocardial Infarction ([place]) Additional Family Medical History / Comment(s): cabg Sister(s) Family Medical History: Coronary Artery Disease (CAD) Additional Family Medical History / Comment(s): cabg Brother(s) Family Medical History: Coronary Artery Disease (CAD) Additional Family Medical History / Comment(s): cabg Medications and Allergies Home Medications Medication Instructions Recorded Confirmed Type Clopidogrel [Plavix] 75 mg PO DAILY 07/12/18 03/26/20 History PARoxetine [Paxil] 20 mg PO BID 07/12/18 03/26/20 History metFORMIN HCL [Glucophage] 1,000 mg PO AC-BID 07/12/18 03/26/20 History Aspirin 81 mg PO DAILY chew 03/23/20 03/26/20 Rx Atorvastatin [Lipitor] 80 mg PO HS #30 tab 03/23/20 03/26/20 Rx Nicotine 21Mg/24Hr Patch [Habitrol] 1 patch TRANSDERM DAILY #14 patch 03/23/20 03/26/20 Rx Allergies Allergy/AdvReac Type Severity Reaction Status Date / Time No Known Allergies Allergy Verified 03/26/20 21:59 Physical Exam Vitals: Vital Signs Temp Pulse Resp BP Pulse Ox 03/27/20 10:00 65 15 114/50 95 03/27/20 09:00 59 L 12 108/51 95 03/27/20 08:14 97.6 F 03/27/20 08:00 97.6 F 57 L 15 121/62 95 03/27/20 07:00 54 L 10 L 139/59 95 03/27/20 06:30 61 13 127/60 95 03/27/20 06:00 58 L 11 L 125/56 94 L 03/27/20 05:30 58 L 14 126/54 94 L 03/27/20 05:00 61 18 117/72 95 03/27/20 04:30 87 17 117/51 97 03/27/20 04:00 97.9 F 66 16 117/53 95 03/27/20 03:30 71 17 121/57 95 03/27/20 03:00 67 17 111/54 94 L 03/27/20 02:30 70 14 114/49 94 L 03/27/20 02:00 73 13 110/46 94 L 03/27/20 01:30 69 16 147/67 95 03/27/20 01:00 67 15 135/61 95 03/27/20 00:30 65 14 106/49 94 L 03/27/20 00:19 63 15 106/49 94 L 03/27/20 00:00 97.9 F 71 20 126/55 94 L 03/26/20 23:30 84 21 127/58 95 03/26/20 23:00 97.8 F 68 22 123/61 96 03/26/20 22:30 66 18 129/64 98 03/26/20 22:15 97.5 F L 65 16 119/46 98 03/26/20 22:13 68 18 119/46 98 03/26/20 21:58 72 18 116/60 98 03/26/20 21:43 63 18 128/62 98 03/26/20 21:28 72 18 109/66 99 03/26/20 21:13 67 18 117/53 99 03/26/20 20:58 64 18 117/63 98 03/26/20 20:43 66 18 114/51 99 03/26/20 20:28 66 18 125/81 98 03/26/20 20:13 70 18 125/81 99 03/26/20 19:58 98 F 73 18 143/45 99 03/26/20 19:43 66 18 124/53 99 03/26/20 19:28 98 F 69 18 130/66 98 03/26/20 19:27 98 F 69 18 130/66 98 Intake and Output 03/27/20 03/27/20 03/27/20 06:59 14:59 22:59 Intake Total 240 400 Output Total 750 225 Balance -510 175 Intake: Oral 240 400 Output: Urine 750 225 Other: Voiding Method Urinal Urinal # Voids 0 Weight 73 kg Results 03/27/20 04:12 03/27/20 04:12 Cardiac Enzymes 03/26/20 03/26/20 Range/Units 19:52 19:52 AST 19 (17-59) U/L Troponin I <0.012 (0.000-0.034) ng/mL Coagulation 03/26/20 Range/Units 19:52 PT 10.3 (9.0-12.0) sec APTT 21.5 L (22.0-30.0) sec Lipids 03/27/20 Range/Units 04:12 Triglycerides 115 (<150) mg/dL Cholesterol 127 (<200) mg/dL HDL Cholesterol 36 L (40-60) mg/dL CBC 03/26/20 03/27/20 Range/Units 19:52 04:12 WBC 9.2 9.9 (3.8-10.6) k/uL RBC 4.34 4.25 L (4.30-5.90) m/uL Hgb 13.2 12.7 L (13.0-17.5) gm/dL Hct 40.2 39.3 (39.0-53.0) % Plt Count 216 200 (150-450) k/uL Comprehensive Metabolic Panel 03/26/20 03/27/20 Range/Units 19:52 04:12 Sodium 136 L 138 (137-145) mmol/L Potassium 4.5 4.2 (3.5-5.1) mmol/L Chloride 102 105 (98-107) mmol/L Carbon Dioxide 22 26 (22-30) mmol/L BUN 25 H 29 H (9-20) mg/dL Creatinine 1.18 1.11 (0.66-1.25) mg/dL Glucose 190 H 215 H (74-99) mg/dL Calcium 8.7 8.9 (8.4-10.2) mg/dL AST 19 (17-59) U/L ALT 11 (4-49) U/L Alkaline Phosphatase 72 (38-126) U/L Total Protein 5.8 L (6.3-8.2) g/dL Albumin 3.5 (3.5-5.0) g/dL Current Medications Generic Name Dose Route Start Last Admin Trade Name Freq PRN Reason Stop Dose Admin Atorvastatin Calcium 80 mg 03/27/20 21:00 Lipitor PO HS EVELIO Insulin Aspart 0 unit 03/27/20 07:30 03/27/20 12:57 Novolog SQ 2 unit ACHS EVELIO Administration Protocol Paroxetine HCl 20 mg 03/27/20 21:00 Paxil PO BID EVELIO Intake and Output 03/27/20 03/27/20 03/27/20 06:59 14:59 22:59 Intake Total 240 400 Output Total 750 225 Balance -510 175 Intake: Oral 240 400 Output: Urine 750 225 Other: Voiding Method Urinal Urinal # Voids 0 Weight 73 kg 03/27/20 04:12 03/27/20 04:12
--- NOTE | 2020-03-27 15:58 | P.HPIM ---
History of Present Illness Patient is a pleasant 82-year-old male came in with the complaints of right- sided facial droop and slurred speech and had a CT of the head which showed showed chronic and supplementation the right cerebral hemisphere and area of chronic tickle and subcortical hypodensity in the right paramedian frontoparietal junction suspicious for evolving infarct. Patient received TPA subsequently admitted to ICU patient was a valid by neurology. Patient presently doesn't have any focal weakness or any focal neurological signs or symptoms. Patient had a CT angios which showed severe 75% stenosis in the right ICA and 80% stenosis on the left side because of the chest was surgery was consulted patient was taking aspirin and Plavix. Patient is getting a repeat CT of the head to rule out any intracranial hemorrhage of there is no hemorrhage neurology is recommending brillinta and aspirin along with Lipitor 80 mg. Patient was evaluated by plastic surgery and patient will undergo carotid endarterectomy. Patient has left ICA around 85% stenosis and right ICA 75% stenosis had previous strokes involving the right cerebral hemisphere Review of Systems REVIEW OF SYSTEMS: CONSTITUTIONAL: No fever, no malaise, no fatigue. HEENT: No recent visual problems or hearing problems. Denied any sore throat. CARDIOVASCULAR: No chest pain, orthopnea, PND, no palpitations, no syncope. PULMONARY: No shortness of breath, no cough, no hemoptysis. GASTROINTESTINAL: No diarrhea, no nausea, no vomiting, no abdominal pain. NEUROLOGICAL: As mentioned in HPI HEMATOLOGICAL: Denies any bleeding or petechiae. GENITOURINARY: Denies any burning micturition, frequency, or urgency. MUSCULOSKELETAL/RHEUMATOLOGICAL: Denies any joint pain, swelling, or any muscle pain. ENDOCRINE: Denies any polyuria or polydipsia. The rest of the 14-point review of systems is negative. Past Medical History Past Medical History: Coronary Artery Disease (CAD), Chest Pain / Angina, COPD, CVA/TIA, Diabetes Mellitus, Deep Vein Thrombosis (DVT), Hearing Disorder / Deafness, Myocardial Infarction ([place]), Syncope, Vascular Disorder Additional Past Medical History / Comment(s): CVA x2, last 2018, recovered. Diabetic neuropathy feet, osteoporosis. Blockage in Rt leg. Last Myocardial Infarction Date:: 2006 History of Any Multi-Drug Resistant Organisms: None Reported Past Surgical History: Coronary Bypass/CABG, Heart Catheterization With Stent Additional Past Surgical History / Comment(s): Quad bypass-2010, "sx lt leg- graft to retore criculation", colonoscopy/polypectomy Past Anesthesia/Blood Transfusion Reactions: No Reported Reaction Additional Past Anesthesia/Blood Transfusion Reaction / Comment(s): mild claustrophobia (mri machines) Date of Last Stent Placement:: unknown Past Psychological History: Bipolar Smoking Status: Current every day smoker Past Alcohol Use History: None Reported Past Drug Use History: None Reported - Past Family History Mother Family Medical History: Cancer Father Family Medical History: Coronary Artery Disease (CAD), Myocardial Infarction ([place]) Additional Family Medical History / Comment(s): cabg Sister(s) Family Medical History: Coronary Artery Disease ([place]) Additional Family Medical History / Comment(s): cabg Brother(s) Family Medical History: Coronary Artery Disease (CAD) Additional Family Medical History / Comment(s): cabg Medications and Allergies Home Medications Medication Instructions Recorded Confirmed Type Clopidogrel [Plavix] 75 mg PO DAILY 07/12/18 03/26/20 History PARoxetine [Paxil] 20 mg PO BID 07/12/18 03/26/20 History metFORMIN HCL [Glucophage] 1,000 mg PO AC-BID 07/12/18 03/26/20 History Aspirin 81 mg PO DAILY chew 03/23/20 03/26/20 Rx Atorvastatin [Lipitor] 80 mg PO HS #30 tab 03/23/20 03/26/20 Rx Nicotine 21Mg/24Hr Patch [Habitrol] 1 patch TRANSDERM DAILY #14 patch 03/23/20 03/26/20 Rx Allergies Allergy/AdvReac Type Severity Reaction Status Date / Time No Known Allergies Allergy Verified 03/26/20 21:59 Physical Exam Vitals: Vital Signs Temp Pulse Resp BP Pulse Ox 03/27/20 10:00 65 15 114/50 95 03/27/20 09:00 59 L 12 108/51 95 03/27/20 08:14 97.6 F 03/27/20 08:00 97.6 F 57 L 15 121/62 95 03/27/20 07:00 54 L 10 L 139/59 95 03/27/20 06:30 61 13 127/60 95 03/27/20 06:00 58 L 11 L 125/56 94 L 03/27/20 05:30 58 L 14 126/54 94 L 03/27/20 05:00 61 18 117/72 95 03/27/20 04:30 87 17 117/51 97 03/27/20 04:00 97.9 F 66 16 117/53 95 03/27/20 03:30 71 17 121/57 95 03/27/20 03:00 67 17 111/54 94 L 03/27/20 02:30 70 14 114/49 94 L 03/27/20 02:00 73 13 110/46 94 L 03/27/20 01:30 69 16 147/67 95 03/27/20 01:00 67 15 135/61 95 03/27/20 00:30 65 14 106/49 94 L 03/27/20 00:19 63 15 106/49 94 L 03/27/20 00:00 97.9 F 71 20 126/55 94 L 03/26/20 23:30 84 21 127/58 95 03/26/20 23:00 97.8 F 68 22 123/61 96 03/26/20 22:30 66 18 129/64 98 03/26/20 22:15 97.5 F L 65 16 119/46 98 03/26/20 22:13 68 18 119/46 98 03/26/20 21:58 72 18 116/60 98 03/26/20 21:43 63 18 128/62 98 03/26/20 21:28 72 18 109/66 99 03/26/20 21:13 67 18 117/53 99 03/26/20 20:58 64 18 117/63 98 03/26/20 20:43 66 18 114/51 99 03/26/20 20:28 66 18 125/81 98 03/26/20 20:13 70 18 125/81 99 03/26/20 19:58 98 F 73 18 143/45 99 03/26/20 19:43 66 18 124/53 99 03/26/20 19:28 98 F 69 18 130/66 98 03/26/20 19:27 98 F 69 18 130/66 98 Intake and Output 03/27/20 03/27/20 03/27/20 06:59 14:59 22:59 Intake Total 240 400 Output Total 750 225 Balance -510 175 Intake: Oral 240 400 Output: Urine 750 225 Other: Voiding Method Urinal Urinal # Voids 0 Weight 73 kg PHYSICAL EXAMINATION: GENERAL: The patient is alert and oriented x3, not in any acute distress. Well developed, well nourished. HEENT: Pupils are round and equally reacting to light. EOMI. No scleral icterus. No conjunctival pallor. Normocephalic, atraumatic. No pharyngeal erythema. No thyromegaly. CARDIOVASCULAR: S1 and S2 present. No murmurs, rubs, or gallops. PULMONARY: Chest is clear to auscultation, no wheezing or crackles. ABDOMEN: Soft, nontender, nondistended, normoactive bowel sounds. No palpable organomegaly. MUSCULOSKELETAL: No joint swelling or deformity. EXTREMITIES: No cyanosis, clubbing, or pedal edema. NEUROLOGICAL: Gross neurological examination did not reveal any focal deficits. SKIN: No rashes. Results CBC & Chem 7: 03/27/20 04:12 03/27/20 04:12 Labs: Abnormal Lab Results - Last 24 Hours (Table) 03/26/20 03/26/20 03/26/20 Range/Units 19:52 19:52 22:22 RBC (4.30-5.90) m/uL Hgb (13.0-17.5) gm/dL APTT 21.5 L (22.0-30.0) sec Sodium 136 L (137-145) mmol/L BUN 25 H (9-20) mg/dL Glucose 190 H (74-99) mg/dL POC Glucose (mg/dL) 231 H (75-99) mg/dL Total Protein 5.8 L (6.3-8.2) g/dL HDL Cholesterol (40-60) mg/dL 03/27/20 03/27/20 03/27/20 Range/Units 04:12 04:12 06:45 RBC 4.25 L (4.30-5.90) m/uL Hgb 12.7 L (13.0-17.5) gm/dL APTT (22.0-30.0) sec Sodium (137-145) mmol/L BUN 29 H (9-20) mg/dL Glucose 215 H (74-99) mg/dL POC Glucose (mg/dL) 193 H (75-99) mg/dL Total Protein (6.3-8.2) g/dL HDL Cholesterol 36 L (40-60) mg/dL 03/27/20 Range/Units 12:22 RBC (4.30-5.90) m/uL Hgb (13.0-17.5) gm/dL APTT (22.0-30.0) sec Sodium (137-145) mmol/L BUN (9-20) mg/dL Glucose (74-99) mg/dL POC Glucose (mg/dL) 181 H (75-99) mg/dL Total Protein (6.3-8.2) g/dL HDL Cholesterol (40-60) mg/dL Assessment and Plan Plan: -Acute cerebral vascular accident embolic in nature involving the right found t he parietal cortex as well as occipital cortex. Patient's antiplatelet therapy as mentioned above continue with statin patient will undergo endarterectomy on the Thursday -Severe bilateral ICA stenosis, previous CVAs. -COPD without any acute exacerbation -type 2 diabetes mellitus: Metformin will be held and patient will continued on sliding scale insulin for now -Continue nicotine use: Counseling was provided
[2020-03-27 16:49] LABS: Glucose,Whole Blood 142 mg/dL (75-99)
[2020-03-27 20:55] LABS: Glucose,Whole Blood 208 mg/dL (75-99)
[2020-03-27] MEDS: ATORVASTATIN 80 MG TAB PO SCH (20:59)
[2020-03-27] MEDS: PARoxetine 20 MG TAB PO SCH (20:59)
--- NOTE | 2020-03-27 21:55 | CT ---
EXAMINATION TYPE: CT brain wo con DATE OF EXAM: 03/27/2020 COMPARISON: INDICATION: CVA DLP: 1099.40 mGycm, Automated exposure control for dose reduction was used. CONTRAST: None CT of the brain is performed utilizing 3 mm thick sections through the posterior fossa and 3 mm thick sections through the remaining calvarium. Study is performed within 24 hours of arrival to the hosp [facility]. No abnormal hyperdensity is present to suggest an acute intracranial hemorrhage. No mass lesion is evident. No acute infarcts are evident. There is an old right frontal parietal subcortical infarct with ex vac uo effect present. There is subcortical and cortical hypodensity within the right parietal vertex med ially. This was present previously and appears stable. No effacement of the adjacent sulci is evident suggesting this may be old. Ventricles and sulci are prominent for the patient age. Paranasal sinuses and mastoid air cells within the [id number] are clear. IMPRESSIONS: 1. Old subcortical cortical infarcts within the right frontal parietal and parietal vertex, present previously and stable over the interval. 2. No interval development of hemorrhage post tPA
[2020-03-27] MEDS: HEPARIN SODIUM,PORCINE 5,000 UNIT/ML 1 ML VIAL SQ SCH (23:00)
[2020-03-27] MEDS: TICAGRELOR 90 MG TAB PO SCH (23:00)
[2020-03-27] MEDS: ASPIRIN 81 MG PO SCH (23:00)
[2020-03-28 05:10] LABS: Basophils # (A) 0.1 k/uL (0-0.2); Basophils % (A) 1 %; Eosinophils # (A) 0.3 k/uL (0-0.7); Eosinophils % (A) 3 %; HCT 42.6 % (39.0-53.0); HGB 13.6 gm/dL (13.0-17.5); Lymphocytes # (A) 2.7 k/uL (1.0-4.8); Lymphocytes % (A) 24 %; MCH 29.6 pg (25.0-35.0); MCHC 31.9 g/dL (31.0-37.0); MCV 92.9 fL (80.0-100.0); Mean Platelet Volume 6.9; Monocytes # (A) 0.5 k/uL (0-1.0); Monocytes % (A) 5 %; Neutrophils # (A) 7.7 k/uL (1.3-7.7); Neutrophils % (A) 67 %; Platelet Count 204 k/uL (150-450); RBC 4.59 m/uL (4.30-5.90); RDW 14.2 % (11.5-15.5); WBC 11.4 k/uL (3.8-10.6)
[2020-03-28 05:26] LABS: Calcium 9.3 mg/dL (8.4-10.2); Potassium 4.4 mmol/L (3.5-5.1)
[2020-03-28 06:42] LABS: Glucose,Whole Blood 172 mg/dL (75-99)
[2020-03-28] MEDS: INSULIN ASPART (NovoLOG) 100 UNIT/ML VIAL SQ SCH ×4 (07:24→21:11)
[2020-03-28] MEDS ORDERED: LORazepam 2 MG/ML INJ IV STA (08:16)
--- NOTE | 2020-03-28 09:14 | P.PN ---
Subjective Progress Note Date: 03/28/20 Principal diagnosis: Expressive aphasia, right-sided weakness 74-year-old white male patient with past medical history of COPD, diabetes mellitus, coronary artery disease status post bypass grafting, carotid artery stenosis, previous history of CVA, who was seen at the hospital in the past week for symptoms of aphasia and altered mental status, and a brain CT showed no acute intracranial abnormality, and showed old right parietal and right frontal cortical infarcts. Patient was diagnosed with TIA as his symptoms resolved prior to being admitted for evaluation. MRI of the brain did show a stroke in the right parietal zone. Echocardiogram showed EF of 55-60% and no thrombus reported. Patient was seen by vascular surgery during his hospitalization or 75% left ICA stenosis patient was found to be a good candidate for TCAR. Patient was supposed to follow-up with Dr. Eduardo on March 28 for tentative scheduling of carotid intervention. On 03/26/2020 patient came into the emergency department with acute right-sided facial droop and aphasia, this was witnessed by his when he was driving and 19 did not feel well. Patient did not have any weakness in his upper or lower extremities. He was on a combination of Plavix, aspirin, and Lipitor. Patient is an active smoker. Brain CT showed no evidence for acute intracranial hemorrhage, it did show an area of cortical and subcortical hypodensity in the right paramedian frontoparietal junction which shows some progressive decreasing density as compared to previous computed tomography scan on 03/21/2020 compatible with evolving infarct. Angiography CT of the brain showed 85% severe proximal left ICA stenosis, severe 75% focal slitlike stenosis in the proximal right ICA, no large vessel intracranial arterial occlusion, however there were moderate atherosclerotic stenosis along the bilateral supraclinoid internal carotid arteries. Patient received TPA per Dr. Ramsey, neuro trade mark examiner. He was admitted to the intensive care unit following TPA infusion. Today he seen in the intensive care unit, right facial droop has resolved, patient is able to speak, although he feels that his speech was not back to normal earlier in the morning but has drastically improved. Patient is alert and oriented 3, he denies any difficulty breathing, he is on room air. Chest x-ray showed chronic changes without acute cardiopulmonary process. No IV fluids. He is in sinus mechanism with a rate of 59 BPM. Neurology is following. On 03/28/2020 patient seen in follow-up in the intensive care unit, he is awake and alert, oriented 3, he states that his speech is back to normal, he is moving all 4 extremities, strength is equal, face is symmetric. Patient is going for MRI of the brain this morning. She was started on subcutaneous heparin 5000 units every 12 hours, he was started on [place] and aspirin in addition to his Lipitor, neurology is following, continues on intravenous assessments per protocol. No difficulty breathing, lung sounds are clear, he is in sinus mechanism on a monitor. Today's labs have been reviewed, with a total count is 11.4, hemoglobin is 13.6, electrolytes are within normal limits, BUN is 21 creatinine is 1.23. Patient had passed his swallow evaluation. Objective - Vital Signs Vital signs: Vital Signs Temp 98.0 F 03/28/20 04:00 Pulse 60 03/28/20 07:00 Resp 14 03/28/20 07:00 BP 132/57 03/28/20 07:00 Pulse Ox 94 L 03/28/20 07:00 Intake & Output 03/27/20 03/28/20 03/28/20 18:59 06:59 18:59 Intake Total 750 700 Output Total 725 1600 0 Balance 25 -900 0 Weight 72.9 kg Intake: Oral 750 700 Output: Urine 725 1600 0 Other: Voiding Method Urinal Urinal # Voids 0 - Exam GENERAL EXAM: Alert, very pleasant, 74-year-old white male, on room air, with a pulse ox of 94% comfortable in no apparent distress. HEAD: Normocephalic/atraumatic. EYES: Normal reaction of pupils, equal size. Conjunctiva pink, sclera white. NOSE: Clear with pink turbinates. THROAT: No erythema or exudates. NECK: No masses, no JVD, no thyroid enlargement, no adenopathy. CHEST: No chest wall deformity. Symmetrical expansion. LUNGS: Equal air entry with no crackles, wheeze, rhonchi or dullness. CVS: Regular rate and rhythm, normal S1 and S2, no gallops, no murmurs, no rubs ABDOMEN: Soft, nontender. No hepatosplenomegaly, normal bowel sounds, no guarding or rigidity. EXTREMITIES: No clubbing, no edema, no cyanosis, 2+ pulses and upper and lower extremities. MUSCULOSKELETAL: Muscle strength and tone normal. SPINE: No scoliosis or deformity SKIN: No rashes CENTRAL NERVOUS SYSTEM: Alert and oriented -3. No focal deficits, tone is normal in all 4 extremities. PSYCHIATRIC: Alert and oriented -3. Appropriate affect. Intact judgment and insight. - Labs CBC & Chem 7: 03/28/20 04:44 03/28/20 04:44 Labs: Abnormal Lab Results - Last 24 Hours (Table) 03/27/20 03/27/20 03/27/20 Range/Units 12:22 16:47 20:54 WBC (3.8-10.6) k/uL BUN (9-20) mg/dL Glucose (74-99) mg/dL POC Glucose (mg/dL) 181 H 142 H 208 H (75-99) mg/dL 03/28/20 03/28/20 03/28/20 Range/Units 04:44 04:44 06:40 WBC 11.4 H (3.8-10.6) k/uL BUN 21 H (9-20) mg/dL Glucose 168 H (74-99) mg/dL POC Glucose (mg/dL) 172 H (75-99) mg/dL Assessment and Plan Plan: Assessment: #1. Acute CVA, status post TPA administration for symptoms of expressive aphasia, and right facial droop, with acute onset. The right facial droop has resolved, expressive aphasia has significantly improved #2. Carotid artery stenosis, with 85% stenosis of the left ICA, and 75% stenosis of the right ICA, awaiting TCAR on Thursday, on on 03/30/2020 #3. Recent history of right parietal CVA on 03/21/2020 for which the patient was hospitalized and discharged home on 03/23/2020 #4. Diabetes mellitus type 2 with diabetic peripheral neuropathy #5. Coronary artery disease with previous history of bypass graft #6. Previous history of CVA #7. History of peripheral artery disease #8. Chronic and ongoing history of smoking Plan: Patient is going for MRI of the brain this morning, neurologically was stable overnight, continue with obvious neuro assessment per protocol. Was evaluated by surgery who is planned and on TCAR on Thursday on 03/30/2020. Echocardiogram i s pending. Repeat brain CT last night showed no interval development of hemorrhage post TPA. Hemodynamically patient has remained stable, he is on room air. Continue to monitor the patient in intensive care unit and consider transferring to selective care if remains stable I performed a history & physical examination of the patient and discussed their management with my nurse practitioner, Marilu Casiano. I reviewed the nurse practitioner's note and agree with the documented findings and plan of care. Lung sounds are positive for clear breath sounds. The findings and the impression was discussed with the patient. I attest to the documentation by the nurse practitioner. Time with Patient: Less than 30
[2020-03-28] MEDS: PARoxetine 20 MG TAB PO SCH ×2 (09:22→21:11)
[2020-03-28] MEDS: HEPARIN SODIUM,PORCINE 5,000 UNIT/ML 1 ML VIAL SQ SCH ×2 (09:22→21:11)
[2020-03-28] MEDS: TICAGRELOR 90 MG TAB PO SCH ×2 (09:22→21:11)
[2020-03-28] MEDS: ASPIRIN 81 MG PO SCH (09:22)
--- NOTE | 2020-03-28 11:36 | P.PN ---
Subjective Progress Note Date: 03/28/20 Patient was seen at bedside and he said the that he is doing much better compared to initial presentation. He denies of any slurring of speech any word finding difficulties. He denies any facial weakness or any weakness of any extremities. He feels he is at baseline data. Yesterday as CT of the head was done at night and it didn't show any acute ischemia or any acute hemorrhage post 24 hours TPA at. Therefore the patient was started on broad length as well as aspirin. Patient notified me that the in the past that he had history of bipolar and he still suffers with that he was on Depakote in the past and he felt like when he was on Depakote she was able to stop smoking. He said that he is not on Depakote and that could not tell me exactly the reason. Objective - Vital Signs Vital signs: Vital Signs Temp 98.0 F 03/28/20 04:00 Pulse 60 03/28/20 07:00 Resp 14 03/28/20 07:00 BP 132/57 03/28/20 07:00 Pulse Ox 94 L 03/28/20 07:00 Intake & Output 03/27/20 03/28/20 03/28/20 18:59 06:59 18:59 Intake Total 750 700 Output Total 725 1600 0 Balance 25 -900 0 Weight 72.9 kg Intake: Oral 750 700 Output: Urine 725 1600 0 Other: Voiding Method Urinal Urinal # Voids 0 - Exam GENERAL: The patient is lying in bed and is not in acute distress. CHEST: The heart rate is regular rate rhythm. No murmurs to auscultation. LUNG: Clear to auscultation bilaterally no wheezing noted throughout. Not labored breathing. ABDOMEN/GI: Bowel sounds present in all 4 quadrants. No tenderness to palpation throughout. NEUROLOGICAL: Higher mental function: The patient is awake, alert, oriented to self, place and time. Patient is following commands. No aphasia or neglect. Cranial nerves: The pupils are round, equal and reactive to light and accommodation. Visual chavarria are full to confrontation throughout. Extraocular movement is intact no nystagmus is noted. Facial sensation is normal to touch throughout. The facial strength is normal throughout. Hearing is normal bilaterally to hand rub. Tongue is midline and moved [id number] without any difficulty. No dysarthria is noted. Shoulder shrug is normal bilaterally. Motor: Gait is defered. The strength is 5 over 5 throughout. Normal tone and bulk. Cerebellum: Normal finger to nose bilaterally. Sensation: Sensation is normal to touch throughout. Reflexes (right/left): 2+ throughout except ankles1+. Plantars are downgoing bilaterally. - Labs CBC & Chem 7: 03/28/20 04:44 03/28/20 04:44 Labs: Abnormal Lab Results - Last 24 Hours (Table) 03/27/20 03/27/20 03/27/20 Range/Units 12:22 16:47 20:54 WBC (3.8-10.6) k/uL BUN (9-20) mg/dL Glucose (74-99) mg/dL POC Glucose (mg/dL) 181 H 142 H 208 H (75-99) mg/dL 03/28/20 03/28/20 03/28/20 Range/Units 04:44 04:44 06:40 WBC 11.4 H (3.8-10.6) k/uL BUN 21 H (9-20) mg/dL Glucose 168 H (74-99) mg/dL POC Glucose (mg/dL) 172 H (75-99) mg/dL Assessment and Plan Assessment: Acute stroke status post TPA (expressive aphasia, right facial droop). Likely artery to artery emboli Symptomatic left ICA (85% stenosis) Symptomatic right ICA (75% stenosis) with multiple right hemispheric stroke History of previous strokes involving mostly the right hemisphere frontal parietal as well as occipital Diabetic peripheral neuropathy Type 2 diabetes Hx of Coronary artery disease status post bypass Peripheral artery disease Tobacco use Bipolar disorder Plan: CT head (post tpa 03/27/20): Old subcortical infarct within the right frontal parietal and parietal vertex, present previously and stable over that interval. No interval development of hemorrhage post TPA. MRI Brain is performed and pending report. I personally reviewed that the patient the images in the 2018 and the the 2019 images patient. MRI Brain in 2018 (FLAIR) he did have the right frontal and occipital hyperintensities and as well as he had lacunar infarct in the multiple territories of bilateral hemisphere but no cerebellar stroke. But in the 03/22/2020 and the MRI FLAIR image felt like that there is a more a hyperintensity over the frontal region compared to image as well as the there is lacunar infarct is seen over bilateral cerebellar territory and. He remains to be lacunar infarct in bilateral hemisphere at different territories. As well as I felt that the pontine on the right side was hyperintense which was not seen in the 2018 image. The medial right pontine lobe that was reported as acute ischemia I felt like was subacute since there is hyperintensity on the DWI, ADC as well as the FLAIR. I started the patient on Brilinta 90 mg 1 tablet twice a day, aspirin 81 mg on 03/27/20 post-tpa and continue Lipitor 80 mg daily. The patient has failed aspirin and Plavix. Dr. Eduardo from vascular team is consulted. I highly recommend the patient gets intervention for bilateral carotids as an inpatient. He is schedule to have surgery for Left ICA this Thursday. Cardiology is consulted. They recommend limited 2D echo with PFO study. If negative consider transesophageal echocardiogram to make sure that there is a no emboli from cardiac origin. PT OT and INTERACTIVE ACCOUNT MANAGER are consulted Recent Lipid panel: Triglycerides 144, cholesterol 195, LDL 121 and HDL 45. TSH is 0.967 on last visit. Hemoglobin A1c is 7.5. Lipid profile, TSH or HbA1c does not need to be repeated. I'll start the patient on Depakote 500 mg 1 tablet twice a day for his history of bipolar. He said that in the past when he was on the medication it helped with cessation of the tobacco use. Patient was counseled on tobacco use. The plan was discussed with the patient. Jose Durán M.D. Neuro-hospitalist Time with Patient: Greater than 30
[2020-03-28 11:56] LABS: Glucose,Whole Blood 239 mg/dL (75-99)
--- NOTE | 2020-03-28 11:59 | P.PN ---
Subjective Progress Note Date: 03/28/20 THis patient is a 74-year-old male with diabetes, hypertension, coronary artery disease, peripheral arterial disease, diabetic peripheral neuropathy and continued tobacco abuse as well as a recent TIA and aphasia with slurring of speech last week who subsequently re-presented for similar findings, expressive aphasia and drooping of his right face. He began by feeling dizzy and generalized weakness. He was brought to the hospital. He denied any focal weakness or visual disturbances at that point. He states he has been taking his aspirin and Plavix and Lipitor as previously prescribed last admission. Initially from last admission the plan was to schedule surgical intervention in close follow-up. Evaluation of his CT angiogram was performed and he is a candidate for trans-carotid artery revascularization (TCAR). He has been on aspirin and Plavix up until yesterday when he was switched from Plavix to Brilenta. The patient was seen and examined at the bedside. No acute changes through the night. He just underwent an MRI, results are pending. Denies any visual changes, weakness, shortness of breath, or chest pain. Objective - Vital Signs Vital signs: Vital Signs Temp 98.0 F 03/28/20 04:00 Pulse 60 03/28/20 07:00 Resp 14 03/28/20 07:00 BP 132/57 03/28/20 07:00 Pulse Ox 94 L 03/28/20 07:00 Intake & Output 03/27/20 03/28/20 03/28/20 18:59 06:59 18:59 Intake Total 750 700 Output Total 725 1600 0 Balance 25 -900 0 Weight 72.9 kg Intake: Oral 750 700 Output: Urine 725 1600 0 Other: Voiding Method Urinal Urinal # Voids 0 - Exam General appearance: The patient is alert, oriented, in no acute distress. HET: Head is normocephalic and atraumatic. Pupils are equal and reactive. Neck: Supple without lymphadenopathy. Trachea midline. Bilateral carotid bruits. Heart: S1 S2. Regular rate and rhythm. Lungs: No crackles or wheezes are heard. Abdomen: Soft, nontender, nondistended with bowel sounds. Extremities: Normal skin color and turgor. Neurological: No focal deficits. Strength and sensation are grossly intact. - Labs CBC & Chem 7: 03/28/20 04:44 03/28/20 04:44 Labs: Abnormal Lab Results - Last 24 Hours (Table) 03/27/20 03/27/20 03/27/20 Range/Units 12:22 16:47 20:54 WBC (3.8-10.6) k/uL BUN (9-20) mg/dL Glucose (74-99) mg/dL POC Glucose (mg/dL) 181 H 142 H 208 H (75-99) mg/dL 03/28/20 03/28/20 03/28/20 Range/Units 04:44 04:44 06:40 WBC 11.4 H (3.8-10.6) k/uL BUN 21 H (9-20) mg/dL Glucose 168 H (74-99) mg/dL POC Glucose (mg/dL) 172 H (75-99) mg/dL Assessment and Plan Assessment: #1 symptomatic high-grade left internal carotid artery stenosis #2 high-grade right ICA stenosis #3 history of previous stroke #4 diabetic peripheral neuropathy #5 peripheral arterial disease #6 Tobacco abuse Plan: He has maintained his dual antiplatelet therapy for at least 5 days. We will start with repair of the left internal carotid artery given its higher grade stenosis and current symptomatology. He is scheduled for trans-carotid artery revascularization for this Thursday with Dr. Hays. We will decide on timing for revascularization of the right internal carotid artery. Continue aspirin, lipitor, and brilenta. Further recommendations to follow. The above dictated assessment and findings were discussed with Dr. Eduardo. The impression and plan of care have been directed as dictated.
[2020-03-28] MEDS: DIVALPROEX 500 MG TABLET.DR PO SCH ×2 (12:29→21:11)
--- NOTE | 2020-03-28 15:18 | MR ---
EXAMINATION TYPE: MR brain wo con DATE OF EXAM: 03/28/2020 COMPARISON: CT brain 03/27/2020. CTA head and neck 03/26/2020. MR brain 03/22/2020. MRI brain 07/14/2018. HISTORY: Stroke: aphasia, right facial droop TECHNIQUE: Multiplanar, multisequence images of the brain and brainstem is performed without intravenous contras t. FINDINGS: Diffusion weighted images redemonstrate recent infarct of the right medial parietal lobe cortex just superior to the lateral ventricle (305:176), not significantly changed from 03/22/2020. Scattered T2 FLAIR hyperintense white matter foci are seen bilaterally, which may represent sequela o f chronic microvascular ischemic change. There is disproportionate asymmetric T2 FLAIR hyperintensity of the right cerebral hemisphere, primarily of the frontal and parietal lobes, which is increased ve rsus 07/14/2018 MRI comparison. There is also mild T2 hyperintense and T2 FLAIR signal of the amy re demonstrated, which may represent ischemic change. Encephalomalacia changes of the right frontal lobe and parietal lobe. There is redemonstrated mild as ymmetric prominence of the right lateral ventricle which may be due to ex vacuo dilatation. There is no extra-axial fluid collection or significant white matter signal abnormality. The ventric ular system and cisternal spaces are normal in size and appearance. The brain volume is age appropri ate. Midline structures demonstrate normal morphology. The craniocervical junction appears within normal limits. The visualized sinuses are clear. Globes are symmetric. IMPRESSION: 1. Small area of right medial parietal cortex diffusion weighted hyperintensity likely representing a cute ischemia, unchanged from 03/22/2020 MRI comparison. 2. Old right-sided frontal and temporal infarcts. 3. Redemonstrated T2 FLAIR hyperintensity of the white matter, right greater than left, increased fro m 07/14/2018 MRI comparison and likely chronic microvascular ischemic change.
--- NOTE | 2020-03-28 15:55 | P.PN ---
Subjective 82-year-old male came in with the complaints of right-sided facial droop and slurred speech and had a CT of the head which showed showed chronic and supplementation the right cerebral hemisphere and area of chronic tickle and subcortical hypodensity in the right paramedian frontoparietal junction suspicious for evolving infarct. Patient received TPA subsequently admitted to ICU patient was a valid by neurology. Patient presently doesn't have any focal weakness or any focal neurological signs or symptoms. Patient had a CT angios which showed severe 75% stenosis in the right ICA and 80% stenosis on the left side because of the chest was surgery was consulted patient was taking aspirin and Plavix. Patient is getting a repeat CT of the head to rule out any intracranial hemorrhage of there is no hemorrhage neurology is recommending brillinta and aspirin along with Lipitor 80 mg. Patient was evaluated by plastic surgery and patient will undergo carotid endarterectomy. Patient has left ICA around 85% stenosis and right ICA 75% stenosis had previous strokes involving the right cerebral hemisphere. 03/28/2020 Patient was started on the day of antiplatelet therapy with Brillinta and aspirin. No other neurological deficits were appreciated since last night. Patient will be transferred out of ICU to [facility] patient will undergo carotid endarterectomy in Thursday. She had an MRI which did show acute ischemic changes that were seen on the computed tomography scan an old right-sided frontotemporal infarcts. Constitutional: Denied any fatigue denied any fever. Cardio vascular: denied any chest pain, palpitations Gastrointestinal denied any nausea vomiting Pulmonary: Denied any shortness of breath cough Neurologic denied any new focal deficits All inpatient medications were reviewed and appropriate changes in these me dications as dictated in the interval history and assessment and plan. Objective - Vital Signs Vital signs: Vital Signs Temp 98.1 F 03/28/20 12:00 Pulse 64 03/28/20 13:00 Resp 26 H 03/28/20 13:00 BP 138/65 03/28/20 13:00 Pulse Ox 97 03/28/20 13:00 Intake & Output 03/27/20 03/28/20 03/28/20 18:59 06:59 18:59 Intake Total 750 700 550 Output Total 725 1600 525 Balance 25 -900 25 Weight 72.9 kg Intake: Oral 750 700 550 Output: Urine 725 1600 525 Other: Voiding Method Urinal Urinal # Voids 0 0 - Exam PHYSICAL EXAMINATION: GENERAL: The patient is alert and oriented x3, not in any acute distress. Well developed, well nourished. HEENT: Pupils are round and equally reacting to light. EOMI. No scleral icterus. No conjunctival pallor. Normocephalic, atraumatic. No pharyngeal erythema. No thyromegaly. CARDIOVASCULAR: S1 and S2 present. No murmurs, rubs, or gallops. PULMONARY: Chest is clear to auscultation, no wheezing or crackles. ABDOMEN: Soft, nontender, nondistended, normoactive bowel sounds. No palpable organomegaly. MUSCULOSKELETAL: No joint swelling or deformity. EXTREMITIES: No cyanosis, clubbing, or pedal edema. NEUROLOGICAL: Gross neurological examination did not reveal any focal deficits. SKIN: No rashes. - Labs CBC & Chem 7: 03/28/20 04:44 03/28/20 04:44 Labs: Abnormal Lab Results - Last 24 Hours (Table) 03/27/20 03/27/20 03/28/20 Range/Units 16:47 20:54 04:44 WBC 11.4 H (3.8-10.6) k/uL BUN (9-20) mg/dL Glucose (74-99) mg/dL POC Glucose (mg/dL) 142 H 208 H (75-99) mg/dL 03/28/20 03/28/20 03/28/20 Range/Units 04:44 06:40 11:54 WBC (3.8-10.6) k/uL BUN 21 H (9-20) mg/dL Glucose 168 H (74-99) mg/dL POC Glucose (mg/dL) 172 H 239 H (75-99) mg/dL Assessment and Plan Plan: -Acute cerebral vascular accident embolic in nature involving the right found the parietal cortex as well as occipital cortex. Patient's antiplatelet therapy as mentioned above continue with statin patient will undergo endarterectomy on the Thursday -Severe bilateral ICA stenosis, previous CVAs. -COPD without any acute exacerbation -type 2 diabetes mellitus: Metformin will be held and patient will continued on sliding scale insulin for now -Continue nicotine use: Counseling was provided
--- NOTE | 2020-03-28 16:02 | P.PN ---
Subjective This is Delfina Rosenthal PA-C dictating a progress note on this patient The patient was interviewed and examined by me as well as by Dr. Amador Case discussed with Dr. Amador and he agrees with the plan of care HPI/interval history Patient is a 74-year-old male with a history of CAD status post CABG, TIA, diabetes, peripheral artery disease status post stenting, current smoker who presented with strokelike symptoms and was found to have an evolving infarct on CT and treated with TPA. He has an 85% proximal left ICA stenosis and 75% pr oximal right ICA stenosis. He is awaiting vascular surgery which is planned for this week. Patient seen and examined in the ICU. Bedside telemetry shows sinus rhythm and so far we have not detected any atrial fibrillation. He denies any palpitations. No chest pain or shortness of breath. He admits he is not able to walk very far due to neuropathy but denies any exertional chest discomfort or shortness of breath with walking the hallways. Prior to her stroke he also denies any exertional chest discomfort or shortness of breath. EXAMINATION Patient is afebrile, pulse in the 60s, respirations 26, blood pressure 138/65, oxygen saturation 97% on room air Patient seen and examined sitting up in the chair, in no acute distress Lungs with few scattered rhonchi bilaterally Heart is regular, no audible murmurs No lower extremity edema Carotid bruits present bilaterally REVIEW OF LABS, ECG WBC 11.4, hemoglobin 13.6, platelets 204, potassium 4.4, BUN 21, creatinine 1.23 IMPRESSION / ASSESSMENT: #1 CVA status post TPA, symptoms resolved #2 severe symptomatic bilateral carotid artery atherosclerosis, 85% proximal left ICA stenosis and 75% proximal right RCA stenosis, vascular surgery planning for intervention this week #3 history of previous strokes #4 history of CAD status post CABG #5 peripheral artery disease status post stenting #6 diabetes #7 current smoker PLAN: From a cardiac standpoint, the patient is at increased cardiovascular risk for surgery but at prohibitive risk, he may proceed with vascular surgery Maximize medical treatment, continue high-intensity statins, atorvastatin 80 mg daily, goal LDL at or below 50 Dual antiplatelet therapy Risk factor reduction Smoking cessation Continue to monitor for any atrial fibrillation on telemetry Echocardiogram with bubble study ordered, awaiting results Objective - Vital Signs Vital signs: Vital Signs Temp 98.1 F 03/28/20 12:00 Pulse 64 03/28/20 13:00 Resp 26 H 03/28/20 13:00 BP 138/65 03/28/20 13:00 Pulse Ox 97 03/28/20 13:00 Intake & Output 03/27/20 03/28/20 03/28/20 18:59 06:59 18:59 Intake Total 750 700 550 Output Total 725 1600 525 Balance 25 -900 25 Weight 72.9 kg Intake: Oral 750 700 550 Output: Urine 725 1600 525 Other: Voiding Method Urinal Urinal # Voids 0 0 - Labs CBC & Chem 7: 03/28/20 04:44 03/28/20 04:44 Labs: Abnormal Lab Results - Last 24 Hours (Table) 03/27/20 03/27/20 03/28/20 Range/Units 16:47 20:54 04:44 WBC 11.4 H (3.8-10.6) k/uL BUN (9-20) mg/dL Glucose (74-99) mg/dL POC Glucose (mg/dL) 142 H 208 H (75-99) mg/dL 03/28/20 03/28/20 03/28/20 Range/Units 04:44 06:40 11:54 WBC (3.8-10.6) k/uL BUN 21 H (9-20) mg/dL Glucose 168 H (74-99) mg/dL POC Glucose (mg/dL) 172 H 239 H (75-99) mg/dL
[2020-03-28 17:25] LABS: Glucose,Whole Blood 122 mg/dL (75-99)
[2020-03-28 21:10] LABS: Glucose,Whole Blood 161 mg/dL (75-99)
[2020-03-28] MEDS: ATORVASTATIN 80 MG TAB PO SCH (21:11)
[2020-03-28] MEDS: SODIUM CHLORIDE 0.9% 1,000 ML IV SCH (22:48)
[2020-03-29 05:55] LABS: Potassium 4.3 mmol/L (3.5-5.1)
[2020-03-29 06:03] LABS: Basophils # (A) 0.1 k/uL (0-0.2); Basophils % (A) 1 %; Eosinophils # (A) 0.3 k/uL (0-0.7); Eosinophils % (A) 3 %; HCT 42.7 % (39.0-53.0); HGB 14.1 gm/dL (13.0-17.5); Lymphocytes # (A) 2.1 k/uL (1.0-4.8); Lymphocytes % (A) 26 %; MCH 30.3 pg (25.0-35.0); MCHC 33.1 g/dL (31.0-37.0); MCV 91.6 fL (80.0-100.0); Mean Platelet Volume 6.8; Monocytes # (A) 0.4 k/uL (0-1.0); Monocytes % (A) 5 %; Neutrophils # (A) 5.3 k/uL (1.3-7.7); Neutrophils % (A) 64 %; Platelet Count 193 k/uL (150-450); RBC 4.66 m/uL (4.30-5.90); RDW 13.9 % (11.5-15.5); WBC 8.2 k/uL (3.8-10.6)
[2020-03-29 06:57] LABS: Glucose,Whole Blood 160 mg/dL (75-99)
[2020-03-29] MEDS: INSULIN ASPART (NovoLOG) 100 UNIT/ML VIAL SQ SCH ×4 (07:04→21:05)
[2020-03-29] MEDS: SODIUM CHLORIDE 0.9% 1,000 ML IV SCH ×2 (08:13→17:08)
[2020-03-29] MEDS: TICAGRELOR 90 MG TAB PO SCH ×2 (08:17→21:05)
[2020-03-29] MEDS: PARoxetine 20 MG TAB PO SCH ×2 (08:17→21:05)
[2020-03-29] MEDS: ASPIRIN 81 MG PO SCH (08:17)
[2020-03-29] MEDS: DIVALPROEX 500 MG TABLET.DR PO SCH ×2 (08:17→21:05)
[2020-03-29] MEDS: HEPARIN SODIUM,PORCINE 5,000 UNIT/ML 1 ML VIAL SQ SCH ×2 (08:17→21:05)
--- NOTE | 2020-03-29 09:31 | P.PN ---
Subjective Progress Note Date: 03/29/20 She was seen and examined at the bedside in the ICU. Patient denies any acute changes through the night. He denies any shortness of breath, chest pain, or focal deficits. Objective - Vital Signs Vital signs: Vital Signs Temp 97.6 F 03/29/20 08:00 Pulse 60 03/29/20 08:00 Resp 12 03/29/20 08:00 BP 97/53 03/29/20 08:00 Pulse Ox 97 03/29/20 08:00 Intake & Output 03/28/20 03/29/20 03/29/20 18:59 06:59 18:59 Intake Total 700 250 Output Total 1050 1600 0 Balance -350 -1350 0 Weight 71.6 kg Intake: Oral 700 250 Output: Urine 1050 1600 0 Other: Voiding Method Urinal Urinal # Voids 0 - Exam General appearance: The patient is alert, oriented, in no acute distress. HET: Head is normocephalic and atraumatic. Pupils are equal and reactive. Neck: Supple without lymphadenopathy. Trachea midline. Bilateral carotid bruits. Heart: S1 S2. Regular rate and rhythm. Lungs: No crackles or wheezes are heard. Abdomen: Soft, nontender, nondistended with bowel sounds. Extremities: Normal skin color and turgor. Neurological: No focal deficits. Strength and sensation are grossly intact. - Labs CBC & Chem 7: 03/29/20 04:10 03/29/20 04:10 Labs: Abnormal Lab Results - Last 24 Hours (Table) 03/28/20 03/28/20 03/28/20 Range/Units 11:54 17:24 21:07 Sodium (137-145) mmol/L Glucose (74-99) mg/dL POC Glucose (mg/dL) 239 H 122 H 161 H (75-99) mg/dL 03/29/20 03/29/20 Range/Units 04:10 06:56 Sodium 136 L (137-145) mmol/L Glucose 157 H (74-99) mg/dL POC Glucose (mg/dL) 160 H (75-99) mg/dL Assessment and Plan Assessment: #1 symptomatic high-grade left internal carotid artery stenosis #2 high-grade right ICA stenosis #3 history of previous stroke #4 diabetic peripheral neuropathy #5 peripheral arterial disease #6 Tobacco abuse Plan: He has maintained his dual antiplatelet therapy for at least 5 days. We will start with repair of the left internal carotid artery given its higher grade stenosis and current symptomatology. He is scheduled for trans-carotid artery revascularization for this Thursday with Dr. Hays. We will decide on timing for revascularization of the right internal carotid artery. Continue aspirin, lipitor, and brilenta. Continue to follow recommendations per neurology. Fur ther recommendations to follow. The above dictated assessment and findings were discussed with Dr. Byrd. The impression and plan of care have been directed as dictated.
--- NOTE | 2020-03-29 10:46 | ECHOF ---
Referral Reason:CVA MEASUREMENTS -------- HEIGHT: 177.8 cm WEIGHT: 72.6 kg BP: 138/65 FINDINGS -------- This was a technically adequate study. Contrast study was performed with 2 iv injections of 8 ccs of agitated normal saline, at rest, and po st-Valsalva. Interatrial and interventricular septum intact. Bubble study to rule out shunt. No shunt seen. CONCLUSIONS -------- 1. Contrast study was performed with 2 iv injections of 8 ccs of agitated normal saline, at rest, and post-Valsalva. 2. Interatrial and interventricular septum intact. 3. Bubble study to rule out shunt. No shunt seen. SOFTWARE QA SYSTEM SPECIALIST: Yola Sanders RDCS
[2020-03-29 11:32] LABS: Glucose,Whole Blood 143 mg/dL (75-99)
--- NOTE | 2020-03-29 13:26 | P.PN ---
Subjective Progress Note Date: 03/29/20 74-year-old white male patient with past medical history of COPD, diabetes mellitus, coronary artery disease status post bypass grafting, carotid artery stenosis, previous history of CVA, who was seen at the hospital in the past week for symptoms of aphasia and altered mental status, and a brain CT showed no acute intracranial abnormality, and showed old right parietal and right frontal cortical infarcts. Patient was diagnosed with TIA as his symptoms resolved prior to being admitted for evaluation. MRI of the brain did show a stroke in the right parietal zone. Echocardiogram showed EF of 55-60% and no thrombus reported. Patient was seen by vascular surgery during his hospitalization or 75% left ICA stenosis patient was found to be a good candidate for TCAR. Patient was supposed to follow-up with Dr. Eduardo on March 28 for tentative scheduling of carotid intervention. On 03/26/2020 patient came into the emergency department with acute right-sided facial droop and aphasia, this was w itnessed by his when he was driving and 19 did not feel well. Patient did not have any weakness in his upper or lower extremities. He was on a combination of Plavix, aspirin, and Lipitor. Patient is an active smoker. Brain CT showed no evidence for acute intracranial hemorrhage, it did show an area of cortical and subcortical hypodensity in the right paramedian frontoparietal junction which shows some progressive decreasing density as compared to previous computed tomography scan on 03/21/2020 compatible with evolving infarct. Angiography CT of the brain showed 85% severe proximal left ICA stenosis, severe 75% focal slitlike stenosis in the proximal right ICA, no large vessel intracranial arterial occlusion, however there were moderate atherosclerotic stenosis along the bilateral supraclinoid internal carotid arteries. Patient received TPA per Dr. Ramsey, neuro operations officer [employer]. He was admitted to the intensive care unit following TPA infusion. Today he seen in the intensive care unit, right facial droop has resolved, patient is able to speak, although he feels that his speech was not back to normal earlier in the morning but has drastically improved. Patient is alert and oriented 3, he denies any difficulty breathing, he is on room air. Chest x-ray showed chronic changes without acute cardiopulmonary process. No IV fluids. He is in sinus mechanism with a rate of 59 BPM. Neurology is following. On 03/28/2020 patient seen in follow-up in the intensive care unit, he is awake and alert, oriented 3, he states that his speech is back to normal, he is moving all 4 extremities, strength is equal, face is symmetric. Patient is going for MRI of the brain this morning. She was started on subcutaneous heparin 5000 units every 12 hours, he was started on [place] and aspirin in addition to his Lipitor, neurology is following, continues on intravenous assess ments per protocol. No difficulty breathing, lung sounds are clear, he is in sinus mechanism on a monitor. Today's labs have been reviewed, with a total count is 11.4, hemoglobin is 13.6, electrolytes are within normal limits, BUN is 21 creatinine is 1.23. Patient had passed his swallow evaluation. On 03/29/2020, I'm seeing the patient for a follow-up. The patient is doing extremely well. The patient has no new complaints. The patient is awaiting a carotid endarterectomy utilizing the TCAR intervention. Meanwhile, he has no new onset neurological deficits. His speech has a back to normal. Nose and if the motor weakness. Facial asymmetry is not present on today's evaluation. BP is under good control. He is on subcu heparin for DVT prophylaxis. No nausea. No vomiting. No chest pain. No headaches. Hemodynamically stable. He remains on a combination of aspirin 81 mg by mouth daily and Brilinta 90 mg by mouth twice a day. He is also on high-dose statin 80 mg at bedtime. Objective - Vital Signs Vital signs: Vital Signs Temp 97.6 F 03/29/20 10:00 Pulse 60 03/29/20 10:00 Resp 12 03/29/20 10:00 BP 117/53 03/29/20 10:00 Pulse Ox 97 03/29/20 10:00 Intake & Output 03/28/20 03/29/20 03/29/20 18:59 06:59 18:59 Intake Total 700 250 Output Total 1050 1600 0 Balance -350 -1350 0 Weight 71.6 kg Intake: Oral 700 250 Output: Urine 1050 1600 0 Other: Voiding Method Urinal Urinal # Voids 0 - Exam GENERAL EXAM: Alert, very pleasant, 74-year-old white male, on room air, with a pulse ox of 94% comfortable in no apparent distress. HEAD: Normocephalic/atraumatic. EYES: Normal reaction of pupils, equal size. Conjunctiva pink, sclera white. NOSE: Clear with pink turbinates. THROAT: No erythema or exudates. NECK: No masses, no JVD, no thyroid enlargement, no adenopathy. CHEST: No chest wall deformity. Symmetrical expansion. LUNGS: Equal air entry with no crackles, wheeze, rhonchi or dullness. CVS: Regular rate and rhythm, normal S1 and S2, no gallops, no murmurs, no rubs ABDOMEN: Soft, nontender. No hepatosplenomegaly, normal bowel sounds, no guarding or rigidity. EXTREMITIES: No clubbing, no edema, no cyanosis, 2+ pulses and upper and lower extremities. MUSCULOSKELETAL: Muscle strength and tone normal. SPINE: No scoliosis or deformity SKIN: No rashes CENTRAL NERVOUS SYSTEM: Alert and oriented -3. No focal deficits, tone is normal in all 4 extremities. PSYCHIATRIC: Alert and oriented -3. Appropriate affect. Intact judgment and insight. - Labs CBC & Chem 7: 03/29/20 04:10 03/29/20 04:10 Labs: Abnormal Lab Results - Last 24 Hours (Table) 03/28/20 03/28/20 03/29/20 Range/Units 17:24 21:07 04:10 Sodium 136 L (137-145) mmol/L Glucose 157 H (74-99) mg/dL POC Glucose (mg/dL) 122 H 161 H (75-99) mg/dL 03/29/20 03/29/20 Range/Units 06:56 11:31 Sodium (137-145) mmol/L Glucose (74-99) mg/dL POC Glucose (mg/dL) 160 H 143 H (75-99) mg/dL Assessment and Plan Plan: #1. Acute CVA, status post TPA administration for symptoms of expressive aphasia, and right facial droop, with acute onset. The right facial droop has resolved, expressive aphasia has significantly improved. The patient is currently symptomatically and the patient is awaiting a carotid endarterectomy to be done tomorrow by vascular surgery. #2. Carotid artery stenosis, with 85% stenosis of the left ICA, and 75% stenosis of the right ICA, awaiting TCAR on Thursday, on on 03/30/2020 #3. Recent history of right parietal CVA on 03/21/2020 for which the patient was hospitalized and discharged home on 03/23/2020 #4. Diabetes mellitus type 2 with diabetic peripheral neuropathy #5. Coronary artery disease with previous history of bypass graft #6. Previous history of CVA #7. History of peripheral artery disease #8. Chronic and ongoing history of smoking Plan IV fluids to KVO Nothing by mouth after midnight Continue same medications Carotid endarterectomy utilizing TCAR
--- NOTE | 2020-03-29 14:31 | P.PN ---
Subjective 82-year-old male came in with the complaints of right-sided facial droop and slurred speech and had a CT of the head which showed showed chronic and supplementation the right cerebral hemisphere and area of chronic tickle and subcortical hypodensity in the right paramedian frontoparietal junction suspicious for evolving infarct. Patient received TPA subsequently admitted to ICU patient was a valid by neurology. Patient presently doesn't have any focal weakness or any focal neurological signs or symptoms. Patient had a CT angios which showed severe 75% stenosis in the right ICA and 80% stenosis on the left side because of the chest was surgery was consulted patient was taking aspirin and Plavix. Patient is getting a repeat CT of the head to rule out any intracranial hemorrhage of there is no hemorrhage neurology is recommending brillinta and aspirin along with Lipitor 80 mg. Patient was evaluated by plastic surgery and patient will undergo carotid endarterectomy. Patient has left ICA around 85% stenosis and right ICA 75% stenosis had previous strokes involving the right cerebral hemisphere. 03/28/2020 Patient was started on the day of antiplatelet therapy with Brillinta and aspirin. No other neurological deficits were appreciated since last night. Patient will be transferred out of ICU to [facility] patient will undergo carotid endarterectomy in Thursday. She had an MRI which did show acute ischemic changes that were seen on the computed tomography scan an old right-sided frontotemporal infarcts. 03/28/2020 Patient will undergo left carotid endarterectomy tomorrow Constitutional: Denied any fatigue denied any fever. Cardio vascular: denied any chest pain, palpitations Gastrointestinal denied any nausea vomiting Pulmonary: Denied any shortness of breath cough Neurologic denied any new focal deficits All inpatient medications were reviewed and appropriate changes in these medications as dictated in the interval history and assessment and plan. Objective - Vital Signs Vital signs: Vital Signs Temp 97.6 F 03/29/20 10:00 Pulse 60 03/29/20 10:00 Resp 12 03/29/20 10:00 BP 117/53 03/29/20 10:00 Pulse Ox 97 03/29/20 10:00 Intake & Output 03/28/20 03/29/20 03/29/20 18:59 06:59 18:59 Intake Total 700 250 Output Total 1050 1600 400 Balance -350 -1350 -400 Weight 71.6 kg Intake: Oral 700 250 Output: Urine 1050 1600 400 Other: Voiding Method Urinal Urinal # Voids 0 - Exam PHYSICAL EXAMINATION: GENERAL: The patient is alert and oriented x3, not in any acute distress. Well developed, well nourished. HEENT: Pupils are round and equally reacting to light. EOMI. No scleral icterus. No conjunctival pallor. Normocephalic, atraumatic. No pharyngeal erythema. No thyromegaly. CARDIOVASCULAR: S1 and S2 present. No murmurs, rubs, or gallops. PULMONARY: Chest is clear to auscultation, no wheezing or crackles. ABDOMEN: Soft, nontender, nondistended, normoactive bowel sounds. No palpable organomegaly. MUSCULOSKELETAL: No joint swelling or deformity. EXTREMITIES: No cyanosis, clubbing, or pedal edema. NEUROLOGICAL: Gross neurological examination did not reveal any focal deficits. SKIN: No rashes. - Labs CBC & Chem 7: 03/29/20 04:10 03/29/20 04:10 Labs: Abnormal Lab Results - Last 24 Hours (Table) 03/28/20 03/28/20 03/29/20 Range/Units 17:24 21:07 04:10 Sodium 136 L (137-145) mmol/L Glucose 157 H (74-99) mg/dL POC Glucose (mg/dL) 122 H 161 H (75-99) mg/dL 03/29/20 03/29/20 Range/Units 06:56 11:31 Sodium (137-145) mmol/L Glucose (74-99) mg/dL POC Glucose (mg/dL) 160 H 143 H (75-99) mg/dL Assessment and Plan Plan: -Acute cerebral vascular accident embolic in nature involving the right found the parietal cortex as well as occipital cortex. Patient's antiplatelet therapy as mentioned above continue with statin patient will undergo endarterectomy on the Thursday -Severe bilateral ICA stenosis, previous CVAs. -COPD without any acute exacerbation -type 2 diabetes mellitus: Metformin will be held and patient will continued on sliding scale insulin
--- NOTE | 2020-03-29 16:46 | P.PN ---
Subjective Progress Note Date: 03/29/20 Patient was seen for follow-up. Initial neurologic consultation performed by Dr. Jose Durán on 03/27/2020. Patient has presented with possible CVA, status post TPA. His symptoms were right facial droop, aphasia, NIH stroke scale of 10. MRI of the brain revealed small area of right medial parietal cortex diffusion weighted hyperintensity likely representing acute ischemia, unchanged from 03/22/2020. Old right-sided frontal and temporal infarcts. Redemonstrated T2 FLAIR hyperintensity of the white matter, right greater than left, increased from 2017 MRI comparison and likely chronic microvascular ischemic change. CTA of head showed no large vessel intercranial arterial occlusion. There are moderate atherosclerotic stenosis along the bilateral supraclinoid internal carotid arteries. Mild atherosclerotic narrowing throughout the remainder of the carotid siphons. 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 CTA of neck showed severe, 85% proximal left ICA stenosis. Severe 75% focal slitlike stenosis proximal right ICA. Both of these are unchanged from 03/21/2020. Patient currently on aspirin and Brilinta. Limited 2-D echo 03/28/2020 showed intact interatrial and interventricular septum. Bubble study negative for PFO. Patient's hemoglobin A1c is 7.5, total cholesterol 127, LDL 68, HDL 36 and triglycerides 115. TSH is normal. Liver functions normal. Patient states he has history of depression with temper outbursts for which she is on Paxil. He used to be on Depakote. It used to help him with tobacco cessation. Patient has smoked 1 pack per day for over 50 years. He has diabetes for last 15 years. Objective - Vital Signs Vital signs: Vital Signs Temp 97.6 F 03/29/20 10:00 Pulse 60 03/29/20 10:00 Resp 12 03/29/20 10:00 BP 117/53 03/29/20 10:00 Pulse Ox 97 03/29/20 10:00 Intake & Output 03/28/20 03/29/20 03/29/20 18:59 06:59 18:59 Intake Total 700 250 Output Total 1050 1600 400 Balance -350 -1350 -400 Weight 71.6 kg Intake: Oral 700 250 Output: Urine 1050 1600 400 Other: Voiding Method Urinal Urinal # Voids 0 - Exam On examination patient is a young-looking elderly male, in no acute distress. Patient is alert and awake fully oriented. Speech and language functions are normal. Attention and concentration, fund of knowledge is adequate. Cranial nerves pupils are round and reactive to light, visual chavarria are full on confrontation, extraocular muscles are intact with no nystagmus. Face is symmetric, tongue protrudes the midline. Palatal elevation and sensation normal. Hearing and shoulder shrug normal. On muscle strength testing there is no pronator drift and the strength is normal in arms and legs distally and proximally reflexes are symmetric and plantars are downgoing. Sensory touch is equal with no neglect. No ataxia for [id number] testing. Tone and bulk of muscles normal gait deferred. - Labs CBC & Chem 7: 03/29/20 04:10 03/29/20 04:10 Labs: Abnormal Lab Results - Last 24 Hours (Table) 03/28/20 03/28/20 03/29/20 Range/Units 17:24 21:07 04:10 Sodium 136 L (137-145) mmol/L Glucose 157 H (74-99) mg/dL POC Glucose (mg/dL) 122 H 161 H (75-99) mg/dL 03/29/20 03/29/20 Range/Units 06:56 11:31 Sodium (137-145) mmol/L Glucose (74-99) mg/dL POC Glucose (mg/dL) 160 H 143 H (75-99) mg/dL Assessment and Plan Assessment: * Acute stroke manifesting with expressive aphasia and right facial droop, sta tus post TPA. Current NIH stroke scale is 0. * Symptomatic left ICA stenosis 85% * Symptomatic right ICA stenosis 75%. * Diabetes, not well controlled * Hypertension * Tobacco use * Peripheral arterial disease * Coronary artery disease status post bypass surgery. * Bipolar disorder. * Diabetic peripheral neuropathy. Plan: * Patient has symptomatic left ICA stenosis. Patient is undergoing left trans- carotid artery revascularization in a.m. * Patient will need right CEA in the near future as well. * Continue dual antiplatelet medications with aspirin 81 mg, Brillinta 90 mg twice a day and Lipitor 80 mg. * We will check EEG to rule out any epileptiform activity. * Complete tobacco cessation. Patient on Depakote, which she claims will help with attaining tobacco cessation. * Neurology will follow.
[2020-03-29 16:53] LABS: Glucose,Whole Blood 235 mg/dL (75-99)
[2020-03-29 20:53] LABS: Glucose,Whole Blood 140 mg/dL (75-99)
[2020-03-29] MEDS: ATORVASTATIN 80 MG TAB PO SCH (21:05)
[2020-03-30 04:52] LABS: HCT 46.3 % (39.0-53.0); MCH 29.8 pg (25.0-35.0); MCHC 32.4 g/dL (31.0-37.0); MCV 91.9 fL (80.0-100.0); Platelet Count 229 k/uL (150-450); RBC 5.04 m/uL (4.30-5.90); RDW 13.9 % (11.5-15.5); WBC 10.5 k/uL (3.8-10.6)
[2020-03-30 05:02] LABS: Calcium 9.5 mg/dL (8.4-10.2); Potassium 4.6 mmol/L (3.5-5.1)
[2020-03-30 07:16] LABS: Glucose,Whole Blood 189 mg/dL (75-99)
[2020-03-30] MEDS: INSULIN ASPART (NovoLOG) 100 UNIT/ML VIAL SQ SCH ×4 (07:17→21:15)
[2020-03-30] MEDS: DIVALPROEX 500 MG TABLET.DR PO SCH ×2 (09:28→21:15)
[2020-03-30] MEDS: ASPIRIN 81 MG PO SCH (09:28)
[2020-03-30] MEDS: TICAGRELOR 90 MG TAB PO SCH ×2 (09:28→21:15)
[2020-03-30] MEDS: PARoxetine 20 MG TAB PO SCH ×2 (09:28→21:16)
[2020-03-30] MEDS: HEPARIN SODIUM,PORCINE 5,000 UNIT/ML 1 ML VIAL SQ SCH ×2 (09:36→21:15)
[2020-03-30] MEDS: SODIUM CHLORIDE 0.9% 1,000 ML IV SCH ×2 (09:38→21:16)
--- NOTE | 2020-03-30 11:07 | P.PN ---
Subjective Progress Note Date: 03/30/20 74-year-old white male patient with past medical history of COPD, diabetes mellitus, coronary artery disease status post bypass grafting, carotid artery stenosis, previous history of CVA, who was seen at the hospital in the past week for symptoms of aphasia and altered mental status, and a brain CT showed no acute intracranial abnormality, and showed old right parietal and right frontal cortical infarcts. Patient was diagnosed with TIA as his symptoms resolved prior to being admitted for evaluation. MRI of the brain did show a stroke in the right parietal zone. Echocardiogram showed EF of 55-60% and no thrombus reported. Patient was seen by vascular surgery during his hospitalization or 75% left ICA stenosis patient was found to be a good candidate for TCAR. Patient was supposed to follow-up with Dr. Eduardo on March 28 for tentative scheduling of carotid intervention. On 03/26/2020 patient came into the emergency department with acute right-sided facial droop and aphasia, this was w itnessed by his when he was driving and 19 did not feel well. Patient did not have any weakness in his upper or lower extremities. He was on a combination of Plavix, aspirin, and Lipitor. Patient is an active smoker. Brain CT showed no evidence for acute intracranial hemorrhage, it did show an area of cortical and subcortical hypodensity in the right paramedian frontoparietal junction which shows some progressive decreasing density as compared to previous computed tomography scan on 03/21/2020 compatible with evolving infarct. Angiography CT of the brain showed 85% severe proximal left ICA stenosis, severe 75% focal slitlike stenosis in the proximal right ICA, no large vessel intracranial arterial occlusion, however there were moderate atherosclerotic stenosis along the bilateral supraclinoid internal carotid arteries. Patient received TPA per Dr. 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 He was admitted to the intensive care unit following TPA infusion. Today he seen in the intensive care unit, right facial droop has resolved, patient is able to speak, although he feels that his speech was not back to normal earlier in the morning but has drastically improved. Patient is alert and oriented 3, he denies any difficulty breathing, he is on room air. Chest x-ray showed chronic changes without acute cardiopulmonary process. No IV fluids. He is in sinus mechanism with a rate of 59 BPM. Neurology is following. On 03/28/2020 patient seen in follow-up in the intensive care unit, he is awake and alert, oriented 3, he states that his speech is back to normal, he is moving all 4 extremities, strength is equal, face is symmetric. Patient is going for MRI of the brain this morning. She was started on subcutaneous heparin 5000 units every 12 hours, he was started on [place] and aspirin in addition to his Lipitor, neurology is following, continues on intravenous assess ments per protocol. No difficulty breathing, lung sounds are clear, he is in sinus mechanism on a monitor. Today's labs have been reviewed, with a total count is 11.4, hemoglobin is 13.6, electrolytes are within normal limits, BUN is 21 creatinine is 1.23. Patient had passed his swallow evaluation. On 03/29/2020, I'm seeing the patient for a follow-up. The patient is doing extremely well. The patient has no new complaints. The patient is awaiting a carotid endarterectomy utilizing the TCAR intervention. Meanwhile, he has no new onset neurological deficits. His speech has a back to normal. Nose and if the motor weakness. Facial asymmetry is not present on today's evaluation. BP is under good control. He is on subcu heparin for DVT prophylaxis. No nausea. No vomiting. No chest pain. No headaches. Hemodynamically stable. He remains on a combination of aspirin 81 mg by mouth daily and Brilinta 90 mg by mouth twice a day. He is also on high-dose statin 80 mg at bedtime. On 03/30/2020 I'm seeing the patient for a follow-up. The patient remains clinically unchanged compared to yesterday and there are no new onset neurological issues. The patient is awaiting a carotid endarterectomy to be done today at around noontime. He remains on aspirin. He remains on Brilinta. Hemodynamically stable. He remains nothing by mouth waiting for surgery. Objective - Vital Signs Vital signs: Vital Signs Temp 97.6 F 03/30/20 07:00 Pulse 56 L 03/30/20 07:00 Resp 17 03/30/20 07:00 BP 129/68 03/30/20 07:00 Pulse Ox 95 03/30/20 07:00 Intake & Output 03/29/20 03/30/20 03/30/20 18:59 06:59 18:59 Intake Total 240 Output Total 640 0 Balance -640 240 Weight 69 kg Intake: Oral 240 Output: Urine 640 0 Other: # Voids 0 - Exam GENERAL EXAM: Alert, very pleasant, 74-year-old white male, on room air, with a pulse ox of 94% comfortable in no apparent distress. HEAD: Normocephalic/atraumatic. EYES: Normal reaction of pupils, equal size. Conjunctiva pink, sclera white. NOSE: Clear with pink turbinates. THROAT: No erythema or exudates. NECK: No masses, no JVD, no thyroid enlargement, no adenopathy. CHEST: No chest wall deformity. Symmetrical expansion. LUNGS: Equal air entry with no crackles, wheeze, rhonchi or dullness. CVS: Regular rate and rhythm, normal S1 and S2, no gallops, no murmurs, no rubs ABDOMEN: Soft, nontender. No hepatosplenomegaly, normal bowel sounds, no guarding or rigidity. EXTREMITIES: No clubbing, no edema, no cyanosis, 2+ pulses and upper and lower extremities. MUSCULOSKELETAL: Muscle strength and tone normal. SPINE: No scoliosis or deformity SKIN: No rashes CENTRAL NERVOUS SYSTEM: Alert and oriented -3. No focal deficits, tone is normal in all 4 extremities. PSYCHIATRIC: Alert and oriented -3. Appropriate affect. Intact judgment and insight. - Labs CBC & Chem 7: 03/30/20 04:24 03/30/20 04:24 Labs: Abnormal Lab Results - Last 24 Hours (Table) 03/29/20 03/29/20 03/29/20 Range/Units 11:31 16:51 20:52 BUN (9-20) mg/dL Glucose (74-99) mg/dL POC Glucose (mg/dL) 143 H 235 H 140 H (75-99) mg/dL 03/30/20 03/30/20 Range/Units 04:24 07:14 BUN 26 H (9-20) mg/dL Glucose 166 H (74-99) mg/dL POC Glucose (mg/dL) 189 H (75-99) mg/dL Assessment and Plan Plan: #1. Acute CVA, status post TPA administration for symptoms of expressive aphasia, and right facial droop, with acute onset. The right facial droop has resolved, expressive aphasia has significantly improved. The patient is currently symptomatically and the patient is awaiting a carotid endarterectomy to be done tomorrow by vascular surgery. #2. Carotid artery stenosis, with 85% stenosis of the left ICA, and 75% stenosis of the right ICA, awaiting TCAR on Thursday, on on 03/30/2020 #3. Recent history of right parietal CVA on 03/21/2020 for which the patient was hospitalized and discharged home on 03/23/2020 #4. Diabetes mellitus type 2 with diabetic peripheral neuropathy #5. Coronary artery disease with previous history of bypass graft #6. Previous history of CVA #7. History of peripheral artery disease #8. Chronic and ongoing history of smoking Plan proceed with carotid endarterectomy today. Bring the patient to the ICU following surgery Keep nothing by mouth for now We'll do the routine postoperative care.
[2020-03-30 11:33] LABS: Glucose,Whole Blood 140 mg/dL (75-99)
[2020-03-30] MEDS ORDERED: DEXMEDETOMIDINE/0.9% NACL(PMX) 400 MCG in EMPTY BAG 1 BAG IV SCH (11:45)
--- NOTE | 2020-03-30 12:10 | P.PN ---
Subjective Progress Note Date: 03/30/20 03/30/2020: Patient denies any new focal symptoms. Feeling fine. No headache. 03/29/2020: Patient was seen for follow-up. Initial neurologic consultation performed by Dr. Jose Durán on 03/27/2020. Patient has presented with possible CVA, status post TPA. His symptoms were right facial droop, aphasia, NIH stroke scale of 10. MRI of the brain revealed small area of right medial parietal cortex diffusion weighted hyperintensity likely representing acute ischemia, unchanged from 03/22/2020. Old right-sided frontal and temporal infarcts. Redemonstrated T2 FLAIR hyperintensity of the white matter, right greater than left, increased from 2017 MRI comparison and likely chronic microvascular ischemic change. CTA of head showed no large vessel intercranial arterial occlusion. There are moderate atherosclerotic stenosis along the bilateral supraclinoid internal carotid arteries. Mild atherosclerotic narrowing throughout the remainder of t he carotid siphons. 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 CTA of neck showed severe, 85% proximal left ICA stenosis. Severe 75% focal slitlike stenosis proximal right ICA. Both of these are unchanged from 03/21/2020. Patient currently on aspirin and Brilinta. Limited 2-D echo 03/28/2020 showed intact interatrial and interventricular septum. Bubble study negative for PFO. Patient's hemoglobin A1c is 7.5, total cholesterol 127, LDL 68, HDL 36 and triglycerides 115. TSH is normal. Liver functions normal. Patient states he has history of depression with temper outbursts for which she is on Paxil. He used to be on Depakote. It used to help him with tobacco cessation. Patient has smoked 1 pack per day for over 50 years. He has diabetes for last 15 years. Objective - Vital Signs Vital signs: Vital Signs Temp 97.5 F L 03/30/20 11:50 Pulse 56 L 03/30/20 11:50 Resp 18 03/30/20 11:50 BP 146/66 03/30/20 11:50 Pulse Ox 100 03/30/20 11:50 Intake & Output 03/29/20 03/30/20 03/30/20 18:59 06:59 18:59 Intake Total 240 150 Output Total 640 0 Balance -640 240 150 Weight 69 kg Intake: IV 150 Sodium Chloride 0.9% 1, 150 000 ml @ 75 mls/hr IV . [id number] [facility] Rx#:[id number] Oral 240 Output: Urine 640 0 Other: # Voids 0 1 - Exam On examination patient is a young-looking elderly male, in no acute distress. Patient is alert and awake fully oriented. Speech and language functions are normal. Attention and concentration, fund of knowledge is adequate. Cranial nerves pupils are round and reactive to light, visual chavarria are full on confrontation, extraocular muscles are intact with no nystagmus. F hillary is symmetric, tongue protrudes the midline. Palatal elevation and sensation normal. Hearing and shoulder shrug normal. On muscle strength testing there is no pronator drift, and the strength is normal in arms and legs distally and proximally. Deep tendon reflexes are symmetric and plantars are downgoing. Sensory touch is equal with no neglect. No ataxia for [id number] testing. Tone and bulk of muscles normal gait deferred. - Labs CBC & Chem 7: 03/30/20 04:24 03/30/20 04:24 Labs: Abnormal Lab Results - Last 24 Hours (Table) 03/29/20 03/29/20 03/30/20 Range/Units 16:51 20:52 04:24 BUN 26 H (9-20) mg/dL Glucose 166 H (74-99) mg/dL POC Glucose (mg/dL) 235 H 140 H (75-99) mg/dL 03/30/20 03/30/20 Range/Units 07:14 11:31 BUN (9-20) mg/dL Glucose (74-99) mg/dL POC Glucose (mg/dL) 189 H 140 H (75-99) mg/dL Assessment and Plan Assessment: * Acute stroke manifesting with expressive aphasia and right facial droop, status post TPA. Current NIH stroke scale is 0. * Symptomatic left ICA stenosis 85% * Symptomatic right ICA stenosis 75%. * Diabetes, not well controlled * Hypertension * Tobacco use * Peripheral arterial disease * Coronary artery disease status post bypass surgery. * Bipolar disorder. * Diabetic peripheral neuropathy. Plan: * Patient has symptomatic left ICA stenosis. Patient is undergoing left trans- carotid artery revascularization today at 2 PM * Patient will need right CEA in the near future as well. * Continue dual antiplatelet medications with aspirin 81 mg, Brillinta 90 mg twice a day and Lipitor 80 mg. * EEG was performed, which revealed intermittent right temporal parietal slowing suggestive of focal cortical neuronal dysfunction. No epileptiform activity was seen. * Complete tobacco cessation. * Dr. Christie will be available for neurology coverage by tele-neurology over the weekend.
[2020-03-30] MEDS ORDERED: NITROGLYCERIN-D5W PMX 50 MG in DEXTROSE/WATER 1 250ML.BAG IV SCH (12:30)
--- NOTE | 2020-03-30 12:37 | P.PN ---
Subjective This is Delfina Rosenthal PA-C scribing a progress note on this patient on behalf of Dr. Amador The patient was interviewed and examined by Dr. Amador HPI/interval history Patient is a 74-year-old male with a history of CAD status post CABG, TIA, diabetes, peripheral artery disease status post stenting, current smoker who presented with strokelike symptoms and was found to have an evolving infarct on CT and treated with TPA. He has an 85% proximal left ICA stenosis and 75% proximal right ICA stenosis. He is awaiting vascular surgery which is planned for today. Patient seen and examined by Dr. Amador. Patient denies any complaints. No chest pain, shortness of breath, dizziness. Bedside telemetry revealed sinus rhythm. No evidence of A. fib on the monitor. EXAMINATION Patient is afebrile, pulse in the 50s, respirations 18, blood pressure 146/66, oxygen saturation 100% on room air Patient seen and examined by Dr. Amador in the ICU Patient not in any distress Heart is regular, no audible murmurs Lungs are clear to auscultation bilaterally Extremities warm no edema Carotid bruits present REVIEW OF LABS, ECG WBC 10.5, hemoglobin 15.0, platelets 229, potassium 4.6, BUN 26, creatinine 1.2 IMPRESSION / ASSESSMENT: #1 CVA status post TPA, symptoms resolved #2 severe symptomatic bilateral carotid artery atherosclerosis, 85% proximal left ICA stenosis and 75% proximal right RCA stenosis, will undergo vascular intervention today #3 history of previous strokes #4 history of CAD status post CABG #5 peripheral artery disease status post stenting #6 diabetes #7 current smoker PLAN: Continue dual antiplatelet therapy, and atorvastatin 80 mg daily Proceed with vascular surgery Objective - Vital Signs Vital signs: Vital Signs Temp 97.5 F L 03/30/20 11:50 Pulse 56 L 03/30/20 11:50 Resp 18 03/30/20 11:50 BP 146/66 03/30/20 11:50 Pulse Ox 100 03/30/20 11:50 Intake & Output 03/29/20 03/30/20 03/30/20 18:59 06:59 18:59 Intake Total 240 150 Output Total 640 0 Balance -640 240 150 Weight 69 kg Intake: IV 150 Sodium Chloride 0.9% 1, 150 000 ml @ 75 mls/hr IV . [id number] [facility] Rx#:[id number] Oral 240 Output: Urine 640 0 Other: # Voids 0 1 - Labs CBC & Chem 7: 03/30/20 04:24 03/30/20 04:24 Labs: Abnormal Lab Results - Last 24 Hours (Table) 03/29/20 03/29/20 03/30/20 Range/Units 16:51 20:52 04:24 BUN 26 H (9-20) mg/dL Glucose 166 H (74-99) mg/dL POC Glucose (mg/dL) 235 H 140 H (75-99) mg/dL 03/30/20 03/30/20 Range/Units 07:14 11:31 BUN (9-20) mg/dL Glucose (74-99) mg/dL POC Glucose (mg/dL) 189 H 140 H (75-99) mg/dL
[2020-03-30] MEDS ORDERED: ceFAZolin 1,000 MG in SODIUM CHLORIDE 0.9% IRRIGATIO 250 ML IRRIGATION ONE (13:00)
--- NOTE | 2020-03-30 13:08 | P.PN ---
Subjective 82-year-old male came in with the complaints of right-sided facial droop and slurred speech and had a CT of the head which showed showed chronic and supplementation the right cerebral hemisphere and area of chronic tickle and subcortical hypodensity in the right paramedian frontoparietal junction suspicious for evolving infarct. Patient received TPA subsequently admitted to ICU patient was a valid by neurology. Patient presently doesn't have any focal weakness or any focal neurological signs or symptoms. Patient had a CT angios which showed severe 75% stenosis in the right ICA and 80% stenosis on the left side because of the chest was surgery was consulted patient was taking aspirin and Plavix. Patient is getting a repeat CT of the head to rule out any intracranial hemorrhage of there is no hemorrhage neurology is recommending brillinta and aspirin along with Lipitor 80 mg. Patient was evaluated by plastic surgery and patient will undergo carotid endarterectomy. Patient has left ICA around 85% stenosis and right ICA 75% stenosis had previous strokes involving the right cerebral hemisphere. 03/28/2020 Patient was started on the day of antiplatelet therapy with Brillinta and aspirin. No other neurological deficits were appreciated since last night. Patient will be transferred out of ICU to [facility] patient will undergo carotid endarterectomy in Thursday. She had an MRI which did show acute ischemic changes that were seen on the computed tomography scan an old right-sided frontotemporal infarcts. 03/29/2020 Patient will undergo left carotid endarterectomy tomorrow 03/30/2020 Patient is going for carotid endarterectomy today Constitutional: Denied any fatigue denied any fever. Cardio vascular: denied any chest pain, palpitations Gastrointestinal denied any nausea vomiting Pulmonary: Denied any shortness of breath cough Neurologic denied any new focal deficits All inpatient medications were reviewed and appropriate changes in these medications as dictated in the interval history and assessment and plan. Objective - Vital Signs Vital signs: Vital Signs Temp 97.5 F L 03/30/20 11:50 Pulse 56 L 03/30/20 11:50 Resp 18 03/30/20 11:50 BP 146/66 03/30/20 11:50 Pulse Ox 100 03/30/20 11:50 Intake & Output 03/29/20 03/30/20 03/30/20 18:59 06:59 18:59 Intake Total 240 150 Output Total 640 0 Balance -640 240 150 Weight 69 kg Intake: IV 150 Sodium Chloride 0.9% 1, 150 000 ml @ 75 mls/hr IV . [id number] [facility] Rx#:[id number] Oral 240 Output: Urine 640 0 Other: # Voids 0 1 - Exam PHYSICAL EXAMINATION: GENERAL: The patient is alert and oriented x3, not in any acute distress. Well developed, well nourished. HEENT: Pupils are round and equally reacting to light. EOMI. No scleral icterus. No conjunctival pallor. Normocephalic, atraumatic. No pharyngeal erythema. No thyromegaly. CARDIOVASCULAR: S1 and S2 present. No murmurs, rubs, or gallops. PULMONARY: Chest is clear to auscultation, no wheezing or crackles. ABDOMEN: Soft, nontender, nondistended, normoactive bowel sounds. No palpable organomegaly. MUSCULOSKELETAL: No joint swelling or deformity. EXTREMITIES: No cyanosis, clubbing, or pedal edema. NEUROLOGICAL: Gross neurological examination did not reveal any focal deficits. SKIN: No rashes. - Labs CBC & Chem 7: 03/30/20 04:24 03/30/20 04:24 Labs: Abnormal Lab Results - Last 24 Hours (Table) 03/29/20 03/29/20 03/30/20 Range/Units 16:51 20:52 04:24 BUN 26 H (9-20) mg/dL Glucose 166 H (74-99) mg/dL POC Glucose (mg/dL) 235 H 140 H (75-99) mg/dL 03/30/20 03/30/20 Range/Units 07:14 11:31 BUN (9-20) mg/dL Glucose (74-99) mg/dL POC Glucose (mg/dL) 189 H 140 H (75-99) mg/dL Assessment and Plan Plan: -Acute cerebral vascular accident embolic in nature involving the right found the parietal cortex as well as occipital cortex. Patient's antiplatelet therapy as mentioned above continue with statin patient will undergo endarterectomy today -Severe bilateral ICA stenosis, previous CVAs. -COPD without any acute exacerbation -type 2 diabetes mellitus: Metformin will be held and patient will continued on sliding scale insulin
[2020-03-30] MEDS ORDERED: ePHEDrine SULFATE/0.9% NACL/PF 50 MG/5 ML SYRINGE IV ONE (13:15)
[2020-03-30] MEDS ORDERED: HEPARIN SODIUM,PORCINE 10,000 UNIT/ML 1 ML VIAL ONE (13:15)
[2020-03-30] MEDS ORDERED: fentaNYL (PF) 50 MCG/ML 2 ML AMP ONE (13:15)
[2020-03-30] MEDS ORDERED: DEXMEDETOMIDINE/0.9% NACL(PMX) 400 MCG/100 ML IV ONE (13:15)
[2020-03-30] MEDS ORDERED: PHENYLEPHRINE-0.9% NACL SYG 1 MG/10 ML SYRINGE ONE (13:15)
[2020-03-30] MEDS ORDERED: GLYCOPYRROLATE 0.2 MG/ML 2 ML VIAL ONE (13:15)
[2020-03-30] MEDS ORDERED: IV FLUID CONTINUATION 950 ML IV ONE (13:17)
[2020-03-30] MEDS: LIDOCAINE 1% INJ 10MG/ML (20 ML MDV) SQ ONE ×2 (13:39→13:49)
[2020-03-30] MEDS ORDERED: LIDOCAINE 1% INJ 10MG/ML (20 ML MDV) SQ ONE (13:58)
[2020-03-30] MEDS ORDERED: IOPAMIDOL-250 100ML BTL INTRAARTER ONE ×2 (14:37→15:52)
--- NOTE | 2020-03-30 15:17 | EEG ---
ELECTROENCEPHALOGRAM REPORT DATE OF SERVICE: 03/30/2020 PREAMBLE: This is a 74-year-old male with a history of recent strokes. This study is performed to evaluate for any epileptiform activity. EEG FINDINGS: This is a 21-channel routine EEG recording in a patient utilizing 10-20 international system with referential and bipolar montages. Background consists of well developed, well regulated, moderate voltage activity in 8-9 hertz alpha. Background is posterior- dominant and reactive to eye opening and closing. There is intermittent arrhythmic theta and occasional delta activity seen in the right temporoparietal region. Sharp spiky waves were seen over the right central region every 17 seconds, which was most likely artifact due to IV line. No definitive epileptiform activity was seen. Different stages of sleep were not seen. Photic driving response was not seen. EKG rhythm lead revealed no obvious arrhythmia. IMPRESSION: This is an abnormal EEG due to intermittent slowing over the right temporoparietal region. This is suggestive of focal cortical neuronal dysfunction; may be related to underlying structural abnormality. No definitive epileptiform activity was seen. MMODL / IJN: [id number] / [facility] CENTERPreeti
[2020-03-30] MEDS ORDERED: LACTATED RINGERS 1,000 ML IV ONE (15:56)
[2020-03-30] MEDS ORDERED: MAG HYDROX/AL HYDROX/SIMETH 30 ML CUP PO PRN (17:03)
[2020-03-30] MEDS ORDERED: ATROPINE SULFATE 0.1 MG/ML 10ML SYRINGE IV PRN (17:03)
[2020-03-30] MEDS ORDERED: RX INFO: IV CONTRAST WAS GIVEN 1 EACH MISC MISCELLANE PRN (17:03)
[2020-03-30] MEDS: PHENYLEPHRINE 40 MG in SODIUM CHLORIDE 0.9% 250 ML IV SCH (17:20)
[2020-03-30 17:27] LABS: Glucose,Whole Blood 177 mg/dL (75-99)
--- NOTE | 2020-03-30 17:31 | P.OP ---
Date of Procedure: 03/30/20 Preoperative Diagnosis: Symptomatic left carotid artery stenosis Postoperative Diagnosis: Symptomatic left carotid stenosis Procedure(s) Performed: Left Transcarotid artery revascularization with stenting Anesthesia: local Surgeon: Froy Hays Estimated Blood Loss (ml): 50 Pathology: none sent Condition: stable Disposition: ICU Indications for Procedure: 74-year-old gentleman currently being treated at the hospital for TIA from left carotid artery stenosis greater than 70% seen on ultrasound and CTA. His symptoms involved his speech which resolved within 24 hours. He presents to the [facility] for transfer carotid artery revascularization and stenting of his left internal carotid artery. Description of Procedure: After written and informed consent was obtained the patient all risks benefits competitions were described the patient was brought to the [facility] laid in a supine position. The area of the neck was prepped and draped in usual sterile fashion along with the groins. Timeout was performed in normal fashion and antibiotics were administered prior to incision. A transverse incision was then created overlying the common carotid artery with a 10 blade scalpel and dissection was carried down to the common carotid artery with electrocautery. The carotid artery was then dissected free in a circumferential manner and controlled with umbilical tape. Pursestring suture was then placed with 6-0 Prolene suture. Access was obtained with a multipurpose needle after patient was administered heparin and followed with serial ACTs. 4-Dutch catheter was then guided over a guidewire and carotid injury gram was obtained demonstrating significant stenosis approximately 75%. Stiff wire was then placed at the base of the bifurcation and 4-Dutch sheath was removed followed by the eNRoute sheath. Upon entrance of the with the sheath there was some bowing of the vessel and possible dissection noted. Attention was then placed to the groin and utilizing ultrasound the right common femoral vein was accessed with a multipurpose needle and the 8-Dutch eNRoute sheath was placed. Flow reversal was then initiated. Once ACT was greater than 230 and blood pressure was greater than 160 the common carotid artery was clamped and full flow reversal was obtained. Patient was monitored with cerebral oximetry and never dropped more than 5 points. Patient was awake and moving extremities and following commands while clamped. Flow reversal was checked and showed to be substantial. 014 wire was then utilized and attempt to access and cross the lesion was performed. There was some bowing of the wire which demonstrated a dissection flap and therefore the sheath was drawn back and wire was placed within the true lumen. Injury gram was obtained demonstrating good placement of the wire across the lesion and utilizing a 5 x 30 mm Combs balloon balloon angioplasty was performed followed by a 10 x [address] stent. Once completed angiogram was obtained demonstrating good resolution of the stenosis in the internal ca rotid artery and bifurcation but there was a small dissection flap noted just distal to the access site. 035 Glidewire was then bloodied across this dissection and a 8 x 20 mm balloon was utilized for balloon angioplasty at the dissection flap. Injury gram was then obtained still demonstrating the dissection flap and therefore it was determined to extend the arteriotomy from the access site and fixed the dissection flap. All guidewires and catheters were then removed arteriotomy was created with 11 blade scalpel and extended with Pott Begum scissors and dissection flap was noted. Utilizing 7-0 Prolene suture the dissection flap was then tacked. Arteriotomy was then closed with 7- 0 Prolene suture in a running fashion. All control was released revealing good pulsatile blood flow through this area and on Doppler there was multiphasic without any signs of obstruction. Utilizing a butterfly needle access was obtained in the common carotid just below the repair and angiogram was obtained demonstrating good tacking of the dissection flap without any flow disturbance. Good flow was noted through the carotid stent. The area was then copiously irrigated the butterfly needle was removed and the access site was closed with 7-0 Prolene suture. Hemostasis was assured with Surgicel. A 10 Mariano drain was then placed and sutured with silk suture. The area was copiously irrigated and the incision was closed in a multilayer fashion. Patient tied procedure well was moving all extremities and following commands without any deficit. He was then sent to ICU for recovery.
[2020-03-30] MEDS: CLEVIDIPINE BUTYRATE 25 MG in EMPTY BAG 1 BAG IV SCH (20:04)
[2020-03-30 21:12] LABS: Glucose,Whole Blood 150 mg/dL (75-99)
[2020-03-30] MEDS: ATORVASTATIN 80 MG TAB PO SCH (21:15)
[2020-03-31 04:14] LABS: Basophils % (A) 0 %; Eosinophils # (A) 0.2 k/uL (0-0.7); Eosinophils % (A) 2 %; HCT 35.9 % (39.0-53.0); Lymphocytes # (A) 1.9 k/uL (1.0-4.8); Lymphocytes % (A) 18 %; MCH 30.2 pg (25.0-35.0); MCHC 33.3 g/dL (31.0-37.0); MCV 90.9 fL (80.0-100.0); Mean Platelet Volume 8.2; Monocytes # (A) 0.4 k/uL (0-1.0); Monocytes % (A) 4 %; Neutrophils # (A) 7.9 k/uL (1.3-7.7); Neutrophils % (A) 75 %; Platelet Count 200 k/uL (150-450); RBC 3.95 m/uL (4.30-5.90); RDW 13.9 % (11.5-15.5); WBC 10.5 k/uL (3.8-10.6)
[2020-03-31 04:23] LABS: African American GFR (CKD) >90 (>60 ml/min/1.73 sqM); Anion Gap 5 mmol/L; Blood Urea Nitrogen 18 mg/dL (9-20); Calcium 8.3 mg/dL (8.4-10.2); Carbon Dioxide 25 mmol/L (22-30); Chloride 104 mmol/L (98-107); Glucose 177 mg/dL (74-99); Non-African American GFR(CKD) 81 (>60 ml/min/1.73 sqM); Potassium 3.8 mmol/L (3.5-5.1); Sodium 134 mmol/L (137-145)
[2020-03-31 04:29] LABS: HGB 11.9 gm/dL (13.0-17.5)
[2020-03-31] MEDS ORDERED: Potassium Replacement Protocol 1 EACH MISC MISCELLANE PRN (04:43)
[2020-03-31 06:40] LABS: Glucose,Whole Blood 162 mg/dL (75-99)
[2020-03-31] MEDS: INSULIN ASPART (NovoLOG) 100 UNIT/ML VIAL SQ SCH ×4 (06:43→20:33)
[2020-03-31] MEDS ORDERED: POTASSIUM CHLORIDE ER 20 MEQ TAB.ER PO SCH (07:00)
--- NOTE | 2020-03-31 08:21 | P.PN ---
Subjective Progress Note Date: 03/31/20 Principal diagnosis: Carotid stenosis, status post left TCAR Patient seen and examined sitting in a chair at bedside. He states he is doing well and has no complaints except for some mild pain at his incision site. He states he is eating well and has no pain with swallowing or difficulty swallowing. Overnight 20 mL of drainage from the incision noted which is serosanguineous. No lateralizing symptoms such as weakness, vision changes or speech issues. Objective - Vital Signs Vital signs: Vital Signs Temp 97.9 F 03/31/20 08:00 Pulse 66 03/31/20 08:00 Resp 19 03/31/20 08:00 BP 107/63 03/31/20 08:00 Pulse Ox 97 03/31/20 08:00 Intake & Output 03/30/20 03/31/20 03/31/20 18:59 06:59 18:59 Intake Total 7629.617 6338.743 156.694 Output Total 1090 450 Balance 1452.703 373.743 -293.306 Weight 72.1 kg Intake: IV 1450 900 150 Sodium Chloride 0.9% 1, 300 900 150 000 ml @ 75 mls/hr IV . [id number] [facility] Rx#:[id number] Intake, IV Titration 2.703 63.743 6.694 Amount Phenylephrine 40 mg In 2.703 63.743 6.694 Sodium Chloride 0.9% 250 ml @ 0.5 MCG/KG/MIN 13. 145 mls/hr IV .[id number] [facility] Rx#:[id number] Oral 500 Output: Drainage 40 Left Neck 40 Urine 1050 450 Other: Voiding Method Toilet Urinal # Voids 1 ABP, PAP, CO, CI - Last Documented Arterial Blood Pressure 124/47 - Exam Left neck incision is clean, dry and intact without any signs of hematoma. Drain demonstrates serosanguineous fluid. There is tenderness to palpation at t he musculature at the incision site. - Constitutional General appearance: Present: average body habitus, cooperative, no acute distress - EENT Eyes: Present: PERRLA - Respiratory Respiratory: bilateral: CTA - Cardiovascular Rhythm: regular - Neurologic Neurologic: Present: CNII-XII intact. Absent: focal deficits - Psychiatric Psychiatric: Present: A&O x's 3, appropriate affect, intact judgment & insight - Labs CBC & Chem 7: 03/31/20 04:05 03/31/20 04:05 Labs: Abnormal Lab Results - Last 24 Hours (Table) 03/30/20 03/30/20 03/30/20 Range/Units 11:31 17:25 21:11 RBC (4.30-5.90) m/uL Hgb (13.0-17.5) gm/dL Hct (39.0-53.0) % Neutrophils # (1.3-7.7) k/uL Sodium (137-145) mmol/L Glucose (74-99) mg/dL POC Glucose (mg/dL) 140 H 177 H 150 H (75-99) mg/dL Calcium (8.4-10.2) mg/dL 03/31/20 03/31/20 03/31/20 Range/Units 04:05 04:05 06:39 RBC 3.95 L (4.30-5.90) m/uL Hgb 11.9 L D (13.0-17.5) gm/dL Hct 35.9 L (39.0-53.0) % Neutrophils # 7.9 H (1.3-7.7) k/uL Sodium 134 L (137-145) mmol/L Glucose 177 H (74-99) mg/dL POC Glucose (mg/dL) 162 H (75-99) mg/dL Calcium 8.3 L (8.4-10.2) mg/dL Assessment and Plan Assessment: #1 symptomatic left carotid stenosis status post TCAR #2 hypertension #3 COPD #4 type 2 diabetes Plan: Continue to wean medications or blood pressure. Increase activity, ambulate. If okay per IM, cardiology and intensiveness patient can be moved to the regular floor from a vascular standpoint. ZOEY drain to be removed later today if no increased output.
[2020-03-31] MEDS: ASPIRIN 81 MG PO SCH (09:12)
[2020-03-31] MEDS: TICAGRELOR 90 MG TAB PO SCH ×2 (09:12→20:33)
[2020-03-31] MEDS: PARoxetine 20 MG TAB PO SCH ×2 (09:13→20:33)
[2020-03-31] MEDS: HEPARIN SODIUM,PORCINE 5,000 UNIT/ML 1 ML VIAL SQ SCH ×2 (09:13→20:33)
[2020-03-31] MEDS: DIVALPROEX 500 MG TABLET.DR PO SCH ×2 (09:13→20:33)
[2020-03-31] MEDS: SODIUM CHLORIDE 0.9% 1,000 ML IV SCH ×2 (10:21→20:34)
--- NOTE | 2020-03-31 11:36 | P.PN ---
Subjective Progress Note Date: 03/31/20 74-year-old white male patient with past medical history of COPD, diabetes mellitus, coronary artery disease status post bypass grafting, carotid artery stenosis, previous history of CVA, who was seen at the hospital in the past week for symptoms of aphasia and altered mental status, and a brain CT showed no acute intracranial abnormality, and showed old right parietal and right frontal cortical infarcts. Patient was diagnosed with TIA as his symptoms resolved prior to being admitted for evaluation. MRI of the brain did show a stroke in the right parietal zone. Echocardiogram showed EF of 55-60% and no thrombus reported. Patient was seen by vascular surgery during his hospitalization or 75% left ICA stenosis patient was found to be a good candidate for TCAR. Patient was supposed to follow-up with Dr. Eduardo on March 28 for tentative scheduling of carotid intervention. On 03/26/2020 patient came into the emergency department with acute right-sided facial droop and aphasia, this was w itnessed by his when he was driving and 19 did not feel well. Patient did not have any weakness in his upper or lower extremities. He was on a combination of Plavix, aspirin, and Lipitor. Patient is an active smoker. Brain CT showed no evidence for acute intracranial hemorrhage, it did show an area of cortical and subcortical hypodensity in the right paramedian frontoparietal junction which shows some progressive decreasing density as compared to previous computed tomography scan on 03/21/2020 compatible with evolving infarct. Angiography CT of the brain showed 85% severe proximal left ICA stenosis, severe 75% focal slitlike stenosis in the proximal right ICA, no large vessel intracranial arterial occlusion, however there were moderate atherosclerotic stenosis along the bilateral supraclinoid internal carotid arteries. Patient received TPA per Dr. Ramsey, neuro regional account director. He was admitted to the intensive care unit following TPA infusion. Today he seen in the intensive care unit, right facial droop has resolved, patient is able to speak, although he feels that his speech was not back to normal earlier in the morning but has drastically improved. Patient is alert and oriented 3, he denies any difficulty breathing, he is on room air. Chest x-ray showed chronic changes without acute cardiopulmonary process. No IV fluids. He is in sinus mechanism with a rate of 59 BPM. Neurology is following. On 03/28/2020 patient seen in follow-up in the intensive care unit, he is awake and alert, oriented 3, he states that his speech is back to normal, he is moving all 4 extremities, strength is equal, face is symmetric. Patient is going for MRI of the brain this morning. She was started on subcutaneous heparin 5000 units every 12 hours, he was started on [place] and aspirin in addition to his Lipitor, neurology is following, continues on intravenous assess ments per protocol. No difficulty breathing, lung sounds are clear, he is in sinus mechanism on a monitor. Today's labs have been reviewed, with a total count is 11.4, hemoglobin is 13.6, electrolytes are within normal limits, BUN is 21 creatinine is 1.23. Patient had passed his swallow evaluation. On 03/29/2020, I'm seeing the patient for a follow-up. The patient is doing extremely well. The patient has no new complaints. The patient is awaiting a carotid endarterectomy utilizing the TCAR intervention. Meanwhile, he has no new onset neurological deficits. His speech has a back to normal. Nose and if the motor weakness. Facial asymmetry is not present on today's evaluation. BP is under good control. He is on subcu heparin for DVT prophylaxis. No nausea. No vomiting. No chest pain. No headaches. Hemodynamically stable. He remains on a combination of aspirin 81 mg by mouth daily and Brilinta 90 mg by mouth twice a day. He is also on high-dose statin 80 mg at bedtime. On 03/30/2020 I'm seeing the patient for a follow-up. The patient remains clinically unchanged compared to yesterday and there are no new onset neurological issues. The patient is awaiting a carotid endarterectomy to be done today at around noontime. He remains on aspirin. He remains on Brilinta. Hemodynamically stable. He remains nothing by mouth waiting for surgery. On 03/31/2020, seeing the patient for a follow-up. The patient is postop day #1. The patient underwent carotid endarterectomy yesterday. Postop, the patient significant fluctuation the blood pressure. The patient was having lower and higher blood pressures. Overall, the pressure was running low and the patient was requiring Yash-Synephrine for blood pressure control. Currently the Yash-Synephrine running at 0.06 mg/kg/m which is in the order of less than 10 g per minute. Surgical site over the neck area dry clean and intact. The patient has a ZOEY drain in place. The patient is no focal neurological deficits. No dizziness. No headaches. Altered mentation. He is on normal saline running at 75 mL an hour. He is known to have bipolar disorder is currently on Depakote. No other significant issues otherwise for now. Hemoglobin is at 11.9. Renal function is stable. Creatinine 0.94. Objective - Vital Signs Vital signs: Vital Signs Temp 97.9 F 03/31/20 08:00 Pulse 61 03/31/20 10:00 Resp 15 03/31/20 10:00 BP 119/46 03/31/20 10:00 Pulse Ox 96 03/31/20 10:00 Intake & Output 03/30/20 03/31/20 03/31/20 18:59 06:59 18:59 Intake Total 3874.294 6363.743 309.182 Output Total 1090 450 Balance 1452.703 373.743 -140.818 Weight 72.1 kg Intake: IV 1450 900 300 Sodium Chloride 0.9% 1, 300 900 300 000 ml @ 75 mls/hr IV . [id number] [facility] Rx#:[id number] Intake, IV Titration 2.703 63.743 9.182 Amount Phenylephrine 40 mg In 2.703 63.743 9.182 Sodium Chloride 0.9% 250 ml @ 0.5 MCG/KG/MIN 13. 145 mls/hr IV .[id number] [facility] Rx#:[id number] Oral 500 Output: Drainage 40 Left Neck 40 Urine 1050 450 Other: Voiding Method Toilet Urinal # Voids 1 ABP, PAP, CO, CI - Last Documented Arterial Blood Pressure 113/46 - Exam GENERAL EXAM: Alert, very pleasant, 74-year-old white male, on room air, with a pulse ox of 94% comfortable in no apparent distress. HEAD: Normocephalic/atraumatic. EYES: Normal reaction of pupils, equal size. Conjunctiva pink, sclera white. NOSE: Clear with pink turbinates. THROAT: No erythema or exudates. NECK: No masses, no JVD, no thyroid enlargement, no adenopathy., Surgical site over the left neck area dry clean and intact and the patient has a ZOEY drain in place. CHEST: No chest wall deformity. Symmetrical expansion. LUNGS: Equal air entry with no crackles, wheeze, rhonchi or dullness. CVS: Regular rate and rhythm, normal S1 and S2, no gallops, no murmurs, no rubs ABDOMEN: Soft, nontender. No hepatosplenomegaly, normal bowel sounds, no guarding or rigidity. EXTREMITIES: No clubbing, no edema, no cyanosis, 2+ pulses and upper and lower extremities. MUSCULOSKELETAL: Muscle strength and tone normal. SPINE: No scoliosis or deformity SKIN: No rashes CENTRAL NERVOUS SYSTEM: Alert and oriented -3. No focal deficits, tone is normal in all 4 extremities. PSYCHIATRIC: Alert and oriented -3. Appropriate affect. Intact judgment and insight. - Labs CBC & Chem 7: 03/31/20 04:05 03/31/20 04:05 Labs: Abnormal Lab Results - Last 24 Hours (Table) 03/30/20 03/30/20 03/30/20 Range/Units 11:31 17:25 21:11 RBC (4.30-5.90) m/uL Hgb (13.0-17.5) gm/dL Hct (39.0-53.0) % Neutrophils # (1.3-7.7) k/uL Sodium (137-145) mmol/L Glucose (74-99) mg/dL POC Glucose (mg/dL) 140 H 177 H 150 H (75-99) mg/dL Calcium (8.4-10.2) mg/dL 03/31/20 03/31/20 03/31/20 Range/Units 04:05 04:05 06:39 RBC 3.95 L (4.30-5.90) m/uL Hgb 11.9 L D (13.0-17.5) gm/dL Hct 35.9 L (39.0-53.0) % Neutrophils # 7.9 H (1.3-7.7) k/uL Sodium 134 L (137-145) mmol/L Glucose 177 H (74-99) mg/dL POC Glucose (mg/dL) 162 H (75-99) mg/dL Calcium 8.3 L (8.4-10.2) mg/dL Assessment and Plan Plan: #1. Acute CVA, status post TPA administration for symptoms of expressive aphasia, and right facial droop, with acute onset. The right facial droop has resolved, expressive aphasia has significantly improved. The patient is currently symptomatically and the patient post carotid endarterectomy. The patient is postop day #1. #2. Carotid artery stenosis, with 85% stenosis of the left ICA, and 75% stenosis of the right ICA, the patient is status post TCAR and the patient is postop day #1. Surgical wound site is dry clean and intact. ZOEY drain is in place. #3. Recent history of right parietal CVA on 03/21/2020 for which the patient was hospitalized and discharged home on 03/23/2020 #4. Diabetes mellitus type 2 with diabetic peripheral neuropathy #5. Coronary artery disease with previous history of bypass graft #6. Previous history of CVA #7. History of peripheral artery disease #8. Chronic and ongoing history of smoking #9, blood pressure variability, probably autonomic response following carotid artery surgery. Plan Surgical wound site is dry clean and intact, monitor the ZOEY drain output Use Yash-Synephrine drip for blood pressure control and gradually wean it off. Would like to systolic blood pressure above 110. Continue rest of the medications Continue normal saline today to 75 mL an hour Keep the patient ICU for another 24 hours for blood pressure monitoring. Vascular surgery is on the case. No neurological deficits.
[2020-03-31 11:56] LABS: Glucose,Whole Blood 220 mg/dL (75-99)
--- NOTE | 2020-03-31 12:36 | P.PN ---
Subjective This is Delfina Rosenthal PA-C dictating a progress note on this patient The patient was interviewed and examined by me as well as by Dr. Amador Case discussed with Dr. Amador and he agrees with the plan of care HPI/interval history Patient is a 74-year-old male with a history of CAD status post CABG, TIA, diabetes, peripheral artery disease status post stenting, current smoker who presented with strokelike symptoms and was found to have an evolving infarct on CT and treated with TPA. He has an 85% proximal left ICA stenosis and 75% pr oximal right ICA stenosis. Yesterday he underwent left trans-carotid artery revascularization with stenting. Patient seen and examined in the ICU. He was just taken off low-dose pressors. He is overall doing well. Telemetry reveals sinus rhythm. Patient denies any chest pain or shortness of breath. No dizziness. EXAMINATION Patient is afebrile, pulse in the 60s, respirations 16, blood pressure 101/46, oxygen saturation 95% on room air Patient seen and examined resting in bed, in no acute distress Lungs with few scattered rhonchi Heart is regular, no audible murmurs No lower extremity edema REVIEW OF LABS, ECG WBC 10.5, hemoglobin 11.9, platelets 200, potassium 3.8, BUN 18, creatinine 0.94 IMPRESSION / ASSESSMENT: #1 CVA status post TPA, symptoms resolved #2 severe symptomatic bilateral carotid artery atherosclerosis, 85% proximal left ICA stenosis and 75% proximal right RCA stenosis #3 history of previous strokes #4 history of CAD status post CABG #5 peripheral artery disease status post stenting #6 diabetes #7 current smoker PLAN: Continue current medication regimen with dual antiplatelet therapy and high intensity statins Continue to monitor blood pressure Continue to monitor telemetry Objective - Vital Signs Vital signs: Vital Signs Temp 97.9 F 03/31/20 08:00 Pulse 54 L 03/31/20 12:00 Resp 16 03/31/20 12:00 BP 101/46 03/31/20 12:00 Pulse Ox 95 03/31/20 11:00 Intake & Output 03/30/20 03/31/20 03/31/20 18:59 06:59 18:59 Intake Total 4191.563 9856.743 459.182 Output Total 1090 650 Balance 1452.703 373.743 -190.818 Weight 72.1 kg Intake: IV 1450 900 450 Sodium Chloride 0.9% 1, 300 900 450 000 ml @ 75 mls/hr IV . [id number] [facility] Rx#:[id number] Intake, IV Titration 2.703 63.743 9.182 Amount Phenylephrine 40 mg In 2.703 63.743 9.182 Sodium Chloride 0.9% 250 ml @ 0.5 MCG/KG/MIN 13. 145 mls/hr IV .[id number] [facility] Rx#:[id number] Oral 500 Output: Drainage 40 Left Neck 40 Urine 1050 650 Other: Voiding Method Toilet Urinal # Voids 1 ABP, PAP, CO, CI - Last Documented Arterial Blood Pressure 128/46 - Labs CBC & Chem 7: 03/31/20 04:05 03/31/20 04:05 Labs: Abnormal Lab Results - Last 24 Hours (Table) 03/30/20 03/30/20 03/31/20 Range/Units 17:25 21:11 04:05 RBC 3.95 L (4.30-5.90) m/uL Hgb 11.9 L D (13.0-17.5) gm/dL Hct 35.9 L (39.0-53.0) % Neutrophils # 7.9 H (1.3-7.7) k/uL Sodium (137-145) mmol/L Glucose (74-99) mg/dL POC Glucose (mg/dL) 177 H 150 H (75-99) mg/dL Calcium (8.4-10.2) mg/dL 03/31/20 03/31/20 03/31/20 Range/Units 04:05 06:39 11:54 RBC (4.30-5.90) m/uL Hgb (13.0-17.5) gm/dL Hct (39.0-53.0) % Neutrophils # (1.3-7.7) k/uL Sodium 134 L (137-145) mmol/L Glucose 177 H (74-99) mg/dL POC Glucose (mg/dL) 162 H 220 H (75-99) mg/dL Calcium 8.3 L (8.4-10.2) mg/dL
--- NOTE | 2020-03-31 13:13 | IR ---
EXAMINATION TYPE: IR stent intravas non coronary DATE OF EXAM: 03/30/2020 CLINICAL HISTORY: Stent placement TECHNIQUE: Fluoroscopy. COMPARISON: None. FINDINGS: Fluoroscopic guidance was provided during procedure for performing physician. A total of 10.8 minutes of fluoroscopic time was utilized during the procedure and 1059 spot images was acquired . Please see operative report for additional details. IMPRESSION: As Above.
--- NOTE | 2020-03-31 14:23 | P.PN ---
Subjective Progress Note Date: 03/31/20 The patient is a 74-year-old male who is seen in neurologic follow-up on March 31, 2020, via teleneurology. The patient reports feeling very good today. He is anxious for discharge. He reports resolution of all of his neurologic deficits. He tolerated this surgery well. Objective - Vital Signs Vital signs: Vital Signs Temp 97.8 F 03/31/20 13:00 Pulse 72 03/31/20 14:00 Resp 25 H 03/31/20 14:00 BP 124/55 03/31/20 14:00 Pulse Ox 98 03/31/20 13:00 Intake & Output 03/30/20 03/31/20 03/31/20 18:59 06:59 18:59 Intake Total 6459.301 5240.743 534.182 Output Total 1090 650 Balance 1452.703 373.743 -115.818 Weight 72.1 kg Intake: IV 1450 900 525 Sodium Chloride 0.9% 1, 300 900 525 000 ml @ 75 mls/hr IV . [id number] [facility] Rx#:[id number] Intake, IV Titration 2.703 63.743 9.182 Amount Phenylephrine 40 mg In 2.703 63.743 9.182 Sodium Chloride 0.9% 250 ml @ 0.5 MCG/KG/MIN 13. 145 mls/hr IV .[id number] [facility] Rx#:[id number] Oral 500 Output: Drainage 40 Left Neck 40 Urine 1050 650 Other: Voiding Method Toilet Urinal # Voids 1 ABP, PAP, CO, CI - Last Documented Arterial Blood Pressure 101/37 - Exam Gen.: The patient is reclining in the bed. He is well-nourished, well-developed and in no acute distress. HEENT: Head is atraumatic, normocephalic. Fundus not visualized. There is no scleral icterus. Mucous membranes are moist. Neck: There is surgical dressing on the left side of the neck, with a drain in place. Neurological examination Mental status: The patient is awake and alert. He is oriented 3. His speech is clear. There is no anomia. The patient is able to accurately repeat phrases. There is no dysarthria. Cranial nerves: Pupils are equal. Smile is symmetric. There is no facial asymmetry. - Labs CBC & Chem 7: 03/31/20 04:05 03/31/20 04:05 Labs: Abnormal Lab Results - Last 24 Hours (Table) 03/30/20 03/30/20 03/31/20 Range/Units 17:25 21:11 04:05 RBC 3.95 L (4.30-5.90) m/uL Hgb 11.9 L D (13.0-17.5) gm/dL Hct 35.9 L (39.0-53.0) % Neutrophils # 7.9 H (1.3-7.7) k/uL Sodium (137-145) mmol/L Glucose (74-99) mg/dL POC Glucose (mg/dL) 177 H 150 H (75-99) mg/dL Calcium (8.4-10.2) mg/dL 03/31/20 03/31/20 03/31/20 Range/Units 04:05 06:39 11:54 RBC (4.30-5.90) m/uL Hgb (13.0-17.5) gm/dL Hct (39.0-53.0) % Neutrophils # (1.3-7.7) k/uL Sodium 134 L (137-145) mmol/L Glucose 177 H (74-99) mg/dL POC Glucose (mg/dL) 162 H 220 H (75-99) mg/dL Calcium 8.3 L (8.4-10.2) mg/dL Assessment and Plan Assessment: 1. Acute cerebral infarct, s/p TPA 2. Left internal carotid artery stenosis, s/p TCAR 3. Right internal carotid artery stenosis 4. History of previous TIAs and stroke Plan: 1. Continue aspirin 81 mg with Brilinta 90 mg twice daily 2. Continue high-dose statin 3. The patient is neurologically stable for discharge Time with Patient: Less than 30 (spent 25 minutes with the patient via teleneurology)
--- NOTE | 2020-03-31 16:21 | P.PN ---
Subjective 82-year-old male came in with the complaints of right-sided facial droop and slurred speech and had a CT of the head which showed showed chronic and supplementation the right cerebral hemisphere and area of chronic tickle and subcortical hypodensity in the right paramedian frontoparietal junction suspicious for evolving infarct. Patient received TPA subsequently admitted to ICU patient was a valid by neurology. Patient presently doesn't have any focal weakness or any focal neurological signs or symptoms. Patient had a CT angios which showed severe 75% stenosis in the right ICA and 80% stenosis on the left side because of the chest was surgery was consulted patient was taking aspirin and Plavix. Patient is getting a repeat CT of the head to rule out any intracranial hemorrhage of there is no hemorrhage neurology is recommending brillinta and aspirin along with Lipitor 80 mg. Patient was evaluated by plastic surgery and patient will undergo carotid endarterectomy. Patient has left ICA around 85% stenosis and right ICA 75% stenosis had previous strokes involving the right cerebral hemisphere. 03/28/2020 Patient was started on the day of antiplatelet therapy with Brillinta and aspirin. No other neurological deficits were appreciated since last night. Patient will be transferred out of ICU to [facility] patient will undergo carotid endarterectomy in Thursday. She had an MRI which did show acute ischemic changes that were seen on the computed tomography scan an old right-sided frontotemporal infarcts. 03/29/2020 Patient will undergo left carotid endarterectomy tomorrow 03/30/2020 Patient is going for carotid endarterectomy today 03/31/2020 Patient blood pressures went down and required phenylephrine which was weaned off earlier today. Patient is now doing okay. Patient was monitored one more night possibility of discharge tomorrow Constitutional: Denied any fatigue denied any fever. Cardio vascular: denied any chest pain, palpitations Gastrointestinal denied any nausea vomiting Pulmonary: Denied any shortness of breath cough Neurologic denied any new focal deficits All inpatient medications were reviewed and appropriate changes in these medications as dictated in the interval history and assessment and plan. Objective - Vital Signs Vital signs: Vital Signs Temp 97.8 F 03/31/20 13:00 Pulse 72 03/31/20 14:00 Resp 25 H 03/31/20 14:00 BP 124/55 03/31/20 14:00 Pulse Ox 98 03/31/20 13:00 Intake & Output 09/06/0803/31/20 03/31/20 18:59 06:59 18:59 Intake Total 7121.992 6999.743 534.182 Output Total 1090 650 Balance 1452.703 373.743 -115.818 Weight 72.1 kg Intake: IV 1450 900 525 Sodium Chloride 0.9% 1, 300 900 525 000 ml @ 75 mls/hr IV . [id number] EVELIO Rx#:[id number] Intake, IV Titration 2.703 63.743 9.182 Amount Phenylephrine 40 mg In 2.703 63.743 9.182 Sodium Chloride 0.9% 250 ml @ 0.5 MCG/KG/MIN 13. 145 mls/hr IV .[id number] EVELIO Rx#:[id number] Oral 500 Output: Drainage 40 Left Neck 40 Urine 1050 650 Other: Voiding Method Toilet Urinal # Voids 1 ABP, PAP, CO, CI - Last Documented Arterial Blood Pressure 101/37 - Exam PHYSICAL EXAMINATION: GENERAL: The patient is alert and oriented x3, not in any acute distress. Well developed, well nourished. HEENT: Pupils are round and equally reacting to light. EOMI. No scleral icterus. No conjunctival pallor. Normocephalic, atraumatic. No pharyngeal erythema. No thyromegaly. Left side of the neck is covered with surgical guage. CARDIOVASCULAR: S1 and S2 present. No murmurs, rubs, or gallops. PULMONARY: Chest is clear to auscultation, no wheezing or crackles. ABDOMEN: Soft, nontender, nondistended, normoactive bowel sounds. No palpable organomegaly. MUSCULOSKELETAL: No joint swelling or deformity. EXTREMITIES: No cyanosis, clubbing, or pedal edema. NEUROLOGICAL: Gross neurological examination did not reveal any focal deficits. SKIN: No rashes. - Labs CBC & Chem 7: 03/31/20 04:05 03/31/20 04:05 Labs: Abnormal Lab Results - Last 24 Hours (Table) 03/30/20 03/30/20 03/31/20 Range/Units 17:25 21:11 04:05 RBC 3.95 L (4.30-5.90) m/uL Hgb 11.9 L D (13.0-17.5) gm/dL Hct 35.9 L (39.0-53.0) % Neutrophils # 7.9 H (1.3-7.7) k/uL Sodium (137-145) mmol/L Glucose (74-99) mg/dL POC Glucose (mg/dL) 177 H 150 H (75-99) mg/dL Calcium (8.4-10.2) mg/dL 03/31/20 03/31/20 03/31/20 Range/Units 04:05 06:39 11:54 RBC (4.30-5.90) m/uL Hgb (13.0-17.5) gm/dL Hct (39.0-53.0) % Neutrophils # (1.3-7.7) k/uL Sodium 134 L (137-145) mmol/L Glucose 177 H (74-99) mg/dL POC Glucose (mg/dL) 162 H 220 H (75-99) mg/dL Calcium 8.3 L (8.4-10.2) mg/dL Assessment and Plan Plan: -Acute cerebral vascular accident embolic in nature involving the right found the parietal cortex as well as occipital cortex. Patient's antiplatelet therapy as mentioned above continue with statin patient did undergo endarterectomy and patient blood pressure was requiring phenylephrine because of which I'll hold her his discharge today possibly of discharge tomorrow was cleared by neurology. Patient will be downgraded from ICU -Severe bilateral ICA stenosis, previous CVAs. -COPD without any acute exacerbation -type 2 diabetes mellitus: Metformin will be held and patient will continued on sliding scale insulin
[2020-03-31 16:25] LABS: Glucose,Whole Blood 192 mg/dL (75-99)
[2020-03-31] MEDS: PHENYLEPHRINE 40 MG in SODIUM CHLORIDE 0.9% 250 ML IV SCH (16:26)
[2020-03-31] MEDS: CLEVIDIPINE BUTYRATE 25 MG in EMPTY BAG 1 BAG IV SCH (18:56)
[2020-03-31 20:33] LABS: Glucose,Whole Blood 178 mg/dL (75-99)
[2020-03-31] MEDS: ATORVASTATIN 80 MG TAB PO SCH (20:33)
[2020-04-01] MEDS: PHENYLEPHRINE 40 MG in SODIUM CHLORIDE 0.9% 250 ML IV SCH (04:41)
[2020-04-01 05:38] LABS: Basophils % (A) 0 %; Eosinophils # (A) 0.3 k/uL (0-0.7); Eosinophils % (A) 3 %; HCT 38.4 % (39.0-53.0); HGB 12.6 gm/dL (13.0-17.5); Lymphocytes # (A) 2.2 k/uL (1.0-4.8); Lymphocytes % (A) 21 %; MCH 30.7 pg (25.0-35.0); MCHC 32.8 g/dL (31.0-37.0); MCV 93.8 fL (80.0-100.0); Mean Platelet Volume 7.3; Monocytes # (A) 0.5 k/uL (0-1.0); Monocytes % (A) 5 %; Neutrophils # (A) 7.3 k/uL (1.3-7.7); Neutrophils % (A) 70 %; Platelet Count 187 k/uL (150-450); WBC 10.5 k/uL (3.8-10.6)
[2020-04-01 05:51] LABS: Calcium 8.8 mg/dL (8.4-10.2); Potassium 4.3 mmol/L (3.5-5.1)
[2020-04-01 06:38] LABS: Glucose,Whole Blood 148 mg/dL (75-99)
[2020-04-01] MEDS: INSULIN ASPART (NovoLOG) 100 UNIT/ML VIAL SQ SCH (06:48)
--- NOTE | 2020-04-01 08:04 | P.PN ---
Progress Note - Text Progress Note Date: 04/01/20 ZOEY drain with minimal output. Ok to d/c drain. Patient weaned off all drips and blood pressure is stable. Ok for d/c home from vascular standpoint. Follow up in office in 1-2 weeks.
[2020-04-01] MEDS: TICAGRELOR 90 MG TAB PO SCH (09:27)
[2020-04-01] MEDS: DIVALPROEX 500 MG TABLET.DR PO SCH (09:27)
[2020-04-01] MEDS: PARoxetine 20 MG TAB PO SCH (09:27)
[2020-04-01] MEDS: ASPIRIN 81 MG PO SCH (09:27)
[2020-04-01] MEDS: HEPARIN SODIUM,PORCINE 5,000 UNIT/ML 1 ML VIAL SQ SCH (09:27)
--- NOTE | 2020-04-01 10:44 | P.PN ---
Subjective Progress Note Date: 04/01/20 74-year-old white male patient with past medical history of COPD, diabetes mellitus, coronary artery disease status post bypass grafting, carotid artery stenosis, previous history of CVA, who was seen at the hospital in the past week for symptoms of aphasia and altered mental status, and a brain CT showed no acute intracranial abnormality, and showed old right parietal and right frontal cortical infarcts. Patient was diagnosed with TIA as his symptoms resolved prior to being admitted for evaluation. MRI of the brain did show a stroke in the right parietal zone. Echocardiogram showed EF of 55-60% and no thrombus reported. Patient was seen by vascular surgery during his hospitalization or 75% left ICA stenosis patient was found to be a good candidate for TCAR. Patient was supposed to follow-up with Dr. Eduardo on March 28 for tentative scheduling of carotid intervention. On 03/26/2020 patient came into the emergency department with acute right-sided facial droop and aphasia, this was w itnessed by his when he was driving and 19 did not feel well. Patient did not have any weakness in his upper or lower extremities. He was on a combination of Plavix, aspirin, and Lipitor. Patient is an active smoker. Brain CT showed no evidence for acute intracranial hemorrhage, it did show an area of cortical and subcortical hypodensity in the right paramedian frontoparietal junction which shows some progressive decreasing density as compared to previous computed tomography scan on 03/21/2020 compatible with evolving infarct. Angiography CT of the brain showed 85% severe proximal left ICA stenosis, severe 75% focal slitlike stenosis in the proximal right ICA, no large vessel intracranial arterial occlusion, however there were moderate atherosclerotic stenosis along the bilateral supraclinoid internal carotid arteries. Patient received TPA per Dr. Ramsey, neuro executive asst. He was admitted to the intensive care unit following TPA infusion. Today he seen in the intensive care unit, right facial droop has resolved, patient is able to speak, although he feels that his speech was not back to normal earlier in the morning but has drastically improved. Patient is alert and oriented 3, he denies any difficulty breathing, he is on room air. Chest x-ray showed chronic changes without acute cardiopulmonary process. No IV fluids. He is in sinus mechanism with a rate of 59 BPM. Neurology is following. On 03/28/2020 patient seen in follow-up in the intensive care unit, he is awake and alert, oriented 3, he states that his speech is back to normal, he is moving all 4 extremities, strength is equal, face is symmetric. Patient is going for MRI of the brain this morning. She was started on subcutaneous heparin 5000 units every 12 hours, he was started on [place] and aspirin in addition to his Lipitor, neurology is following, continues on intravenous assess ments per protocol. No difficulty breathing, lung sounds are clear, he is in sinus mechanism on a monitor. Today's labs have been reviewed, with a total count is 11.4, hemoglobin is 13.6, electrolytes are within normal limits, BUN is 21 creatinine is 1.23. Patient had passed his swallow evaluation. On 03/29/2020, I'm seeing the patient for a follow-up. The patient is doing extremely well. The patient has no new complaints. The patient is awaiting a carotid endarterectomy utilizing the TCAR intervention. Meanwhile, he has no new onset neurological deficits. His speech has a back to normal. Nose and if the motor weakness. Facial asymmetry is not present on today's evaluation. BP is under good control. He is on subcu heparin for DVT prophylaxis. No nausea. No vomiting. No chest pain. No headaches. Hemodynamically stable. He remains on a combination of aspirin 81 mg by mouth daily and Brilinta 90 mg by mouth twice a day. He is also on high-dose statin 80 mg at bedtime. On 03/30/2020 I'm seeing the patient for a follow-up. The patient remains clinically unchanged compared to yesterday and there are no new onset neurological issues. The patient is awaiting a carotid endarterectomy to be done today at around noontime. He remains on aspirin. He remains on Brilinta. Hemodynamically stable. He remains nothing by mouth waiting for surgery. On 03/31/2020, seeing the patient for a follow-up. The patient is postop day #1. The patient underwent carotid endarterectomy yesterday. Postop, the patient significant fluctuation the blood pressure. The patient was having lower and higher blood pressures. Overall, the pressure was running low and the patient was requiring Yash-Synephrine for blood pressure control. Currently the Yash-Synephrine running at 0.06 mg/kg/m which is in the order of less than 10 g per minute. Surgical site over the neck area dry clean and intact. The patient has a ZOEY drain in place. The patient is no focal neurological deficits. No dizziness. No headaches. Altered mentation. He is on normal saline running at 75 mL an hour. He is known to have bipolar disorder is currently on Depakote. No other significant issues otherwise for now. Hemoglobin is at 11.9. Renal function is stable. Creatinine 0.94. On 04/01/2020 the patient is postop day #2. Doing extremely well. ZOEY drain is been discontinued. The Yash-Synephrine drip has also been discontinued and the patient is back to his baseline but pressure. No focal neurological deficit. Surgical site is dry clean and intact. No nausea. No vomiting. No chest pain. No dizziness. No motor weakness in all 4 extremities. No other new complaints otherwise for now. Objective - Vital Signs Vital signs: Vital Signs Temp 98.1 F 04/01/20 04:00 Pulse 72 04/01/20 07:00 Resp 32 H 04/01/20 07:00 BP 112/53 04/01/20 07:00 Pulse Ox 97 04/01/20 04:00 Intake & Output 03/31/20 04/01/20 04/01/20 18:59 06:59 18:59 Intake Total 984.182 675 Output Total 1205 1700 400 Balance -220.818 -1025 -400 Weight 71.8 kg Intake: IV 975 675 Sodium Chloride 0.9% 1, 975 675 000 ml @ 75 mls/hr IV . [id number] EVELIO Rx#:[id number] Intake, IV Titration 9.182 Amount Phenylephrine 40 mg In 9.182 Sodium Chloride 0.9% 250 ml @ 0.5 MCG/KG/MIN 13. 145 mls/hr IV .[id number] EVELIO Rx#:[id number] Output: Drainage 5 Left Neck 5 Urine 1200 1700 400 Other: Voiding Method Urinal Urinal ABP, PAP, CO, CI - Last Documented Arterial Blood Pressure 129/39 - Exam GENERAL EXAM: Alert, very pleasant, 74-year-old white male, on room air, with a pulse ox of 94% comfortable in no apparent distress. HEAD: Normocephalic/atraumatic. EYES: Normal reaction of pupils, equal size. Conjunctiva pink, sclera white. NOSE: Clear with pink turbinates. THROAT: No erythema or exudates. NECK: No masses, no JVD, no thyroid enlargement, no adenopathy., Surgical site over the left neck is dry clean and intact and the ZOEY drain has been removed CHEST: No chest wall deformity. Symmetrical expansion. LUNGS: Equal air entry with no crackles, wheeze, rhonchi or dullness. CVS: Regular rate and rhythm, normal S1 and S2, no gallops, no murmurs, no rubs ABDOMEN: Soft, nontender. No hepatosplenomegaly, normal bowel sounds, no guarding or rigidity. EXTREMITIES: No clubbing, no edema, no cyanosis, 2+ pulses and upper and lower extremities. MUSCULOSKELETAL: Muscle strength and tone normal. SPINE: No scoliosis or deformity SKIN: No rashes CENTRAL NERVOUS SYSTEM: Alert and oriented -3. No focal deficits, tone is normal in all 4 extremities. PSYCHIATRIC: Alert and oriented -3. Appropriate affect. Intact judgment and insight. - Labs CBC & Chem 7: 04/01/20 05:23 04/01/20 05:23 Labs: Abnormal Lab Results - Last 24 Hours (Table) 03/31/20 03/31/20 03/31/20 Range/Units 11:54 16:23 20:32 RBC (4.30-5.90) m/uL Hgb (13.0-17.5) gm/dL Hct (39.0-53.0) % Glucose (74-99) mg/dL POC Glucose (mg/dL) 220 H 192 H 178 H (75-99) mg/dL 04/01/20 04/01/20 04/01/20 Range/Units 05:23 05:23 06:37 RBC 4.10 L (4.30-5.90) m/uL Hgb 12.6 L (13.0-17.5) gm/dL Hct 38.4 L (39.0-53.0) % Glucose 156 H (74-99) mg/dL POC Glucose (mg/dL) 148 H (75-99) mg/dL Assessment and Plan Plan: #1. Acute CVA, status post TPA administration for symptoms of expressive aphasia, and right facial droop, with acute onset. The right facial droop has resolved, expressive aphasia has significantly improved. The patient is currently symptomatically and the patient post carotid endarterectomy. The patient is postop day #2. Recovering well without any complications. #2. Carotid artery stenosis, with 85% stenosis of the left ICA, and 75% stenosis of the right ICA, the patient is status post TCAR and the patient is postop day #1. Surgical wound site is dry clean and intact. ZOEY drain has been removed #3. Recent history of right parietal CVA on 03/21/2020 for which the patient was hospitalized and discharged home on 03/23/2020 #4. Diabetes mellitus type 2 with diabetic peripheral neuropathy #5. Coronary artery disease with previous history of bypass graft #6. Previous history of CVA #7. History of peripheral artery disease #8. Chronic and ongoing history of smoking #9, blood pressure variability, post surgery and the patient's blood pressure is normalized right now and is currently off Yash-Synephrine. Plan Surgical wound site is dry clean and intact, Blood pressure is stable Resume all medications including aspirin and Brilinta Discharge home today, cleared by vascular surgery
[2020-04-01 10:56] VITALS: BP 140/68; PULSE 56; RESP 16; TEMP 98
--- NOTE | 2020-04-01 11:08 | P.DS ---
Providers Date of admission: 03/26/20 20:54 Attending physician: Pat Quintana Consults: 03/26/20 20:55 Consult Physician Urgent Consulting Provider: Jose Durán Consult Reason/Comments: acute cva, s/p tpa Do you want consulting provider notified?: Yes Consult Physician Urgent Consulting Provider: Lucille Eduardo Consult Reason/Comments: acute cva, s/p tpa, carotid disease Do you want consulting provider notified?: Yes Consult Physician Urgent Consulting Provider: Ana Rosa Pal Consult Reason/Comments: acute cva, s/p tpa Do you want consulting provider notified?: Yes 03/26/20 21:54 Consult Physician Urgent Consulting Provider: [facility] Consult Reason/Comments: acute cva Do you want consulting provider notified?: Yes Primary care physician: [facility] Hospital Course: 82-year-old male came in with the complaints of right-sided facial droop and slurred speech and had a CT of the head which showed showed chronic and supplementation the right cerebral hemisphere and area of chronic tickle and subcortical hypodensity in the right paramedian frontoparietal junction suspicious for evolving infarct. Patient received TPA subsequently admitted to ICU patient was a valid by neurology. Patient presently doesn't have any focal weakness or any focal neurological signs or symptoms. Patient had a CT angios which showed severe 75% stenosis in the right ICA and 80% stenosis on the left side because of the chest was surgery was consulted patient was taking aspirin and Plavix. Patient is getting a repeat CT of the head to rule out any intracranial hemorrhage of there is no hemorrhage neurology is recommending brillinta and aspirin along with Lipitor 80 mg. Patient was evaluated by plastic surgery and patient will undergo carotid endarterectomy. Patient has left ICA around 85% stenosis and right ICA 75% stenosis had previous strokes involving the right cerebral hemisphere. 03/28/2020 Patient was started on the day of antiplatelet therapy with Brillinta and aspirin. No other neurological deficits were appreciated since last night. Patient will be transferred out of ICU to [facility] patient will undergo carotid endarterectomy in Thursday. She had an MRI which did show acute ischemic changes that were seen on the computed tomography scan an old right-sided frontotemporal infarcts. 03/29/2020 Patient will undergo left carotid endarterectomy tomorrow 03/30/2020 Patient is going for carotid endarterectomy today 03/31/2020 Patient blood pressures went down and required phenylephrine which was weaned off earlier today. Patient is now doing okay. Patient was monitored one more night possibility of discharge tomorrow 04/01/2020 Patient is clinically doing well will be discharged today and patient will be discharged Depakote as requested by the patient as his mood is much better after that. And patient will be discharged on Brilinta and aspirin. PHYSICAL EXAMINATION: GENERAL: The patient is alert and oriented x3, not in any acute distress. Well developed, well nourished. HEENT: Pupils are round and equally reacting to light. EOMI. No scleral icterus. No conjunctival pallor. Normocephalic, atraumatic. No pharyngeal erythema. No t hyromegaly. Poor surgical patch in the left side of the neck CARDIOVASCULAR: S1 and S2 present. No murmurs, rubs, or gallops. PULMONARY: Chest is clear to auscultation, no wheezing or crackles. ABDOMEN: Soft, nontender, nondistended, normoactive bowel sounds. No palpable organomegaly. MUSCULOSKELETAL: No joint swelling or deformity. EXTREMITIES: No cyanosis, clubbing, or pedal edema. NEUROLOGICAL: Gross neurological examination did not reveal any focal deficits. SKIN: No rashes. Assessment and Plan Plan: -Acute cerebral vascular accident embolic in nature involving the right found the parietal cortex as well as occipital cortex. Patient's antiplatelet therapy as mentioned above continue with statin patient did undergo endarterectomy on the left side and patient will require endarterectomy down the line on the right side as well patient will follow up with the urology, vascular surgery as an outpatient -Severe bilateral ICA stenosis, previous CVAs. -COPD without any acute exacerbation -type 2 diabetes mellitus: Metformin can be continued as an outpatient Patient Condition at Discharge: Serious Plan - Discharge Summary New Discharge Prescriptions: New Ticagrelor [Brilinta] 90 mg PO BID #30 tab Divalproex [Depakote] 500 mg PO BID #60 tablet. Continue metFORMIN HCL [Glucophage] 1,000 mg PO AC-BID PARoxetine [Paxil] 20 mg PO BID Aspirin 81 mg PO DAILY chew Nicotine 21Mg/24Hr Patch [Habitrol] 1 patch TRANSDERM DAILY #14 patch Atorvastatin [Lipitor] 80 mg PO HS #30 tab Discontinued Clopidogrel [Plavix] 75 mg PO DAILY Discharge Medication List PARoxetine [Paxil] 20 mg PO BID 07/12/18 [History] metFORMIN HCL [Glucophage] 1,000 mg PO AC-BID 07/12/18 [History] Aspirin 81 mg PO DAILY chew 03/23/20 [Rx] Atorvastatin [Lipitor] 80 mg PO HS #30 tab 03/23/20 [Rx] Nicotine 21Mg/24Hr Patch [Habitrol] 1 patch TRANSDERM DAILY #14 patch 03/23/20 [Rx] Divalproex [Depakote] 500 mg PO BID #60 tablet. 04/01/20 [Rx] Ticagrelor [Brilinta] 90 mg PO BID #30 tab 04/01/20 [Rx] Follow up Appointment(s)/Referral(s): Kane Pryor DO [Primary Care Provider] - 3 Days Froy Hays DO [STAFF PHYSICIAN] - 1 Week Jose Crowe MD [STAFF PHYSICIAN] - 1 Week Patient Instructions/Handouts: How to Stop Smoking (DC), Carotid Endarterectomy (DC), Ischemic Stroke (DC) Discharge Disposition: HOME SELF-CARE
--- NOTE | 2020-04-01 12:09 | P.PN ---
Subjective This is Delfina Rosenthal PA-C dictating a progress note on this patient The patient was interviewed and examined by me as well as by Dr. Amador Case discussed with Dr. Amador and he agrees with the plan of care HPI/interval history Patient is a 74-year-old male with a history of CAD status post CABG, TIA, diabetes, peripheral artery disease status post stenting, current smoker who presented with strokelike symptoms and was found to have an evolving infarct on CT and treated with TPA. He has an 85% proximal left ICA stenosis and 75% pr oximal right ICA stenosis. He underwent left trans-carotid artery revascularization with stenting. He is doing well postoperatively. He has been off the pressors. Patient seen and examined in the ICU. Telemetry reveals sinus rhythm. He has been walking the hallways without any issues. No dizz iness chest pain or shortness of breath. EXAMINATION Patient is afebrile, pulse in the 60s, respirations 16, blood pressure 140/68 Patient seen and examined resting in bed, in no acute distress Lungs are clear to auscultation bilaterally no rhonchi wheezing or crackles appreciated Heart is regular, no audible murmurs Extremities warm no edema REVIEW OF LABS, ECG WBC 10.5, globin 12.6, platelets 187, potassium 4.3, BUN 18, creatinine 1.03 IMPRESSION / ASSESSMENT: #1 CVA status post TPA, symptoms resolved #2 severe symptomatic bilateral carotid artery atherosclerosis, 85% proximal left ICA stenosis and 75% proximal right RCA stenosis status post trans-carotid artery revascularization with stenting #3 history of previous strokes #4 history of CAD status post CABG #5 peripheral artery disease status post stenting #6 diabetes #7 current smoker PLAN: Continue current medication regimen with dual antiplatelet therapy and high intensity statins Discussed the importance of smoking cessation with the patient Patient may be discharged and is to follow-up with his primary lorry weigher upon discharge Objective - Vital Signs Vital signs: Vital Signs Temp 98.0 F 04/01/20 09:00 Pulse 56 L 04/01/20 10:00 Resp 16 04/01/20 10:00 BP 140/68 04/01/20 09:00 Pulse Ox 97 04/01/20 04:00 Intake & Output 03/31/20 04/01/20 04/01/20 18:59 06:59 18:59 Intake Total 984.182 675 Output Total 1205 1700 800 Balance -220.818 -1025 -800 Weight 71.8 kg Intake: IV 975 675 Sodium Chloride 0.9% 1, 975 675 000 ml @ 75 mls/hr IV . [id number] EVELIO Rx#:[id number] Intake, IV Titration 9.182 Amount Phenylephrine 40 mg In 9.182 Sodium Chloride 0.9% 250 ml @ 0.5 MCG/KG/MIN 13. 145 mls/hr IV .[id number] EVELIO Rx#:[id number] Output: Drainage 5 Left Neck 5 Urine 1200 1700 800 Other: Voiding Method Urinal Urinal Urinal # Voids 1 ABP, PAP, CO, CI - Last Documented Arterial Blood Pressure 129/39 - Labs CBC & Chem 7: 04/01/20 05:23 04/01/20 05:23 Labs: Abnormal Lab Results - Last 24 Hours (Table) 03/31/20 03/31/20 04/01/20 Range/Units 16:23 20:32 05:23 RBC 4.10 L (4.30-5.90) m/uL Hgb 12.6 L (13.0-17.5) gm/dL Hct 38.4 L (39.0-53.0) % Glucose (74-99) mg/dL POC Glucose (mg/dL) 192 H 178 H (75-99) mg/dL 04/01/20 04/01/20 Range/Units 05:23 06:37 RBC (4.30-5.90) m/uL Hgb (13.0-17.5) gm/dL Hct (39.0-53.0) % Glucose 156 H (74-99) mg/dL POC Glucose (mg/dL) 148 H (75-99) mg/dL
== END 2020-04-01 11:29 | disposition home or self-care (01) | DRG 36 ==
LOC: EC 19:27 → 2SICU 20:54
PROVIDERS: ADMIT Hospitalist; ATTEND Hospitalist
PROC: 3E03317 Introduction of Other Thrombolytic into Peripheral Vein, Percutaneous Approach (ICD-10-PCS; 2020-03-26)
PROC: 037L3DZ Dilation of Left Internal Carotid Artery with Intraluminal Device, Percutaneous Approach (ICD-10-PCS; principal; 2020-03-31)
DX: I63.441 Cerebral infarction due to embolism of right cerebellar artery (principal); R47.01 Aphasia; J44.9 Chronic obstructive pulmonary disease, unspecified; E11.42 Type 2 diabetes mellitus with diabetic polyneuropathy; Z86.73 Personal history of transient ischemic attack (TIA), and cerebral infarction without residual deficits; I65.23 Occlusion and stenosis of bilateral carotid arteries; E11.51 Type 2 diabetes mellitus with diabetic peripheral angiopathy without gangrene; R29.810 Facial weakness; F17.210 Nicotine dependence, cigarettes, uncomplicated; M81.0 Age-related osteoporosis without current pathological fracture; I25.10 Atherosclerotic heart disease of native coronary artery without angina pectoris; I10 Essential (primary) hypertension; Z79.02 Long term (current) use of antithrombotics/antiplatelets; Z79.82 Long term (current) use of aspirin; Z79.84 Long term (current) use of oral hypoglycemic drugs; Z79.899 Other long term (current) drug therapy; Z82.49 Family history of ischemic heart disease and other diseases of the circulatory system; Z95.1 Presence of aortocoronary bypass graft; I25.2 Old myocardial infarction; F31.9 Bipolar disorder, unspecified; R29.700 NIHSS score 0; R29.702 NIHSS score 2; R29.710 NIHSS score 10
CPT/HCPCS: 36415; 37195; 37215; 70450; 70496; 70498; 70551; 71045; 80048; 80053; 80061; 84484; 85025; 85027; 85610; 85730; 93005; 93308; 95816; 99291

== ENCOUNTER → 2021-05-14 | Outpatient (CLI) | payer MEDICARE ==
--- NOTE | 2021-05-14 15:39 | CT ---
EXAMINATION TYPE: CT angio neck DATE OF EXAM: 05/14/2021 COMPARISON: 03/26/2020 HISTORY: 76-year-old male I65.29, Carotid stenosis TECHNIQUE: Contiguous axial scanning of the neck performed with IV Contrast, patient injected with 65 ml mL of Isovue 370. Coronal/sagittal MIP reconstructions performed. 3-D reconstructions generated o n dedicated independent workstation. CT DLP: 383 mGycm Automated exposure control for dose reduction was used. FINDINGS: Moderate emphysema in the visualized upper lungs. Biapical pleural-parenchymal scarring. Possible partially visualized right hilar lymphadenopathy measuring up to at least 1.[address] chest evaluation recommended. Very direct takeoff of the left vertebral artery directly from the aortic arch. The left vertebral ar vargas is diminutive. Moderate atherosclerotic narrowing at the origin of the right vertebral artery. Left vertebral artery hypoplastic throughout its entire course. The right common carotid artery is patent. Moderate atherosclerotic plaque at the right carotid bifurcation and proximal right ICA. There is inc reased, now borderline moderate 50% stenosis at the proximal carotid bulb. Just beyond the carotid bulb, there is increased, now severe 85-90% focal stenosis by NASCET criteria . Additional scattered mild atelectatic calcifications throughout the remainder of the right cervical ICA. The left common carotid artery is patent. Interval stenting of the proximal left ICA which is widely patent. Scattered mild atherosclerotic jose raul cifications within the remainder of the cervical left ICA without significant stenosis. Atherosclerotic calcifications within the bilateral carotid siphons. IMPRESSION: 1. PROMINENT ATHEROSCLEROTIC PLAQUE AT THE RIGHT CAROTID BIFURCATION AND PROXIMAL RIGHT ICA. THIS RES ULTS IN A NEW BORDERLINE MODERATE 50% STENOSIS WITHIN THE PROXIMAL CAROTID BULB AND A NEW SEVERE, 85- 90% FOCAL STENOSIS IN THE RIGHT ICA JUST ABOVE THE LEVEL OF THE CAROTID BULB. 2. INTERVAL STENTING OF THE PROXIMAL LEFT ICA. NO SIGNIFICANT STENOSIS REMAINS ON THE LEFT. 3. DOMINANT RIGHT VERTEBRAL ARTERY. THERE IS VARIANT TAKEOFF OF THE CONGENITALLY HYPOPLASTIC LEFT VIVEK TEBRAL ARTERY DIRECTLY FROM THE AORTIC ARCH. 4. COPD IN THE VISUALIZED UPPER LUNGS AND POSSIBLE PARTIALLY VISUALIZED RIGHT HILAR LYMPHADENOPATHY. RECOMMEND CONTRAST-ENHANCED CT CHEST TO FURTHER EVALUATE.
== END | disposition home or self-care (01) ==
LOC: RADCTMAIN 12:40
PROVIDERS: ATTEND Surgery
DX: I65.21 Occlusion and stenosis of right carotid artery (principal); J44.9 Chronic obstructive pulmonary disease, unspecified
CPT/HCPCS: 82565; 84520; 70498; Q9967

== ENCOUNTER 2021-06-27 08:11 | Inpatient (IN) | payer MEDICARE ==
[2021-06-26 09:31] VITALS: BMI 25.0
[~2021-06-27 08:11] MED LIST: ALPRAZolam 0.25 MG TAB PO PRN; ALPRAZolam 0.5 MG TAB PO PRN; ASPIRIN 325 MG TAB PO PRN; ASPIRIN 81 MG PO PRN; DEXAMETHASONE SOD PHOSPHATE 4 MG/ML 1 ML VIAL IV ONE; LIDOCAINE 1% (10MG/ML) FOR IV START INTRADERMA PRN; MIDAZOLAM 2 MG/2 ML VIAL IV PRN; MORPHINE SULFATE 2 MG/ML SYRINGE IV PRN; NITROGLYCERIN SL TABS 0.4 MG TAB SUBLINGUAL PRN; ONDANSETRON 4 MG/2 ML VIAL IVP ONE; ONDANSETRON 4 MG/2 ML VIAL IVP PRN; SODIUM CHLORIDE 0.9% 1,000 ML in EMPTY BAG 1 BAG IV ONE; TICAGRELOR 90 MG TAB PO PRN; ceFAZolin 2 GM in SODIUM CHLORIDE 0.9% 500 ML 500 ML IRRIGATION PRN
[2021-06-27 08:52] LABS: Glucose,Whole Blood 306 mg/dL (75-99)
[2021-06-27] MEDS: INSULIN ASPART (NovoLOG) 100 UNIT/ML VIAL SQ SCH ×4 (08:53→23:37)
[2021-06-27] MEDS ORDERED: LIDOCAINE 1% INJ 10MG/ML (20 ML MDV) ONE (08:59)
[2021-06-27] MEDS ORDERED: RX INFO: IV CONTRAST WAS GIVEN 1 EACH MISC MISCELLANE PRN (09:00)
[2021-06-27 09:10] LABS: Basophils # (A) 0.1 k/uL (0-0.2); Basophils % (A) 1 %; Eosinophils # (A) 0.2 k/uL (0-0.7); Eosinophils % (A) 2 %; HCT 40.4 % (39.0-53.0); HGB 12.7 gm/dL (13.0-17.5); Hypochromasia Moderate; Lymphocytes % (A) 23 %; MCHC 31.4 g/dL (31.0-37.0); Mean Platelet Volume 7.1; Monocytes # (A) 0.4 k/uL (0-1.0); Monocytes % (A) 4 %; Neutrophils % (A) 68 %; Platelet Count 242 k/uL (150-450); RDW 15.2 % (11.5-15.5); WBC 8.8 k/uL (3.8-10.6)
[2021-06-27 09:20] LABS: Calcium 9.4 mg/dL (8.4-10.2); Potassium 4.1 mmol/L (3.5-5.1)
[2021-06-27] MEDS ORDERED: MIDAZOLAM 2 MG/2 ML VIAL ONE (10:30)
[2021-06-27] MEDS ORDERED: ePHEDrine 50 MG/ML 1 ML AMP ONE (10:30)
[2021-06-27] MEDS ORDERED: .fentaNYL (PF) 50 MCG/ML 2 ML AMP ONE (10:30)
[2021-06-27] MEDS ORDERED: DEXMEDETOMIDINE 200 MCG/2 ML VIAL IV ONE (10:30)
[2021-06-27] MEDS ORDERED: GLYCOPYRROLATE 0.2 MG/ML 2 ML VIAL ONE (10:30)
[2021-06-27] MEDS ORDERED: HEPARIN SODIUM,PORCINE 10,000 UNIT/ML 1 ML VIAL ONE (10:30)
[2021-06-27] MEDS ORDERED: LIDOCAINE 2% (PF) 20 MG/ML 10 ML AMP SQ ONE (10:35)
[2021-06-27] MEDS ORDERED: BUPIVACAINE (PF) 0.5% 30 ML VIAL SQ ONE (10:37)
[2021-06-27] MEDS ORDERED: SODIUM CHLORIDE 0.9% 500 ML 500 ML with ceFAZolin 2,000 MG IV ONE ×2 (10:38)
[2021-06-27] MEDS ORDERED: LIDOCAINE 1% INJ 10MG/ML (20 ML MDV) SQ ONE (11:20)
[2021-06-27] MEDS ORDERED: IOPAMIDOL-250 100ML BTL INTRAARTER ONE (11:59)
[2021-06-27] MEDS ORDERED: GELATIN SPONGE,ABSORB (LARGE) 1 EACH SPONGE MISCELLANE ONE (12:03)
[2021-06-27] MEDS ORDERED: THROMBIN (BOVINE) 5,000 UNIT VIAL TOPICAL ONE (12:03)
[2021-06-27] MEDS ORDERED: ATROPINE SULFATE 0.1 MG/ML 10ML SYRINGE IV PRN (12:33)
[2021-06-27] MEDS ORDERED: MAG HYDROX/AL HYDROX/SIMETH 30 ML CUP PO PRN (12:33)
--- NOTE | 2021-06-27 12:46 | IR ---
EXAMINATION TYPE: IR stent intravas non coronary DATE OF EXAM: 06/27/2021 COMPARISON: NONE HISTORY: Fluoroscopy time. Fluoroscopy was provided to the referring clinician.
--- NOTE | 2021-06-27 13:06 | P.OP ---
Date of Procedure: 06/27/21 Description of Procedure: Preoperative diagnosis: Right internal carotid artery high-grade stenosis Postoperative diagnosis: Same Procedure: RightTranscarotid artery revascularization with stenting. Right common femoral vein central venous catheter placement under ultrasound guidance Surgeon: Lucille Eduardo DO Embedded Software Manager: Desire Marr Anesthesia: Conscious sedation Complications: None Condition: Stable Flow reversal time: 12 minutes minutes Lesion length: 20 mm Indication for procedure: Patient is a 76-year-old male with significant peripheral arterial disease, coronary artery disease, diabetes who was found to have high-grade right internal carotid artery stenosis with a high lesion. He was recommended to undergo intervention and after surgical risks benefits and discussion was decided on undergoing a trans-carotid artery revascularization with stenting. He and his seemingly understood and are ready to proceed as such Operative narrative: After written and informed consent was obtained the patient all risks benefits and competitions were described the patient was brought to the Bi Architect and laid in a supine position. The area of the neck and groins were prepped and draped in usual sterile fashion after appropriate anesthetic was performed per the anesthesiologist. A timeout was performed in normal fashion and antibiotics were administered prior to incision. Utilizing ultrasound the right common carotid artery was located and a transverse incision was created overlying this area after proper anesthetization. Dissection was carried between the sternocleidomastoid musculature down to the carotid sheath. The sheath was then incised and the common carotid artery was located and dissected free in a circumferential manner and controlled with umbilical tape. Once controlled, attention was placed down to the common femoral vein and utilizing ultrasound the vein was cannulated and the 8-[place] sheath was placed in normal fashion. Attention was then placed back to the carotid artery and the patient was administered heparin and followed with ACTs and redosed as needed for ACT above 250. A pursestring suture was then placed at the common carotid artery with 5-0 Prolene and utilizing a micropuncture needle the common carotid artery was accessed and wire was placed followed by a 4-[place] sheath. Carotid angiogram was then obtained demonstrating significant stenosis in the internal carotid artery. Stiff wire was then placed followed by the 8 [place] sheath. Flow reversal was then established with the enroute MANAGER CREDIT COLLECTIONS system after patient's blood pressure was increased to above 160, heart rate above 60 and ACT above 250. 014 wire was then placed across the lesion followed by a 5 x 30 mm Combs balloon and balloon angioplasty was performed followed by an 9 x 40 mm [place] stent. Postdilatation was performed and final angiogram was obtained demonstrating complete resolution of the stenosis. All guidewires and catheters were removed and the sheath was removed and the arteriotomy was secured with the previously placed pursestring suture. Hemostasis was assured with Gelfoam and thrombin. The area was irrigated and closed. The platysma was closed with 3-0 Vicryl. The skin was closed with running 4-0 Monocryl in subcuticular fashionThe femoral sheath was also removed and pressure was held for hemostasis. The patient all procedure well and was moving all extremities and following commands. The patient was then sent to PACU for recovery.
[2021-06-27] MEDS: PHENYLEPHRINE 40 MG in SODIUM CHLORIDE 0.9% 250 ML IV SCH ×2 (13:35→23:32)
[2021-06-27 14:17] LABS: Glucose,Whole Blood 229 mg/dL (75-99)
[2021-06-27] MEDS ORDERED: INSULIN ASPART (NovoLOG) 100 UNIT/ML VIAL SQ ONE (14:22)
[2021-06-27 17:36] LABS: Glucose,Whole Blood 196 mg/dL (75-99)
[2021-06-27] MEDS ORDERED: HYDROcodone/APAP 5-325MG 1 EACH TAB PO PRN (18:11)
[2021-06-27] MEDS ORDERED: HYDROmorphone 0.5 MG/0.5 ML SYRINGE IVP PRN (18:23)
[2021-06-27] MEDS: PSEUDOEPHEDRINE 30 MG TAB PO SCH ×2 (18:38→23:38)
[2021-06-27] MEDS ORDERED: ATORVASTATIN 40 MG TAB PO SCH (21:00)
[2021-06-27] MEDS: LACTATED RINGERS 1,000 ML IV SCH ×2 (23:04→23:47)
[2021-06-27 23:12] LABS: Glucose,Whole Blood 205 mg/dL (75-99)
[2021-06-28 04:17] LABS: Basophils % (A) 1 %; Eosinophils # (A) 0.1 k/uL (0-0.7); Eosinophils % (A) 2 %; HCT 31.6 % (39.0-53.0); HGB 10.5 gm/dL (13.0-17.5); Hypochromasia Slight; Lymphocytes # (A) 1.3 k/uL (1.0-4.8); Lymphocytes % (A) 18 %; MCH 27.8 pg (25.0-35.0); MCHC 33.1 g/dL (31.0-37.0); MCV 83.9 fL (80.0-100.0); Mean Platelet Volume 7.9; Monocytes # (A) 0.3 k/uL (0-1.0); Monocytes % (A) 4 %; Neutrophils # (A) 5.2 k/uL (1.3-7.7); Neutrophils % (A) 74 %; Platelet Count 178 k/uL (150-450); RBC 3.77 m/uL (4.30-5.90); RDW 14.9 % (11.5-15.5)
[2021-06-28 04:48] LABS: African American GFR (CKD) >90 (>60 ml/min/1.73 sqM); Anion Gap 7 mmol/L; Blood Urea Nitrogen 14 mg/dL (9-20); Calcium 8.5 mg/dL (8.4-10.2); Carbon Dioxide 23 mmol/L (22-30); Chloride 104 mmol/L (98-107); Glucose 163 mg/dL (74-99); Non-African American GFR(CKD) 86 (>60 ml/min/1.73 sqM); Potassium 3.6 mmol/L (3.5-5.1); Sodium 134 mmol/L (137-145)
[2021-06-28] MEDS ORDERED: POTASSIUM CHLORIDE ER 20 MEQ TAB.ER PO SCH (06:00)
[2021-06-28] MEDS: PHENYLEPHRINE 40 MG in SODIUM CHLORIDE 0.9% 250 ML IV SCH (06:28)
[2021-06-28] MEDS: PSEUDOEPHEDRINE 30 MG TAB PO SCH (06:36)
[2021-06-28 06:45] LABS: Glucose,Whole Blood 228 mg/dL (75-99)
[2021-06-28] MEDS: INSULIN ASPART (NovoLOG) 100 UNIT/ML VIAL SQ SCH (06:51)
[2021-06-28] MEDS ORDERED: LOSARTAN 25 MG TAB PO SCH (09:00)
[2021-06-28] MEDS ORDERED: ASPIRIN 81 MG PO SCH (09:00)
[2021-06-28] MEDS ORDERED: CLOPIDOGREL 75 MG TAB PO SCH (09:00)
--- NOTE | 2021-06-28 10:32 | P.DS ---
Providers Date of admission: 06/27/21 08:11 Expected date of discharge: 06/28/21 Attending physician: Lucille Eduardo DO Consults: 06/27/21 12:38 Consult Physician Routine Consulting Provider: Milagros Gage Consult Reason/Comments: post carotid stent, med mangement Do you want consulting provider notified?: Yes Primary care physician: Lucille Eduardo DO Hospital Course: Discharge diagnosis: High-grade right internal carotid artery stenosis status post right trans- carotid artery revascularization with stenting This is a 76-year-old male with a history of significant peripheral arterial disease, coronary artery disease, diabetes who was found to have high-grade right internal carotid artery stenosis with a high-grade lesion was recommended to undergo intervention. Patient is postop day #1 for right trans-carotid artery revascularization with stenting. He is seen and evaluate this morning in the ICU. His vital signs are stable, he is been afebrile, and denies any focal deficits. Patient has been up and ambulating, voiding without difficulty, and tolerated his breakfast. Physical exam: General appearance: The patient is alert, oriented, appears in no acute distress. HET: Head is normocephalic and atraumatic. Pupils are equal and reactive. Neck: Supple without lymphadenopathy. Trachea midline. Incision to right neck well approximated, mild ecchymosis surrounding. No hematoma. Heart: S1 S2. Regular rate and rhythm. Lungs: Clear to auscultation. Abdomen: Soft, nontender, nondistended. Extremities: Normal skin color and turgor. No cyanosis, rash, ulceration, clubbing, or edema. Radial pulses +2 bilaterally. Neurological: No focal deficits. Strength and sensation are grossly intact. The impression and plan of care has been dictated as directed. Dr. Eduardo I performed a history and examination of this patient, discussed the same with the dictator. I agree with the dictator's note ,documented as a scribe. Any additional findings or plans will be noted. Procedures: Right trans-carotid artery revascularization with stenting Patient Condition at Discharge: Stable Plan - Discharge Summary Discharge Rx Participant: No New Discharge Prescriptions: Continue metFORMIN HCL [Glucophage] 1,000 mg PO AC-BID PARoxetine [Paxil] 20 mg PO BID Aspirin 81 mg PO DAILY chew Atorvastatin [Lipitor] 80 mg PO HS #30 tab Divalproex [Depakote] 500 mg PO BID #60 tablet. Pregabalin 100 mg PO TID traMADol HCL 50 mg PO TID Losartan [Cozaar] 12.5 mg PO DAILY Clopidogrel [Plavix] 75 mg PO DAILY Famotidine 20 mg PO BID Discharge Medication List PARoxetine [Paxil] 20 mg PO BID 07/12/18 [History] metFORMIN HCL [Glucophage] 1,000 mg PO AC-BID 07/12/18 [History] Aspirin 81 mg PO DAILY chew 03/23/20 [Rx] Atorvastatin [Lipitor] 80 mg PO HS #30 tab 03/23/20 [Rx] Divalproex [Depakote] 500 mg PO BID #60 tablet. 04/01/20 [Rx] Pregabalin 100 mg PO TID 06/26/21 [History] traMADol HCL 50 mg PO TID 06/26/21 [History] Clopidogrel [Plavix] 75 mg PO DAILY 06/27/21 [History] Famotidine 20 mg PO BID 06/27/21 [History] Losartan [Cozaar] 12.5 mg PO DAILY 06/27/21 [History] Follow up Appointment(s)/Referral(s): Sophia Love [NON-STAFF] - 1-2 Days Lucille Eduardo DO [Primary Care Provider] - 1 Week Patient Instructions/Handouts: Carotid Artery Stent Placement (DC) Activity/Diet/Wound Care/Special Instructions: No heavy lifting or strenuous activity greater than 10 pounds. No tub bathing or soaking, may shower within 24 hours. Continue home medications. Discharge Disposition: HOME WITH HOME HEALTH SERVICES
[2021-06-28 11:11] VITALS: BP 178/77; PULSE 104; RESP 21; TEMP 98.4
--- NOTE | 2021-06-28 14:16 | P.CONS ---
History of Present Illness - Reason for Consult Consult date: 06/28/21 Medical management Requesting physician: Lucille Eduardo - History of Present Illness I came to see the patient the ICU. Patient was already discharge. Therefore consult was not done. Past Medical History Past Medical History: Coronary Artery Disease (CAD), Chest Pain / Angina, COPD, CVA/TIA, Diabetes Mellitus, Deep Vein Thrombosis (DVT), Hyperlipidemia, Myocardial Infarction (VT), Musculoskeletal Disorder, Syncope, Vascular Disorder Additional Past Medical History / Comment(s): CVA X2, last 2018, recovered. Diabetic neuropathy feet, osteoporosis. Blockage in right leg. Last Myocardial Infarction Date:: 2006 History of Any Multi-Drug Resistant Organisms: None Reported Past Surgical History: Coronary Bypass/CABG, Heart Catheterization With Stent Additional Past Surgical History / Comment(s): Quadruple bypass-2010, "surgery to left leg-graft to restore criculation", colonoscopy/polypectomy. Past Anesthesia/Blood Transfusion Reactions: No Reported Reaction Additional Past Anesthesia/Blood Transfusion Reaction / Comm: Mild Claustrophobia with MRI'S. Date of Last Stent Placement:: unknown Past Psychological History: Bipolar, Depression Smoking Status: Current every day smoker Past Alcohol Use History: None Reported Additional Past Alcohol Use History / Comment(s): Started smoking at age 14, smokes 1 ppd. Past Drug Use History: None Reported - Past Family History Mother Family Medical History: Cancer Father Family Medical History: Coronary Artery Disease (CAD), Myocardial Infarction (VT) Additional Family Medical History / Comment(s): CABG. Sister(s) Family Medical History: Coronary Artery Disease (CAD) Additional Family Medical History / Comment(s): CABG. Brother(s) Family Medical History: Cancer, Coronary Artery Disease (CAD) Additional Family Medical History / Comment(s): CABG. Medications and Allergies Home Medications Medication Instructions Recorded Confirmed Type PARoxetine [Paxil] 20 mg PO BID 07/12/18 06/27/21 History metFORMIN HCL [Glucophage] 1,000 mg PO AC-BID 07/12/18 06/27/21 History Aspirin 81 mg PO DAILY chew 03/23/20 06/27/21 Rx Atorvastatin [Lipitor] 80 mg PO HS #30 tab 03/23/20 06/27/21 Rx Divalproex [Depakote] 500 mg PO BID #60 tablet. 04/01/20 06/27/21 Rx Pregabalin 100 mg PO TID 06/26/21 06/27/21 History traMADol HCL 50 mg PO TID 06/26/21 06/27/21 History Clopidogrel [Plavix] 75 mg PO DAILY 06/27/21 06/27/21 History Famotidine 20 mg PO BID 06/27/21 06/27/21 History Losartan [Cozaar] 12.5 mg PO DAILY 06/27/21 06/27/21 History Allergies Allergy/AdvReac Type Severity Reaction Status Date / Time No Known Allergies Allergy Verified 06/27/21 08:39 Physical Exam Vitals: Vital Signs Temp Pulse Pulse Pulse Resp BP BP 06/28/21 07:00 69 19 164/68 06/28/21 06:30 79 15 174/80 06/28/21 06:00 60 36 H 06/28/21 05:30 67 16 159/71 06/28/21 05:00 84 27 H 06/28/21 04:30 66 15 06/28/21 04:00 97.8 F 66 10 L 164/68 06/28/21 03:00 71 20 06/28/21 02:00 60 21 06/28/21 01:00 73 26 H 175/78 06/28/21 00:01 58 L 15 163/100 06/28/21 00:00 97.8 F 61 63 25 H 162/55 06/27/21 23:00 56 L 63 16 164/54 06/27/21 22:00 53 L 16 06/27/21 21:00 58 L 14 181/72 06/27/21 20:00 98.4 F 60 60 16 06/27/21 19:50 60 16 131/65 06/27/21 19:40 50 L 21 06/27/21 19:30 54 L 53 H 06/27/21 19:20 51 L 16 06/27/21 19:10 61 16 06/27/21 19:00 50 L 16 06/27/21 18:50 57 L 15 131/65 06/27/21 18:40 52 L 15 131/65 06/27/21 18:30 55 L 16 131/65 06/27/21 18:20 47 L 16 131/65 06/27/21 18:10 51 L 16 131/65 06/27/21 18:00 49 L 16 131/65 06/27/21 17:50 49 L 25 H 131/65 06/27/21 17:40 49 L 12 127/87 06/27/21 17:32 52 L 12 06/27/21 17:00 52 L 11 L 121/47 06/27/21 16:45 54 L 14 138/53 06/27/21 16:30 54 L 10 L 135/53 06/27/21 16:15 52 L 7 L 127/51 06/27/21 16:00 52 L 14 124/46 06/27/21 15:45 51 L 14 131/49 06/27/21 15:30 52 L 19 136/62 06/27/21 15:15 57 L 14 134/54 06/27/21 15:00 59 L 16 129/52 06/27/21 14:45 55 L 16 127/52 06/27/21 14:36 116/48 06/27/21 14:30 58 L 16 136/57 06/27/21 13:59 61 16 153/60 06/27/21 13:44 62 16 158/63 06/27/21 13:29 62 16 105/57 06/27/21 13:14 63 16 100/50 06/27/21 12:59 67 16 109/50 06/27/21 12:44 97.3 F L 65 16 121/54 BP Pulse Ox 06/28/21 07:00 94 L 06/28/21 06:30 94 L 06/28/21 06:00 98 06/28/21 05:30 95 06/28/21 05:00 95 06/28/21 04:30 94 L 06/28/21 04:00 94 L 06/28/21 03:00 95 06/28/21 02:00 97 06/28/21 01:00 95 06/28/21 00:01 97 06/28/21 00:00 163/100 96 06/27/21 23:00 97 06/27/21 22:00 97 06/27/21 21:00 98 06/27/21 20:00 97 06/27/21 19:50 97 06/27/21 19:40 97 06/27/21 19:30 97 06/27/21 19:20 98 06/27/21 19:10 99 06/27/21 19:00 98 06/27/21 18:50 98 06/27/21 18:40 96 06/27/21 18:30 97 06/27/21 18:20 99 06/27/21 18:10 99 06/27/21 18:00 99 06/27/21 17:50 88 L 06/27/21 17:40 97 06/27/21 17:32 98 06/27/21 17:00 112/55 98 06/27/21 16:45 131/60 99 06/27/21 16:30 127/60 06/27/21 16:15 127/55 100 06/27/21 16:00 128/60 100 06/27/21 15:45 124/56 100 06/27/21 15:30 135/62 99 06/27/21 15:15 138/64 99 06/27/21 15:00 145/67 98 06/27/21 14:45 121/58 98 06/27/21 14:36 06/27/21 14:30 121/59 98 06/27/21 13:59 144/64 100 06/27/21 13:44 163/70 100 06/27/21 13:29 101/55 100 06/27/21 13:14 101/51 100 06/27/21 12:59 109/55 100 06/27/21 12:44 122/58 99 Intake and Output 06/27/21 06/28/21 06/28/21 22:59 06:59 14:59 Intake Total 690 360 20 Output Total 450 425 50 Balance 240 -65 -30 Intake: IV 160 20 Lactated Ringers 1,000 ml 160 20 @ 20 mls/hr IV .Q24H [facility] Rx#:[id number] Oral 690 200 Output: Urine 450 425 50 Other: Voiding Method Urinal # Voids 1 Weight 75.9 kg 77.3 kg ABP, PAP, CO, CI - Last 8 Hours Arterial Blood Pressure 148/60 Arterial Blood Pressure 187/60 Arterial Blood Pressure 135/66 Arterial Blood Pressure 169/64 Arterial Blood Pressure 148/77 Arterial Blood Pressure 148/79 Results CBC & Chem 7: 06/28/21 04:00 06/28/21 04:00 Labs: Abnormal Lab Results - Last 24 Hours (Table) 06/27/21 06/27/21 06/27/21 Range/Units 14:15 17:33 23:10 RBC (4.30-5.90) m/uL Hgb (13.0-17.5) gm/dL Hct (39.0-53.0) % Sodium (137-145) mmol/L Glucose (74-99) mg/dL POC Glucose (mg/dL) 229 H 196 H 205 H (75-99) mg/dL 06/28/21 06/28/21 06/28/21 Range/Units 04:00 04:00 06:43 RBC 3.77 L (4.30-5.90) m/uL Hgb 10.5 L (13.0-17.5) gm/dL Hct 31.6 L (39.0-53.0) % Sodium 134 L (137-145) mmol/L Glucose 163 H (74-99) mg/dL POC Glucose (mg/dL) 228 H (75-99) mg/dL
== END 2021-06-28 12:22 | disposition home health service (06) | DRG 36 ==
LOC: 2ORMAIN 08:11 → 2SICU 17:26
PROVIDERS: ADMIT Hospitalist; ATTEND Surgery
PROC: 037K3DZ Dilation of Right Internal Carotid Artery with Intraluminal Device, Percutaneous Approach (ICD-10-PCS; principal; 2021-06-27 10:00)
DX: I65.21 Occlusion and stenosis of right carotid artery (principal); E11.40 Type 2 diabetes mellitus with diabetic neuropathy, unspecified; M81.0 Age-related osteoporosis without current pathological fracture; I25.10 Atherosclerotic heart disease of native coronary artery without angina pectoris; E78.5 Hyperlipidemia, unspecified; F40.240 Claustrophobia; J44.9 Chronic obstructive pulmonary disease, unspecified; I73.9 Peripheral vascular disease, unspecified; Z20.822 Contact with and (suspected) exposure to COVID-19; F17.210 Nicotine dependence, cigarettes, uncomplicated; Z95.5 Presence of coronary angioplasty implant and graft; I25.2 Old myocardial infarction; Z79.02 Long term (current) use of antithrombotics/antiplatelets; Z79.82 Long term (current) use of aspirin; Z79.84 Long term (current) use of oral hypoglycemic drugs; Z79.899 Other long term (current) drug therapy; Z95.1 Presence of aortocoronary bypass graft; Z82.49 Family history of ischemic heart disease and other diseases of the circulatory system; Z80.9 Family history of malignant neoplasm, unspecified; Z86.73 Personal history of transient ischemic attack (TIA), and cerebral infarction without residual deficits
CPT/HCPCS: 37215; 80048; 85025; 86850; 86900; 86901; 87635

== ENCOUNTER 2021-09-04 21:22 | Emergency (ER) | payer MEDICARE ==
[2021-09-04 21:32] VITALS: TEMP 98.4
[2021-09-04 21:50] LABS: Glucose,Whole Blood 405 mg/dL (75-99)
[2021-09-04] MEDS ORDERED: SODIUM CHLORIDE 0.9% 1,000 ML IV ONE (21:56)
--- NOTE | 2021-09-04 22:12 | ED ---
General Adult HPI - General Chief complaint: Recheck/Abnormal Lab/Rx Stated complaint: high blood sugar Time Seen by Provider: 09/04/21 21:46 Source: patient, RN notes reviewed Mode of arrival: ambulatory Limitations: no limitations - History of Present Illness Initial comments: This is a relatively sedentary 76-year-old male presents to emergency department complaining of high blood sugar. Patient states he did not take his medication earlier today but then went to a [employer] dinner which consisted of a large meal followed up with a large doughnut. He states he took his blood sugar after that and it was 474. Patient then took his evening dose of Lantus. Patient also takes metformin and Actos. Patient is denying any other symptomology. No headache, no fever or chills, no changes in vision or hearing, no sore throat or difficulty with speech, no neck pain, no chest pain or shortness of breath, no abdominal pain, no nausea or vomiting, no changes in urination or bowel movements, no numbness or tingling, no extremity pain, no skin rashes or lesions. - Related Data Home Medications Medication Instructions Recorded Confirmed PARoxetine [Paxil] 20 mg PO BID 07/12/18 06/27/21 metFORMIN HCL [Glucophage] 1,000 mg PO AC-BID 07/12/18 06/27/21 Pregabalin 100 mg PO TID 06/26/21 06/27/21 traMADol HCL 50 mg PO TID 06/26/21 06/27/21 Clopidogrel [Plavix] 75 mg PO DAILY 06/27/21 06/27/21 Famotidine 20 mg PO BID 06/27/21 06/27/21 Losartan [Cozaar] 12.5 mg PO DAILY 06/27/21 06/27/21 Previous Rx's Medication Instructions Recorded Aspirin 81 mg PO DAILY chew 03/23/20 Atorvastatin [Lipitor] 80 mg PO HS #30 tab 03/23/20 Divalproex [Depakote] 500 mg PO BID #60 tablet. 04/01/20 Allergies Allergy/AdvReac Type Severity Reaction Status Date / Time No Known Allergies Allergy Verified 09/04/21 21:27 Review of Systems ROS Statement: Those systems with pertinent positive or pertinent negative responses have been documented in the HPI. ROS Other: All systems not noted in ROS Statement are negative. Past Medical History Past Medical History: Coronary Artery Disease (CAD), Chest Pain / Angina, COPD, CVA/TIA, Diabetes Mellitus, Deep Vein Thrombosis (DVT), Hyperlipidemia, Myocardi al Infarction ([place]), Musculoskeletal Disorder, Syncope, Vascular Disorder Additional Past Medical History / Comment(s): CVA X2, last 2018, recovered. Diabetic neuropathy feet, osteoporosis. Blockage in right leg. Last Myocardial Infarction Date:: 2006 History of Any Multi-Drug Resistant Organisms: None Reported Past Surgical History: Coronary Bypass/CABG, Heart Catheterization With Stent Additional Past Surgical History / Comment(s): Quadruple bypass-2010, "surgery to left leg-graft to restore criculation", colonoscopy/polypectomy. Past Anesthesia/Blood Transfusion Reactions: No Reported Reaction Additional Past Anesthesia/Blood Transfusion Reaction / Comment(s): Mild Claustrophobia with MRI'S. Date of Last Stent Placement:: unknown Past Psychological History: Bipolar, Depression Smoking Status: Current every day smoker Past Alcohol Use History: None Reported Past Drug Use History: None Reported - Past Family History Mother Family Medical History: Cancer Father Family Medical History: Coronary Artery Disease (CAD), Myocardial Infarction ([place]) Additional Family Medical History / Comment(s): CABG. Sister(s) Family Medical History: Coronary Artery Disease (CAD) Additional Family Medical History / Comment(s): CABG. Brother(s) Family Medical History: Cancer, Coronary Artery Disease (CAD) Additional Family Medical History / Comment(s): CABG. General Exam - General Exam Comments Initial Comments: Nontoxic appearing male in no distress. Patient does not appear to be in any distress. Limitations: no limitations General appearance: alert, in no apparent distress Head exam: Present: atraumatic, normocephalic, normal inspection Eye exam: Present: normal appearance, PERRL, EOMI. Absent: scleral icterus, conjunctival injection, periorbital swelling ENT exam: Present: normal exam, mucous membranes moist Neck exam: Present: normal inspection. Absent: tenderness, meningismus, lymphadenopathy Respiratory exam: Present: normal lung sounds bilaterally. Absent: respiratory distress, wheezes, rales, rhonchi, stridor Cardiovascular Exam: Present: regular rate, normal rhythm, normal heart sounds. Absent: systolic murmur, diastolic murmur, rubs, gallop, clicks GI/Abdominal exam: Present: soft, normal bowel sounds. Absent: distended, tenderness, guarding, rebound, rigid Extremities exam: Present: normal inspection, full ROM, normal capillary refill. Absent: tenderness, pedal edema, joint swelling, calf tenderness Back exam: Present: normal inspection Neurological exam: Present: alert, oriented X3, CN II-XII intact Psychiatric exam: Present: normal affect, normal mood Skin exam: Present: warm, dry, intact, normal color. Absent: rash Course Vital Signs 09/04/21 09/05/21 21:27 00:09 Temperature 98.4 F Pulse Rate 81 78 Respiratory 20 18 Rate Blood Pressure 138/61 147/72 O2 Sat by Pulse 98 98 Oximetry - Reevaluation(s) Reevaluation #1: 09/05/21 00:13 Medical record is reviewed Symptoms are improved here in the emergency department Patient is informed of results and questions answered Patient in no distress Patient is asymptomatic. Blood sugar is down to 364. Remainder of vital signs are stable. Medical Decision Making - Medical Decision Making Patient presents with what appears to be an isolated case of hyperglycemia. Likely related to diet and not taking medications appropriately. Order basic labs, hydration, plan for reevaluation. Patient is asymptomatic with a blood sugar down to 364. Given the fact that the patient took his Lantus at home I'm not going to drive the glucose down anymore at this time. We will have the patient start monitoring his glucose tomorrow and take his medications as directed. I'm going to have the patient call his regular physician tomorrow without fail. The case was discussed in detail with ED attending physician. Presentation, findings, treatment plan discussed in detail. Follow-up with your regular physician as directed. Return to the ER immediately if any symptoms worsen, new symptoms arise, or any other problems develop. Patient's venous pH was 7.39. Acetone was negative. - Lab Data Result diagrams: 09/04/21 Unknown 09/04/21 Unknown Lab Results 09/04/21 09/04/21 09/04/21 Range/Units 21:47 22:06 23:08 WBC (3.8-10.6) k/uL RBC (4.30-5.90) m/uL Hgb (13.0-17.5) gm/dL Hct (39.0-53.0) % MCV (80.0-100.0) fL MCH (25.0-35.0) pg MCHC (31.0-37.0) g/dL RDW (11.5-15.5) % Plt Count (150-450) k/uL MPV Neutrophils % % Lymphocytes % % Monocytes % % Eosinophils % % Basophils % % Neutrophils # (1.3-7.7) k/uL Lymphocytes # (1.0-4.8) k/uL Monocytes # (0-1.0) k/uL Eosinophils # (0-0.7) k/uL Basophils # (0-0.2) k/uL Hypochromasia VBG pH 7.39 (7.31-7.41) VBG pCO2 42 (37-51) mmHg VBG HCO3 25 (24-28) mmol/L Sodium (137-145) mmol/L Potassium (3.5-5.1) mmol/L Chloride (98-107) mmol/L Carbon Dioxide (22-30) mmol/L Anion Gap mmol/L BUN (9-20) mg/dL Creatinine (0.66-1.25) mg/dL Est GFR (CKD-EPI)AfAm (>60 ml/min/1.73 sqM) Est GFR (CKD-EPI)NonAf (>60 ml/min/1.73 sqM) Glucose (74-99) mg/dL POC Glucose (mg/dL) 405 H (75-99) mg/dL POC Glu [employer]coding Center Manager ID Kirstin Victoria Calcium (8.4-10.2) mg/dL Total Bilirubin (0.2-1.3) mg/dL AST (17-59) U/L ALT (4-49) U/L Alkaline Phosphatase (38-126) U/L Total Protein (6.3-8.2) g/dL Albumin (3.5-5.0) g/dL Urine Color Light Yellow Urine Appearance Clear (Clear) Urine pH 5.0 (5.0-8.0) Ur Specific Tell 1.028 (1.001-1.035) Urine Protein Trace H (Negative) Urine Glucose (UA) 4+ H (Negative) Urine Ketones Negative (Negative) Urine Blood Negative (Negative) Urine Nitrite Negative (Negative) Urine Bilirubin Negative (Negative) Urine Urobilinogen <2.0 (<2.0) mg/dL Ur Leukocyte Esterase Negative (Negative) Acetone, Qual (Negative) 09/04/21 09/04/21 09/05/21 Range/Units Unknown Unknown 00:06 WBC 7.1 (3.8-10.6) k/uL RBC 4.06 L (4.30-5.90) m/uL Hgb 11.1 L (13.0-17.5) gm/dL Hct 35.2 L (39.0-53.0) % MCV 86.7 (80.0-100.0) fL MCH 27.4 (25.0-35.0) pg MCHC 31.6 (31.0-37.0) g/dL RDW 15.8 H (11.5-15.5) % Plt Count 194 (150-450) k/uL MPV 7.6 Neutrophils % 62 % Lymphocytes % 29 % Monocytes % 4 % Eosinophils % 3 % Basophils % 1 % Neutrophils # 4.4 (1.3-7.7) k/uL Lymphocytes # 2.1 (1.0-4.8) k/uL Monocytes # 0.3 (0-1.0) k/uL Eosinophils # 0.2 (0-0.7) k/uL Basophils # 0.1 (0-0.2) k/uL Hypochromasia Slight VBG pH (7.31-7.41) VBG pCO2 (37-51) mmHg VBG HCO3 (24-28) mmol/L Sodium 134 L (137-145) mmol/L Potassium 4.6 (3.5-5.1) mmol/L Chloride 102 (98-107) mmol/L Carbon Dioxide 22 (22-30) mmol/L Anion Gap 10 mmol/L BUN 27 H (9-20) mg/dL Creatinine 1.28 H (0.66-1.25) mg/dL Est GFR (CKD-EPI)AfAm 63 (>60 ml/min/1.73 sqM) Est GFR (CKD-EPI)NonAf 55 (>60 ml/min/1.73 sqM) Glucose 408 H (74-99) mg/dL POC Glucose (mg/dL) 364 H (75-99) mg/dL POC Glu Remote Encoding Center Manager ID CandyKristine rivera Calcium 8.6 (8.4-10.2) mg/dL Total Bilirubin 0.4 (0.2-1.3) mg/dL AST 12 L (17-59) U/L ALT 9 (4-49) U/L Alkaline Phosphatase 85 (38-126) U/L Total Protein 6.4 (6.3-8.2) g/dL Albumin 3.7 (3.5-5.0) g/dL Urine Color Urine Appearance (Clear) Urine pH (5.0-8.0) Ur Specific Tell (1.001-1.035) Urine Protein (Negative) Urine Glucose (UA) (Negative) Urine Ketones (Negative) Urine Blood (Negative) Urine Nitrite (Negative) Urine Bilirubin (Negative) Urine Urobilinogen (<2.0) mg/dL Ur Leukocyte Esterase (Negative) Acetone, Qual Negative (Negative) Disposition Clinical Impression: Hyperglycemia due to type 2 diabetes mellitus, Noncompliance with medication regimen Disposition: HOME SELF-CARE Condition: Good Instructions (If sedation given, give patient instructions): Diabetic Hyperglycemia (ED) Additional Instructions: Monitor here blood sugars at home as directed by your primary care physician. Call your regular doctor in the morning for a follow-up appointment. Follow-up with your regular physician as directed. Return to the ER immediately if any symptoms worsen, new symptoms arise, or any other problems develop. Is patient prescribed a controlled substance at d/c from ED?: No Referrals: Kane Pryor DO [Primary Care Provider] - 09/05/21 8:00 am Time of Disposition: 00:15
[2021-09-04 22:15] LABS: VBG PH 7.39 (7.31-7.41)
[2021-09-04 22:25] LABS: Basophils # (A) 0.1 k/uL (0-0.2); Basophils % (A) 1 %; Eosinophils # (A) 0.2 k/uL (0-0.7); Eosinophils % (A) 3 %; HCT 35.2 % (39.0-53.0); HGB 11.1 gm/dL (13.0-17.5); Hypochromasia Slight; Lymphocytes # (A) 2.1 k/uL (1.0-4.8); Lymphocytes % (A) 29 %; MCH 27.4 pg (25.0-35.0); MCHC 31.6 g/dL (31.0-37.0); MCV 86.7 fL (80.0-100.0); Mean Platelet Volume 7.6; Monocytes # (A) 0.3 k/uL (0-1.0); Monocytes % (A) 4 %; Neutrophils # (A) 4.4 k/uL (1.3-7.7); Neutrophils % (A) 62 %; Platelet Count 194 k/uL (150-450); RBC 4.06 m/uL (4.30-5.90); RDW 15.8 % (11.5-15.5); WBC 7.1 k/uL (3.8-10.6)
[2021-09-04 22:30] LABS: ALT 9 U/L (4-49); AST 12 U/L (17-59); African American GFR (CKD) 63 (>60 ml/min/1.73 sqM); Albumin 3.7 g/dL (3.5-5.0); Alkaline Phosphatase 85 U/L (38-126); Anion Gap 10 mmol/L; Blood Urea Nitrogen 27 mg/dL (9-20); Calcium 8.6 mg/dL (8.4-10.2); Carbon Dioxide 22 mmol/L (22-30); Chloride 102 mmol/L (98-107); Glucose 408 mg/dL (74-99); Non-African American GFR(CKD) 55 (>60 ml/min/1.73 sqM); Potassium 4.6 mmol/L (3.5-5.1); Sodium 134 mmol/L (137-145); Total Bilirubin 0.4 mg/dL (0.2-1.3); Total Protein 6.4 g/dL (6.3-8.2)
[2021-09-04 23:15] LABS: Appearance,Urine Clear (Clear); Bilirubin,Urine Negative (Negative); Blood,Urine Negative (Negative); Color,Urine Light Yellow; Glucose,Urine (UA) 4+ (Negative); Ketones,Urine Negative (Negative); Leukocyte Esterase,Urine Negative (Negative); Nitrite,Urine Negative (Negative); Protein,Urine Trace (Negative); Specific Gravity,Urine 1.028 (1.001-1.035); Urobilinogen,Urine <2.0 mg/dL (<2.0)
[2021-09-05 00:09] VITALS: BP 147/72; PULSE 78; RESP 18
[2021-09-05 00:09] LABS: Glucose,Whole Blood 364 mg/dL (75-99)
== END 2021-09-05 00:27 | disposition home or self-care (01) ==
LOC: EC 21:22
DX: E11.65 Type 2 diabetes mellitus with hyperglycemia (principal); Z91.14 Patient's other noncompliance with medication regimen; I25.10 Atherosclerotic heart disease of native coronary artery without angina pectoris; J44.9 Chronic obstructive pulmonary disease, unspecified; E78.5 Hyperlipidemia, unspecified; I25.2 Old myocardial infarction; E11.40 Type 2 diabetes mellitus with diabetic neuropathy, unspecified; M81.0 Age-related osteoporosis without current pathological fracture; F31.9 Bipolar disorder, unspecified; F17.200 Nicotine dependence, unspecified, uncomplicated; Z86.73 Personal history of transient ischemic attack (TIA), and cerebral infarction without residual deficits; Z86.718 Personal history of other venous thrombosis and embolism; Z95.1 Presence of aortocoronary bypass graft; Z95.5 Presence of coronary angioplasty implant and graft; Z79.01 Long term (current) use of anticoagulants; Z79.84 Long term (current) use of oral hypoglycemic drugs; Z79.82 Long term (current) use of aspirin; Z79.899 Other long term (current) drug therapy
CPT/HCPCS: 36415; 80053; 81003; 82009; 82803; 85025; 96360; 96361; 99283

== ENCOUNTER 2022-02-06 12:43 | Emergency (ER) | payer MEDICARE ==
--- NOTE | 2022-02-06 13:26 | ED ---
General Adult HPI - General Stated complaint: Syncope Time Seen by Provider: 02/06/22 12:43 Source: patient, RN notes reviewed, old records reviewed - History of Present Illness Initial comments: This is a 76-year-old male who presents emergency department with past medical history significant for diabetes. Patient states he took his insulin this morning as he normally does but he usually has something small to eat in the [place] but he did not today and at lunch he started to eat something but felt lightheaded and almost passed out and at that point time it only eaten part of the family's. Patient states he slowly came around he did urinate on himself and called EMS at this point she was afraid he was going to pass out completely. Patient states he remembers the whole event never completely passed out but felt like he wanted to. Patient states currently he has no symptoms. When EMS arrived and he gently with he did vomit times one and his sugar at that point was 200. Patient states he has no symptoms at this time. Patient states it is abnormal for him not to eat earlier. Patient denies recently being sick with fever chills or cough. stated he had no completely unconscious episode and he had no episode of clonic tonic movements. Patient has no history of seizure. Patient denies headache chest pain difficulty breathing or shortness of breath currently. - Related Data Home Medications Medication Instructions Recorded Confirmed PARoxetine [Paxil] 20 mg PO BID 07/12/18 02/06/22 metFORMIN HCL [Glucophage] 1,000 mg PO W/SUPPER 07/12/18 02/06/22 Clopidogrel [Plavix] 75 mg PO DAILY 06/27/21 02/06/22 Famotidine 20 mg PO BID 06/27/21 02/06/22 Empagliflozin [Jardiance] 25 mg PO DAILY 02/06/22 02/06/22 Pioglitazone [Actos] 30 mg PO DAILY 02/06/22 02/06/22 metFORMIN HCL 500 mg PO W/BRKFST 02/06/22 02/06/22 Previous Rx's Medication Instructions Recorded Atorvastatin [Lipitor] 80 mg PO HS #30 tab 03/23/20 Divalproex [Depakote] 500 mg PO BID #60 tablet. 04/01/20 Allergies Allergy/AdvReac Type Severity Reaction Status Date / Time No Known Allergies Allergy Verified 02/06/22 13:54 Review of Systems ROS Statement: Those systems with pertinent positive or pertinent negative responses have been documented in the HPI. ROS Other: All systems not noted in ROS Statement are negative. Past Medical History Past Medical History: Coronary Artery Disease (CAD), Chest Pain / Angina, COPD, CVA/TIA, Diabetes Mellitus, Deep Vein Thrombosis (DVT), Hyperlipidemia, My ocardial Infarction ([place]), Musculoskeletal Disorder, Syncope, Vascular Disorder Additional Past Medical History / Comment(s): CVA X2, last 2018, recovered. Diabetic neuropathy feet, osteoporosis. Blockage in right leg. Last Myocardial Infarction Date:: 2006 History of Any Multi-Drug Resistant Organisms: None Reported Past Surgical History: Coronary Bypass/CABG, Heart Catheterization With Stent Additional Past Surgical History / Comment(s): Quadruple bypass-2010, "surgery to left leg-graft to restore criculation", colonoscopy/polypectomy. Past Anesthesia/Blood Transfusion Reactions: No Reported Reaction Additional Past Anesthesia/Blood Transfusion Reaction / Comment(s): Mild Claustrophobia with MRI'S. Date of Last Stent Placement:: unknown Past Psychological History: Bipolar, Depression Smoking Status: Current every day smoker Past Alcohol Use History: None Reported Past Drug Use History: None Reported - Past Family History Mother Family Medical History: Cancer Father Family Medical History: Coronary Artery Disease (CAD), Myocardial Infarction ([place]) Additional Family Medical History / Comment(s): CABG. Sister(s) Family Medical History: Coronary Artery Disease (CAD) Additional Family Medical History / Comment(s): CABG. Brother(s) Family Medical History: Cancer, Coronary Artery Disease (CAD) Additional Family Medical History / Comment(s): CABG. General Exam - General Exam Comments Initial Comments: GENERAL: Patient is well-developed and well-nourished. Patient is nontoxic and well-hydrated and is in no acute distress. ENT: Neck is soft and supple. No significant lymphadenopathy is noted. Oropharynx is clear. Moist mucous membranes. Neck has full range of motion without eliciting any pain. EYES: The sclera were anicteric and conjunctiva were pink and moist. Extraocular mov ements were intact and pupils were equal round and reactive to light. Eyelids were unremarkable. PULMONARY: Unlabored respirations. Good breath sounds bilaterally. No audible rales rhonchi or wheezing was noted. CARDIOVASCULAR: There is a regular rate and rhythm without any murmurs gallops or rubs. ABDOMEN: Soft and nontender with normal bowel sounds. SKIN: Skin is clear with no lesions or rashes and otherwise unremarkable. NEUROLOGIC: Patient is alert and oriented x3. Cranial nerves II through XII are grossly intact. Motor and sensory are also intact. Normal speech, volume and content. Symmetrical smile. MUSCULOSKELETAL: Normal extremities with adequate strength and full range of motion. LYMPHATICS: No significant lymphadenopathy is noted PSYCHIATRIC: Normal psychiatric evaluation. Course Vital Signs 02/06/22 02/06/22 12:54 14:15 Temperature 97.8 F Pulse Rate 68 58 L Respiratory 18 16 Rate Blood Pressure 136/63 126/58 O2 Sat by Pulse 96 97 Oximetry Medical Decision Making - Medical Decision Making EKG shows sinus rhythm at 64 bpm DC interval 144 QRS is 97 QT intervals 410 QTC is 420. Patient's EKG shows no ST segment elevation or depression. Chest x-ray shows no acute abnormality. I went back in and reevaluated the patient a couple of occasions. Patient had no symptoms throughout his ED stay. I suggested the patient stay in the emergency department but patient stated that he had passed out multiple times in the past about comfortable going home his stated she would be home with him and she was comfortable taking home. - Lab Data Result diagrams: 02/06/22 13:38 02/06/22 13:38 Lab Results 02/06/22 02/06/22 02/06/22 Range/Units 13:38 13:38 13:38 WBC 7.9 (3.8-10.6) k/uL RBC 4.16 L (4.30-5.90) m/uL Hgb 11.1 L (13.0-17.5) gm/dL Hct 35.8 L (39.0-53.0) % MCV 86.2 (80.0-100.0) fL MCH 26.7 (25.0-35.0) pg MCHC 31.0 (31.0-37.0) g/dL RDW 15.4 (11.5-15.5) % Plt Count 189 (150-450) k/uL MPV 7.3 Neutrophils % 76 % Lymphocytes % 16 % Monocytes % 4 % Eosinophils % 2 % Basophils % 1 % Neutrophils # 6.1 (1.3-7.7) k/uL Lymphocytes # 1.3 (1.0-4.8) k/uL Monocytes # 0.3 (0-1.0) k/uL Eosinophils # 0.2 (0-0.7) k/uL Basophils # 0.1 (0-0.2) k/uL Hypochromasia Slight Sodium 137 (137-145) mmol/L Potassium 4.1 (3.5-5.1) mmol/L Chloride 113 H (98-107) mmol/L Carbon Dioxide 20 L (22-30) mmol/L Anion Gap 4 mmol/L BUN 20 (9-20) mg/dL Creatinine 1.18 (0.66-1.25) mg/dL Est GFR (CKD-EPI)AfAm 70 (>60 ml/min/1.73 sqM) Est GFR (CKD-EPI)NonAf 60 (>60 ml/min/1.73 sqM) Glucose 175 H (74-99) mg/dL Calcium 8.1 L (8.4-10.2) mg/dL Magnesium 1.9 (1.6-2.3) mg/dL Total Bilirubin 0.3 (0.2-1.3) mg/dL AST 15 L (17-59) U/L ALT 10 (4-49) U/L Alkaline Phosphatase 72 (38-126) U/L Troponin I <0.012 (0.000-0.034) ng/mL Total Protein 6.2 L (6.3-8.2) g/dL Albumin 3.5 (3.5-5.0) g/dL Disposition Clinical Impression: Near syncope Disposition: HOME SELF-CARE Condition: Good Instructions (If sedation given, give patient instructions): Near Syncope (ED) Additional Instructions: Patient should return to the emergency room if he has any similar symptoms or any new or worsening symptoms. Particularly chest pain shortness of breath or difficulty breathing. Is patient prescribed a controlled substance at d/c from ED?: No Referrals: Kane Pryor DO [Primary Care Provider] - 1-2 days Time of Disposition: 15:50
[2022-02-06] MEDS ORDERED: ACETAMINOPHEN TAB 500 MG TAB PO STA (13:27)
[2022-02-06] MEDS ORDERED: PROPRANOLOL 1 MG/ML 1 ML VIAL IV STA (13:29)
[2022-02-06 13:48] LABS: Basophils # (A) 0.1 k/uL (0-0.2); Basophils % (A) 1 %; Eosinophils # (A) 0.2 k/uL (0-0.7); Eosinophils % (A) 2 %; HCT 35.8 % (39.0-53.0); HGB 11.1 gm/dL (13.0-17.5); Hypochromasia Slight; Lymphocytes # (A) 1.3 k/uL (1.0-4.8); Lymphocytes % (A) 16 %; MCH 26.7 pg (25.0-35.0); MCV 86.2 fL (80.0-100.0); Mean Platelet Volume 7.3; Monocytes # (A) 0.3 k/uL (0-1.0); Monocytes % (A) 4 %; Neutrophils # (A) 6.1 k/uL (1.3-7.7); Neutrophils % (A) 76 %; Platelet Count 189 k/uL (150-450); RBC 4.16 m/uL (4.30-5.90); RDW 15.4 % (11.5-15.5); WBC 7.9 k/uL (3.8-10.6)
--- NOTE | 2022-02-06 13:57 | XR ---
EXAMINATION TYPE: XR chest 2V DATE OF EXAM: 02/06/2022 COMPARISON: 03/26/2020 TECHNIQUE: PA and lateral views submitted. HISTORY: Pain FINDINGS: The lungs are clear and there is no pneumothorax, pleural effusion, or focal pneumonia. Postsurgica l changes. Atherosclerotic change aorta. Hypertrophic degenerative change of the spine. Hyperinflatio n suggests COPD. Biapical pleural thickening. IMPRESSION: 1. No acute process. Correlate for COPD.
[2022-02-06 14:02] LABS: Albumin 3.5 g/dL (3.5-5.0); Calcium 8.1 mg/dL (8.4-10.2); Magnesium 1.9 mg/dL (1.6-2.3); Potassium 4.1 mmol/L (3.5-5.1); Total Bilirubin 0.3 mg/dL (0.2-1.3); Total Protein 6.2 g/dL (6.3-8.2)
[2022-02-06 15:52] VITALS: BP 169/87; RESP 18; TEMP 98
[2022-02-06 15:54] VITALS: PULSE 75
== END 2022-02-06 16:06 | disposition home or self-care (01) ==
LOC: EC 12:43
DX: R55 Syncope and collapse (principal); E11.40 Type 2 diabetes mellitus with diabetic neuropathy, unspecified; I25.2 Old myocardial infarction; I25.10 Atherosclerotic heart disease of native coronary artery without angina pectoris; J44.9 Chronic obstructive pulmonary disease, unspecified; E78.5 Hyperlipidemia, unspecified; F31.9 Bipolar disorder, unspecified; F17.200 Nicotine dependence, unspecified, uncomplicated; Z86.73 Personal history of transient ischemic attack (TIA), and cerebral infarction without residual deficits; Z86.718 Personal history of other venous thrombosis and embolism; Z79.84 Long term (current) use of oral hypoglycemic drugs; Z79.02 Long term (current) use of antithrombotics/antiplatelets; Z79.899 Other long term (current) drug therapy
CPT/HCPCS: 36415; 71046; 80053; 83735; 84484; 85025; 93005; 99284

== ENCOUNTER 2023-05-27 19:46 | Outpatient (CLI) | payer MEDICARE ==
--- NOTE | 2023-05-28 16:36 | P.PCN ---
Description of Procedure: POLYSOMNOGRAPHY REPORT PROCEDURE(S)/DATE(S): Polysomnography 05/27/2023 CLINICAL: Patient has been seen in the sleep center for evaluation of obstructive sleep apnea-hypopnea syndrome. Please see my consultation. Sleep study has been done for evaluation of patient breathing during the sleep. PROCEDURE: The standard montage for clinical polysomnography included the electroencephalogram, the electrooculogram, the mentalis surface electromyography and Lead II cardiography. The respiratory battery consisted of measurements of nasal/buccal air flow, pressure transducer measurements from nose, thoracic and/or abdominal effort and intercostal surface electromyography. Video monitoring has been done to check for any parasomnia events. Nocturnal oxyhemoglobin saturations were obtained by finger oximetry. Step-queen titration with positive airway pressure was utilized to control the respiratory events, if necessary. RESULTS: During the diagnostic sleep study sleep efficiency was extremely short 55.2 %. Latency to sleep onset was significantly prolonged to 88.5 min. Sleep architecture showed stage NI was increased to 12.5 %, Delta sleep was absent 0 %, REM sleep was extremely short 3.3 %. Respiratory channel showed 1 obstructive apneas, 0 mixed apneas, 4 central ap neas, 35 hypopneas with lowest oxygen level 89%. Total apnea hypopnea index was 10.5. Heart rate was in the range between 66 and 73, average 69. EMG showed 110 periodic limb movements per hour with 0 micro-arousals per hour. IMPRESSIONS: 1. Obstructive sleep apnea hypopnea syndrome in mild range. 2. Severe periodic limb movements have been documented. 3. Status post 2 strokes with slight residual left-sided weakness. 4. Hypertension 5. Coronary artery disease, status post CABG. Please see other impressions from consultation PLAN: 1. The patient will have AutoPAP treatment for correction of respiratory abnormalities during the sleep. 2. I will see patient for follow-up visit to discuss results of the test, check compliance with treatment and make in this adjustments related to mask fitting pressure and humidification.. 3. Sleep hygiene with regular time in bed for at least 7-1/2 hours. 4. No driving if feeling sleepiness. 5. Please check iron profile including ferritin level. Low level of iron may increase the risk for periodic limb movements. 7. Patient may need pharmacotherapy for periodic limb movements, if it will be clinically necessary. Thank you very much for allowing me to participate in the management of your patient. Sincerely, John Palacios MD, PhD, FAASM. Diplomat of [employer], Sleep Medicine Board by [employer] [facility] [facility] [place]
== END 2023-05-28 06:00 | disposition home or self-care (01) ==
LOC: 3 N SLEEP 19:46
PROVIDERS: ATTEND Internal Medicine
DX: G47.33 Obstructive sleep apnea (adult) (pediatric) (principal); G47.61 Periodic limb movement disorder; I10 Essential (primary) hypertension; F17.200 Nicotine dependence, unspecified, uncomplicated; I25.10 Atherosclerotic heart disease of native coronary artery without angina pectoris; Z95.1 Presence of aortocoronary bypass graft; Z86.73 Personal history of transient ischemic attack (TIA), and cerebral infarction without residual deficits; Z79.02 Long term (current) use of antithrombotics/antiplatelets
CPT/HCPCS: 95810

== ENCOUNTER → 2023-11-18 | Outpatient (CLI) | payer MEDICARE ==
--- NOTE | 2023-11-18 13:02 | FL ---
COMPARISON: NONE DATE OF EXAM: 11/18/2023 HISTORY: Dysphagia A number of thin and thick substances were ingested under the care of the department of speech pathol ogy. There is no evidence of aspiration. There was penetration transiently with thin barium vallecul ar and piriform residuals. There is no evidence of obstruction. DAP are not provided. No images submitted. 1 minute 16 seconds of fluoroscopy time. IMPRESSION: 1. No evidence of aspiration. Transient penetration with thin barium.
== END | disposition home or self-care (01) ==
LOC: RADFLMAIN 10:57
PROVIDERS: ATTEND Family Medicine
DX: T17.928D Food in respiratory tract, part unspecified causing other injury, subsequent encounter (principal)
CPT/HCPCS: 74230

== ENCOUNTER → 2024-07-25 | Outpatient (CLI) | payer MEDICARE ==
[2024-07-25 15:16] LABS: African American GFR (CKD) 71 (>60 ml/min/1.73 sqM); Blood Urea Nitrogen 22 mg/dL (9-20); Non-African American GFR(CKD) 61 (>60 ml/min/1.73 sqM)
--- NOTE | 2024-07-25 17:09 | CT ---
EXAMINATION TYPE: CT abdomen pelvis w con DATE OF EXAM: 07/25/2024 COMPARISON: None. CLINICAL INDICATION: Male, 79 years old with history of R63.4 Abn Weight loss; PHH, Weightloss > 20 l bs x 1 month. No diet changes TECHNIQUE: Performed with Oral Contrast and with IV Contrast, patient injected with 80 mL of Isovue 300. CT DLP: 567.9 mGycm Automated exposure control for dose reduction was used. FINDINGS: LUNG BASES: Patchy groundglass opacity periphery of the left lung base are seen. LIVER/GB: No significant abnormality is appreciated. PANCREAS: No significant abnormality is seen. SPLEEN: No significant abnormality is seen. ADRENALS: Low dense thickening consistent with adrenal gland favors benign lipid rich hyperplasia. KIDNEYS: No significant abnormality is seen. FREE AIR: No free air is visualized. RETROPERITONEAL ADENOPATHY: None visualized REPRODUCTIVE ORGANS: Slightly enlarged prostate consistent with DDH URINARY BLADDER: No significant abnormality is seen. PELVIC ADENOPATHY: None visualized. OSSEOUS STRUCTURES: Vacuum disc phenomenon with mild to moderate disc space narrowing at L5-S1 level . BOWEL: The oral contrast reaches the level of the hepatic flexure. No abnormal small or large bowel dilatation. OTHER: Stent graft in the infrarenal abdominal aorta is noted extending into bilateral common iliac a rteries. IMPRESSION: NO SUSPICIOUS MASS OR ADENOPATHY TO SUGGEST NEOPLASM. SUBTLE PERIPHERAL GROUNDGLASS OPACITIES LEFT DANTE NG BASE COULD REFLECT ACUTE INFILTRATES, CORRELATE CLINICALLY, OTHERWISE NO ACUTE FINDINGS ARE SEEN. [facility], , 07/25/2024 5:07 PM
== END | disposition home or self-care (01) ==
LOC: RADCTMAIN 14:29
PROVIDERS: ATTEND Family Medicine
DX: R91.8 Other nonspecific abnormal finding of lung field (principal); R63.4 Abnormal weight loss
CPT/HCPCS: 82565; 84520; 74177; 36415; Q9967

== ENCOUNTER → 2024-10-27 | Outpatient (CLI) | payer MEDICARE ==
--- NOTE | 2024-10-27 15:08 | CTL ---
EXAMINATION TYPE: CT Low Dose Lung DATE OF EXAM ORDERED: 10/27/2024 COMPARISON: None CLINICAL INDICATION: Male, 79 years old with history of Z12.2 SCREENING F17.210 CURRENT SMOKER; [facility], Lung CA screening smoker for 50 years, Lung cancer screening, History of Smoking/tobacco use. TECHNIQUE: Low dose computed tomography scan was performed through the chest at 1 mm thick sections a nd reconstructed images in multiple planes at 1 mm and [address] DLP: [address] CTDI: 1.68 mGy Automated exposure control for dose reduction was used. CT DIAGNOSTIC QUALITY: Satisfactory EXAMINATION TYPE: CT Low Dose Lung DATE OF EXAM ORDERED: 10/27/2024 CLINICAL INDICATION: Male, 79 years old with history of Z12.2 SCREENING F17.210 CURRENT SMOKER, histo ry of tobacco use, Lung cancer screening CT DLP: [address] CTDI: 1.68 mGy Automated exposure control for dose reduction was used. Comparison: None TECHNIQUE: Low dose computed tomography scan was performed through the chest at 1 mm thick sections a nd reconstructed images in multiple planes at 1 mm and [address] DIAGNOSTIC QUALITY: Satisfactory FINDINGS: There is no suspicious lung mass or nodule. There is a small focal calcification associated with the right fissure. The lungs are clear and there is no abnormal airspace consolidation or interstitial density. There is no mediastinal, hilar or axillary adenopathy. There is no pleural effusion, pleural thickening or pneumothorax. No focal osseous lesions are seen. Limited scans the upper abdomen reveals no gross abnormality IMPRESSION: 1. Lung rads Category 1 negative. Continue routine screening at yearly intervals. 2. No acute cardiopulmonary disease. [facility], , 10/27/2024 3:05 PM
== END | disposition home or self-care (01) ==
LOC: RADCTMAIN 13:25
PROVIDERS: ATTEND Family Medicine
DX: Z12.2 Encounter for screening for malignant neoplasm of respiratory organs (principal); F17.210 Nicotine dependence, cigarettes, uncomplicated
CPT/HCPCS: 71271